=== PATIENT | female | born 1965 | race Caucasian/White ===

== ENCOUNTER 2016-10-08 16:49 | Emergency (ER) | payer OTHER ==
[2016-10-08 16:53] VITALS: BP 122/75; PULSE 93; TEMP 98; BMI 36.0
[2016-10-08] MEDS ORDERED: CEPHALEXIN MONOHYDRATE 500 MG CAPSULE (UD) ONE (17:49)
--- NOTE | 2016-10-08 17:57 | PDOC ---
History of Present Illness - General Chief Complaint: Pain Stated Complaint: WOUND Time Seen by Provider: 10/08/16 17:00 History Source: Patient - History of Present Illness Occurred: reports: this afternoon Severity: Yes: moderate Lower Extremity Pain Location: right: 5th toe Past History - Past Medical History Allergies/Adverse Reactions: Allergies Allergy/AdvReac Type Severity Reaction Status Date / Time Penicillins Allergy Severe Hives Verified 10/08/16 16:53 Home Medications: Ambulatory Orders Aspirin [ASA -] 81 mg PO DAILY 12/26/11 Metoprolol Succinate [Toprol XL -] 50 mg PO DAILY 12/26/11 Valsartan [Diovan] 160 mg PO DAILY 12/26/11 Milk Thistle 150 mg PO DAILY 02/27/14 Vitamin E 1,000 unit PO DAILY 02/27/14 Insulin Glargine,Hum.rec.anlog [Toujeo Solostar] 50 unit SQ DAILY 12/21/15 Insulin Lispro [Humalog] 8 units SQ HS 12/21/15 Linagliptin/Metformin HCl [Jentadueto 2.5 mg-850 mg Tab] 1 each PO BID 12/21/15 Rosuvastatin Calcium [Crestor] 20 mg PO HS 12/21/15 Clindamycin [Cleocin -] 300 mg PO Q6HPO #28 capsule 10/08/16 Anemia: No Asthma: Yes Cancer: No Cardiac Disorders: No CVA: No COPD: No CHF: No Dementia: No Diabetes: Yes GI Disorders: Yes (ACID REFLUX AT TIMES) Disorders: No HTN: Yes Hypercholesterolemia: Yes Kidney Stones: Yes Liver Disease: No Suicide Attempt (Hx): No Seizures: No Thyroid Disease: No - Surgical History Abdominal Surgery: No Appendectomy: No Cardiac Surgery: No Cholecystectomy: No Lung Surgery: No Neurologic Surgery: No Orthopedic Surgery: Yes (ARTHROSCOPIC SHOULDER - LEFT; CARPAL TUNNEL RIGHT HAND) - Immunization History Immunization Up to Date: Yes - Psycho/Social/Smoking Cessation Hx Anxiety: No Suicidal Ideation: No Smoking Status: Yes Smoking History: Current every day smoker Have you smoked in the past 12 months: Yes Number of Cigarettes Smoked Daily: 10 Information on smoking cessation initiated: No 'Breaking Loose' booklet given: 01/12/16 Hx Alcohol Use: No Drug/Substance Use Hx: No Substance Use Type: None Hx Substance Use Treatment: No Review of Systems - Review of Systems Constitutional: No: Chills, Fever Musculoskeletal: Yes: Joint Pain, Joint Swelling *Physical Exam - Vital Signs Last Vital Signs Temp Pulse Resp BP Pulse Ox 98 F 93 H 18 122/75 99 10/08/16 16:50 10/08/16 16:50 10/08/16 16:50 10/08/16 16:50 10/08/16 16:50 - Physical Exam General Appearance: Yes: Appropriately Dressed. No: Apparent Distress HEENT: positive: Normal Voice Neck: positive: Supple Respiratory/Chest: negative: Respiratory Distress Gastrointestinal/Abdominal: positive: Soft Extremity: positive: Other (minimal localized swelling w/ sig ttp to paronychia of R 5th digit, no pus visualized) Integumentary: positive: Dry, Warm Neurologic: positive: Fully Oriented, Alert, Normal Mood/Affect Medical Decision Making - Medical Decision Making 10/08/16 17:57 51 yo F, h/o DM, p/w pain and swelling to R 5th digit that started several hrs ago. No trauma. No f/c See exam Early paronychia in a diabetic No pus to I&D -dc w/ warm compress and abx -wound check in 48 hrs *DC/Admit/Observation/Transfer Diagnosis at time of Disposition: Paronychia Qualifiers: Laterality: right Qualified Code(s): L03.011 - Cellulitis of right finger - Discharge Dispostion Disposition: HOME Condition at time of disposition: Good - Prescriptions Prescriptions: Clindamycin [Cleocin -] 300 mg PO Q6HPO #28 capsule - Referrals Referrals: Layne Moffett MD [Primary Care Provider] - - Patient Instructions Printed Discharge Instructions: DI for Paronychia Additional Instructions: Apply warm compresses to site 3-4 times a day and take antibiotics as directed Return to ED in 48 hrs for wound check
[2016-10-08] MEDS ORDERED: CEPHALEXIN MONOHYDRATE 500 MG CAPSULE (UD) PO ONE (18:04)
== END 2016-10-08 18:54 | disposition home or self-care (01) ==
LOC: JERFT 16:49
DX: L03.011 Cellulitis of right finger (principal); I10 Essential (primary) hypertension; E11.9 Type 2 diabetes mellitus without complications; Z79.4 Long term (current) use of insulin; E78.00 Pure hypercholesterolemia, unspecified; L21.9 Seborrheic dermatitis, unspecified; F17.210 Nicotine dependence, cigarettes, uncomplicated
CPT/HCPCS: 99281-25

== ENCOUNTER 2016-10-10 10:52 | Emergency (ER) | payer OTHER ==
[2016-10-10 10:59] VITALS: BP 132/80; PULSE 85; TEMP 98.1; BMI 36.0
--- NOTE | 2016-10-10 11:10 | PDOC ---
History of Present Illness - General Chief Complaint: Revisit,Wound Recheck Stated Complaint: REVISIT/ WOUND CHECK Time Seen by Provider: 10/10/16 11:07 History Source: Patient Exam Limitations: No Limitations - History of Present Illness Initial Comments: 10/10/16 11:16 Pt. is a 51 y/o female with PMH of IDDM presents to the ED today to have her 5th R pinky evaluated. She was seen two days ago and diagnosed with a paronychia. The paronychia was unable to be drained at that time d/t lack of pus. Pt. states that the area is still painful. States she has been taking the antibiotic prescribed to her last visit and doing warm water soaks. Denies fevers, chills, and drainage from the area. Past History - Travel Traveled outside of the country in the last 30 days: No Close contact w/someone who was outside of country & ill: No - Past Medical History Allergies/Adverse Reactions: Allergies Allergy/AdvReac Type Severity Reaction Status Date / Time Penicillins Allergy Severe Hives Verified 10/10/16 10:56 Home Medications: Ambulatory Orders Aspirin [ASA -] 81 mg PO DAILY 12/26/11 Metoprolol Succinate [Toprol XL -] 50 mg PO DAILY 12/26/11 Valsartan [Diovan] 160 mg PO DAILY 12/26/11 Milk Thistle 150 mg PO DAILY 02/27/14 Vitamin E 1,000 unit PO DAILY 02/27/14 Insulin Glargine,Hum.rec.anlog [Toujeo Solostar] 50 unit SQ DAILY 12/21/15 Insulin Lispro [Humalog] 8 units SQ HS 12/21/15 Linagliptin/Metformin HCl [Jentadueto 2.5 mg-850 mg Tab] 1 each PO BID 12/21/15 Rosuvastatin Calcium [Crestor] 20 mg PO HS 12/21/15 Clindamycin [Cleocin -] 300 mg PO Q6HPO #28 capsule 10/08/16 Anemia: No Asthma: Yes Cancer: No Cardiac Disorders: No CVA: No COPD: No CHF: No Dementia: No Diabetes: Yes GI Disorders: Yes (ACID REFLUX AT TIMES) Disorders: No HTN: Yes Hypercholesterolemia: Yes Kidney Stones: Yes Liver Disease: No Suicide Attempt (Hx): No Seizures: No Thyroid Disease: No - Surgical History Abdominal Surgery: No Appendectomy: No Cardiac Surgery: No Cholecystectomy: No Lung Surgery: No Neurologic Surgery: No Orthopedic Surgery: Yes (ARTHROSCOPIC SHOULDER - LEFT; CARPAL TUNNEL RIGHT HAND) - Immunization History Immunization Up to Date: Yes - Psycho/Social/Smoking Cessation Hx Anxiety: No Suicidal Ideation: No Smoking Status: Yes Smoking History: Current every day smoker Have you smoked in the past 12 months: Yes Number of Cigarettes Smoked Daily: 10 Information on smoking cessation initiated: Yes 'Breaking Loose' booklet given: 10/10/16 Hx Alcohol Use: No Drug/Substance Use Hx: No Substance Use Type: None Hx Substance Use Treatment: No Review of Systems - Review of Systems Able to Perform ROS?: Yes Is the patient limited Hungarian proficient: No Constitutional: No: Chills, Fever, Weakness Musculoskeletal: No: Joint Pain, Joint Swelling Integumentary: Yes: Erythema (with swelling R 5th finger), Other (Pain to R 5th finger) *Physical Exam - Vital Signs Last Vital Signs Temp Pulse Resp BP Pulse Ox 98.1 F 85 18 132/80 95 10/10/16 10:57 10/10/16 10:57 10/10/16 10:57 10/10/16 10:57 10/10/16 10:57 - Physical Exam General Appearance: Yes: Nourished, Appropriately Dressed. 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 is a 51 y/o female with PMH of IDDM who presents for a wound check of a paronychia on her R 5th finger. Today, there is a visible abscess on the lateral portion of the R 5th cuticle. Will soak the area and give a digital block for I&D of the paronychia. 10/10/16 11:59 Pt. tolerated procedure well. See procedure note. Purulent matter expressed from the paronychia. Wound culture not performed at this time as pt. is currently on clindamycin. Wound was packed with 1/4 iodonated packing. Xeroform dressing placed over the wound with 2x2's. Pt. instructed to return to the ED on 10/13/16 to have the wound evaluated and packing removed. Pt. understands all discharge instructions and all questions were answered at this time. *DC/Admit/Observation/Transfer Diagnosis at time of Disposition: Paronychia Qualifiers: Laterality: right Qualified Code(s): L03.011 - Cellulitis of right finger - Discharge Dispostion Disposition: HOME Condition at time of disposition: Improved Admit: No - Referrals Referrals: Layne Moffett MD [Primary Care Provider] - - Patient Instructions Printed Discharge Instructions: DI for Incision and Drainage Additional Instructions: We drained the infection in your finger and placed a small piece of packing today. Continue with your antibiotics. You may take Tylenol or Motrin as needed for pain. Avoid soaking the area until you return. Wear a glove while showering or washing dishes. Return in three days to have the wound checked and packing removed. Return to the ED if you develop fevers, chills, worsening pain, or redness in the finger, or if there are any changes in your symptoms.
== END 2016-10-10 12:35 | disposition home or self-care (01) ==
LOC: JERFT 10:52
DX: L03.011 Cellulitis of right finger (principal); F17.210 Nicotine dependence, cigarettes, uncomplicated; J45.909 Unspecified asthma, uncomplicated; I10 Essential (primary) hypertension; E78.00 Pure hypercholesterolemia, unspecified; E11.9 Type 2 diabetes mellitus without complications
CPT/HCPCS: 99282-25

== ENCOUNTER 2016-10-13 11:08 | Emergency (ER) | payer OTHER ==
[2016-10-13 11:27] VITALS: BP 125/73; PULSE 84; TEMP 98.1; BMI 36.0
--- NOTE | 2016-10-13 11:56 | PDOC ---
Suture Removal/Wound Check HPI - History of Present Illness Chief Complaint: Wound Stated Complaint: FOLLOW-UP Time Seen by Provider: 10/13/16 11:42 History Source: Yes: Patient - Previous ED Treatment Type of procedure performed on last visit: Yes: I&D of Abscess Tetanus Immunization: Yes: Up to Date Past History - Past Medical History Allergies/Adverse Reactions: Allergies Penicillins Allergy (Severe, Verified 10/10/16 10:56) Hives Home Medications: Ambulatory Orders Aspirin [ASA -] 81 mg PO DAILY 12/26/11 Metoprolol Succinate [Toprol XL -] 50 mg PO DAILY 12/26/11 Valsartan [Diovan] 160 mg PO DAILY 12/26/11 Milk Thistle 150 mg PO DAILY 02/27/14 Vitamin E 1,000 unit PO DAILY 02/27/14 Insulin Glargine,Hum.rec.anlog [Toujeo Solostar] 50 unit SQ DAILY 12/21/15 Insulin Lispro [Humalog] 8 units SQ HS 12/21/15 Linagliptin/Metformin HCl [Jentadueto 2.5 mg-850 mg Tab] 1 each PO BID 12/21/15 Rosuvastatin Calcium [Crestor] 20 mg PO HS 12/21/15 Clindamycin [Cleocin -] 300 mg PO Q6HPO #28 capsule 10/08/16 - Immunization History Immunizations Up to Date: Yes - Social History Smoking History: Yes Smoking Status: Current every day smoker Number of Ciarettes Per Day: 10 Suture Removal/Wound Check PE - Physical Exam Laceration/Wound Check Symptoms: denies: Pain, Fever, Chills, Redness Current Severity Level: None Location of Laceration/Wound: right: Finger (well healing, no erythema, no e/o reaccumulation) *Review of Systems - Review of Systems Constitutional: No: Chills, Fever Integumentary: No: Erythema Medical Decision Making - Medical Decision Making 10/13/16 11:50 51 -year-old female history of diabetes. here for wound check of paronychia. Was seen in ED 2 days ago and had I&D. Currently on clindamycin. States pain has since resolved and no fever or chills See exam Well-healing paronychia No signs of reaccumulation -Dc to continue antibiotics and to return for any worsening of symptoms 10/13/16 11:56 *DC/Admit/Observation/Transfer Diagnosis at time of Disposition: Wound check, abscess - Discharge Dispostion Disposition: HOME Condition at time of disposition: Good - Patient Instructions Additional Instructions: Continue antibiotics and return for worsening of symptoms
== END 2016-10-13 11:57 | disposition home or self-care (01) ==
LOC: JERFT 11:08 → JER 11:08 → JERFT 11:57
DX: Z09 Encounter for follow-up examination after completed treatment for conditions other than malignant neoplasm (principal)
CPT/HCPCS: 99281-25

== ENCOUNTER 2018-03-13 11:47 | Inpatient (IN) | payer OTHER ==
--- NOTE | 2018-03-13 12:29 | PDOC ---
History of Present Illness - General Chief Complaint: Chest Pain Stated Complaint: CHEST PAIN Time Seen by Provider: 03/13/18 11:59 History Source: Patient Exam Limitations: No Limitations - History of Present Illness Initial Comments: 03/13/18 12:19 52 yo female pmh of IDDM, HTN, HLD, carpal tunnel, asthma, 30 smoking hx and GERD presents to the ED for 3 days of chest pain, back pain, left index finger numbness arm and left leg pain. Patient states the pain started suddenly, is intermittent, focally located to the left of the sternum at the level of the 5th rib (reproducible with palpation and movement) and described as sharp and stabbing. States walking 1 block leads to CP and SOB also admits to waking up 2- 3 times over the last 3 nights SOB and new swelling around her ankles within the last 1 week. Patient had negative stress test and cardiac work up 1 year ago. Also complains of left leg pain down posterior thigh made worse with activity but denies weakness. Patient usually takes Motrin 800mg for pain but was concerned when this time the medication did not give her relief. Denies family hx of ACS, calf tenderness, N/V/F/C, abdominal pain, changes in bladder or bowel habits. Past History - Past Medical History Allergies/Adverse Reactions: Allergies Allergy/AdvReac Type Severity Reaction Status Date / Time Penicillins Allergy Severe Hives Verified 03/13/18 11:49 Home Medications: Ambulatory Orders Aspirin [ASA -] 81 mg PO DAILY 12/26/11 Metoprolol Succinate [Toprol XL -] 50 mg PO DAILY 12/26/11 Valsartan [Diovan] 160 mg PO DAILY 12/26/11 Milk Thistle 150 mg PO DAILY 02/27/14 Vitamin E 1,000 unit PO DAILY 02/27/14 Insulin Glargine,Hum.rec.anlog [Toujeo Solostar] 50 unit SQ DAILY 12/21/15 Insulin Lispro [Humalog] 8 units SQ HS 12/21/15 Linagliptin/Metformin HCl [Jentadueto 2.5 mg-850 mg Tab] 1 each PO BID 12/21/15 Rosuvastatin Calcium [Crestor] 20 mg PO HS 12/21/15 Clindamycin [Cleocin -] 300 mg PO Q6HPO #28 capsule 10/08/16 Anemia: No Asthma: Yes Cancer: No Cardiac Disorders: No CVA: No COPD: No CHF: No Dementia: No Diabetes: Yes GI Disorders: Yes (ACID REFLUX AT TIMES) Disorders: No HTN: Yes Hypercholesterolemia: Yes Kidney Stones: Yes Liver Disease: No Seizures: No Thyroid Disease: No - Surgical History Abdominal Surgery: No Appendectomy: No Cardiac Surgery: No Cholecystectomy: No Lung Surgery: No Neurologic Surgery: No Orthopedic Surgery: Yes (ARTHROSCOPIC SHOULDER - LEFT; CARPAL TUNNEL RIGHT HAND) - Immunization History Immunization Up to Date: Yes - Suicide/Smoking/Psychosocial Hx Smoking Status: Yes Smoking History: Former smoker Have you smoked in the past 12 months: Yes Number of Cigarettes Smoked Daily: 10 If you are a former smoker, when did you quit?: 12/13/17 Information on smoking cessation initiated: No 'Breaking Loose' booklet given: 10/10/16 Hx Alcohol Use: No Drug/Substance Use Hx: No Substance Use Type: None Hx Substance Use Treatment: No Review of Systems - Review of Systems Constitutional: No: Chills, Fever Respiratory: Yes: SOB with Exertion. No: Cough, Wheezing Cardiac (ROS): Yes: Chest Pain, Edema (bilateral ankle). No: Palpitations ABD/GI: Yes: Other (denies abdominal pain). No: Constipated, Diarrhea, Nausea, Vomiting Musculoskeletal: Yes: Back Pain. No: Muscle Weakness Neurological: Yes: Numbness (left index finger). No: Weakness, Unsteady Gait *Physical Exam - Vital Signs Last Vital Signs Temp Pulse Resp BP Pulse Ox 98.9 F 91 H 18 167/81 95 03/13/18 11:49 03/13/18 11:49 03/13/18 11:49 03/13/18 11:49 03/13/18 11:49 - Physical Exam General Appearance: Yes: Nourished, Appropriately Dressed. No: Apparent Distress HEENT: positive: EOMI, JACOB Respiratory/Chest: positive: Lungs Clear, Normal Breath Sounds. negative: Crackles, Rales, Wheezing Cardiovascular: positive: Regular Rhythm, Regular Rate, S1, S2. negative: Edema , JVD, Murmur Vascular Pulses: Dorsalis-Pedis (R): 3+, Doralis-Pedis (L): 3+ Gastrointestinal/Abdominal: positive: Normal Bowel Sounds, Flat, Soft. negative : Pulsatile Mass, Protuberent, Distended, Guarding, Rebound, Tenderness Musculoskeletal: positive: Normal Inspection. 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 NML intact, Fully Oriented, Alert, Normal Mood/ Affect, Normal Response, Motor Strength 5/5 Heart Score/ECG Review - History History: Slightly suspicious - Electrocardiogram EKG: Non specific repolarization disturbance - Age Age: 45-65 - Risk Factors Risk Factors Heart Score: Yes Hx Hypercholesterolemia, Yes Hx Hypertension, Yes Hx Diabetes, Yes Smoking History, No Positive family hx of cardiac disease, Yes Hx Obesity Based on the list above the patient has:: >/=3 risk factors or Hx atherosclerotic disease - Troponin Troponin: </= normal limit - Score Heart Score - Total: 4 - ECG Intrepretation Rhythm: Regular Rhythm - Timbo Timbo: Normal - ECG Impressions Non-specific ST Elevation: No Ischemic Changes: No ED Treatment Course - LABORATORY CBC & Chemistry Diagram: 03/13/18 12:55 03/13/18 12:55 Medical Decision Making - Medical Decision Making 03/13/18 13:04 52 yo female presents with 3 days of exertional CP, SOB, back ad leg pain with reproducible s/s on palpation of chest, back and leg. Exam: Heart and lungs normal no calf tenderness or edema reproducible CP, back pain and leg pain on palpation DDX: ACS, AD, CHF, PE, costochondritis EKG: normal sinus rhythm, unchanged from august 2016 Duplex LL Chest X ray will reassess 03/13/18 15:10 Pain still present and due to risk factors will admit to *DC/Admit/Observation/Transfer Diagnosis at time of Disposition: Chest pain Qualifiers: Chest pain type: unspecified Qualified Code(s): R07.9 - Chest pain, unspecified - Discharge Dispostion Condition at time of disposition: Stable Decision to Admit order: Yes - Referrals Referrals: Layne Moffett MD [Primary Care Provider] - - Patient Instructions - Post Discharge Activity
[2018-03-13 13:09] LABS: URINE APPEARANCE CLEAR; URINE BILIRUBIN NEGATIVE (<2.0 mg/dL); URINE COLOR LTYELLOW; URINE GLUCOSE (UA) 2+ (NEGATIVE); URINE KETONE NEGATIVE (NEGATIVE); URINE LEUK ESTERASE NEGATIVE (NEGATIVE); URINE NITRITE NEGATIVE (NEGATIVE); URINE PROTEIN 2+ (NEGATIVE); URINE UROBILINOGEN NEGATIVE mg/dL (0.2-1.0)
[2018-03-13 13:09] LABS: BASO % 0.8 % (0-2.0); EOS % 1.8 % (0-4.5); HEMATOCRIT 39.2 % (32.4-45.2); LYMPH % 17.2 % (8-40); MCH 29.1 pg (25.7-33.7); MCHC 33.1 g/dl (32.0-36.0); MEAN PLT VOLUME 8.8 fl (7.5-11.1); MONO % 4.2 % (3.8-10.2); PLATELET COUNT 232 K/MM3 (134-434); RBC 4.45 M/mm3 (3.60-5.2); RDW 15.3 % (11.6-15.6)
[2018-03-13 13:11] LABS: EPI CELLS FEW /HPF (FEW); URINE HYALINE CAST 1 /lpf; URINE MUCUS RARE
--- NOTE | 2018-03-13 13:15 | PDOC ---
Attending Attestation - HPI HPI: 03/13/18 13:26 The patient is a 52-year-old female, with a past medical history of HTN, HLD, DM , asthma, acid reflux, carpal tunnel, obesity, who presents to the ED with 3 days of left-sided chest pain. The patient describes the pain as intermittent, sharp/stabbing in sensation, reproducible with palpation, exacerbated with movement, and associated with shortness of breath. Patient is also endorsing left index finger numbness, left leg pain and lower back pain. She denies any recent strenuous activity or recent trauma. Patient reports having a cardiac workup [address] Cantu. The headache, weakness, and dizziness. Denies fever, chills, nausea, vomiting, diarrhea and constipation. Denies dysuria, frequency, urgency and hematuria. Allergies: Penicillins Past Social History: Former smoker (30 year smoking history, quit 3 months ago) . Past Surgical History: arthroscopic shoulder - left, carpal tunnel - right hand. PCP: Dr. Layne Moffett - Physicial Exam PE: 03/13/18 13:28 GENERAL: (+)Obese. Awake, alert, and fully oriented, in no acute distress HEAD: No signs of trauma EYES: PERRLA, EOMI, sclera anicteric, conjunctiva clear ENT: Auricles normal inspection, hearing grossly normal, nares patent, oropharynx clear without exudates. Moist mucosa NECK: Normal ROM, supple, no lymphadenopathy, JVD, or masses LUNGS: Breath sounds equal, clear to auscultation bilaterally. No wheezes, and no crackles HEART: Regular rate and rhythm, normal S1 and S2, no murmurs, rubs or gallops ABDOMEN: Soft, nontender, normoactive bowel sounds. No guarding, no rebound. No masses MSK: (+)Reproducible pain to palpation of the left lateral chest, left upper back, and left lower extremity. EXTREMITIES: Normal range of motion, no edema. No clubbing or cyanosis. No cords, erythema, or tenderness NEUROLOGICAL: (+)Decreased sensation of the left 2nd digit. Cranial nerves II through XII intact. Normal speech, normal gait. No pronator drift. SKIN: Warm, Dry, normal turgor, no rashes or lesions noted. <Juliette Kelley - Last Filed: 03/13/18 13:26> - Resident Resident Name: Juvencio Saenz - ED Attending Attestation I have performed the following: I have examined & evaluated the patient, The case was reviewed & discussed with the resident, I agree w/resident's findings & plan, Exceptions are as noted - Medical Decision Making 03/13/18 12:42 A portion of this note was documented by scribe services under my direction. I have reviewed the details of the note, within reason, and agree with the documentation with the following case summary and management plan written by me. Patient treated in the ED. Nursing notes are reviewed and incorporated into the medical decision-making. Vital signs reviewed. Peripheral IV access obtained by the nurse, laboratory studies are drawn and sent, reviewed and interpreted by myself. Vital Signs Temp Pulse Resp BP Pulse Ox 98.9 F 91 H 18 167/81 95 03/13/18 11:49 03/13/18 11:49 03/13/18 11:49 03/13/18 11:49 03/13/18 11:49 52-year-old female patient with history of hypertension, diabetes, hyperlipidemia, asthma, acid reflux, carpal tunnel, obesity presents with chest pain for 3 days. Patient reports that she woke up with this pain and noticed that the symptoms were reproducible. Reported palpation worsens left upper chest and left back and left thigh were no supple. She denies dyspnea on exertion or shortness of breath. Denies radiation, nausea or vomiting or diaphoresis. She also recently noted left second digit numbness but does have a history of carpal tunnel. Because of the chest pain, patient came to the ER for evaluation. The chest pain seemed atypical for acute coronary syndrome or pulmonary emboolism. The patient's chest pain does not radiate to the back but the patient does report some back pain. At this time, I have low suspicion for pulmonary embolism or aortic dissection at this time. However, given patient's risk, we'll send labs including troponin and chest x-ray. R/o DVT. 03/13/18 14:11 CBC, BMP 03/13/18 12:55 03/13/18 12:55 CMP Sodium 138 mmol/L (136-145) 03/13/18 12:55 Potassium 4.1 mmol/L (3.5-5.1) 03/13/18 12:55 Chloride 101 mmol/L (98-107) 03/13/18 12:55 Carbon Dioxide 27 mmol/L (21-32) 03/13/18 12:55 Anion Gap 10 MMOL/L (8-16) 03/13/18 12:55 BUN 21 mg/dL (7-18) H 03/13/18 12:55 Creatinine 0.8 mg/dL (0.55-1.3) 03/13/18 12:55 Creat Clearance w eGFR > 60 (>60) 03/13/18 12:55 Random Glucose 217 mg/dL (74-106) H 03/13/18 12:55 Calcium 9.1 mg/dL (8.5-10.1) 03/13/18 12:55 Total Bilirubin 0.3 mg/dL (0.2-1) 03/13/18 12:55 AST 22 U/L (15-37) 03/13/18 12:55 ALT 30 U/L (13-61) 03/13/18 12:55 Alkaline Phosphatase 160 U/L (45-117) H 03/13/18 12:55 Creatine Kinase 87 IU/L (26-192) 03/13/18 12:55 Troponin I < 0.02 ng/ml (0.00-0.05) 03/13/18 12:55 B-Natriuretic Peptide 73.6 pg/ml (5-125) 03/13/18 12:55 Total Protein 7.5 g/dl (6.4-8.2) 03/13/18 12:55 Albumin 3.6 g/dl (3.4-5.0) 03/13/18 12:55 03/13/18 14:51 Though pt's hx is atypical, pt has a heart score of 4. Given her high risks, will need to admit for observation. Will admit patient to the hospital for further evaluation and evaluation for consultation for cardiology. <Pratik Traylor - Last Filed: 03/13/18 14:52> Heart Score/ECG Review - History History: Slightly suspicious - Electrocardiogram EKG: Non specific repolarization disturbance - Age Age: 45-65 - Risk Factors Based on the list above the patient has:: >/=3 risk factors or Hx atherosclerotic disease - Troponin Troponin: </= normal limit - Score Heart Score - Total: 4 #1 ECG reviewed & interpreted by me at: 11:50 03/13/18 13:16 NSR 90, LVH, no std/pierre, T wave inversion III, QTC 447 msec, Q wave III, avF <Pratik Traylor - Last Filed: 03/13/18 14:52> Attestations - Attestations 03/13/18 13:28 Documentation prepared by Juliette Kelley, acting as medical hospital sales for Pratik Traylor MD. <Juliette Kelley - Last Filed: 03/13/18 13:26>
[2018-03-13 13:42] LABS: ALBUMIN 3.6 g/dl (3.4-5.0); ALK PHOS 160 U/L (45-117); ANION GAP 10 MMOL/L (8-16); BILIRUBIN,TOTAL 0.3 mg/dL (0.2-1); BLOOD UREA NITROGEN 21 mg/dL (7-18); CALCIUM 9.1 mg/dL (8.5-10.1); CHLORIDE 101 mmol/L (98-107); CO2 27 mmol/L (21-32); CREATININE 0.8 mg/dL (0.55-1.3); GLUCOSE,RANDOM 217 mg/dL (74-106); POTASSIUM 4.1 mmol/L (3.5-5.1); SGOT/AST 22 U/L (15-37); SGPT/ALT 30 U/L (13-61); SODIUM 138 mmol/L (136-145); TOT PROT 7.5 g/dl (6.4-8.2)
[2018-03-13] MEDS ORDERED: MAG HYDROX/AL HYDROX/SIMETH -MYLANTA- ORAL SUSPENSION PO ONE (14:17)
[2018-03-13] MEDS ORDERED: MAG HYDROX/AL HYDROX/SIMETH 30 ML UNIT-DOSE CUP ONE (14:46)
--- NOTE | 2018-03-13 16:10 | HP ---
CHIEF COMPLAINT: chest pain PCP:Dr Layne Moffett HISTORY OF PRESENT ILLNESS: 52 year old female with pmh HTN , HLD, IDDM, Back pain , Asthma , GERD , Gout presented to the hospital with 3 days history of local med sternal chest pain , 7-8/10 , continuos, on rest and on exertion , reproducible , did not improve with pain killer this time , associated with palpitation and SOB , pt reports feeling SOB on 5 steps when clibing stairs and one block of walking on flat floor, denies any orthopnea , she sleeps on one pillow. she also reports feeling of nubness in her left arm and left leg with decreased sensation in her left index. pt denies any headach, but reports light headedness, denies nay fever, chills ,N /V/D/C, denies any abdominal pain or urinary symptoms , she reports some knee pain but no swelling in her legs . she has a a history of lef shoulder bursitis with L shoulder surgery. ER course was notable for: (1)Trop - X2 (2)EKG with no St- T wave changes (3)CXR with no acute pathology (4) Doppler Lower Ext negative for DVT Recent Travel:denies PAST MEDICAL HISTORY: HTN , HLD, [place] , IDDM, Gout , back pain , Carpal tunnel syndrome, PAST SURGICAL HISTORY: TAH_ BSO , Tubal ligation before that , Carpal tunnel syndrom B/L , left shoulder surgery. Social History: Smokin PPD quit 3 months ago Alcohol:Socially 3-4 cups of beer on holidays Drugs: denies Family History: Allergies Penicillins Allergy (Severe, Verified 03/13/18 11:49) Hives HOME MEDICATIONS: Home Medications Medication Instructions Recorded Aspirin [ASA -] 81 mg PO DAILY 12/26/11 Metoprolol Succinate [Toprol XL -] 50 mg PO DAILY 12/26/11 Valsartan [Diovan] 160 mg PO DAILY 12/26/11 Milk Thistle 150 mg PO DAILY 02/27/14 Vitamin E 1,000 unit PO DAILY 02/27/14 Insulin Glargine,Hum.rec.anlog 50 unit SQ DAILY 12/21/15 [Mickey Solostkashif] Insulin Lispro [Humalog] 8 units SQ HS 12/21/15 Linagliptin/Metformin HCl 1 each PO BID 12/21/15 [Jentadueto 2.5 mg-850 mg Tab] Rosuvastatin Calcium [Crestor] 20 mg PO HS 12/21/15 Clindamycin [Cleocin -] 300 mg PO Q6HPO #28 capsule 10/08/16 REVIEW OF SYSTEMS CONSTITUTIONAL: Absent: fever, chills, diaphoresis, generalized weakness, malaise, loss of appetite, weight change HEENT: Absent: rhinorrhea, nasal congestion, throat pain, throat swelling, difficulty swallowing, mouth swelling, ear pain, eye pain, visual changes CARDIOVASCULAR: Absent: chest pain, syncope, palpitations, irregular heart rate, lightheadedness , peripheral edema RESPIRATORY: Absent: cough, shortness of breath, dyspnea with exertion, orthopnea, wheezing, stridor, hemoptysis GASTROINTESTINAL: Absent: abdominal pain, abdominal distension, nausea, vomiting, diarrhea, constipation, melena, hematochezia GENITOURINARY: Absent: dysuria, frequency, urgency, hesitancy, hematuria, flank pain, genital pain MUSCULOSKELETAL: Absent: myalgia, arthralgia, joint swelling, back pain, neck pain SKIN: Absent: rash, itching, pallor HEMATOLOGIC/IMMUNOLOGIC: Absent: easy bleeding, easy bruising, lymphadenopathy, frequent infections ENDOCRINE: Absent: unexplained weight gain, unexplained weight loss, heat intolerance, cold intolerance NEUROLOGIC: Absent: headache, focal weakness or paresthesias, dizziness, unsteady gait, seizure, mental status changes, bladder or bowel incontinence PSYCHIATRIC: Absent: anxiety, depression, suicidal or homicidal ideation, hallucinations. PHYSICAL EXAMINATION Vital Signs - 24 hr 03/13/18 11:49 Temperature 98.9 F Pulse Rate 91 H Respiratory 18 Rate Blood Pressure 167/81 O2 Sat by Pulse 95 Oximetry (%) GENERAL: obese , appropriate for her age , AAOx3 in NAD HEAD: NC/AT, EYES: EOMI, Conjunctiva clear, sclera anicteric ENT: moist mucous membrane NECK: Supple, no JVD, pain when looking to the left shoulder LUNGS: CTA B/L, no crackles no wheezing no accessory muscle use. HEART: RRR, NSR, normal s1, s2, murmur no M/R/G ABDOMEN: Obese , Soft, ND, NT, +BS 4 Q, no CVA Tenderness LOWER EXTREMITIES: no edema, +2DP pulse, NEUROLOGICAL: No focal deficit. Normal speech. normal gait , CNII-CNXII not intact , sensation intact , strength 5/5 upper and lower ext , no dysmetria , negative romberg, upper chest and lower back tenderness, PSYCHIATRIC: Cooperative. Good eye contact. Appropriate mood and affect. SKIN: Warm, dry, Laboratory Results - last 24 hr 03/13/18 03/13/18 03/13/18 12:29 12:55 12:55 WBC 10.0 RBC 4.45 Hgb 13.0 Hct 39.2 MCV 88.0 MCH 29.1 MCHC 33.1 RDW 15.3 Plt Count 232 MPV 8.8 Absolute Neuts (auto) 7.6 Neutrophils % 76.0 Lymphocytes % 17.2 D Monocytes % 4.2 Eosinophils % 1.8 Basophils % 0.8 Nucleated RBC % 0 Sodium 138 Potassium 4.1 Chloride 101 Carbon Dioxide 27 Anion Gap 10 BUN 21 H Creatinine 0.8 Creat Clearance w eGFR > 60 Random Glucose 217 H Calcium 9.1 Total Bilirubin 0.3 AST 22 ALT 30 Alkaline Phosphatase 160 H Creatine Kinase 87 Troponin I < 0.02 B-Natriuretic Peptide Total Protein 7.5 Albumin 3.6 Urine Color Ltyellow Urine Appearance Clear Urine pH 5.0 Ur Specific Pierce 1.017 Urine Protein 2+ H Urine Glucose (UA) 2+ H Urine Ketones Negative Urine Blood Negative Urine Nitrite Negative Urine Bilirubin Negative Urine Urobilinogen Negative Ur Leukocyte Esterase Negative Urine WBC (Auto) 1 Urine RBC (Auto) <1 Ur Epithelial Cells Few Hyaline Casts 1 Urine Mucus Rare 03/13/18 12:55 WBC RBC Hgb Hct MCV MCH MCHC RDW Plt Count MPV Absolute Neuts (auto) Neutrophils % Lymphocytes % Monocytes % Eosinophils % Basophils % Nucleated RBC % Sodium Potassium Chloride Carbon Dioxide Anion Gap BUN Creatinine Creat Clearance w eGFR Random Glucose Calcium Total Bilirubin AST ALT Alkaline Phosphatase Creatine Kinase Troponin I B-Natriuretic Peptide 73.6 Total Protein Albumin Urine Color Urine Appearance Urine pH Ur Specific Pierce Urine Protein Urine Glucose (UA) Urine Ketones Urine Blood Urine Nitrite Urine Bilirubin Urine Urobilinogen Ur Leukocyte Esterase Urine WBC (Auto) Urine RBC (Auto) Ur Epithelial Cells Hyaline Casts Urine Mucus CBC, BMP 03/13/18 12:55 03/13/18 12:55 ASSESSMENT/PLAN: 52 year old female with pmhx of HTN, HLD, IDDM, Gout, Asthma, presented to hospital today with 3 days history of local chest pain admitted for observation services to R/O ACS # Chest pain * local musculoskeletal , reproducible non radiating 7-12/22, assciated with SOB , and plapitation , numness in her left arm and left leg.continuous last 2 hour * Un likley ACS but to risk factor HTN , HLD, Age , IDDM will be admitted for obs tele * Trop - X2 trend the third one * No EKG specific changes * Doppler LE negative for any DVT * will consult cardiology Dr Gonzales , * Echocardiogram * Repeat lab in AM * CXR with no acute pathology * will treat with NSAIDS 600 mg Q 6 hr * tele monitor * Work up last year came back negative # Low Back pain * tenderness point in upper chest and lower back L3-L4 , local non radiating , chronic in nature * Likely muscle spasm no need for x ray or MRI for now * educated about exercise and physical therapy and loosing weight * NSAIDs as needed for pain # HTN resume home meds # IDDM * Hold home meds * Insuline lantus 25 AM (was on 50 at home ) * Diabetic diet , NPO after med night consider stress test in AM * BGM Q ACHS * Insulin sliding scale * Insulin regular 10 units ACHS * F/U with her endo crinologist as out pt # Morbid obesity * BMI 36 * low fat diabetic diet * Educated about exercise and loosing weight * consider Bariatric surgery # HLD * cont Crestor 20 mg po daily * Lipid panel in AM # FEN * F: oral intake * E: Monitor * N: NPO after mid night # Proph * Dvts: SCDS , LMWH SQ * GI: no need for now # Dispo: Admit to tele obs Case was discussed with Dr Woody and the team Hank Vaca Pgy 2 Visit type - Emergency Visit Emergency Visit: Yes ED Registration Date: 03/13/18 Care time: The patient presented to the Emergency Department on the above date and was hospitalized for further evaluation of their emergent condition. - New Patient This patient is new to me today: Yes Date on this admission: 03/13/18 - Critical Care Critical Care patient: No
--- NOTE | 2018-03-13 16:13 | EKG ---
Test Reason : Blood Pressure : / mmHG Vent. Rate : 090 BPM Atrial Rate : 090 BPM P-R Int : 144 ms QRS Dur : 078 ms QT Int : 366 ms P-R-T Axes : 031 -24 047 degrees QTc Int : 447 ms NORMAL SINUS RHYTHM WITH SINUS ARRHYTHMIA MINIMAL VOLTAGE CRITERIA FOR LVH, MAY BE NORMAL VARIANT INFERIOR INFARCT (CITED ON OR BEFORE 31-AUG-2016) ABNORMAL ECG WHEN COMPARED WITH ECG OF 31-AUG-2016 14:46, NO SIGNIFICANT CHANGE WAS FOUND Confirmed by MD JOSE, JOAO ([id number]) on 03/13/2018 4:12:54 PM Referred By: Confirmed By:JOAO GARCIA MD
--- NOTE | 2018-03-13 16:34 | PN ---
Teaching Attending Note Name of Resident: Hank Vaca ATTENDING PHYSICIAN STATEMENT I saw and evaluated the patient. I reviewed the resident's note and discussed the case with the resident. I agree with the resident's findings and plan as documented. SUBJECTIVE: Patient is a 52 year old female with PMHx of HTN , HLD, T2DM, Asthma , GERD , Gout presented to the ED.c/o having mid- sternal reproducable chest pain, aggrevated by palpation for the past 2 days and also when she takes deep breath. No pain at rest. Denies any fever or chills. No shortness of breath. No nausea or vomiting. No headache. As per patient her son was sick a week ago, who does not live with her. OBJECTIVE: Vital Signs Temperature 98.0 F 03/13/18 16:06 Pulse Rate 85 03/13/18 16:06 Respiratory Rate 16 03/13/18 16:06 Blood Pressure 142/85 03/13/18 16:06 O2 Sat by Pulse Oximetry (%) 98 03/13/18 16:06 GENERAL: Awake, alert, and fully oriented, in no acute distress. HEAD: Normal with no signs of trauma. EYES: Pupils equal, round and reactive to light, extraocular movements intact, sclera anicteric, conjunctiva clear. EARS, NOSE, THROAT: Ears normal, oropharynx clear without exudates. Moist mucous membranes. NECK: Normal range of motion, supple without lymphadenopathy, JVD, or masses. LUNGS: Breath sounds equal, clear to auscultation bilaterally. No wheezes, and no crackles. No accessory muscle use. HEART: Regular rate and rhythm, normal S1 and S2 without murmur, rub or gallop. ABDOMEN: Soft, large , nontender, not distended, normoactive bowel sounds, no guarding, no rebound, no masses. MUSCULOSKELETAL: Normal range of motion at all joints. CVA tenderness. EXTREMITIES: 2+ pulses, warm, well-perfused. No cyanosis. No clubbing. No peripheral edema. NEUROLOGICAL: Cranial nerves II-XII intact. Normal speech. Normal gait. PSYCHIATRIC: Cooperative. Good eye contact. Appropriate mood and affect. SKIN: Warm, dry, normal turgor, no rashes or lesions noted, normal capillary refill. CBCD WBC 10.0 K/mm3 (4.0-10.0) 03/13/18 12:55 RBC 4.45 M/mm3 (3.60-5.2) 03/13/18 12:55 Hgb 13.0 GM/dL (10.7-15.3) 03/13/18 12:55 Hct 39.2 % (32.4-45.2) 03/13/18 12:55 MCV 88.0 fl (80-96) 03/13/18 12:55 MCHC 33.1 g/dl (32.0-36.0) 03/13/18 12:55 RDW 15.3 % (11.6-15.6) 03/13/18 12:55 Plt Count 232 K/MM3 (134-434) 03/13/18 12:55 MPV 8.8 fl (7.5-11.1) 03/13/18 12:55 CMP Sodium 138 mmol/L (136-145) 03/13/18 12:55 Potassium 4.1 mmol/L (3.5-5.1) 03/13/18 12:55 Chloride 101 mmol/L (98-107) 03/13/18 12:55 Carbon Dioxide 27 mmol/L (21-32) 03/13/18 12:55 Anion Gap 10 MMOL/L (8-16) 03/13/18 12:55 BUN 21 mg/dL (7-18) H 03/13/18 12:55 Creatinine 0.8 mg/dL (0.55-1.3) 03/13/18 12:55 Creat Clearance w eGFR > 60 (>60) 03/13/18 12:55 Random Glucose 217 mg/dL (74-106) H 03/13/18 12:55 Calcium 9.1 mg/dL (8.5-10.1) 03/13/18 12:55 Total Bilirubin 0.3 mg/dL (0.2-1) 03/13/18 12:55 AST 22 U/L (15-37) 03/13/18 12:55 ALT 30 U/L (13-61) 03/13/18 12:55 Alkaline Phosphatase 160 U/L (45-117) H 03/13/18 12:55 Total Protein 7.5 g/dl (6.4-8.2) 03/13/18 12:55 Albumin 3.6 g/dl (3.4-5.0) 03/13/18 12:55 CARDIAC ENZYMES Creatine Kinase 87 IU/L (26-192) 03/13/18 12:55 Troponin I < 0.02 ng/ml (0.00-0.05) 03/13/18 15:47 Home Medications Medication Instructions Recorded Metoprolol Succinate [Toprol XL -] 50 mg PO DAILY 12/26/11 Vitamin E 400 unit PO DAILY 02/27/14 Rosuvastatin Calcium [Crestor] 20 mg PO HS 12/21/15 Amlodipine/Valsartan/Hcthiazid 1 each PO DAILY 03/13/18 [[id number] 5-160-12.5 mg] Ascorbate Calcium [Vitamin C] 500 mg PO DAILY 03/13/18 Aspirin [ASA -] 81 mg PO DAILY 03/13/18 Multivitamin [Multiple Vitamins] 1 each PO DAILY 03/13/18 Potassium Citrate [Potassium 15 meq PO BID 03/13/18 Citrate ER] Sitagliptin Phos/Metformin HCl 1 each PO BID 03/13/18 [Janumet 50-1,000 mg Tablet] Toujeo Solostar 90 unit SQ AC 03/13/18 Current Medications Generic Name Dose Route Start Last Admin Trade Name Freq PRN Reason Stop Dose Admin Allopurinol 100 mg 03/14/18 10:00 Zyloprim - PO DAILY [facility] Aspirin 81 mg 03/14/18 10:00 Asa - PO DAILY [facility] Enoxaparin Sodium 40 mg 03/14/18 10:00 Lovenox - SQ DAILY [facility] Insulin Aspart 1 vial 03/13/18 22:00 Novolog Vial Sliding Scale - SQ ACHS [facility] Protocol Insulin Detemir 25 units 03/14/18 07:00 Levemir Vial SQ AM [facility] Metoprolol Succinate 50 mg 03/14/18 10:00 Toprol Xl - PO DAILY [facility] Potassium Citrate/Citric Acid 15 meq 03/13/18 22:00 Cytra-K - PO BID [facility] Rosuvastatin Calcium 20 mg 03/13/18 22:00 Crestor - PO HS [facility] ASSESSMENT AND PLAN: Patient is a 52 year old female with PMHx of HTN , HLD, T2DM, Asthma , GERD , Gout presented to the ED. c/o having mid- sternal reproducable chest pain, aggrevated by palpation for the past 2 days especially when she takes deep breaths. # Atypical chest pain most likely chostrocondritis , patient has multiple comorbidities: T2DM,Obesity,Hld, Htn , will keep her overnight, and r/o ACS Cardio consult , Praveen x2 sets, ekg in am. Aspirin, continue BB. Echo r/o LV dysfunction r/o Pulmonary HTN # T2DM continue with sliding scale and Levemir qam 25units # Hx of Gout on Allopurinol will continue but will discontinue HCTZ since can trigger Gout attack , will continue Potassium citrate as well. # Hx of HLD continue Crestor #HTN Uncontrolled will continue BB, continue the Arb Valsartan # Hx of obstructive COPD /restrictive pattern lung Dz on PFT # Morbid Obesity BMI of 36, weight loss and low fat/low sugar diet recommended. DVT Px: Lovenox
[2018-03-13] MEDS ORDERED: IBUPROFEN 600 MG TABLET (FP) PO SCH (17:00)
[2018-03-13] MEDS ORDERED: SODIUM CHLORIDE 1,000 ML IV SCH (17:00)
--- NOTE | 2018-03-13 17:38 | HP ---
CHIEF COMPLAINT: Chest pain and Shortness of breath PCP: HISTORY OF PRESENT ILLNESS: Pt. states that for the last 2 days she has been having this reproducible chest pain that is 8-9/10 in severity, non-radiating, localized and sharp/ stabbing in nature. Pt. endorses increased pain on deep inspiration. Pt. endorses numbness and tingling in the left index finger, back pain arounf the T4 level, L4 level, b/l flank pain, generalized weakness and generalized fatigue. Pt. reports a water?like sensation on her legs b/l. Pt. endorses chronic b/l knee pain. Pt. endorses decreased ability to ambulate from 5 blocks at baseline to now 1 block before becoming short of breath. Pt. denies lower extremity weakness or numbness. Pt. denies diaphoresis, dizziness, changes in vision, urinary symptoms, changes in bowel habit, recent URI, fever, chills, or generalized weakness. ER course was notable for: (1)EKG- NSR, Trop -, BNP- (2)CXR, UA- (3)CBC, BMP Recent Travel:NO PAST MEDICAL HISTORY: DM2, Carpal tunnel x 2, HTN, HLD, ASthma, GERD, Gout?, PAST SURGICAL HISTORY: Total Hysterectomy (2009), B/l Tubal ligation( ~30 years ago), Shoulder Surgery( 2/2 Bursitis-~10 years ago), Hand Surgery Social History: Smoking:Quit 3 months ago, 15 pack year Hx. Alcohol:Socially Drugs: Denies Family History: Mom- Lung Ca., Aunt DM, Pt. has 3 kids Allergies Penicillins Allergy (Severe, Verified 03/13/18 11:49) Hives HOME MEDICATIONS: Home Medications Medication Instructions Recorded Metoprolol Succinate [Toprol XL -] 50 mg PO DAILY 12/26/11 Vitamin E 400 unit PO DAILY 02/27/14 Rosuvastatin Calcium [Crestor] 20 mg PO HS 12/21/15 Amlodipine/Valsartan/Hcthiazid 1 each PO DAILY 03/13/18 [[id number]-Cwims-Jnzq 5-160-12.5 mg] Ascorbate Calcium [Vitamin C] 500 mg PO DAILY 03/13/18 Aspirin [ASA -] 81 mg PO DAILY 03/13/18 Multivitamin [Multiple Vitamins] 1 each PO DAILY 03/13/18 Potassium Citrate [Potassium 15 meq PO BID 03/13/18 Citrate ER] Sitagliptin Phos/Metformin HCl 1 each PO BID 03/13/18 [Janumet 50-1,000 mg Tablet] Mickey Beckostar 90 unit SQ AC 03/13/18 REVIEW OF SYSTEMS CONSTITUTIONAL: Present:generalized weakness Absent: fever, chills, diaphoresis , malaise, loss of appetite, weight change HEENT:Absent: rhinorrhea, nasal congestion, throat pain, throat swelling, difficulty swallowing, mouth swelling, ear pain, eye pain, visual changes CARDIOVASCULAR: Present: chest pain, lightheadedness, palpitations Absent: syncope, palpitations, irregular heart rate, peripheral edema RESPIRATORY: Present:shortness of breath, dyspnea with exertion Absent: cough, orthopnea, wheezing, stridor, hemoptysis GASTROINTESTINAL:Absent: abdominal pain, abdominal distension, nausea, vomiting , diarrhea, constipation, melena, hematochezia GENITOURINARY: Absent: dysuria, frequency, urgency, hesitancy, hematuria, flank pain, genital pain MUSCULOSKELETAL: Present: back pain, neck pain Absent: myalgia, arthralgia, joint swelling, SKIN: Absent: rash, itching, pallor HEMATOLOGIC/IMMUNOLOGIC: Absent: easy bleeding, easy bruising, lymphadenopathy, frequent infections ENDOCRINE:Absent: unexplained weight gain, unexplained weight loss, heat intolerance, cold intolerance NEUROLOGIC: Present: focal weakness or paresthesias Absent: headache, dizziness , unsteady gait, seizure, mental status changes, bladder or bowel incontinence PSYCHIATRIC: Absent: anxiety, depression, suicidal or homicidal ideation, hallucinations. PHYSICAL EXAMINATION Vital Signs - 24 hr 03/13/18 03/13/18 11:49 16:06 Temperature 98.9 F 98.0 F Pulse Rate 91 H Pulse Rate [ 85 Apical] Respiratory 18 16 Rate Blood Pressure 167/81 Blood Pressure 142/85 [Left Arm] O2 Sat by Pulse 95 98 Oximetry (%) GENERAL: Awake, alert, and fully oriented, in no acute distress. HEAD: Normal with no signs of trauma. EYES: Pupils equal, round and reactive to light, extraocular movements intact, sclera anicteric, conjunctiva clear. No lid lag. EARS, NOSE, THROAT: Ears normal, nares patent, oropharynx clear without exudates. Moist mucous membranes. NECK: Normal range of motion, supple without lymphadenopathy, JVD, or masses. LUNGS: Breath sounds equal, clear to auscultation bilaterally. No wheezes, and no crackles. No accessory muscle use. HEART: Regular rate and rhythm, normal S1 and S2 without murmur, rub or gallop. ABDOMEN: Soft, obese, nontender, not distended, normoactive bowel sounds, no guarding, no rebound, no masses. MUSCULOSKELETAL: Normal range of motion at all joints. CVA tenderness. Tenderness to palpation at ~T4 and L4, anterior chest wall TTP UPPER EXTREMITIES: 2+ pulses, warm, well-perfused. No cyanosis. No clubbing. No peripheral edema. LOWER EXTREMITIES: 2+ pulses, warm, well-perfused. No calf tenderness. No peripheral edema. NEUROLOGICAL: Cranial nerves II-XII intact. Normal speech. Normal gait. PSYCHIATRIC: Cooperative. Good eye contact. Appropriate mood and affect. SKIN: Warm, dry, normal turgor, no rashes or lesions noted, normal capillary refill. Laboratory Results - last 24 hr 03/13/18 03/13/18 03/13/18 12:29 12:55 12:55 WBC 10.0 RBC 4.45 Hgb 13.0 Hct 39.2 MCV 88.0 MCH 29.1 MCHC 33.1 RDW 15.3 Plt Count 232 MPV 8.8 Absolute Neuts (auto) 7.6 Neutrophils % 76.0 Lymphocytes % 17.2 D Monocytes % 4.2 Eosinophils % 1.8 Basophils % 0.8 Nucleated RBC % 0 Sodium 138 Potassium 4.1 Chloride 101 Carbon Dioxide 27 Anion Gap 10 BUN 21 H Creatinine 0.8 Creat Clearance w eGFR > 60 Random Glucose 217 H Calcium 9.1 Total Bilirubin 0.3 AST 22 ALT 30 Alkaline Phosphatase 160 H Creatine Kinase 87 Troponin I < 0.02 B-Natriuretic Peptide Total Protein 7.5 Albumin 3.6 Urine Color Ltyellow Urine Appearance Clear Urine pH 5.0 Ur Specific [place] 1.017 Urine Protein 2+ H Urine Glucose (UA) 2+ H Urine Ketones Negative Urine Blood Negative Urine Nitrite Negative Urine Bilirubin Negative Urine Urobilinogen Negative Ur Leukocyte Esterase Negative Urine WBC (Auto) 1 Urine RBC (Auto) <1 Ur Epithelial Cells Few Hyaline Casts 1 Urine Mucus Rare 03/13/18 03/13/18 12:55 15:47 WBC RBC Hgb Hct MCV MCH MCHC RDW Plt Count MPV Absolute Neuts (auto) Neutrophils % Lymphocytes % Monocytes % Eosinophils % Basophils % Nucleated RBC % Sodium Potassium Chloride Carbon Dioxide Anion Gap BUN Creatinine Creat Clearance w eGFR Random Glucose Calcium Total Bilirubin AST ALT Alkaline Phosphatase Creatine Kinase Troponin I < 0.02 B-Natriuretic Peptide 73.6 Total Protein Albumin Urine Color Urine Appearance Urine pH Ur Specific [place] Urine Protein Urine Glucose (UA) Urine Ketones Urine Blood Urine Nitrite Urine Bilirubin Urine Urobilinogen Ur Leukocyte Esterase Urine WBC (Auto) Urine RBC (Auto) Ur Epithelial Cells Hyaline Casts Urine Mucus ASSESSMENT/PLAN: A 52 y.o. F w/ PMHx HTN, DM2, HLD, Carpal tunnel x2, Asthma, GERD, Gout? presents with chest pain x 2 days that is not relieved by rest or ibuprofen. Pt. is placed in observation to rule out ACS #Cardiology -r/o ACS vs. Costochondritis Consult with Dr. Casas appreciated f/u Echo to rule out structural abnormalities EKG : NSR, inferior infarct age undertermined. cardiac monitoring -HLD c/w Crestor 20 mg -Gout c/w Allopurinol 100mg -HTN c/w Metoprolol 50mg PO d/c HCTZ as this can precipitate Gout flare and mimic diabetic symptoms. Will discontinue on discharge as well. AVOID NSAIDs such as Ibuprofen. Consider alternate pain medication use. #Endocrine -DM2 Hold home medications Medication reconciliations as Pt. has recently started new medication and still has old medications ISS ACHS BGM ACHS Pt. reports last HgBA1c: ~9%; f/u repeat #Pulmonology -Dyspnea on Exertion f/u Echo pulse oximetry monitoring consider Pre-and Post -Asthma-stable c/w Ventolin PRN Recent PFTs indicate severe restrictive lung function and obstructive lung disease #F/E/N -No IVF, encourage PO intake -monitor electrolytes and replete as needed -NPO after midnight #DVT -SCDs -Lovenox 30mg SQ BID Visit type - Emergency Visit Emergency Visit: Yes ED Registration Date: 03/14/18 Care time: The patient presented to the Emergency Department on the above date and was hospitalized for further evaluation of their emergent condition. - New Patient This patient is new to me today: Yes Date on this admission: 03/16/18 - Critical Care Critical Care patient: No
[2018-03-13 18:00] VITALS: BMI 36.2
--- NOTE | 2018-03-13 19:26 | CON.CARD ---
Consult Consult Specialty:: Cardiology Reason for Consultation:: cp - History of Present Illness History of Present Illness: Patient is a 52 year old female with PMHx of HTN , HLD, T2DM, Asthma , GERD , Gout presented to the ED.c/o having mid- sternal reproducable chest pain, aggrevated by palpation for the past 2 days and also when she takes deep breath. No pain at rest. Denies any fever or chills. No shortness of breath. No nausea or vomiting. No headache. As per patient her son was sick a week ago, who does not live with her. - History Source History Provided By: Patient, Medical Record - Past Medical History Cardio/Vascular: Yes: HTN, Hyperlipdemia Endocrine: Yes: Diabetes Mellitus - Alcohol/Substance Use Hx Alcohol Use: No - Smoking History Smoking history: Former smoker Have you smoked in the past 12 months: Yes Aproximately how many cigarettes per day: 10 If you are a former smoker, when did you quit?: 12/13/17 Home Medications - Allergies Allergies/Adverse Reactions: Allergies Allergy/AdvReac Type Severity Reaction Status Date / Time Penicillins Allergy Severe Hives Verified 03/13/18 11:49 - Home Medications Home Medications: Ambulatory Orders Metoprolol Succinate [Toprol XL -] 50 mg PO DAILY 12/26/11 Vitamin E 400 unit PO DAILY 02/27/14 Rosuvastatin Calcium [Crestor] 20 mg PO HS 12/21/15 Amlodipine/Valsartan/Hcthiazid [Ldzoa-Usqma-Sypg 5-160-12.5 mg] 1 each PO DAILY 03/13/18 Ascorbate Calcium [Vitamin C] 500 mg PO DAILY 03/13/18 Aspirin [ASA -] 81 mg PO DAILY 03/13/18 Multivitamin [Multiple Vitamins] 1 each PO DAILY 03/13/18 Potassium Citrate [Potassium Citrate ER] 15 meq PO BID 03/13/18 Sitagliptin Phos/Metformin HCl [Janumet 50-1,000 mg Tablet] 1 each PO BID Toujeo Solostar 90 unit SQ AC 03/13/18 Review of Systems - Review of Systems Constitutional: reports: No Symptoms Eyes: reports: No Symptoms HENT: reports: No Symptoms Neck: reports: No Symptoms Cardiovascular: reports: Chest Pain Respiratory: reports: No Symptoms Gastrointestinal: reports: No Symptoms Genitourinary: reports: No Symptoms Breasts: reports: No Symptoms Reported Musculoskeletal: reports: No Symptoms Integumentary: reports: No Symptoms Neurological: reports: No Symptoms Endocrine: reports: No Symptoms Hematology/Lymphatic: reports: No Symptoms Psychiatric: reports: No Symptoms Vital Signs: Vital Signs Temperature 98.0 F 03/13/18 17:00 Pulse Rate 84 03/13/18 17:00 Respiratory Rate 16 03/13/18 18:05 Blood Pressure 150/76 03/13/18 17:00 O2 Sat by Pulse Oximetry (%) 98 03/13/18 18:05 Constitutional: Yes: Well Nourished, No Distress, Calm Eyes: Yes: WNL, Conjunctiva Clear, EOM Intact HENT: Yes: WNL, Atraumatic, Normocephalic Neck: Yes: WNL, Supple, Trachea Midline Respiratory: Yes: WNL, Regular, CTA Bilaterally Gastrointestinal: Yes: WNL, Normal Bowel Sounds Renal/: Yes: WNL Cardiovascular: Yes: WNL, Regular Rate and Rhythm Musculoskeletal: Yes: WNL Extremities: Yes: WNL Integumentary: Yes: WNL Neurological: Yes: WNL, Alert, Oriented ...Motor Strength: WNL Psychiatric: Yes: WNL, Alert, Oriented - Other Data Labs, Other Data: CBC, BMP 03/13/18 12:55 03/13/18 12:55 Troponin, BNP 03/13/18 03/13/18 03/13/18 12:55 12:55 15:47 Troponin I < 0.02 < 0.02 B-Natriuretic Peptide 73.6 Troponin, BNP 03/13/18 03/13/18 03/13/18 12:55 12:55 15:47 Troponin I < 0.02 < 0.02 B-Natriuretic Peptide 73.6 Problem List - Problems (1) Chest pain Code(s): R07.9 - CHEST PAIN, UNSPECIFIED Qualifiers: Chest pain type: unspecified Qualified Code(s): R07.9 - Chest pain, unspecified (2) Cellulitis and abscess of toe of right foot Code(s): L03.031 - CELLULITIS OF RIGHT TOE; L02.611 - CUTANEOUS ABSCESS OF RIGHT FOOT (3) Ovarian cyst Code(s): N83.20 - UNSPECIFIED OVARIAN CYSTS * DO NOT USE * (4) Palpitations Code(s): R00.2 - PALPITATIONS (5) Paronychia Code(s): L03.019 - CELLULITIS OF UNSPECIFIED FINGER (6) Pelvic mass in female Code(s): R19.00 - INTRA-ABD AND PELVIC SWELLING, MASS AND LUMP, UNSP SITE (7) Rib pain on right side Code(s): R07.81 - PLEURODYNIA (8) Wound check, abscess Code(s): Z51.89 - ENCOUNTER FOR OTHER SPECIFIED AFTERCARE Assessment/Plan HTN , HLD, T2DM, Asthma , GERD , Gout presented to the ED.c/o having mid- sternal reproducable chest pain PlaN ECHO R/O ND MIBI ST CHECK FASTING LIPIDS
[2018-03-13] MEDS: INSULIN SLIDING SCALE (NOVOLOG) 1 VIAL SQ SCH (21:26)
[2018-03-13] MEDS ORDERED: traMADol HCL 50 MG TABLET PO ONE (21:29)
[2018-03-13] MEDS ORDERED: PT OWN MED DRAWER 7, Y5N ONE ×2 (21:35→21:38)
[2018-03-13] MEDS: ROSUVASTATIN CA 20 MG TABLET (FP) PO SCH (21:43)
[2018-03-13] MEDS: POTASSIUM CITRATE/CITRIC ACID 2 MEQ/ML ML PO SCH (21:43)
[2018-03-13] MEDS ORDERED: INSULIN (NOVOLOG) ASPART 100 UNITS/ML 10ML VIAL SQ SCH (22:00)
[2018-03-13] MEDS ORDERED: POTASSIUM CITRATE/CITRIC ACID 2 MEQ/ML ML PO SCH (22:00)
[2018-03-13] MEDS ORDERED: ENOXAPARIN NA (PORCINE) 30 MG/0.3 ML DISP.SYRIN SQ SCH (22:00)
[2018-03-13] MEDS ORDERED: INSULIN SLIDING SCALE (NOVOLOG) 1 VIAL SQ SCH (22:00)
[2018-03-13] MEDS ORDERED: MELATONIN 5 MG TABLETS PO ONE (23:23)
[2018-03-14] MEDS: INSULIN SLIDING SCALE (NOVOLOG) 1 VIAL SQ SCH ×4 (06:19→21:18)
[2018-03-14] MEDS: INSULIN (LEVEMIR) 100 UNITS/ML UNITS SQ SCH ×2 (06:56→06:59)
[2018-03-14] MEDS ORDERED: INSULIN (NOVOLOG) ASPART 100 UNITS/ML 10ML VIAL SQ SCH (07:00)
[2018-03-14 07:31] LABS: BASO % 0.6 % (0-2.0); EOS % 2.3 % (0-4.5); HEMATOCRIT 36.7 % (32.4-45.2); HEMOGLOBIN 11.8 GM/dL (10.7-15.3); LYMPH % 24.1 % (8-40); MCH 28.3 pg (25.7-33.7); MCHC 32.2 g/dl (32.0-36.0); MEAN CELL VOLUME 88.1 fl (80-96); MONO % 5.7 % (3.8-10.2); NEUT % 67.3 % (42.8-82.8); PLATELET COUNT 185 K/MM3 (134-434); RBC 4.16 M/mm3 (3.60-5.2); RDW 15.2 % (11.6-15.6); WHITE BLOOD COUNT 7.6 K/mm3 (4.0-10.0)
[2018-03-14 07:48] LABS: INR 0.96 (0.83-1.09); PROTHROMBIN TIME (PATIENT) 11.3 SEC (9.7-13.0)
[2018-03-14 07:51] LABS: ACTIVATED PTT 29.2 SECONDS (25.2-36.5)
[2018-03-14 08:10] LABS: ANION GAP 8 MMOL/L (8-16); BLOOD UREA NITROGEN 19 mg/dL (7-18); CALCIUM 8.6 mg/dL (8.5-10.1); CHLORIDE 98 mmol/L (98-107); CO2 30 mmol/L (21-32); CREATININE 0.8 mg/dL (0.55-1.3); GLUCOSE,RANDOM 138 mg/dL (74-106); MAGNESIUM 1.8 mg/dL (1.8-2.4); PHOSPHOROUS 3.9 mg/dL (2.5-4.9); POTASSIUM 3.9 mmol/L (3.5-5.1); SODIUM 136 mmol/L (136-145)
[2018-03-14 08:11] LABS: ALBUMIN 3.2 g/dl (3.4-5.0); ALK PHOS 117 U/L (45-117); BILIRUBIN,TOTAL 0.6 mg/dL (0.2-1); SGOT/AST 15 U/L (15-37); SGPT/ALT 26 U/L (13-61); TOT PROT 6.6 g/dl (6.4-8.2)
[2018-03-14] MEDS ORDERED: HYDROCHLOROTHIAZIDE 50 MG TABLET PO SCH ×2 (10:00)
--- NOTE | 2018-03-14 10:56 | EKG ---
Test Reason : Blood Pressure : / mmHG Vent. Rate : 069 BPM Atrial Rate : 069 BPM P-R Int : 142 ms QRS Dur : 086 ms QT Int : 422 ms P-R-T Axes : 068 -22 049 degrees QTc Int : 452 ms NORMAL SINUS RHYTHM NORMAL ECG WHEN COMPARED WITH ECG OF 13-MAR-2018 11:49, NO SIGNIFICANT CHANGE WAS FOUND Confirmed by ABAD BURTON MD ([id number]) on 03/14/2018 10:56:28 AM Referred By: Thor MOROCHO Confirmed By:ABAD BURTON MD
--- NOTE | 2018-03-14 11:18 | PN ---
Progress Note, Physician - Current Medication List Current Medications: Active Medications Allopurinol (Zyloprim -) 100 mg PO DAILY [facility] Aspirin (Asa -) 81 mg PO DAILY [facility] Enoxaparin Sodium (Lovenox -) 40 mg SQ DAILY [facility] Insulin Aspart (Novolog Vial Sliding Scale -) 1 vial SQ ACHS [facility]; Protocol Last Admin: 03/14/18 06:19 Dose: Not Given Insulin Detemir (Levemir Vial) 25 units SQ AM [facility] Last Admin: 03/14/18 06:59 Dose: Not Given Metoprolol Succinate (Toprol Xl -) 50 mg PO DAILY [facility] Potassium Citrate/Citric Acid (Cytra-K -) 15 meq PO BID [facility] Last Admin: 03/13/18 21:43 Dose: 15 meq Rosuvastatin Calcium (Crestor -) 20 mg PO HS [facility] Last Admin: 03/13/18 21:43 Dose: 20 mg - Objective Vital Signs: Vital Signs Temperature 97.8 F 03/14/18 08:23 Pulse Rate 70 03/14/18 08:23 Respiratory Rate 16 03/14/18 08:23 Blood Pressure 128/80 03/14/18 08:23 O2 Sat by Pulse Oximetry (%) 97 03/14/18 11:10 Eyes: Yes: WNL, Conjunctiva Clear, EOM Intact HENT: Yes: WNL, Atraumatic, Normocephalic Neck: Yes: WNL, Supple, Trachea Midline Cardiovascular: Yes: WNL, Regular Rate and Rhythm Respiratory: Yes: WNL, Regular, CTA Bilaterally Gastrointestinal: Yes: WNL, Normal Bowel Sounds Genitourinary: Yes: WNL Musculoskeletal: Yes: WNL Extremities: Yes: WNL Edema: No Integumentary: Yes: WNL Neurological: Yes: WNL, Alert, Oriented ...Motor Strength: WNL Psychiatric: Yes: WNL Labs: CBC, BMP 03/14/18 06:30 03/14/18 06:30 INR, PTT INR 0.96 (0.83-1.09) 03/14/18 06:30 Problem List - Problems (1) Chest pain Code(s): R07.9 - CHEST PAIN, UNSPECIFIED Qualifiers: Chest pain type: unspecified Qualified Code(s): R07.9 - Chest pain, unspecified (2) Cellulitis and abscess of toe of right foot Code(s): L03.031 - CELLULITIS OF RIGHT TOE; L02.611 - CUTANEOUS ABSCESS OF RIGHT FOOT (3) Ovarian cyst Code(s): N83.20 - UNSPECIFIED OVARIAN CYSTS * DO NOT USE * (4) Palpitations Code(s): R00.2 - PALPITATIONS (5) Paronychia Code(s): L03.019 - CELLULITIS OF UNSPECIFIED FINGER (6) Pelvic mass in female Code(s): R19.00 - INTRA-ABD AND PELVIC SWELLING, MASS AND LUMP, UNSP SITE (7) Rib pain on right side Code(s): R07.81 - PLEURODYNIA (8) Wound check, abscess Code(s): Z51.89 - ENCOUNTER FOR OTHER SPECIFIED AFTERCARE Assessment/Plan HTN , HLD, T2DM, Asthma , GERD , Gout presented to the ED.c/o having mid- sternal reproducable chest pain PlaN ECHO R/O NM MIBI ST CHECK FASTING LIPIDS
[2018-03-14] MEDS ORDERED: PT OWN MED DRAWER 7, Y5N ONE ×2 (12:25→21:36)
--- NOTE | 2018-03-14 12:31 | ECHO ---
Version: 1 Name: EJ SOUZA Exam: Adult Echocardiogram Study Date: 03/14/2018, 10:54 AM Age: 52 Years MMode/2D Measurements & Calculations IVSd: 0.95 cm LVIDs: 3.2 cm LVIDd: 4.6 cm LVPWd: 0.84 cm Ao root diam: 2.5 cm LA dimension: 3.4 cm Doppler Measurements & Calculations MV E max kevin: 66.1 cm/sec Med E/e': 7.9 MV A max kevin: 80.5 cm/sec Med Peak E' Kevin: 8.4 cm/sec MV E/A: 0.82 Lat E/e': 9.4 Lat Peak E' Kevin: 7.0 cm/sec Procedure A two-dimensional transthoracic echocardiogram with color flow and Doppler was performed. Left Ventricle The left ventricular size, thickness and function are normal. The left ventricular ejection fraction is normal. E/A reversal consistent with but not diagnostic of poor LV compliance. The left ventricular wall motion is normal. Right Ventricle The right ventricle is normal in size and function. Atria Normal left and right atrial size and function. Mitral Valve There is mild mitral valve thickening. There is no mitral valve stenosis. There is trace to mild ziggy ral regurgitation. Tricuspid Valve There is mild tricuspid valve thickening. There is no tricuspid stenosis. There was insufficient TR detected to calculate RV systolic pressure. Aortic Valve The aortic valve is not well visualized. No hemodynamically significant valvular aortic stenosis. No aortic regurgitation is present. Pulmonic Valve The pulmonic valve is not well visualized. There is no pulmonic valvular stenosis. Mild pulmonic chi vular regurgitation. Great Vessels The aortic root is normal size. Pericardium/Pleura There is no pericardial effusion. Summary Statements The left ventricular size, thickness and function are normal The left ventricular wall motion is normal. There is trace to mild mitral regurgitation. Mild pulmonic valvular regurgitation. There was insufficient TR detected to calculate RV systolic pressure. E/A reversal consistent with but not diagnostic of poor LV compliance The left ventricular ejection fraction is normal. MD Dae Bhatt 03/14/2018, 12:30 PM Ordering Physician: IDA CLARK Referring Physician: BRIGHT KANG Performed By: Aylin High
[2018-03-14] MEDS ORDERED: CLOPIDOGREL BISULFATE 300 MG TABLET PO ONE (15:47)
--- NOTE | 2018-03-14 15:50 | PN ---
Physical Exam: SUBJECTIVE: Patient seen and examined. No acute events overnight. Pt. endorses decreased chest pain today. Pt. denies any new complaints. OBJECTIVE: Vital Signs Period Temp Pulse Resp BP Sys/Gilliam Pulse Ox Last 24 Hr 97.8 F-98.6 F 68-85 16-20 125-150/60-85 97-98 GENERAL: Awake, alert, and fully oriented, in no acute distress. EYES: sclera anicteric, conjunctiva clear. No lid lag. EARS, NOSE, THROAT: Ears normal, nares patent, oropharynx clear without exudates. Moist mucous membranes. NECK: No JVD LUNGS: Breath sounds equal, clear to auscultation bilaterally. No wheezes, and no crackles. No accessory muscle use. HEART: Irregular rate and rhythm, normal S1 and S2 without murmur ABDOMEN: Soft, obese, nontender, not distended, normoactive bowel sounds, no guarding, no rebound, no masses. MUSCULOSKELETAL: Tenderness to palpation at ~T4 and L4, anterior chest wall TTP UPPER EXTREMITIES: 2+ left radial pulse, warm, well-perfused. No cyanosis. No clubbing. No peripheral edema. LOWER EXTREMITIES: 2+ dorsal pedal pulses, warm, well-perfused. No calf tenderness. No peripheral edema. NEUROLOGICAL: Normal speech Gait not assessed . PSYCHIATRIC: Cooperative. Good eye contact. Appropriate mood and affect. SKIN: Warm, dry, normal turgor, normal capillary refill. Laboratory Results - last 24 hr 03/13/18 03/13/18 03/13/18 15:47 17:31 18:30 WBC RBC Hgb Hct MCV MCH MCHC RDW Plt Count MPV Absolute Neuts (auto) Neutrophils % Lymphocytes % Monocytes % Eosinophils % Basophils % Nucleated RBC % PT with INR INR PTT (Actin FS) Sodium Potassium Chloride Carbon Dioxide Anion Gap BUN Creatinine Creat Clearance w eGFR POC Glucometer 116 Random Glucose Hemoglobin A1c % 8.5 H Calcium Phosphorus Magnesium Total Bilirubin AST ALT Alkaline Phosphatase Troponin I < 0.02 Total Protein Albumin 03/13/18 03/14/18 03/14/18 21:25 06:16 06:30 WBC 7.6 RBC 4.16 Hgb 11.8 Hct 36.7 MCV 88.1 MCH 28.3 MCHC 32.2 RDW 15.2 Plt Count 185 D MPV 9.0 Absolute Neuts (auto) 5.1 Neutrophils % 67.3 Lymphocytes % 24.1 D Monocytes % 5.7 Eosinophils % 2.3 Basophils % 0.6 Nucleated RBC % 0 PT with INR INR PTT (Actin FS) Sodium Potassium Chloride Carbon Dioxide Anion Gap BUN Creatinine Creat Clearance w eGFR POC Glucometer 190 160 Random Glucose Hemoglobin A1c % Calcium Phosphorus Magnesium Total Bilirubin AST ALT Alkaline Phosphatase Troponin I Total Protein Albumin 03/14/18 03/14/18 03/14/18 06:30 06:30 11:46 WBC RBC Hgb Hct MCV MCH MCHC RDW Plt Count MPV Absolute Neuts (auto) Neutrophils % Lymphocytes % Monocytes % Eosinophils % Basophils % Nucleated RBC % PT with INR 11.30 INR 0.96 PTT (Actin FS) 29.2 Sodium 136 Potassium 3.9 Chloride 98 Carbon Dioxide 30 Anion Gap 8 BUN 19 H Creatinine 0.8 Creat Clearance w eGFR > 60 POC Glucometer 129 Random Glucose 138 H Hemoglobin A1c % Calcium 8.6 Phosphorus 3.9 Magnesium 1.8 Total Bilirubin 0.6 AST 15 ALT 26 Alkaline Phosphatase 117 Troponin I Total Protein 6.6 Albumin 3.2 L Active Medications Current Medications Allopurinol (Zyloprim -) 100 mg PO DAILY [facility] Aspirin (Asa -) 81 mg PO DAILY [facility] Clopidogrel Bisulfate (Plavix -) 75 mg PO DAILY [facility] Enoxaparin Sodium (Lovenox -) 40 mg SQ DAILY [facility] Insulin Aspart (Novolog Vial Sliding Scale -) 1 vial SQ [facility]; Protocol Last Admin: 03/14/18 12:19 Dose: Not Given Insulin Detemir (Levemir Vial) 25 units SQ AM [facility] Last Admin: 03/14/18 06:59 Dose: Not Given Metoprolol Succinate (Toprol Xl -) 50 mg PO DAILY [facility] Potassium Citrate/Citric Acid (Cytra-K -) 15 meq PO BID [facility] Last Admin: 03/13/18 21:43 Dose: 15 meq Rosuvastatin Calcium (Crestor -) 20 mg PO HS [facility] Last Admin: 03/13/18 21:43 Dose: 20 mg Home Medications Medication Instructions Recorded Metoprolol Succinate [Toprol XL -] 50 mg PO DAILY 12/26/11 Vitamin E 400 unit PO DAILY 02/27/14 Rosuvastatin Calcium [Crestor] 20 mg PO HS 12/21/15 Amlodipine/Valsartan/Hcthiazid 1 each PO DAILY 03/13/18 [Fjiwj-Jzpce-Fjfh 5-160-12.5 mg] Ascorbate Calcium [Vitamin C] 500 mg PO DAILY 03/13/18 Aspirin [ASA -] 81 mg PO DAILY 03/13/18 Multivitamin [Multiple Vitamins] 1 each PO DAILY 03/13/18 Potassium Citrate [Potassium 15 meq PO BID 03/13/18 Citrate ER] Sitagliptin Phos/Metformin HCl 1 each PO BID 03/13/18 [Janumet 50-1,000 mg Tablet] Toujeo Solostar 90 unit SQ AC 03/13/18 Fluticasone Propionate [Flovent 2 puff IH BID 03/14/18 Diskus] Icosapent Ethyl [Vascepa] 2 gm PO BID 03/14/18 Insulin Aspart (Niacinamide) 10 unit SQ TID 03/14/18 [Fiasp 100 Unit/ml Flextouch] Lipase/Protease/Amylase [Creon Dr 2 cap PO TID 03/14/18 36,000 Units Capsule] Potassium Citrate [Potassium 2 tablet PO BID 03/14/18 Citrate ER] Semaglutide [Ozempic] 1 mg SQ WEEKLY 03/14/18 hydrOXYzine HCL [Atarax -] 10 mg PO DAILY 03/14/18 IMAGING: Echo: nml LV size, function and thickness, trace-mild MR Stress Test: EKG unremarkable, Nuclear scan shows moderately sized, moderate intensity anterior wall reversible perfusion defect consistent with ischemia, EF 64%. ASSESSMENT/PLAN: A 52 y.o. F w/ PMHx HTN, DM2, HLD, Carpal tunnel x 2, Asthma, GERD, Gout? presents with chest pain x 2 days that is not relieved by rest or ibuprofen. Pt. is placed in observation to rule out ACS #Cardiology -r/o ACS Consult with Dr. Casas appreciated Echo: normal EKG: NSR, inferior infarct age undertermined. cardiac monitoring -HLD c/w Crestor 20 mg -Gout c/w Allopurinol 100 mg -HTN c/w Metoprolol 50 mg PO d/c HCTZ as this can precipitate Gout flare and mimic diabetic symptoms. Will discontinue on discharge as well. AVOID NSAIDs such as Ibuprofen. Consider alternate pain medication use. #Endocrine -DM2 Hold home medications Medication reconciliations as Pt. has recently started new medication and still has old medications ISS ACHS BGM ACHS Rpt. HgBA1c: 8.5% #Pulmonology -Dyspnea on Exertion Echo appreciated pulse oximetry monitoring consider Pre-and Post -Asthma-stable c/w Ventolin PRN Recent PFTs indicate severe restrictive lung function and obstructive lung disease #F/E/N -No IVF, encourage PO intake -monitor electrolytes and replete as needed -Na restricted/ Diabetic Diet #DVT -SCDs -Lovenox 30mg SQ BID Visit type - Emergency Visit Emergency Visit: Yes ED Registration Date: 03/14/18 Care time: The patient presented to the Emergency Department on the above date and was hospitalized for further evaluation of their emergent condition. - New Patient This patient is new to me today: No - Critical Care Critical Care patient: No - Discharge Referral Referred to [facility] Med P.C.: No
[2018-03-14] MEDS: ASPIRIN 81 MG CHEWABLE TABLETS PO SCH (15:59)
[2018-03-14] MEDS: ENOXAPARIN NA (PORCINE) 40 MG/0.4 ML DISP.SYRIN SQ SCH (15:59)
[2018-03-14] MEDS: POTASSIUM CITRATE/CITRIC ACID 2 MEQ/ML ML PO SCH ×2 (15:59→21:39)
[2018-03-14] MEDS: ALLOPURINOL 100 MG TABLET (FP) PO SCH (16:00)
--- NOTE | 2018-03-14 18:38 | PN ---
Teaching Attending Note Name of Resident: Roger Canales ATTENDING PHYSICIAN STATEMENT I saw and evaluated the patient. I reviewed the resident's note and discussed the case with the resident. I agree with the resident's findings and plan as documented. SUBJECTIVE: No fever or chills. cont to have CP . reports exxertional CP OBJECTIVE: NAD Cv : RRR Lungs: CTAB Ext : no edema TTP over L sided chest wall ASSESSMENT AND PLAN: 52 year old female with PMHx of HTN , HLD, DM, Asthma , GERD , and Gout who came in with CP x 3 days . 1- CP : description and exam are not typical but has exertional cp . stress test + for mod size ischemia d/w card. for transfer for cath tomorrow add plavix - cont statin , asa and BB 2- DM : cont levemir and SSI 3- HTN: cont meds dispo : to [place] tomorrow
[2018-03-14] MEDS ORDERED: MELATONIN 5 MG TABLETS PO ONE (20:53)
[2018-03-14] MEDS: ROSUVASTATIN CA 20 MG TABLET (FP) PO SCH (21:38)
[2018-03-15] MEDS: INSULIN (LEVEMIR) 100 UNITS/ML UNITS SQ SCH (06:30)
[2018-03-15] MEDS: INSULIN SLIDING SCALE (NOVOLOG) 1 VIAL SQ SCH ×2 (06:34→12:48)
[2018-03-15 06:50] VITALS: TEMP 98
[2018-03-15 07:21] LABS: ANION GAP 8 MMOL/L (8-16); BLOOD UREA NITROGEN 20 mg/dL (7-18); CALCIUM 8.9 mg/dL (8.5-10.1); CHLORIDE 101 mmol/L (98-107); CHOLESTEROL 113 mg/dL (50-200); CO2 30 mmol/L (21-32); CREATININE 0.8 mg/dL (0.55-1.3); GLUCOSE,RANDOM 159 mg/dL (74-106); HDL CHOLESTEROL 37 mg/dL (40-60); MAGNESIUM 2.2 mg/dL (1.8-2.4); PHOSPHOROUS 3.5 mg/dL (2.5-4.9); POTASSIUM 4.5 mmol/L (3.5-5.1); SODIUM 140 mmol/L (136-145); TRIGLYCERIDES 374 mg/dL (0-150)
[2018-03-15] MEDS: ASPIRIN 81 MG CHEWABLE TABLETS PO SCH (09:35)
[2018-03-15] MEDS: ENOXAPARIN NA (PORCINE) 40 MG/0.4 ML DISP.SYRIN SQ SCH (09:36)
[2018-03-15] MEDS: ALLOPURINOL 100 MG TABLET (FP) PO SCH (09:36)
[2018-03-15] MEDS: POTASSIUM CITRATE/CITRIC ACID 2 MEQ/ML ML PO SCH (09:39)
--- NOTE | 2018-03-15 09:49 | PN ---
Progress Note, Physician History of Present Illness: 52 yo female pmh of IDDM, HTN, HLD, carpal tunnel, asthma, 30 smoking hx, obesity, and GERD, presents to the ED for 3 days of chest pain, back pain, left index finger numbness arm and left leg pain. Patient states the pain started suddenly, is intermittent, focally located to the left of the sternum at the level of the 5th rib (reproducible with palpation and movement) and described as sharp and stabbing. States walking 1 block leads to CP and SOB also admits to waking up 2-3 times over the last 3 nights SOB and new swelling around her ankles within the last 1 week. Patient had negative stress test and cardiac work up 1 year ago. Also complains of left leg pain down posterior thigh made worse with activity but denies weakness. Patient usually takes Motrin 800mg for pain but was concerned when this time the medication did not give her relief. Denies family hx of ACS, calf tenderness, N/V/F/C, abdominal pain, changes in bladder or bowel habits. - Current Medication List Current Medications: Active Medications Allopurinol (Zyloprim -) 100 mg PO DAILY [facility] Last Admin: 03/15/18 09:36 Dose: 100 mg Aspirin (Asa -) 81 mg PO DAILY [facility] Last Admin: 03/15/18 09:35 Dose: 81 mg Clopidogrel Bisulfate (Plavix -) 75 mg PO DAILY [facility] Last Admin: 03/15/18 09:35 Dose: 75 mg Enoxaparin Sodium (Lovenox -) 40 mg SQ DAILY [facility] Last Admin: 03/15/18 09:36 Dose: 40 mg Insulin Aspart (Novolog Vial Sliding Scale -) 1 vial SQ ACHS [facility]; Protocol Last Admin: 03/15/18 06:34 Dose: Not Given Insulin Detemir (Levemir Vial) 25 units SQ AM [facility] Last Admin: 03/15/18 06:30 Dose: Not Given Metoprolol Succinate (Toprol Xl -) 50 mg PO DAILY [facility] Last Admin: 03/15/18 09:36 Dose: 50 mg Potassium Citrate/Citric Acid (Cytra-K -) 15 meq PO BID [facility] Last Admin: 03/15/18 09:39 Dose: 15 meq Rosuvastatin Calcium (Crestor -) 20 mg PO HS [facility] Last Admin: 03/14/18 21:38 Dose: 20 mg - Objective Vital Signs: Vital Signs Temperature 98 F 03/15/18 06:00 Pulse Rate 69 03/15/18 06:00 Respiratory Rate 20 03/15/18 06:00 Blood Pressure 143/75 03/15/18 06:00 O2 Sat by Pulse Oximetry (%) 95 03/15/18 05:37 Labs: CBC, BMP 03/14/18 06:30 03/15/18 05:30 INR, PTT INR 0.96 (0.83-1.09) 03/14/18 06:30 Problem List - Problems (1) Diabetes Code(s): E11.9 - TYPE 2 DIABETES MELLITUS WITHOUT COMPLICATIONS (2) HTN (hypertension) Assessment/Plan: add losartan 25 mg daily (HTN; DM) Code(s): I10 - ESSENTIAL (PRIMARY) HYPERTENSION (3) Hyperlipidemia Assessment/Plan: on rosuvastatin; fenfibrate added ([id number] triglycerides > 300 noted several years ago, and again on this admission). Code(s): E78.5 - HYPERLIPIDEMIA, UNSPECIFIED (4) Chest pain Assessment/Plan: stress MIBI: moddrate size, moderately intense myocardial ischemia of the anterior wall. Pt agrees for tranfer to [facility] for coronary angiogram. Code(s): R07.9 - CHEST PAIN, UNSPECIFIED Qualifiers: Chest pain type: unspecified Qualified Code(s): R07.9 - Chest pain, unspecified (5) Cellulitis and abscess of toe of right foot Code(s): L03.031 - CELLULITIS OF RIGHT TOE; L02.611 - CUTANEOUS ABSCESS OF RIGHT FOOT (6) Palpitations Code(s): R00.2 - PALPITATIONS (7) Hypertriglyceridemia Assessment/Plan: start feofibrate; pt is also on rosuvastatin. LFTs and CK WNL. Code(s): E78.1 - PURE HYPERGLYCERIDEMIA
[2018-03-15] MEDS ORDERED: FENOFIBRIC ACID 135 MG CAP PO SCH (10:00)
[2018-03-15] MEDS ORDERED: CLOPIDOGREL BISULFATE 75 MG TABLET (FP) PO SCH (10:00)
[2018-03-15] MEDS ORDERED: LOSARTAN POTASSIUM 25 MG TABLET PO SCH (10:30)
[2018-03-15 12:42] VITALS: BP 149/85; PULSE 94
--- NOTE | 2018-03-15 13:29 | DS ---
Physical Exam: SUBJECTIVE: Patient seen and examined. No acute events overnight. OBJECTIVE: Vital Signs Period Temp Pulse Resp BP Sys/Gilliam Pulse Ox Last 24 Hr 97.8 F-98.2 F 69-105 20-20 130-158/63-94 91-95 PHYSICAL EXAM GENERAL: The patient is awake, alert, and fully oriented, in no acute distress. HEAD: Normal with no signs of trauma. EYES: PERRL, extraocular movements intact, sclera anicteric, conjunctiva clear. ENT: Ears normal, nares patent, oropharynx clear without exudates, moist mucous membranes. NECK: Trachea midline, full range of motion, supple. LUNGS: Breath sounds equal, clear to auscultation bilaterally, no wheezes, no crackles, no accessory muscle use. HEART: Regular rate and rhythm, S1, S2 without murmur, rub or gallop. ABDOMEN: Soft, nontender, nondistended, normoactive bowel sounds, no guarding, no rebound, no hepatosplenomegaly, no masses. EXTREMITIES: 2+ pulses, warm, well-perfused, no edema. NEUROLOGICAL: Cranial nerves II through XII grossly intact. Normal speech, gait not observed. PSYCH: Normal mood, normal affect. SKIN: Warm, dry, normal turgor, no rashes or lesions noted. LABS Laboratory Results - last 24 hr 03/14/18 03/14/18 03/14/18 16:42 21:00 21:02 Sodium Potassium Chloride Carbon Dioxide Anion Gap BUN Creatinine Creat Clearance w eGFR POC Glucometer 235 176 Random Glucose Calcium Phosphorus Magnesium Troponin I < 0.02 Triglycerides Cholesterol Total LDL Cholesterol HDL Cholesterol 03/15/18 03/15/18 03/15/18 05:30 06:32 12:02 Sodium 140 Potassium 4.5 Chloride 101 Carbon Dioxide 30 Anion Gap 8 BUN 20 H Creatinine 0.8 Creat Clearance w eGFR > 60 POC Glucometer 175 208 Random Glucose 159 H Calcium 8.9 Phosphorus 3.5 Magnesium 2.2 Troponin I Triglycerides 374 H Cholesterol 113 Total LDL Cholesterol 46 HDL Cholesterol 37 L HOSPITAL COURSE: Date of Admission:03/14/18 Date of Discharge: 03/15/18 Pt. admitted to rule out ACS. Lower extremity duplex unremarkable. EKG was unremarkable, Echo was grossly normal only showing trace-mild MR. MIBI stress test showed moderately sized, moderate intensity anterior wall reversible perfusion defect consistent with ischemia, EF: 64%. Transfer to [facility] initiated per cardiology for PCI. Pt. advised to follow up with Pulmonology for outpatient sleep studies. Pt. advised to follow up with PCP for medication management. Hospital course agreed upon and discussed with Pt. Minutes to complete discharge: 32 Discharge Summary Reason For Visit: CHEST PAIN Current Active Problems Chest pain (Acute) Diabetes (Acute) HTN (hypertension) (Acute) Hyperlipidemia (Acute) Hypertriglyceridemia (Acute) Condition: Stable - Instructions Diet, Activity, Other Instructions: You are being transferred to [facility] for a catheterization of your heart. You will be under the care of a cardiac team at that facility, moving forward. You will need to follow up with your digital media strategist after the procedure is done. You can speak with your digital media strategist and with the medical team at that facility regarding discharge instructions. Please follow up with your Primary Care Physician for further management of your hypertension medications and your diabetes medications. Referrals: Layne Moffett MD [Primary Care Provider] - 1 Week Shaka Casas MD [Staff Physician] - 1 Week Disposition: TRANSFER ACUTE CARE/OTHER HOSP - Home Medications Comprehensive Discharge Medication List: Ambulatory Orders Metoprolol Succinate [Toprol XL -] 50 mg PO DAILY 12/26/11 Vitamin E 400 unit PO DAILY 02/27/14 Rosuvastatin Calcium [Crestor] 20 mg PO HS 12/21/15 Amlodipine/Valsartan/Hcthiazid [Rzioa-Sbuzm-Zjgj 5-160-12.5 mg] 1 each PO DAILY 03/13/18 Ascorbate Calcium [Vitamin C] 500 mg PO DAILY 03/13/18 Aspirin [ASA -] 81 mg PO DAILY 03/13/18 Multivitamin [Multiple Vitamins] 1 each PO DAILY 03/13/18 Potassium Citrate [Potassium Citrate ER] 15 meq PO BID 03/13/18 Sitagliptin Phos/Metformin HCl [Janumet 50-1,000 mg Tablet] 1 each PO BID Toujeo Solostar 90 unit SQ AC 03/13/18 Fluticasone Propionate [Flovent Diskus] 2 puff IH BID 03/14/18 Icosapent Ethyl [Vascepa] 2 gm PO BID 03/14/18 Insulin Aspart (Niacinamide) [Fiasp 100 Unit/ml Flextouch] 10 unit SQ TID Lipase/Protease/Amylase [Creon Dr 36,000 Units Capsule] 2 cap PO TID 03/14/18 Potassium Citrate [Potassium Citrate ER] 2 tablet PO BID 03/14/18 Semaglutide [Ozempic] 1 mg SQ WEEKLY 03/14/18 hydrOXYzine HCL [Atarax -] 10 mg PO DAILY 03/14/18 This patient is new to me today: No Emergency Visit: Yes ED Registration Date: 03/14/18 Care time: The patient presented to the Emergency Department on the above date and was hospitalized for further evaluation of their emergent condition. Critical Care patient: No - Discharge Referral Referred to [facility] Med P.C.: No
--- NOTE | 2018-03-15 14:46 | PN ---
Teaching Attending Note Name of Resident: Roger Canales ATTENDING PHYSICIAN STATEMENT I saw and evaluated the patient. I reviewed the resident's note and discussed the case with the resident. I agree with the resident's findings and plan as documented. SUBJECTIVE: No fever or chills . cp continues. no SOB OBJECTIVE: NAD CV: RRR Lungs: CTAB Ext : no edema TTP over L sided chest wall ASSESSMENT AND PLAN: 52 year old female with PMHx of HTN , HLD, DM, Asthma , GERD , and Gout who came in with CP x 3 days . 1- CP with + stress test cont BB , plavix and asa cont statin and add fenofirate 2- DM : cont levemir and SSI . hold home metformin fro cath 3- HTN: cont meds dispo : to [facility] today
== END 2018-03-15 14:05 | disposition short-term general hospital (02) | DRG 313 ==
LOC: JER 11:47 → JERBED 15:14 → J4W 17:27 → OBSVTOIN 03-14 17:54
PROVIDERS: ADMIT Internal Medicine; ATTEND Internal Medicine
DX: R07.89 Other chest pain (principal); E66.01 Morbid (severe) obesity due to excess calories; Z68.36 Body mass index [BMI] 36.0-36.9, adult; E11.9 Type 2 diabetes mellitus without complications; Z79.4 Long term (current) use of insulin; I10 Essential (primary) hypertension; J98.4 Other disorders of lung; J44.9 Chronic obstructive pulmonary disease, unspecified; Z87.891 Personal history of nicotine dependence; M54.5 Low back pain; E78.00 Pure hypercholesterolemia, unspecified; M10.9 Gout, unspecified
CPT/HCPCS: 36415; 71046-TC-FY; 78452-TC; 80048; 80053; 80061; 81003; 81015; 82550; 82962; 83036; 83721; 83735; 83880; 84100; 84484; 85025; 85610; 85730; 87086; 93005; 93010; 93017; 93306-TC; 93971-TC; 99283-25; A9502; G0378

== ENCOUNTER 2018-05-04 10:19 | Emergency (ER) | payer OTHER ==
[2018-05-04 10:27] VITALS: TEMP 98.7; BMI 36.6
--- NOTE | 2018-05-04 10:37 | PDOC ---
Attending Attestation - HPI HPI: 05/04/18 11:25 The patient is a 53 year old female, with a significant past medical history of HTN, DM2, HLD, Asthma, GERD, Gout, anterior wall MT requiring stent placement on 03/15 and 04/19 (currently taking Plavix), who presents to the emergency department with one week of palpitations and intermittent chest pain for a couple of days. She reports the chest pain as centralized, intermittent stabbing. She denies radiation of pain. The patient also reports 1 day of excessive urination. She states she has been more SOB since having the stents placed. The patient denies headache and dizziness. The patient denies fever, chills, nausea, vomit, diarrhea and constipation. The patient denies dysuria, urgency and hematuria. Allergies: penicillins Past surgical history: cardiac stent x2 Social history: smoking cessation 5 months ago. Denies ETOH Cardiology: Dr. Bhatt - Physicial Exam PE: 05/04/18 11:25 Vitals: Triage vital signs reviewed General Appearance: No acute distress, well nourished, well developed Head: Atraumatic Eyes: Pupils equal reactive round, extraocular movement intact Neck: Supple; No nuchal rigidity Chest Wall: Nontender Cardiac: Regular rate and rhythm, no murmurs, no rubs, no gallops Lungs: Clear to auscultation bilateral, good air movement bilaterally Abdomen: Soft, nondistended, normal bowel sounds, nontender to palpation Extremities: Full range of motion to all extremities, no cyanosis, clubbing, or edema Skin: Warm and dry, no rashes or lesions, no rash, no petechiae Neuro: AOX3; Cranial Nerves 2-12 grossly intact, Strength intact to all extremities, Sensation intact to all extremities, gait normal Psych: Normal mood, normal affect - Medical Decision Making 05/04/18 11:25 Documentation prepared by Amina Miller, acting as medical language specialist for Figueroa Cheney MD <Amina Miller - Last Filed: 05/04/18 11:25> - Resident Resident Name: Bobbi Medina - ED Attending Attestation I have performed the following: I have examined & evaluated the patient, The case was reviewed & discussed with the resident, I agree w/resident's findings & plan, Exceptions are as noted <Figueroa Cheney - Last Filed: 05/04/18 12:30> Heart Score/ECG Review - ECG Impressions Comment:: 05/04/18 12:30 EKG performed at 1038 demonstrates normal sinus rhythm no ST elevations no T- wave inversions in inferior infarct age indeterminate. Interpreted by me. <Figueroa Cheney - Last Filed: 05/04/18 12:30>
--- NOTE | 2018-05-04 10:40 | PDOC ---
History of Present Illness - General Chief Complaint: Palpitations Stated Complaint: PALPITATIONS Time Seen by Provider: 05/04/18 10:33 History Source: Patient Exam Limitations: No Limitations - History of Present Illness Initial Comments: 05/04/18 10:39 53 yof w/ PMHx HTN, DM2, HLD, Asthma, GERD, Gout, anterior wall CO requiring stent placement on 03/15 and 04/19 who presents with 1 week of palpitations that occurred more at night and now have become constant throughout day and associated with occasional stabbing centralized nonradiating chest pain. The patient also notes 1 day of excessive urination. The patient reports that after the stent she has had shortness of breath. She also reports recently recovering from a viral URI 1-2 weeks ago. She denies fever, headaches, nausea, vomiting, abdominal pain, dysuria, hematuria, diarrhea, constipation. She denies any recent life stressors but reports that she quit smoking 5 months ago. 03/14: ECHO: without significant reduction in EF 03/15: stress MIBI: moderate size CO of the anterior wall, trandferred to [facility] for coronary angiogram Stent placed on 03/15 and 04/19 PMHX: as in HPI Meds: losartan, metoprolol, asa, plavix, insuline Cardiology: [facility] Past History - Past Medical History Allergies/Adverse Reactions: Allergies Allergy/AdvReac Type Severity Reaction Status Date / Time Penicillins Allergy Severe Hives Verified 03/13/18 11:49 Home Medications: Ambulatory Orders Metoprolol Succinate [Toprol XL -] 50 mg PO DAILY 12/26/11 Rosuvastatin Calcium [Crestor] 40 mg PO HS 12/21/15 Aspirin [ASA -] 81 mg PO DAILY 03/13/18 Multivitamin [Multiple Vitamins] 1 each PO DAILY 03/13/18 Fluticasone Propionate [Flovent Diskus] 2 puff IH BID 03/14/18 Insulin Aspart (Niacinamide) [Fiasp 100 Unit/ml Flextouch] 10 unit SQ TID Lipase/Protease/Amylase [Guillerminaon Dr 36,000 Units Capsule] 2 cap PO TID 03/14/18 Semaglutide [Ozempic] 1 mg SQ WEEKLY 03/14/18 Clopidogrel Bisulfate [Plavix -] 75 mg PO DAILY tablet 03/15/18 Insulin Glargine,Hum.rec.anlog [Mickey Renee] 15 unit SQ BID 05/04/18 Losartan Potassium 0 mg PO DAILY 05/04/18 Metoprolol Succinate 100 mg PO DAILY #4 tab.er.24h 05/04/18 Anemia: No Asthma: Yes Cancer: No Cardiac Disorders: No CVA: No COPD: No CHF: No Dementia: No Diabetes: Yes GI Disorders: Yes (ACID REFLUX AT TIMES) Disorders: No HTN: Yes Hypercholesterolemia: Yes Kidney Stones: Yes Liver Disease: No Seizures: No Thyroid Disease: No - Surgical History Abdominal Surgery: No Appendectomy: No Cardiac Surgery: Yes (stents x 1 04/19/06, 1 on 03/15/18) Cholecystectomy: No Lung Surgery: No Neurologic Surgery: No Orthopedic Surgery: Yes (ARTHROSCOPIC SHOULDER - LEFT; CARPAL TUNNEL RIGHT HAND) - Immunization History Immunization Up to Date: Yes - Suicide/Smoking/Psychosocial Hx Smoking Status: Yes Smoking History: Never smoked Have you smoked in the past 12 months: No Number of Cigarettes Smoked Daily: 10 If you are a former smoker, when did you quit?: 12/13/17 Information on smoking cessation initiated: No 'Breaking Loose' booklet given: 10/10/16 Hx Alcohol Use: No Drug/Substance Use Hx: No Substance Use Type: None Hx Substance Use Treatment: No Review of Systems - Review of Systems Able to Perform ROS?: Yes Is the patient limited Singaporean proficient: No Constitutional: No: Chills, Diaphoresis, Fever Respiratory: Yes: Shortness of Breath. No: Cough, Orthopnea Cardiac (ROS): Yes: Chest Pain, Palpitations. No: Lightheadedness, Syncope ABD/GI: No: Constipated, Diarrhea, Nausea, Vomiting : No: Burning, Dysuria, Hematuria, Urgency Musculoskeletal: Yes: Back Pain (chronic) Neurological: No: Headache, Numbness, Tingling *Physical Exam - Vital Signs Last Vital Signs Temp Pulse Resp BP Pulse Ox 98.7 F 101 H 16 179/75 H 100 05/04/18 10:24 05/04/18 10:24 05/04/18 10:24 05/04/18 10:24 05/04/18 10:24 - Physical Exam Comments: 05/04/18 11:25 GENERAL: Awake, alert, and fully oriented, in no acute distress HEAD: No signs of trauma, normocephalic, atraumatic EYES: PERRLA, EOMI, sclera anicteric, conjunctiva clear ENT: oropharynx clear without exudates. Moist mucosa NECK: Normal ROM, supple LUNGS: No distress, speaks full sentences, clear to auscultation bilaterally HEART: tachycardic rate and regular rhythm, normal S1 and S2, no murmurs, rubs or gallops, peripheral pulses normal and equal bilaterally. ABDOMEN: Soft, nontender, normoactive bowel sounds. No guarding, no rebound. No masses EXTREMITIES : Normal inspection, Normal range of motion, no edema. No clubbing or cyanosis. NEUROLOGICAL: Cranial nerves II through XII grossly intact. Normal speech, normal gait, no focal sensorimotor deficits SKIN: Warm, Dry, normal turgor, no rashes or lesions noted Moderate Sedation - Procedure Monitoring Vital Signs: Procedure Monitoring Vital Signs Temperature 98.7 F 05/04/18 10:24 Pulse Rate 101 H 05/04/18 10:24 Respiratory Rate 16 05/04/18 10:24 Blood Pressure 179/75 H 05/04/18 10:24 O2 Sat by Pulse Oximetry (%) 100 05/04/18 10:24 ED Treatment Course - LABORATORY CBC & Chemistry Diagram: 05/04/18 12:00 05/04/18 12:00 Medical Decision Making - Medical Decision Making 05/04/18 11:00 53 yof w/ PMHx HTN, DM2, HLD, Asthma, GERD, Gout, anterior wall CO requiring stent placement on 03/15 and 04/19 who presents with 1 week of palpitations that occurred more at night and now have become constant throughout day and associated with occasional stabbing centralized nonradiating chest pain. The patient also notes 1 day of excessive urination. The patient reports that after the stent she has had shortness of breath. She also reports recently recovering from a viral URI 1-2 weeks ago. She denies fever, headaches, nausea, vomiting, abdominal pain, dysuria, hematuria, diarrhea, constipation. She denies any recent life stressors but reports that she quit smoking 5 months ago. Patient reports chronic baseline bilateral leg swelling that occurs at night. ED Course: Consider ACS vs electrolyte abnormality vs urine infection vs anxiety vs PE PERC score of 3 With history of recent immobilization s/p surgery, age, HR cannot rule out PE. cbc, cmp, trop, ekg, cxr, cta chest, ua 05/04/18 13:29 Patient reassessed feels as if symptoms of palpitations have improved. cbc, cmp, urine - unremarkable. trop - negative CXR - elevated R hemidiaphragm, no acute findings. ekg - normal sinus rhythm HR 96, no interval abnormalities, narrow QRS, ST and T wave segments and morphology normal. inferior infarct, age undetermined pending CTA 05/04/18 15:35 CTA without PE, mild atelectic changes Repeat troponin. Heart score:3 [facility] contacted. pending call back. 05/04/18 16:18 [facility] will come see patient, if trop negative patient stable for discharge iwth f/u in cardiac rehab. 05/04/18 17:50 Per cardiology will double metoprolol, d/c f/u in clinic on Monday, patient to see PCP on May 14. Patient stable for discharge. Informed of all lab and imaging results. Given follow up instructions and strict return precautions. Patient expressed understanding and agree to plan. *DC/Admit/Observation/Transfer Diagnosis at time of Disposition: Palpitations - Discharge Dispostion Disposition: HOME Condition at time of disposition: Stable Decision to Admit order: No - Prescriptions Prescriptions: Metoprolol Succinate 100 mg PO DAILY #4 tab.er.24h - Referrals Referrals: Layne Moffett MD [Primary Care Provider] - - Patient Instructions Additional Instructions: You were seen in the ED for complaints of palpitations. In the ED you were evaluated with labwork and imaging. Your results were unremarkable for a pulmonary embolism or myocardial infarction , There does not appear to be an acute need for immediate hospitalization. You are advised to follow up with your Primary Care Physician within 1 week. Please follow up with your Financial Accountant, Dr. Garcia within 1 week. You are given a 100mg dose of metoprolol for your elevated BP, to be taken until you see Cardiology on Monday05/07/18. You are to take this higher dose of metoprolol instead of your regular metoprolol. DO NOT TAKE both metoprolol doses together Return to the ED immediately if you experience worsening chest pain or palpitations, shortness of breath, loss of consciousness, associated symptoms of nausea, sweating or abdominal pain. - Post Discharge Activity
[2018-05-04] MEDS ORDERED: SODIUM CHLORIDE 1,000 ML IV SCH (11:15)
--- NOTE | 2018-05-04 11:24 | EKG ---
Test Reason : Blood Pressure : / mmHG Vent. Rate : 096 BPM Atrial Rate : 096 BPM P-R Int : 130 ms QRS Dur : 092 ms QT Int : 364 ms P-R-T Axes : 060 -20 059 degrees QTc Int : 459 ms NORMAL SINUS RHYTHM INFERIOR INFARCT , AGE UNDETERMINED ABNORMAL ECG WHEN COMPARED WITH ECG OF 14-MAR-2018 10:08, NO SIGNIFICANT CHANGE WAS FOUND Confirmed by JOSEPHINE GARCIA, ABAD ([id number]) on 05/04/2018 11:24:36 AM Referred By: Confirmed By:ABAD BURTON MD
[2018-05-04 12:40] LABS: URINE APPEARANCE SLCLOUDY; URINE BILIRUBIN NEGATIVE (<2.0 mg/dL); URINE COLOR YELLOW; URINE GLUCOSE (UA) 1+ (NEGATIVE); URINE KETONE NEGATIVE (NEGATIVE); URINE LEUK ESTERASE NEGATIVE (NEGATIVE); URINE NITRITE POSITIVE (NEGATIVE); URINE PROTEIN 3+ (NEGATIVE); URINE UROBILINOGEN NEGATIVE mg/dL (0.2-1.0)
[2018-05-04 12:41] LABS: ALBUMIN 3.2 g/dl (3.4-5.0); ALK PHOS 143 U/L (45-117); ANION GAP 6 MMOL/L (8-16); BILIRUBIN,TOTAL 0.3 mg/dL (0.2-1); BLOOD UREA NITROGEN 17 mg/dL (7-18); CALCIUM 8.8 mg/dL (8.5-10.1); CHLORIDE 104 mmol/L (98-107); CO2 30 mmol/L (21-32); GLUCOSE,RANDOM 163 mg/dL (74-106); POTASSIUM 4.1 mmol/L (3.5-5.1); SGOT/AST 16 U/L (15-37); SGPT/ALT 26 U/L (13-61); SODIUM 140 mmol/L (136-145); TOT PROT 6.9 g/dl (6.4-8.2)
[2018-05-04 12:42] LABS: BASO % 0.5 % (0-2.0); EOS % 1.6 % (0-4.5); HEMATOCRIT 33.1 % (32.4-45.2); LYMPH % 15.7 % (8-40); MCH 28.6 pg (25.7-33.7); MCHC 33.2 g/dl (32.0-36.0); MEAN CELL VOLUME 86.1 fl (80-96); MEAN PLT VOLUME 8.6 fl (7.5-11.1); MONO % 5.6 % (3.8-10.2); NEUT % 76.6 % (42.8-82.8); PLATELET COUNT 258 K/MM3 (134-434); RBC 3.85 M/mm3 (3.60-5.2); RDW 16.1 % (11.6-15.6); WHITE BLOOD COUNT 9.9 K/mm3 (4.0-10.0)
[2018-05-04 13:28] LABS: EPI CELLS RARE /HPF (FEW); URINE BACTERIA MODERATE /hpf (NONE SEEN); URINE MUCUS RARE
--- NOTE | 2018-05-04 17:26 | CON.CARD ---
Consult Consult Specialty:: cardiology Referred by:: atrypical chest pain; recent PCIs Reason for Consultation:: atypical chest pain; recent PCIs - History of Present Illness History of Present Illness: The patient is a 53 year old female, with a significant past medical history of HTN, DM2, HLD, Asthma, GERD, Gout, anterior wall [place] requiring stent placement on 03/15 and 04/19 (currently taking Plavix), who presents to the emergency department with one week of palpitations and intermittent chest pain for a couple of days. She reports the chest pain as centralized, intermittent stabbing. She denies radiation of pain. The patient also reports 1 day of excessive urination. She states she has been more SOB since having the stents placed. - Past Medical History Cardio/Vascular: Yes: HTN, Hyperlipdemia Endocrine: Yes: Diabetes Mellitus - Alcohol/Substance Use Hx Alcohol Use: No - Smoking History Smoking history: Never smoked Have you smoked in the past 12 months: No Aproximately how many cigarettes per day: 10 If you are a former smoker, when did you quit?: 12/13/17 Home Medications - Allergies Allergies/Adverse Reactions: Allergies Allergy/AdvReac Type Severity Reaction Status Date / Time Penicillins Allergy Severe Hives Verified 03/13/18 11:49 - Home Medications Home Medications: Ambulatory Orders Metoprolol Succinate [Toprol XL -] 50 mg PO DAILY 12/26/11 Rosuvastatin Calcium [Crestor] 40 mg PO HS 12/21/15 Aspirin [ASA -] 81 mg PO DAILY 03/13/18 Multivitamin [Multiple Vitamins] 1 each PO DAILY 03/13/18 Fluticasone Propionate [Flovent Diskus] 2 puff IH BID 03/14/18 Insulin Aspart (Niacinamide) [Fiasp 100 Unit/ml Flextouch] 10 unit SQ TID Lipase/Protease/Amylase [Luiz Velazquez 36,000 Units Capsule] 2 cap PO TID 03/14/18 Semaglutide [Ozempic] 1 mg SQ WEEKLY 03/14/18 Clopidogrel Bisulfate [Plavix -] 75 mg PO DAILY tablet 03/15/18 Insulin Glargine,Hum.rec.anlog [Mickey Renee] 15 unit SQ BID 05/04/18 Losartan Potassium 0 mg PO DAILY 05/04/18 Vital Signs: Vital Signs Temperature 98.7 F 05/04/18 10:24 Pulse Rate 101 H 05/04/18 10:24 Respiratory Rate 16 05/04/18 10:24 Blood Pressure 179/75 H 05/04/18 10:24 O2 Sat by Pulse Oximetry (%) 100 05/04/18 10:24 - Other Data Labs, Other Data: CBC, BMP 05/04/18 12:00 05/04/18 12:00 Troponin, BNP 05/04/18 12:00 Troponin I < 0.02 Troponin, BNP 05/04/18 12:00 Troponin I < 0.02 Problem List - Problems (1) H/O heart artery stent Assessment/Plan: Hx coronary stent of OM (Mar, 2018) and OM3 April 2018). Now with atypical chest pain. TNI < 0.02 x21; if 2nd TNi is not appreciably elevated, may follow pt as outpatient from cardac standpoint. Continud ASA, clopidogrel, metoprolol ER, Aatorvastatin, Imdur, sl NTG prn. Plan for cardiac rehabilitation as oupatient; stress MIBI if pt develops refractory ches otto. Code(s): Z95.5 - PRESENCE OF CORONARY ANGIOPLASTY IMPLANT AND GRAFT (2) Diabetes Code(s): E11.9 - TYPE 2 DIABETES MELLITUS WITHOUT COMPLICATIONS (3) HTN (hypertension) Code(s): I10 - ESSENTIAL (PRIMARY) HYPERTENSION (4) Hyperlipidemia Code(s): E78.5 - HYPERLIPIDEMIA, UNSPECIFIED
[2018-05-04 18:49] VITALS: BP 160/65; PULSE 72
[2018-05-05 11:52] LABS: CHOLESTEROL 115 mg/dL (50-200); HDL CHOLESTEROL 43 mg/dL (40-60); TRIGLYCERIDES 298 mg/dL (0-150)
== END 2018-05-04 18:50 | disposition home or self-care (01) ==
LOC: JER 10:19
DX: R00.2 Palpitations (principal); I25.10 Atherosclerotic heart disease of native coronary artery without angina pectoris; I10 Essential (primary) hypertension; Z95.5 Presence of coronary angioplasty implant and graft; I25.2 Old myocardial infarction; E11.9 Type 2 diabetes mellitus without complications; E78.5 Hyperlipidemia, unspecified; J45.909 Unspecified asthma, uncomplicated; M10.9 Gout, unspecified
CPT/HCPCS: 36415; 71046-TC-FY; 71275-TC; 80053; 80061; 81003; 81015; 82550; 83721; 84443; 84484; 85025; 87086; 87186; 93005; 93010; 99284-25; J7030

== ENCOUNTER 2018-05-26 18:05 | Emergency (ER) | payer OTHER ==
[2018-05-26 18:10] VITALS: BP 164/78; PULSE 106; TEMP 100.2; BMI 36.6
--- NOTE | 2018-05-26 18:36 | PDOC ---
History of Present Illness - General Chief Complaint: Nausea/Vomiting Stated Complaint: VOMITING/DIARRHEA Time Seen by Provider: 05/26/18 18:12 History Source: Patient - History of Present Illness Initial Comments: 05/26/18 19:00 The patient is a 53 year old female with a PMH of NIDDM, HTN, HLD, Asthma (no hospitalizations/intubations), Carpal Tunnel, Acid Reflux, and Anterior Wall [place] s/p stent placement in 05/01 who presents to our ED c/o 1 day h/o abdominal pain. Pain started acutely this morning while at home. Pain is epigastric, cramping, 8/10, intermittent and radiates from her L side to her back. Associated w/NBNB vomiting and 6-7 episodes of watery non-bloody diarrhea. Endorses subjective fevers/chills. Denies symptoms including dysuria/ hematuria. Last PO intake @ a steak sandwich @ 11 a.m. which exacerbated her pain. No other family members with similar symptoms. Measured BS @ home this afternoon, low 200's. Adherent to medications which she took today. 10 point ROS is negative including no chest pain/shortness of breath/numbness, tingling/sore throat/cough. Allergy: Penicillin (rash) Surgical: Carpal Tunnel Repair (R); Shoulder Arthroscopy (L), Stent placement x2 , BSO Social: 30+ year smoker -quit 6 month previous; denies recreational drugs PMD: Dr. Layne Moffett Cardiology: As per EMR, patient evaluated in our ED in 05/01 for intermittent chest pain. Troponin (-) x2 and patient d/c home. Past History - Past Medical History Allergies/Adverse Reactions: Allergies Allergy/AdvReac Type Severity Reaction Status Date / Time Penicillins Allergy Severe Hives Verified 05/26/18 18:07 Home Medications: Ambulatory Orders Metoprolol Succinate [Toprol XL -] 50 mg PO BID 12/26/11 Rosuvastatin Calcium [Crestor] 40 mg PO HS 12/21/15 Aspirin [ASA -] 81 mg PO DAILY 03/13/18 Multivitamin [Multiple Vitamins] 1 each PO DAILY 03/13/18 Fluticasone Propionate [Flovent Diskus] 2 puff IH BID 03/14/18 Insulin Aspart (Niacinamide) [Fiasp 100 Unit/ml Flextouch] 20 unit SQ TID Lipase/Protease/Amylase [Luiz Velazquez 36,000 Units Capsule] 2 cap PO TID 03/14/18 Semaglutide [Ozempic] 1 mg SQ WEEKLY 03/14/18 Clopidogrel Bisulfate [Plavix -] 75 mg PO DAILY tablet 03/15/18 Insulin Glargine,Hum.rec.anlog [Touaprilo Solostar] 50 unit SQ BID 05/04/18 Losartan Potassium 100 mg PO DAILY 05/04/18 Amlodipine Besylate [Norvasc -] 5 mg PO DAILY 05/26/18 Anemia: No Asthma: Yes Cancer: No Cardiac Disorders: No CVA: No COPD: No CHF: No Dementia: No Diabetes: Yes GI Disorders: Yes (ACID REFLUX AT TIMES) Disorders: No HTN: Yes Hypercholesterolemia: Yes Kidney Stones: Yes Liver Disease: No Seizures: No Thyroid Disease: No - Surgical History Abdominal Surgery: No Appendectomy: No Cardiac Surgery: Yes (stents x 1 04/19/06, 1 on 03/15/18) Cholecystectomy: No Lung Surgery: No Neurologic Surgery: No Orthopedic Surgery: Yes (ARTHROSCOPIC SHOULDER - LEFT; CARPAL TUNNEL RIGHT HAND) - Immunization History Immunization Up to Date: Yes - Suicide/Smoking/Psychosocial Hx Smoking Status: Yes Smoking History: Never smoked Have you smoked in the past 12 months: No Number of Cigarettes Smoked Daily: 10 If you are a former smoker, when did you quit?: 12/13/17 'Breaking Loose' booklet given: 10/10/16 Hx Alcohol Use: No Drug/Substance Use Hx: No Substance Use Type: None Hx Substance Use Treatment: No Review of Systems - Review of Systems Constitutional: Yes: Chills, Fever Respiratory: No: Cough, Shortness of Breath Cardiac (ROS): No: Chest Pain, Lightheadedness, Palpitations, Syncope ABD/GI: Yes: Diarrhea, Nausea, Poor Fluid Intake, Vomiting, Abdominal cramping. No: Constipated : No: Burning, Dysuria *Physical Exam - Vital Signs Last Vital Signs Temp Pulse Resp BP Pulse Ox 100.2 F H 106 H 18 164/78 97 05/26/18 18:08 05/26/18 18:08 05/26/18 18:08 05/26/18 18:08 05/26/18 18:08 - Physical Exam General Appearance: Yes: Nourished, Obese HEENT: positive: Normal Voice, Hearing Grossly Normal Neck: positive: Trachea midline, Supple Respiratory/Chest: positive: Lungs Clear, Normal Breath Sounds Cardiovascular: positive: S1, S2. negative: Edema, JVD Gastrointestinal/Abdominal: positive: Normal Bowel Sounds, Soft, Other (TTP initially on palpation, no TTP with stethescope test). negative: Distended, Guarding, Rebound, Tenderness Musculoskeletal: negative: CVA Tenderness (R), CVA Tenderness (L) Extremity: positive: Normal Capillary Refill, Normal Inspection Integumentary: positive: Normal Color, Dry, Warm Neurologic: positive: Fully Oriented, Alert Moderate Sedation - Procedure Monitoring Vital Signs: Procedure Monitoring Vital Signs Temperature 100.2 F H 05/26/18 18:08 Pulse Rate 106 H 05/26/18 18:08 Respiratory Rate 18 05/26/18 18:08 Blood Pressure 164/78 05/26/18 18:08 O2 Sat by Pulse Oximetry (%) 97 05/26/18 18:08 Heart Score/ECG Review - History History: Slightly suspicious - Age Age: 45-65 - Risk Factors Risk Factors Heart Score: Yes Hx Diabetes - Troponin Troponin: </= normal limit - ECG Intrepretation Rhythm: Regular Rhythm - Parmelee Parmelee: Normal - ECG Impressions Normal ECG: Yes ED Treatment Course - LABORATORY CBC & Chemistry Diagram: 05/26/18 19:47 05/26/18 19:47 Medical Decision Making - Medical Decision Making 05/26/18 19:04 53 year old female with cramping abdominal pain. VS significant for Temp 100.6 and Tachycardia. Repeat HR @ bedside 96 BPM. PE shows equivocal abdominal tenderness w/palpation then no pain elicited on stethoscope test in B/L upper quadrants. No peritoneal signs. Frontal diagnosis: viral gastroenteritis, diverticulitis, colitis, cholecystitis, pancreatitis, r/o ACS (abdominal pain as anginal equivalent), cystitis/pyelonephritis, early onset appendicitis, esophageal spasm, GERD. Low clinical suspicion for ovarian/uterine pathology as patient does not report LQ pain and has no TTP on PE and EMR confirms BSO in 2013. Will obtain basic labs, Troponin, EKG, UA/Urine Culture. GI cocktail, Tylenol for fever. Reassess. Attending exam shows B/L TTP. Will obtain CT scan. 05/26/18 20:55 No leukocytosis Urine shows no WBC, negative LE Troponin (-) EKG non-ischemic as documented in EMR Patient reassessed @ bedside. Symptomatically improved with GI cocktail. Repeat belly exam shows TTP with palpation and no TTP w/stethescope test CT pending CT abdomen shows no colitis, no diverticulosis, does note adrenal mass. Patient states she follows with an senior clinical consultant and is aware of the mass. Will give patient copy of CT scan and discharge home with return precautions and PMD, Endo follow-up for further evaluation. Patient tolerated PO intake, ambulatory around unit. I explained the test results and clinical impressions to the patient. I answered all of the patient's questions. The patient was satisfied with the care received and will return to the Emergency Department with any new or worsening symptoms. *DC/Admit/Observation/Transfer Diagnosis at time of Disposition: Nausea & vomiting - Discharge Dispostion Disposition: HOME Condition at time of disposition: Good Decision to Admit order: No - Referrals Referrals: Layne Moffett MD [Primary Care Provider] - - Patient Instructions Printed Discharge Instructions: DI for Vomiting -- Adult Additional Instructions: You were evaluated today for your abdominal pain, vomiting and diarrhea. Your cat scan and labs showed no concerning findings At this time you are safe for discharge home. You can take Maalox for any abdominal discomfort. Advance your diet as tolerated, start with soft foods (bread, mashed potatoes) and drink plenty of fluid. Please follow-up with your senior clinical consultant as you may need an MRI. Please follow up with your primary care doctor in 3 days. Your care is not complete until you follow up with your senior clinical consultant and your primary care doctor. We have provided you with a copy of your CT scan. Please take this to your follow-up appointments. Return to the ED for any new/worsening/concerning symptoms. - Post Discharge Activity
[2018-05-26] MEDS ORDERED: ACETAMINOPHEN 1000 MG/100 ML VIAL (NON FORMULARY) IVPB ONE (19:01)
[2018-05-26] MEDS ORDERED: SODIUM CHLORIDE 0.9% 500 ML INFUS.BAG IV ONE (19:02)
[2018-05-26] MEDS ORDERED: ACETAMINOPHEN INJECTION 100 ML IVPB ONE (19:25)
[2018-05-26 19:58] LABS: BASO % 0.6 % (0-2.0); EOS % 1.6 % (0-4.5); HEMATOCRIT 35.6 % (32.4-45.2); HEMOGLOBIN 11.9 GM/dL (10.7-15.3); LYMPH % 5.5 % (8-40); MCH 28.1 pg (25.7-33.7); MCHC 33.4 g/dl (32.0-36.0); MEAN CELL VOLUME 84.3 fl (80-96); MEAN PLT VOLUME 8.1 fl (7.5-11.1); MONO % 2.4 % (3.8-10.2); NEUT % 89.9 % (42.8-82.8); PLATELET COUNT 250 K/MM3 (134-434); RBC 4.22 M/mm3 (3.60-5.2); RDW 16.5 % (11.6-15.6); WHITE BLOOD COUNT 8.8 K/mm3 (4.0-10.0)
[2018-05-26] MEDS ORDERED: ONDANSETRON 4 MG/2 ML VIAL IVPUSH ONE (20:00)
[2018-05-26] MEDS ORDERED: FAMOTIDINE 20 MG/50 ML IVPB 20 MG/50 ML MG IVPB ONE ×2 (20:00→20:18)
[2018-05-26 20:13] LABS: URINE APPEARANCE SLCLOUDY; URINE BILIRUBIN NEGATIVE (<2.0 mg/dL); URINE COLOR LTYELLOW; URINE GLUCOSE (UA) 1+ (NEGATIVE); URINE KETONE NEGATIVE (NEGATIVE); URINE LEUK ESTERASE NEGATIVE (NEGATIVE); URINE NITRITE NEGATIVE (NEGATIVE); URINE PROTEIN 3+ (NEGATIVE); URINE UROBILINOGEN NEGATIVE mg/dL (0.2-1.0)
[2018-05-26] MEDS ORDERED: morphine CARPU-JECT 4 MG/1 ML DISP.SYRIN IVPUSH ONE (20:16)
[2018-05-26 20:18] LABS: EPI CELLS FEW /HPF (FEW); URINE MUCUS RARE
[2018-05-26] MEDS ORDERED: ONDANSETRON 4 MG/2 ML VIAL ONE (20:18)
[2018-05-26] MEDS ORDERED: morphine SULFATE 4 MG/ML VIAL ONE (20:35)
--- NOTE | 2018-05-26 20:36 | PDOC ---
Attending Attestation - HPI HPI: 05/26/18 20:59 Patient is a 53 year old female with past medical history of hypertension, diabetes , CAD s/p stenting, asthma, GERD who presents to the ED for complaints of abdominal pain since this morning. Patient states she woke up with this pain this morning, but became worse after eating a steak sandwich for lunch. She locates the pain to her epigastrium and is associated with nausea, green/ bilious emesis, and yellow-ming diarrhea. She reports chills, but denies fever. Denies any recent travel or sick contacts. - Physicial Exam PE: 05/26/18 20:59 GENERAL: Awake, alert, and fully oriented, in no acute distress HEAD: No signs of trauma LUNGS: Breath sounds equal, clear to auscultation bilaterally. HEART: Regular rate and rhythm ABDOMEN: Soft, protuberant, RUQ and epigastric tenderness on palpation, normoactive bowel sounds. No guarding, no rebound. No masses EXTREMITIES: Normal range of motion, no edema. NEUROLOGICAL: Cranial nerves II through XII grossly intact. Normal speech SKIN: Warm, Dry, normal turgor, no rashes or lesions noted. - Medical Decision Making 05/26/18 21:02 Documentation prepared by Rubi Walton, acting as medical psychotherapist for Ysabel Ridley MD. <Rubi Walton - Last Filed: 05/26/18 20:59> - Resident Resident Name: Melanie Zavaleta - ED Attending Attestation I have performed the following: I have examined & evaluated the patient, The case was reviewed & discussed with the resident, I agree w/resident's findings & plan, Exceptions are as noted - Medical Decision Making 05/26/18 20:36 EKG - Twelve-lead EKG was performed and reviewed by me. There is normal sinus rhythm with a normal rate. The axis is normal. The intervals are normal. There are no ST or T wave abnormalities. Impression: Normal twelve-lead EKG 05/26/18 21:47 Laboratory Tests 05/26/18 05/26/18 05/26/18 19:42 19:47 19:47 WBC 8.8 Hgb 11.9 Hct 35.6 Plt Count 250 Neutrophils % 89.9 H Lymphocytes % 5.5 L D BUN 25 H Creatinine 1.0 Random Glucose 127 H Total Bilirubin 0.4 AST 19 ALT 21 Creatine Kinase 94 Troponin I 0.02 Lipase 181 Urine Blood Negative Urine Nitrite Negative Ur Leukocyte Esterase Negative Urine WBC (Auto) 1 Urine RBC (Auto) <[address] abd and pelvis negative Pt feels better Po challenged successfully Can discharge to home Follow up with PMD <Ysabel Ridley - Last Filed: 05/30/18 08:34>
[2018-05-26 20:42] LABS: ALBUMIN 3.4 g/dl (3.4-5.0); ALK PHOS 144 U/L (45-117); ANION GAP 7 MMOL/L (8-16); BILIRUBIN,TOTAL 0.4 mg/dL (0.2-1); BLOOD UREA NITROGEN 25 mg/dL (7-18); CALCIUM 9.4 mg/dL (8.5-10.1); CHLORIDE 102 mmol/L (98-107); CO2 29 mmol/L (21-32); GLUCOSE,RANDOM 127 mg/dL (74-106); LIPASE 181 U/L (73-393); POTASSIUM 4.1 mmol/L (3.5-5.1); SGOT/AST 19 U/L (15-37); SGPT/ALT 21 U/L (13-61); SODIUM 138 mmol/L (136-145); TOT PROT 7.2 g/dl (6.4-8.2)
--- NOTE | 2018-05-27 08:40 | EKG ---
Test Reason : Blood Pressure : / mmHG Vent. Rate : 093 BPM Atrial Rate : 093 BPM P-R Int : 140 ms QRS Dur : 086 ms QT Int : 372 ms P-R-T Axes : 016 -28 061 degrees QTc Int : 462 ms NORMAL SINUS RHYTHM NORMAL ECG WHEN COMPARED WITH ECG OF 04-MAY-2018 10:38, NO SIGNIFICANT CHANGE WAS FOUND Confirmed by ABAD BURTON MD ([id number]) on 05/27/2018 8:40:21 AM Referred By: Confirmed By:ABAD BURTON MD
== END 2018-05-26 23:54 | disposition home or self-care (01) ==
LOC: JER 18:05
PROC: 3E033GC Introduction of Other Therapeutic Substance into Peripheral Vein, Percutaneous Approach (ICD-10-PCS; principal; 2018-05-26)
PROC: 3E033NZ Introduction of Analgesics, Hypnotics, Sedatives into Peripheral Vein, Percutaneous Approach (ICD-10-PCS; 2018-05-26)
PROC: 3E033NZ Introduction of Analgesics, Hypnotics, Sedatives into Peripheral Vein, Percutaneous Approach (ICD-10-PCS; 2018-05-26)
PROC: 3E033GC Introduction of Other Therapeutic Substance into Peripheral Vein, Percutaneous Approach (ICD-10-PCS; 2018-05-26)
DX: R11.2 Nausea with vomiting, unspecified (principal); R19.7 Diarrhea, unspecified; I25.10 Atherosclerotic heart disease of native coronary artery without angina pectoris; I10 Essential (primary) hypertension; I25.2 Old myocardial infarction; Z95.5 Presence of coronary angioplasty implant and graft; J45.909 Unspecified asthma, uncomplicated; E11.9 Type 2 diabetes mellitus without complications; E78.5 Hyperlipidemia, unspecified; K21.9 Gastro-esophageal reflux disease without esophagitis
CPT/HCPCS: 36415; 71045-TC-FY; 74177-TC; 80053; 81003; 81015; 82550; 83605; 83690; 84484; 85025; 87086; 87186; 93005; 93010; 96365; 96375; 99282-25; J0131

== ENCOUNTER 2018-08-27 15:29 | Emergency (ER) | payer OTHER ==
[2018-08-27] MEDS ORDERED: ASPIRIN 81 MG CHEWABLE TABLETS PO ONE (15:47)
--- NOTE | 2018-08-27 15:47 | PDOC ---
Rapid Medical Evaluation Time Seen by Provider: 08/27/18 15:45 Medical Evaluation: Allergies Allergy/AdvReac Type Severity Reaction Status Date / Time Penicillins Allergy Severe Hives Verified 05/26/18 18:07 08/27/18 15:45 I have performed a brief in-person evaluation of this patient. The patient presents with a chief complaint of: BLE swelling x1 week Pertinent physical exam findings: non-pitting edema BLE. No calf tenderness. I have ordered the following: cardiac w/u The patient will proceed to the ED for further evaluation. Discharge Disposition - Diagnosis Edema - Referrals - Patient Instructions - Post Discharge Activity
[2018-08-27 15:51] VITALS: BP 151/73; PULSE 107; TEMP 98.5; BMI 36.6
[2018-08-27] MEDS ORDERED: ASPIRIN 81 MG CHEWABLE TABLETS ONE (16:06)
--- NOTE | 2018-08-27 16:34 | PDOC ---
History of Present Illness - General Chief Complaint: Edema Stated Complaint: DEANGELO FOOT SWOLLEN Time Seen by Provider: 08/27/18 15:45 History Source: Patient Exam Limitations: No Limitations - History of Present Illness Initial Comments: 08/27/18 16:28 53 y/o female presents to the ED with c/o ble edema x 1 week. Pt sates no change in meds or diet in the last 3 months. pt does state hx of stent placement in 2018, dm, htn, and dyslipidemia. pt denies fever, skin redness, chills, weakness, cp, or sob. pt denies weight gain or loss. Pt states called Dr. Moffett for an appt but was told to go to ED for w/u. Timing/Duration: 1 week Severity: mild Associated Symptoms: reports: other Past History - Travel Traveled outside of the country in the last 30 days: No Close contact w/someone who was outside of country & ill: No - Past Medical History Allergies/Adverse Reactions: Allergies Allergy/AdvReac Type Severity Reaction Status Date / Time Penicillins Allergy Severe Hives Verified 08/27/18 15:51 Home Medications: Ambulatory Orders Metoprolol Succinate [Toprol XL -] 50 mg PO BID 12/26/11 Rosuvastatin Calcium [Crestor] 40 mg PO HS 12/21/15 Aspirin [ASA -] 81 mg PO DAILY 03/13/18 Multivitamin [Multiple Vitamins] 1 each PO DAILY 03/13/18 Fluticasone Propionate [Flovent Diskus] 2 puff IH BID 03/14/18 Insulin Aspart (Niacinamide) [Fiasp 100 Unit/ml Flextouch] 20 unit SQ TID Lipase/Protease/Amylase [Luiz Velazquez 36,000 Units Capsule] 2 cap PO TID 03/14/18 Semaglutide [Ozempic] 1 mg SQ WEEKLY 03/14/18 Clopidogrel Bisulfate [Plavix -] 75 mg PO DAILY tablet 03/15/18 Insulin Glargine,Hum.rec.anlog [Mickey Solostar] 50 unit SQ BID 05/04/18 Losartan Potassium 100 mg PO DAILY 05/04/18 Amlodipine Besylate [Norvasc -] 5 mg PO DAILY 05/26/18 Anemia: No Asthma: Yes Cancer: No Cardiac Disorders: No CVA: No COPD: No CHF: No Dementia: No Diabetes: Yes GI Disorders: Yes (ACID REFLUX AT TIMES) Disorders: No HTN: Yes Hypercholesterolemia: Yes Kidney Stones: Yes Liver Disease: No Seizures: No Thyroid Disease: No - Surgical History Abdominal Surgery: No Appendectomy: No Cardiac Surgery: Yes (stents x 1 04/19/06, 1 on 03/15/18) Cholecystectomy: No Lung Surgery: No Neurologic Surgery: No Orthopedic Surgery: Yes (ARTHROSCOPIC SHOULDER - LEFT; CARPAL TUNNEL RIGHT HAND) - Immunization History Immunization Up to Date: Yes - Suicide/Smoking/Psychosocial Hx Smoking Status: Yes Smoking History: Former smoker Have you smoked in the past 12 months: No Number of Cigarettes Smoked Daily: 2,018 If you are a former smoker, when did you quit?: 12/13/17 Information on smoking cessation initiated: No 'Breaking Loose' booklet given: 10/10/16 Hx Alcohol Use: No Drug/Substance Use Hx: No Substance Use Type: None Hx Substance Use Treatment: No Patient Lives Alone: No Lives with/in: spouse/SO Review of Systems - Review of Systems Able to Perform ROS?: No Is the patient limited Citizen [place] proficient: No Constitutional: No: Symptoms Reported HEENTM: No: Symptoms Reported Respiratory: No: Symptoms reported Cardiac (ROS): Yes: Edema ABD/GI: No: Symptoms Reported : No: Symptoms Reported Musculoskeletal: Yes: Muscle Pain (deangelo calves) Integumentary: No: Symptoms Reported Neurological: No: Symptoms reported Endocrine: No: Symptoms Reported Hematologic/Lymphatic: No: Symptoms Reported *Physical Exam - Vital Signs Last Vital Signs Temp Pulse Resp BP Pulse Ox 98.5 F 107 H 18 151/73 98 08/27/18 15:46 08/27/18 15:46 08/27/18 15:46 08/27/18 15:46 08/27/18 15:46 - Physical Exam General Appearance: Yes: Nourished, Appropriately Dressed. No: Apparent Distress HEENT: positive: EOMI, JACOB, TMs Normal, Pharynx Normal. negative: Pale Conjunctivae Neck: positive: Supple Respiratory/Chest: positive: Lungs Clear, Normal Breath Sounds. negative: Respiratory Distress, Accessory Muscle Use Cardiovascular: positive: Regular Rhythm, Tachycardia. negative: Murmur Gastrointestinal/Abdominal: positive: Soft. negative: Tenderness Musculoskeletal: negative: CVA Tenderness Extremity: positive: Normal Capillary Refill, Pedal Edema Integumentary: positive: Normal Color, Warm, Moist Neurologic: positive: Normal Mood/Affect, Motor Strength 5/5 (ambulatory) ED Treatment Course - LABORATORY CBC & Chemistry Diagram: 08/27/18 16:10 08/27/18 16:10 - RADIOLOGY Radiology Studies Ordered: Category Date Time Status DUPLEX VASCUL US-2LEGS [US] Stat Ultrasound 08/27/18 16:12 Ordered Medical Decision Making - Medical Decision Making 08/27/18 16:28 CC:BLEedema w/ deangelo calf tenderness Exam: noted 2+ BLE edema. 2+ pedal pulses, no erythema. - homans Plan: labs, d-dimer, ua, ekg, ua, duplex of ble 08/27/18 17:56 Laboratory Tests 08/27/18 08/27/18 08/27/18 16:10 16:10 16:10 WBC 9.9 Hgb 11.0 Hct 33.9 RDW 17.8 H Absolute Neuts (auto) 7.9 Neutrophils % 79.2 PT with INR 10.90 INR 0.92 D-Dimer Sodium 140 Potassium 3.8 Chloride 104 Carbon Dioxide 30 Anion Gap 6 L BUN 22 H Creatinine 1.2 Random Glucose 284 H Calcium 8.4 L Magnesium 1.6 L Total Bilirubin 0.2 AST 20 ALT 21 Alkaline Phosphatase 155 H Creatine Kinase 136 Troponin I < 0.02 B-Natriuretic Peptide 131.8 H Total Protein 6.4 Albumin 3.0 L 08/27/18 16:40 WBC Hgb Hct RDW Absolute Neuts (auto) Neutrophils % PT with INR INR D-Dimer 442 Sodium Potassium Chloride Carbon Dioxide Anion Gap BUN Creatinine Random Glucose Calcium Magnesium Total Bilirubin AST ALT Alkaline Phosphatase Creatine Kinase Troponin I B-Natriuretic Peptide Total Protein Albumin Duplex - for dvt. 08/27/18 18:21 Laboratory Tests 08/27/18 17:30 Urine Protein 3+ H Urine Glucose (UA) 3+ H Urine Bilirubin Negative Urine Urobilinogen 0.2 Ur Leukocyte Esterase Negative Urine WBC (Auto) 1 Urine RBC (Auto) 1 I will prescribe 10mg of lasix w/ recommendations for dependent edema *DC/Admit/Observation/Transfer Diagnosis at time of Disposition: Edema - Discharge Dispostion Disposition: HOME Condition at time of disposition: Good - Referrals Referrals: Layne Moffett MD [Primary Care Provider] - - Patient Instructions Printed Discharge Instructions: DI for Dependent Edema Additional Instructions: take meds for the next week. Follow up with your doctor in 1 week. m Avoid salt and elevate legs when not walking - Post Discharge Activity
[2018-08-27 16:58] LABS: BASO % 0.8 % (0-2.0); EOS % 1.6 % (0-4.5); HEMATOCRIT 33.9 % (32.4-45.2); LYMPH % 13.5 % (8-40); MCH 26.8 pg (25.7-33.7); MCHC 32.6 g/dl (32.0-36.0); MEAN CELL VOLUME 82.3 fl (80-96); MEAN PLT VOLUME 8.2 fl (7.5-11.1); MONO % 4.9 % (3.8-10.2); NEUT % 79.2 % (42.8-82.8); PLATELET COUNT 264 K/MM3 (134-434); RBC 4.12 M/mm3 (3.60-5.2); RDW 17.8 % (11.6-15.6); WHITE BLOOD COUNT 9.9 K/mm3 (4.0-10.0)
[2018-08-27 17:25] LABS: INR 0.92 (0.83-1.09); PROTHROMBIN TIME (PATIENT) 10.9 SEC (9.7-13.0)
[2018-08-27 17:32] LABS: ALK PHOS 155 U/L (45-117); ANION GAP 6 MMOL/L (8-16); BILIRUBIN,TOTAL 0.2 mg/dL (0.2-1); BLOOD UREA NITROGEN 22 mg/dL (7-18); CALCIUM 8.4 mg/dL (8.5-10.1); CHLORIDE 104 mmol/L (98-107); CO2 30 mmol/L (21-32); CREATININE 1.2 mg/dL (0.55-1.3); GLUCOSE,RANDOM 284 mg/dL (74-106); MAGNESIUM 1.6 mg/dL (1.8-2.4); N-TERMINAL BNP 131.8 pg/ml (5-125); POTASSIUM 3.8 mmol/L (3.5-5.1); SGOT/AST 20 U/L (15-37); SGPT/ALT 21 U/L (13-61); SODIUM 140 mmol/L (136-145); TOT PROT 6.4 g/dl (6.4-8.2)
[2018-08-27 17:54] LABS: EPI CELLS 3.6 /HPF (0-5/HPF); URINE APPEARANCE CLEAR; URINE BACTERIA 26.7 /hpf (NEGATIVE); URINE BILIRUBIN NEGATIVE (NEGATIVE); URINE CASTS 2 /lpf (0-8); URINE COLOR YELLOW; URINE GLUCOSE (UA) 3+ (NEGATIVE); URINE KETONE NEGATIVE (NEGATIVE); URINE LEUK ESTERASE NEGATIVE (NEGATIVE); URINE NITRITE NEGATIVE (NEGATIVE); URINE PROTEIN 3+ (NEGATIVE); URINE RBC 1 /hpf (0-4); URINE UROBILINOGEN 0.2 mg/dL (0.2-1.0); URINE WBC 1 /hpf (0-5)
--- NOTE | 2018-08-29 15:24 | EKG ---
Test Reason : Blood Pressure : / mmHG Vent. Rate : 103 BPM Atrial Rate : 103 BPM P-R Int : 150 ms QRS Dur : 082 ms QT Int : 364 ms P-R-T Axes : 074 -25 065 degrees QTc Int : 476 ms SINUS TACHYCARDIA MINIMAL VOLTAGE CRITERIA FOR LVH, MAY BE NORMAL VARIANT BORDERLINE ECG WHEN COMPARED WITH ECG OF 26-MAY-2018 20:25, NO SIGNIFICANT CHANGE WAS FOUND Confirmed by JOSEPHINE GARCIA, ABAD ([id number]) on 08/29/2018 3:24:10 PM Referred By: Confirmed By:ABAD BURTON MD
== END 2018-08-27 18:41 | disposition home or self-care (01) ==
LOC: JER 15:29
DX: R60.0 Localized edema (principal); I25.10 Atherosclerotic heart disease of native coronary artery without angina pectoris; I10 Essential (primary) hypertension; Z95.5 Presence of coronary angioplasty implant and graft; E11.9 Type 2 diabetes mellitus without complications; Z79.4 Long term (current) use of insulin; E78.5 Hyperlipidemia, unspecified; J45.909 Unspecified asthma, uncomplicated; Z87.19 Personal history of other diseases of the digestive system; Z87.891 Personal history of nicotine dependence; Z88.0 Allergy status to penicillin
CPT/HCPCS: 36415; 80053; 81003; 82550; 83735; 83880; 84484; 85025; 85379; 85610; 93005; 93010; 93970-TC; 99283-25

== ENCOUNTER 2018-12-08 01:32 | Emergency (ER) | payer OTHER ==
[2018-12-08] MEDS ORDERED: morphine CARPU-JECT 2 MG/1 ML DISP.SYRIN IVPUSH ONE ×2 (02:15→05:37)
[2018-12-08] MEDS ORDERED: KETOROLAC TROMETHAMINE 60 MG/2 ML VIAL IM ONE (02:16)
--- NOTE | 2018-12-08 02:17 | PDOC ---
History of Present Illness - General Stated Complaint: BACK PAIN Time Seen by Provider: 12/08/18 02:11 History Source: Patient - History of Present Illness Timing/Duration: 4-6 hours Severity: moderate Modifying Factors: improves with: movement Past History - Travel Traveled outside of the country in the last 30 days: No Close contact w/someone who was outside of country & ill: No - Past Medical History Allergies/Adverse Reactions: Allergies Allergy/AdvReac Type Severity Reaction Status Date / Time Penicillins Allergy Severe Hives Verified 08/27/18 15:51 Home Medications: Ambulatory Orders Metoprolol Succinate [Toprol XL -] 50 mg PO BID 12/26/11 Rosuvastatin Calcium [Crestor] 40 mg PO HS 12/21/15 Aspirin [ASA -] 81 mg PO DAILY 03/13/18 Multivitamin [Multiple Vitamins] 1 each PO DAILY 03/13/18 Fluticasone Propionate [Flovent Diskus] 2 puff IH BID 03/14/18 Insulin Aspart (Niacinamide) [Fiasp 100 Unit/ml Flextouch] 20 unit SQ TID Lipase/Protease/Amylase [Creon Dr 36,000 Units Capsule] 2 cap PO TID 03/14/18 Semaglutide [Ozempic] 1 mg SQ WEEKLY 03/14/18 Clopidogrel Bisulfate [Plavix -] 75 mg PO DAILY tablet 03/15/18 Insulin Glargine,Hum.rec.anlog [Toujeo Solostar] 50 unit SQ BID 05/04/18 Losartan Potassium 100 mg PO DAILY 05/04/18 Amlodipine Besylate [Norvasc -] 5 mg PO DAILY 05/26/18 Furosemide [Lasix] 10 mg PO DAILY #7 tablet 08/27/18 Ibuprofen [Motrin -] 600 mg PO TID #30 tablet 12/08/18 Anemia: No Asthma: Yes Cancer: No Cardiac Disorders: No CVA: No COPD: No CHF: No Dementia: No Diabetes: Yes GI Disorders: Yes (ACID REFLUX AT TIMES) Disorders: No HTN: Yes Hypercholesterolemia: Yes Kidney Stones: Yes Liver Disease: No Seizures: No Thyroid Disease: No - Surgical History Abdominal Surgery: No Appendectomy: No Cardiac Surgery: Yes (stents x 1 04/19/06, 1 on 03/15/18) Cholecystectomy: No Lung Surgery: No Neurologic Surgery: No Orthopedic Surgery: Yes (ARTHROSCOPIC SHOULDER - LEFT; CARPAL TUNNEL RIGHT HAND) - Immunization History Immunization Up to Date: Yes - Suicide/Smoking/Psychosocial Hx Smoking Status: Yes Smoking History: Former smoker Have you smoked in the past 12 months: No Number of Cigarettes Smoked Daily: 2,018 If you are a former smoker, when did you quit?: 12/13/17 'Breaking Loose' booklet given: 10/10/16 Hx Alcohol Use: No Drug/Substance Use Hx: No Substance Use Type: None Hx Substance Use Treatment: No Review of Systems - Review of Systems Able to Perform ROS?: Yes Is the patient limited Romansh proficient: No Constitutional: No: Symptoms Reported, See HPI, Chills, Diaphoresis, Fever, Loss of Appetite, Malaise, Night Sweats, Weakness, Weight Stable, Unintentional Wgt. Loss, Unexplained wgt Loss, Other HEENTM: No: Symptoms Reported, See HPI, Eye Pain, Blurred Vision, Tearing, Recent change in vision, Double Vision, Cataracts, Ear Pain, Ocular Prothesis, Ear Discharge, Nose Pain, Nose Congestion, Tinnitus, Nose Bleeding, Hearing Loss , Throat Pain, Throat Swelling, Mouth Pain, Dental Problems, Difficulty Swallowing, Mouth Swelling, Other Respiratory: No: Symptoms reported, See HPI, Cough, Orthopnea, Shortness of Breath, SOB with Exertion, SOB at Rest, Stridor, Wheezing, Productive cough, Hemoptysis, Other Cardiac (ROS): No: Symptoms Reported, See HPI, Chest Pain, Edema, Irregular Heart Rate, Lightheadedness, Palpitations, Syncope, Chest Tightness, Other ABD/GI: No: Symptoms Reported, See HPI, Abdominal Distended, Abd. Pain w/ defecation, Blood Streaked Bowels, Constipated, Diarrhea, Difficulty Swallowing , Nausea, Poor Appetite, Poor Fluid Intake, Rectal Bleeding, Vomiting, Indigestion, Abdominal cramping, Tarry Stools, Other : Yes: Burning, Flank Pain. No: Symptoms Reported, See HPI, Dysuria, Discharge, Frequency, Hematuria, Incontinence, Pain, Urgency, Testicular Mass, Testicular Swelling, Lesions, Testicular Pain, Other Musculoskeletal: Yes: Back Pain. No: Symptoms Reported, See HPI, Gout, Joint Pain, Joint Swelling, Muscle Pain, Muscle Weakness, Neck Pain, Joint Stiffness, Other Integumentary: No: Symptoms Reported, See HPI, Bruising, Change in Color, Change in Hair/Nails, Dryness, Erythema, Flushing, Lesions, Lumps, Pallor, Pruritus, Rash, Sweating, Other Neurological: No: Symptoms reported, See HPI, Headache, Numbness, Paresthesia, Pre-Existing Deficit, Seizure, Tingling, Tremors, Weakness, Unsteady Gait, Ataxia, Dizziness, Other Psychiatric: No: Anxiety, Depression, Frequent Crying, Stressors, Sleep Pattern Change, Emotional Problems, Mood Swings, Change in Appetite, Other Endocrine: No: Symptoms Reported, See HPI, Excessive Sweating, Flushing, Intolerance to Cold, Intolerance to Heat, Increased Hunger, Increased Thirst, Increased Urine, Unexplained Weight Gain, Unexplained Weight Loss, Change in Weight, Other Hematologic/Lymphatic: No: Symptoms Reported, See HPI, Anemia, Blood Clots, Easy Bleeding, Easy Bruising, Bleeding Diathesis, Lymph Node Abnormalities, Swollen Glands, Other *Physical Exam - Physical Exam General Appearance: Yes: Nourished, Appropriately Dressed, Moderate Distress HEENT: positive: EOMI, JACOB, Normal ENT Inspection, Normal Voice Neck: positive: Trachea midline Respiratory/Chest: positive: Lungs Clear, Normal Breath Sounds Cardiovascular: positive: Regular Rhythm, Regular Rate, S1, S2 Gastrointestinal/Abdominal: positive: Normal Bowel Sounds, Soft Musculoskeletal: positive: Normal Inspection, CVA Tenderness, CVA Tenderness (R) Extremity: positive: Normal Capillary Refill, Normal Inspection Integumentary: positive: Normal Color, Dry, Warm 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 COMPARISON: May 26, 2018 FINDINGS: Lack of intravenous contrast limits this exam. Lack of oral contrast limits this exam. Calcified coronary artery arteriosclerosis. Mild basilar atelectasis and scarring. No pleural effusion. No pneumothorax. Mild hepatomegaly and steatosis. Mild nonspecific splenomegaly most likely due to portal venous hypertension. Dependent density in the gallbladder most likely due to sludge or cholelithiasis. Moderate gallbladder distention. Noncontrast evaluation of the pancreas right adrenal gland and left kidney appear unremarkable. Right kidney 2-5 mm nonobstructing nephrolithiasis. No hydronephrosis. Left adrenal nonspecific 4 x 3 x 2 cm mass may be due to an adenoma and other masses in the left adrenal gland cannot be excluded. Noncontrast evaluation stomach small bowel and appendix appear unremarkable. Moderate amount of gas and stool in the colon. Diverticulosis of the colon without diverticulitis. Status post hysterectomy. Bladder appears unremarkable. No free air. No free fluid. No abscess. Small umbilical hernia omental fat without incarceration. Moderate bridging lower thoracic osteophytes. Moderate degenerative disc disease. Moderate degenerative joint disease of the lower lumbar facets. Mild atrophy of the body wall muscles. Subcutaneous adipose tissue is incompletely included within the [id number]. Mild to moderate calcified arteriosclerosis of the abdominal and pelvic arterial vasculature. IMPRESSION: Calcified coronary artery arteriosclerosis. Mild hepatomegaly and steatosis. Mild nonspecific splenomegaly most likely due to portal venous hypertension. Dependent density in the gallbladder most likely due to sludge or cholelithiasis. If clinically indicated recommend correlation with right upper quadrant abdominal ultrasound. Right kidney nonobstructing nephrolithiasis. Left adrenal nonspecific 4 cm mass may be due to an adenoma and other masses in the left adrenal gland cannot be excluded. If clinically indicated follow-up outpatient MRI abdomen adrenal gland protocol may be needed. Diverticulosis of the colon without diverticulitis. 12/08/18 05:46 Pt continues to have right side pain. Unclear if this is due to cholecystitis. Alk phos is elevated; we will get a sono of the GB in the AM, and I will sign the patient out to the day ER. *DC/Admit/Observation/Transfer Diagnosis at time of Disposition: Renal colic, Flank pain - Discharge Dispostion Disposition: HOME Condition at time of disposition: Stable Decision to Admit order: No - Prescriptions Prescriptions: Ibuprofen [Motrin -] 600 mg PO TID #30 tablet - Referrals Referrals: Layne Moffett MD [Primary Care Provider] - - Patient Instructions Printed Discharge Instructions: Kidney Stones -- Adult Additional Instructions: Please follow up with your PMD this week. Please take all medications as prescribed. Please try soaking in a bath with epson salt to help your back pain and flank pain. Please return to the ED with any further concerns, complaints, or worsening symptoms. - Post Discharge Activity
[2018-12-08] MEDS ORDERED: MORPHINE SULFATE 2 MG/ML VIAL ONE ×2 (02:52→06:04)
[2018-12-08 03:13] LABS: BASO % 0.9 % (0-2.0); EOS % 1.8 % (0-4.5); HEMATOCRIT 37.5 % (32.4-45.2); HEMOGLOBIN 12.2 GM/dL (10.7-15.3); LYMPH % 17.9 % (8-40); MCH 28.7 pg (25.7-33.7); MCHC 32.5 g/dl (32.0-36.0); MEAN CELL VOLUME 88.1 fl (80-96); MEAN PLT VOLUME 8.4 fl (7.5-11.1); MONO % 5.9 % (3.8-10.2); NEUT % 73.5 % (42.8-82.8); PLATELET COUNT 254 K/MM3 (134-434); RBC 4.26 M/mm3 (3.60-5.2); RDW 19.7 % (11.6-15.6); WHITE BLOOD COUNT 11.3 K/mm3 (4.0-10.0)
[2018-12-08 03:44] LABS: ALBUMIN 3.4 g/dl (3.4-5.0); BILIRUBIN,TOTAL 0.2 mg/dL (0.2-1); BLOOD UREA NITROGEN 34.2 mg/dL (7-18); CALCIUM 9.8 mg/dL (8.5-10.1); CREATININE 1.2 mg/dL (0.55-1.3); POTASSIUM 4.4 mmol/L (3.5-5.1); TOT PROT 7.1 g/dl (6.4-8.2)
[2018-12-08] MEDS ORDERED: KETOROLAC TROMETHAMINE 60 MG/2 ML VIAL ONE (04:07)
[2018-12-08] MEDS ORDERED: SODIUM CHLORIDE 0.9% 500 ML INFUS.BAG IV ONE (04:15)
[2018-12-08 04:25] VITALS: BP 142/76; PULSE 79; TEMP 98.1; BMI 41.1
[2018-12-08 04:27] LABS: EPI CELLS 3.4 /HPF (0-5/HPF); HYALINE CASTS 2 /lpf (0-8); URINE APPEARANCE CLEAR; URINE BACTERIA 50.3 /hpf (NEGATIVE); URINE BILIRUBIN NEGATIVE (NEGATIVE); URINE COLOR YELLOW; URINE GLUCOSE (UA) 2+ (NEGATIVE); URINE KETONE NEGATIVE (NEGATIVE); URINE LEUK ESTERASE NEGATIVE (NEGATIVE); URINE NITRITE NEGATIVE (NEGATIVE); URINE PROTEIN 3+ (NEGATIVE); URINE RBC 1 /hpf (0-4); URINE UROBILINOGEN 0.2 mg/dL (0.2-1.0); URINE WBC 3 /hpf (0-5)
--- NOTE | 2018-12-08 05:22 | PDOC ---
History of Present Illness - General Chief Complaint: Back Pain Stated Complaint: BACK PAIN Time Seen by Provider: 12/08/18 02:11 Past History - Past Medical History Allergies/Adverse Reactions: Allergies Allergy/AdvReac Type Severity Reaction Status Date / Time Penicillins Allergy Severe Hives Verified 08/27/18 15:51 Home Medications: Ambulatory Orders Metoprolol Succinate [Toprol XL -] 50 mg PO BID 12/26/11 Rosuvastatin Calcium [Crestor] 40 mg PO HS 12/21/15 Aspirin [ASA -] 81 mg PO DAILY 03/13/18 Multivitamin [Multiple Vitamins] 1 each PO DAILY 03/13/18 Fluticasone Propionate [Flovent Diskus] 2 puff IH BID 03/14/18 Insulin Aspart (Niacinamide) [Fiasp 100 Unit/ml Flextouch] 20 unit SQ TID Lipase/Protease/Amylase [Creon Dr 36,000 Units Capsule] 2 cap PO TID 03/14/18 Semaglutide [Ozempic] 1 mg SQ WEEKLY 03/14/18 Clopidogrel Bisulfate [Plavix -] 75 mg PO DAILY tablet 03/15/18 Insulin Glargine,Hum.rec.anlog [Toujeo Solostar] 50 unit SQ BID 05/04/18 Losartan Potassium 100 mg PO DAILY 05/04/18 Amlodipine Besylate [Norvasc -] 5 mg PO DAILY 05/26/18 Furosemide [Lasix] 10 mg PO DAILY #7 tablet 08/27/18 Ibuprofen [Motrin -] 600 mg PO TID #30 tablet 12/08/18 Anemia: No Asthma: Yes Cancer: No Cardiac Disorders: No CVA: No COPD: No CHF: No Dementia: No Diabetes: Yes GI Disorders: Yes (ACID REFLUX AT TIMES) Disorders: No HTN: Yes Hypercholesterolemia: Yes Kidney Stones: Yes Liver Disease: No Seizures: No Thyroid Disease: No - Surgical History Abdominal Surgery: No Appendectomy: No Cardiac Surgery: Yes (stents x 1 04/19/06, 1 on 03/15/18) Cholecystectomy: No Lung Surgery: No Neurologic Surgery: No Orthopedic Surgery: Yes (ARTHROSCOPIC SHOULDER - LEFT; CARPAL TUNNEL RIGHT HAND) - Immunization History Immunization Up to Date: Yes - Suicide/Smoking/Psychosocial Hx Smoking Status: Yes Smoking History: Former smoker Have you smoked in the past 12 months: No Number of Cigarettes Smoked Daily: 2,018 If you are a former smoker, when did you quit?: 12/13/17 'Breaking Loose' booklet given: 10/10/16 Hx Alcohol Use: No Drug/Substance Use Hx: No Substance Use Type: None Hx Substance Use Treatment: No Review of Systems - Review of Systems Is the patient limited American proficient: No *Physical Exam - Vital Signs Last Vital Signs Temp Pulse Resp BP Pulse Ox 98.1 F 79 18 142/76 95 12/08/18 01:55 12/08/18 01:55 12/08/18 01:55 12/08/18 01:55 12/08/18 01:55 ED Treatment Course - LABORATORY CBC & Chemistry Diagram: 12/08/18 03:00 12/08/18 03:00 - ADDITIONAL ORDERS Additional order review: Laboratory Results 12/08/18 12/08/18 04:00 03:00 Sodium 140 Potassium 4.4 Chloride 101 Carbon Dioxide 33 H Anion Gap 6 L BUN 34.2 H Creatinine 1.2 Est GFR (CKD-EPI)AfAm 59.33 Est GFR (CKD-EPI)NonAf 51.19 Random Glucose 211 H Calcium 9.8 Total Bilirubin 0.2 AST 20 ALT 41 Alkaline Phosphatase 164 H Total Protein 7.1 Albumin 3.4 Urine Color Yellow Urine Appearance Clear Urine pH 5.0 Ur Specific [place] 1.020 Urine Protein 3+ H Urine Glucose (UA) 2+ H Urine Ketones Negative Urine Blood Negative Urine Nitrite Negative Urine Bilirubin Negative Urine Urobilinogen 0.2 Ur Leukocyte Esterase Negative Urine WBC (Auto) 3 Urine RBC (Auto) 1 Urine Casts (Auto) 2 U Epithel Cells (Auto) 3.4 Urine Bacteria (Auto) 50.3 12/08/18 03:00 RBC 4.26 MCV 88.1 MCHC 32.5 RDW 19.7 H MPV 8.4 Neutrophils % 73.5 Lymphocytes % 17.9 D Monocytes % 5.9 Eosinophils % 1.8 Basophils % 0.9 - Medications Given in the ED: ED Medications Discontinued Medications Generic Name Dose Route Start Last Admin Trade Name Freq PRN Reason Stop Dose Admin Ketorolac Tromethamine 60 mg 12/08/18 02:16 12/08/18 03:16 Toradol Injection - IM 12/08/18 02:17 60 mg ONCE ONE Administration Morphine Sulfate 2 mg 12/08/18 02:15 12/08/18 03:04 Morphine Injection - IVPUSH 12/08/18 02:16 2 mg ONCE ONE Administration Sodium Chloride 1,000 ml 12/08/18 04:15 12/08/18 04:45 Normal Saline - IV 12/08/18 04:16 1,000 ml ONCE ONE Administration *DC/Admit/Observation/Transfer Diagnosis at time of Disposition: Renal colic - Discharge Dispostion Disposition: HOME Condition at time of disposition: Stable - Prescriptions Prescriptions: Ibuprofen [Motrin -] 600 mg PO TID #30 tablet - Referrals Referrals: Layne Moffett MD [Primary Care Provider] - - Patient Instructions Printed Discharge Instructions: Kidney Stones -- Adult - Post Discharge Activity
[2018-12-08] MEDS ORDERED: IBUPROFEN 600 MG TABLET (FP) PO ONE (05:36)
--- NOTE | 2018-12-08 07:09 | PDOC ---
*Physical Exam - Vital Signs Last Vital Signs Temp Pulse Resp BP Pulse Ox 98.1 F 79 18 142/76 95 12/08/18 01:55 12/08/18 01:55 12/08/18 01:55 12/08/18 01:55 12/08/18 01:55 - Physical Exam Comments: 12/08/18 07:51 Gen: sleeping, easily arousable heart: +s1s2 reg lungs: cta b/l abd: soft, nt/nd +bs, no RUQ ttp ext: no c/c/e back: no midline ttp, no cva ttp, R low flank ttp ED Treatment Course - LABORATORY CBC & Chemistry Diagram: 12/08/18 03:00 12/08/18 03:00 - ADDITIONAL ORDERS Additional order review: Laboratory Results 12/08/18 12/08/18 04:00 03:00 Sodium 140 Potassium 4.4 Chloride 101 Carbon Dioxide 33 H Anion Gap 6 L BUN 34.2 H Creatinine 1.2 Est GFR (CKD-EPI)AfAm 59.33 Est GFR (CKD-EPI)NonAf 51.19 Random Glucose 211 H Calcium 9.8 Total Bilirubin 0.2 AST 20 ALT 41 Alkaline Phosphatase 164 H Total Protein 7.1 Albumin 3.4 Urine Color Yellow Urine Appearance Clear Urine pH 5.0 Ur Specific [place] 1.020 Urine Protein 3+ H Urine Glucose (UA) 2+ H Urine Ketones Negative Urine Blood Negative Urine Nitrite Negative Urine Bilirubin Negative Urine Urobilinogen 0.2 Ur Leukocyte Esterase Negative Urine WBC (Auto) 3 Urine RBC (Auto) 1 Urine Casts (Auto) 2 U Epithel Cells (Auto) 3.4 Urine Bacteria (Auto) 50.3 12/08/18 03:00 RBC 4.26 MCV 88.1 MCHC 32.5 RDW 19.7 H MPV 8.4 Neutrophils % 73.5 Lymphocytes % 17.9 D Monocytes % 5.9 Eosinophils % 1.8 Basophils % 0.9 - Medications Given in the ED: ED Medications Discontinued Medications Generic Name Dose Route Start Last Admin Trade Name Freq PRN Reason Stop Dose Admin Ibuprofen 600 mg 12/08/18 05:36 12/08/18 06:01 Motrin - PO 12/08/18 05:37 Not Given ONCE ONE Ketorolac Tromethamine 60 mg 12/08/18 02:16 12/08/18 03:16 Toradol Injection - IM 12/08/18 02:17 60 mg ONCE ONE Administration Morphine Sulfate 2 mg 12/08/18 02:15 12/08/18 03:04 Morphine Injection - IVPUSH 12/08/18 02:16 2 mg ONCE ONE Administration Morphine Sulfate 2 mg 12/08/18 05:37 12/08/18 06:12 Morphine Injection - IVPUSH 12/08/18 05:38 2 mg ONCE ONE Administration Sodium Chloride 1,000 ml 12/08/18 04:15 12/08/18 04:45 Normal Saline - IV 12/08/18 04:16 1,000 ml ONCE ONE Administration Medical Decision Making - Medical Decision Making 12/08/18 07:09 a/p: 53yo female with R flank pain -pt signed out pending gb ultrasound this AM 12/08/18 07:52 pt states sharp pain to the R low flank and back that radiates around to her R groin, different from prior kidney stone pain -ct reviewed with the patient -known adrenal mass, her pmd has been following for years -discussed renal stone on the R -pt with pain the muscle in the R low back, will add robaxin for pain -pt pending RUQ ultrasound -labs reviewed 12/08/18 08:50 ultrasound is negative pt states feeling better discussed labs, ultrasound, and ct findings in details pt stable for dc to home states she will follow up with Dr. Moffett this week for further eval *DC/Admit/Observation/Transfer Diagnosis at time of Disposition: Renal colic, Flank pain - Discharge Dispostion Disposition: HOME Condition at time of disposition: Stable Decision to Admit order: No - Prescriptions Prescriptions: Ibuprofen [Motrin -] 600 mg PO TID #30 tablet - Referrals Referrals: Layne Moffett MD [Primary Care Provider] - - Patient Instructions Printed Discharge Instructions: Kidney Stones -- Adult Additional Instructions: Please follow up with your PMD this week. Please take all medications as prescribed. Please try soaking in a bath with epson salt to help your back pain and flank pain. Please return to the ED with any further concerns, complaints, or worsening symptoms. - Post Discharge Activity
[2018-12-08] MEDS ORDERED: METHOCARBAMOL 500 MG TABLET PO ONE (07:50)
[2018-12-08] MEDS ORDERED: ACETAMINOPHEN 1000 MG/100 ML VIAL (NON FORMULARY) IVPB ONE (07:51)
[2018-12-08] MEDS ORDERED: METHOCARBAMOL 500 MG TABLET ONE (08:24)
[2018-12-08] MEDS ORDERED: ACETAMINOPHEN INJECTION 100 ML IVPB ONE (08:24)
== END 2018-12-08 09:35 | disposition home or self-care (01) ==
LOC: JER 01:32
PROC: 3E0233Z Introduction of Anti-inflammatory into Muscle, Percutaneous Approach (ICD-10-PCS; principal; 2018-12-08)
PROC: 3E033NZ Introduction of Analgesics, Hypnotics, Sedatives into Peripheral Vein, Percutaneous Approach (ICD-10-PCS; 2018-12-08)
PROC: 3E033NZ Introduction of Analgesics, Hypnotics, Sedatives into Peripheral Vein, Percutaneous Approach (ICD-10-PCS; 2018-12-08)
PROC: 3E033NZ Introduction of Analgesics, Hypnotics, Sedatives into Peripheral Vein, Percutaneous Approach (ICD-10-PCS; 2018-12-08)
DX: N23 Unspecified renal colic (principal); Z87.442 Personal history of urinary calculi; I25.10 Atherosclerotic heart disease of native coronary artery without angina pectoris; I10 Essential (primary) hypertension; Z95.5 Presence of coronary angioplasty implant and graft; E11.9 Type 2 diabetes mellitus without complications; Z79.84 Long term (current) use of oral hypoglycemic drugs; E78.00 Pure hypercholesterolemia, unspecified; J45.909 Unspecified asthma, uncomplicated
CPT/HCPCS: 36415; 74176-TC; 76705-TC; 80053; 81003; 85025; 96372; 96374; 96375; 96376; 99283-25; J0131

== ENCOUNTER 2019-02-16 12:42 | Emergency (ER) | payer OTHER ==
[2019-02-16 13:09] VITALS: BP 118/61; PULSE 98; TEMP 98.2; BMI 33.8
[2019-02-16] MEDS ORDERED: KETOROLAC TROMETHAMINE 60 MG/2 ML VIAL IM ONE (13:59)
[2019-02-16] MEDS ORDERED: KETOROLAC TROMETHAMINE 60 MG/2 ML VIAL ONE (14:37)
[2019-02-16 16:58] LABS: PH,URINE 5.5 (5.0-8.0); URINE APPEARANCE Clear; URINE BILIRUBIN Negative (NEGATIVE); URINE COLOR Yellow; URINE GLUCOSE (UA) Trace (NEGATIVE); URINE KETONE Negative (NEGATIVE); URINE LEUK ESTERASE Negative (NEGATIVE); URINE NITRITE Negative (NEGATIVE); URINE PROTEIN 3+ (NEGATIVE); URINE UROBILINOGEN 0.2 mg/dL (0.2-1.0)
--- NOTE | 2019-02-16 17:10 | PDOC ---
History of Present Illness - General Chief Complaint: Urinary Problem Stated Complaint: UTI/LOWER BACK PAIN Time Seen by Provider: 02/16/19 12:58 History Source: Patient Exam Limitations: No Limitations Past History - Travel Traveled outside of the country in the last 30 days: No - Past Medical History Allergies/Adverse Reactions: Allergies Allergy/AdvReac Type Severity Reaction Status Date / Time Penicillins Allergy Severe Hives Verified 02/16/19 12:56 Home Medications: Ambulatory Orders Metoprolol Succinate [Toprol XL -] 50 mg PO BID 12/26/11 Rosuvastatin Calcium [Crestor] 40 mg PO HS 12/21/15 Aspirin [ASA -] 81 mg PO DAILY 03/13/18 Multivitamin [Multiple Vitamins] 1 each PO DAILY 03/13/18 Fluticasone Propionate [Flovent Diskus] 2 puff IH BID 03/14/18 Insulin Aspart (Niacinamide) [Fiasp 100 Unit/ml Flextouch] 20 unit SQ TID Lipase/Protease/Amylase [Creon Dr 36,000 Units Capsule] 2 cap PO TID 03/14/18 Semaglutide [Ozempic] 1 mg SQ WEEKLY 03/14/18 Clopidogrel Bisulfate [Plavix -] 75 mg PO DAILY tablet 03/15/18 Insulin Glargine,Hum.rec.anlog [Touangela Solostar] 50 unit SQ BID 05/04/18 Losartan Potassium 100 mg PO DAILY 05/04/18 Amlodipine Besylate [Norvasc -] 5 mg PO DAILY 05/26/18 Furosemide [Lasix] 10 mg PO DAILY #7 tablet 08/27/18 Ibuprofen [Motrin -] 600 mg PO TID #30 tablet 12/08/18 Nitrofurantoin Monohyd/M-Cryst [Macrobid -] 100 mg PO BID 5 Days #10 capsule 09/30 Nitrofurantoin Monohyd/M-Cryst [Macrobid -] 100 mg PO BID 5 Days #10 capsule 09/30 Anemia: No Asthma: Yes Cancer: No Cardiac Disorders: No CVA: No COPD: No CHF: No Dementia: No Diabetes: Yes GI Disorders: Yes (ACID REFLUX AT TIMES) Disorders: No HTN: Yes Hypercholesterolemia: Yes Kidney Stones: Yes Liver Disease: No Seizures: No Thyroid Disease: No - Surgical History Abdominal Surgery: No Appendectomy: No Cardiac Surgery: Yes (stents x 1 04/19/06, 1 on 03/15/18) Cholecystectomy: No Lung Surgery: No Neurologic Surgery: No Orthopedic Surgery: Yes (ARTHROSCOPIC SHOULDER - LEFT; CARPAL TUNNEL RIGHT HAND) - Immunization History Immunization Up to Date: Yes - Psycho Social/Smoking Cessation Hx Smoking Status: Yes Smoking History: Smoker current status UNK Have you smoked in the past 12 months: No Number of Cigarettes Smoked Daily: 2,018 If you are a former smoker, when did you quit?: 12/13/17 Information on smoking cessation initiated: No 'Breaking Loose' booklet given: 10/10/16 Hx Alcohol Use: No Drug/Substance Use Hx: No Substance Use Type: None Hx Substance Use Treatment: No Review of Systems - Review of Systems Constitutional: No: Chills, Fever Cardiac (ROS): No: Chest Pain, Palpitations ABD/GI: No: Abdominal Distended, Diarrhea, Nausea, Vomiting : Yes: Dysuria, Frequency, Urgency. 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, Fully Oriented, Alert, Normal Mood/ Affect, Normal Response, Motor Strength 5/5 ED Treatment Course - ADDITIONAL ORDERS Additional order review: Laboratory Results 02/16/19 16:00 Urine Color Yellow Urine Appearance Clear Urine pH 5.5 Ur Specific [place] 1.025 Urine Protein 3+ H Urine Glucose (UA) Trace Urine Ketones Negative Urine Blood 2+ H Urine Nitrite Negative Urine Bilirubin Negative Urine Urobilinogen 0.2 Ur Leukocyte Esterase Negative - Medications Given in the ED: ED Medications Discontinued Medications Generic Name Dose Route Start Last Admin Trade Name Freq PRN Reason Stop Dose Admin Ketorolac Tromethamine 60 mg 02/16/19 13:59 02/16/19 14:43 Toradol Injection - IM 02/16/19 14:00 60 mg ONCE ONE Administration Medical Decision Making - Medical Decision Making 02/16/19 18:04 53y/o F with urinary urgency/frequency X 1wk denies fever, chills or abd pain UA with blood ucx sent Discharge - Discharge Information Problems reviewed: Yes Clinical Impression/Diagnosis: UTI (urinary tract infection) Qualifiers: Urinary tract infection type: acute cystitis Hematuria presence: without hematuria Qualified Code(s): N30.00 - Acute cystitis without hematuria Condition: Stable Disposition: HOME - Admission No - Additional Discharge Information Prescriptions: Nitrofurantoin Monohyd/M-Cryst [Macrobid -] 100 mg PO BID 5 Days #10 capsule Nitrofurantoin Monohyd/M-Cryst [Macrobid -] 100 mg PO BID 5 Days #10 capsule Prescription Drug Monitoring Program (I-STOP) results: I-STOP not reviewed - Follow up/Referral Referrals: Layne Moffett MD [Primary Care Provider] - - Patient Discharge Instructions Patient Printed Discharge Instructions: Urinary Tract Infection Additional Instructions: Your urine was positive for blood which could be a sign of infection please take antibiotics as prescribed follow up with your PCP return if symptoms worsening you will be contacted if the urine culture is resistant to the antibiotics you were discharge with - Post Discharge Activity
[2019-02-16 18:49] LABS: URINE BACTERIA FEW /hpf (NEGATIVE); URINE WBC 0-3 /hpf (0-5)
== END 2019-02-16 17:12 | disposition home or self-care (01) ==
LOC: JERFT 12:42
PROC: 3E0233Z Introduction of Anti-inflammatory into Muscle, Percutaneous Approach (ICD-10-PCS; principal; 2019-02-16)
DX: N30.00 Acute cystitis without hematuria (principal); I25.10 Atherosclerotic heart disease of native coronary artery without angina pectoris; I10 Essential (primary) hypertension; Z95.5 Presence of coronary angioplasty implant and graft; E11.9 Type 2 diabetes mellitus without complications; Z79.4 Long term (current) use of insulin; E78.00 Pure hypercholesterolemia, unspecified; Z87.442 Personal history of urinary calculi; Z87.19 Personal history of other diseases of the digestive system; Z88.0 Allergy status to penicillin
CPT/HCPCS: 81003; 87086; 87186; 96372; 99282-25

== ENCOUNTER 2019-05-10 19:25 | Observation (INO) | payer OTHER ==
[2019-05-10 19:42] VITALS: TEMP 98.2; BMI 40.2
--- NOTE | 2019-05-10 21:50 | PDOC ---
History of Present Illness - General Chief Complaint: Palpitations Stated Complaint: PALPITATIONS - History of Present Illness Initial Comments: 05/10/19 22:08 The patient is a 54 year old female with a history of HTN, HLD, DM, CAD s/p stenting, GERD who presents for evaluation of palpitations and left sided chest pain. The patient reports a 1 week history of persistent palpitations worse at night with associated left sided chest pain prompting her presentation to the ED for further evaluation. She notes that she has had palpitations in the past but it has not been this persistent with prior episodes. She otherwise denies fevers, chills, SOB, nausea, vomiting, abdominal pain, or changes with urination or bowel movements. Past History - Past Medical History Allergies/Adverse Reactions: Allergies Allergy/AdvReac Type Severity Reaction Status Date / Time Penicillins Allergy Severe Hives Verified 05/10/19 19:42 Home Medications: Ambulatory Orders Metoprolol Succinate [Toprol XL -] 50 mg PO BID 12/26/11 Rosuvastatin Calcium [Crestor] 40 mg PO HS 12/21/15 Aspirin [ASA -] 81 mg PO DAILY 03/13/18 Multivitamin [Multiple Vitamins] 1 each PO DAILY 03/13/18 Fluticasone Propionate [Flovent Diskus] 2 puff IH BID 03/14/18 Insulin Aspart (Niacinamide) [Fiasp 100 Unit/ml Flextouch] 20 unit SQ TID Lipase/Protease/Amylase [Creon Dr 36,000 Units Capsule] 2 cap PO TID 03/14/18 Semaglutide [Ozempic] 1 mg SQ WEEKLY 03/14/18 Clopidogrel Bisulfate [Plavix -] 75 mg PO DAILY tablet 03/15/18 Insulin Glargine,Hum.rec.anlog [Mickey Solostkashif] 50 unit SQ BID 05/04/18 Losartan Potassium 100 mg PO DAILY 05/04/18 Amlodipine Besylate [Norvasc -] 5 mg PO DAILY 05/26/18 Furosemide [Lasix] 10 mg PO DAILY #7 tablet 08/27/18 Ibuprofen [Motrin -] 600 mg PO TID #30 tablet 12/08/18 Nitrofurantoin Monohyd/M-Cryst [Macrobid -] 100 mg PO BID 5 Days #10 capsule 09/30 Nitrofurantoin Monohyd/M-Cryst [Macrobid -] 100 mg PO BID 5 Days #10 capsule 09/30 Anemia: No Asthma: Yes Cancer: No Cardiac Disorders: No CVA: No COPD: No CHF: No Dementia: No Diabetes: Yes GI Disorders: Yes (ACID REFLUX AT TIMES) Disorders: No HTN: Yes Hypercholesterolemia: Yes Kidney Stones: Yes Liver Disease: No Seizures: No Thyroid Disease: No - Surgical History Abdominal Surgery: No Appendectomy: No Cardiac Surgery: Yes (stents x 1 04/19/06, 1 on 03/15/18) Cholecystectomy: No Lung Surgery: No Neurologic Surgery: No Orthopedic Surgery: Yes (ARTHROSCOPIC SHOULDER - LEFT; CARPAL TUNNEL RIGHT HAND) - Immunization History Immunization Up to Date: Yes - Psycho Social/Smoking Cessation Hx Smoking Status: Yes Smoking History: Never smoked Have you smoked in the past 12 months: No Number of Cigarettes Smoked Daily: 2,018 If you are a former smoker, when did you quit?: 12/13/17 'Breaking Loose' booklet given: 10/10/16 Hx Alcohol Use: No Drug/Substance Use Hx: No Substance Use Type: None Hx Substance Use Treatment: No Review of Systems - Review of Systems Comments:: 05/10/19 22:09 Constitutional: No fevers, chills, fatigue, malaise HEENT: No Rhinorrhea, nasal congestion, visual changes Cardiovascular: Chest pain, palpitations. No syncope, lightheadedness Respiratory: No Cough, SOB, Hemoptysis, Gastrointestinal: No Abdominal pain, Nausea, Vomiting, Constipation, Diarrhea, Melena Genitourinary: No Dysuria, Frequency, Urgency, Hesitancy, Hematuria, Flank pain Musculoskeletal: No Myalgia, arthralgia Skin: No rashes, itching, bruising, pallor Neurologic: No Headache, Dizziness, Numbness, Weakness, or Tingling Psychiatric: No Hallucinations. No SI or HI *Physical Exam - Vital Signs Last Vital Signs Temp Pulse Resp BP Pulse Ox 98.2 F 84 18 130/57 L 99 05/10/19 19:30 05/10/19 19:30 05/10/19 19:30 05/10/19 19:30 05/10/19 19:30 - Physical Exam 05/10/19 22:10 General Appearance: Nourished. No Apparent Distress HEENT: No Pharyngeal Erythema, Tonsillar Exudate, Tonsillar Erythema Neck: No Cervical Lymphadenopathy Respiratory/Chest: Lungs Clear, Normal Breath Sounds. Tenderness to palpation along the left sternal border. No Crackles, Rales, Rhonchi, Wheezing Cardiovascular: Regular Rhythm, Regular Rate. No Murmur, Gallops, Rubs Gastrointestinal/Abdominal: Normal Bowel Sounds, Soft. No Guarding, Rebound, Tenderness Musculoskeletal: No CVA Tenderness Extremity: Normal Capillary Refill Integumentary: Normal Color, Dry, Warm Neurologic: Fully Oriented, Alert, Normal Mood/Affect, Normal Response, Heart Score/ECG Review - History History: Moderately suspicious - Electrocardiogram EKG: Normal - Age Age: 45-65 - Risk Factors Risk Factors Heart Score: Yes Hx Hypercholesterolemia, Yes Hx Hypertension, Yes Hx Diabetes, Yes Positive family hx of cardiac disease, Yes Hx Obesity Based on the list above the patient has:: >/=3 risk factors or Hx atherosclerotic disease - Troponin Troponin: </= normal limit - Score Heart Score - Total: 4 #1 ECG reviewed & interpreted by me at: 22:11 General ECG Interpretation: Sinus Rhythm, Normal Rate, Normal Intervals, No acute ischemic changes Compared to previous ECG there are: No significant change ED Treatment Course - LABORATORY CBC & Chemistry Diagram: 05/10/19 22:00 05/10/19 22:00 Medical Decision Making - Medical Decision Making 05/10/19 22:11 The patient is a 54 year old female with a history of HTN, HLD, DM, CAD s/p stenting, GERD who presents for evaluation of palpitations and left sided chest pain. Given the patient's history and physical exam, we will obtain a cbc, cmp , troponin, bnp, tsh, ekg, chest plain film to evaluate further. We will treat with aspirin, tylenol and we will continue to monitor and reassess while here in the ED. 05/10/19 23:36 CBC, troponin, tsh, bnp is unremarkable. CMP demonstrates a creatinine of 1.9 consistent with an GABRIEL. Chest plain film demonstrates no acute pathology as preliminarily read by ED physician. Given the patient's cardiac risk factors as well as new gabriel, she will require admission for further monitoring and management. Discharge - Discharge Information Problems reviewed: Yes Clinical Impression/Diagnosis: Palpitations, GABRIEL (acute kidney injury) Chest pain Qualifiers: Chest pain type: unspecified Qualified Code(s): R07.9 - Chest pain, unspecified Condition: Stable - Admission Yes - Follow up/Referral Referrals: Layne Moffett MD [Primary Care Provider] - - Patient Discharge Instructions - Post Discharge Activity
[2019-05-10] MEDS ORDERED: ACETAMINOPHEN 1000 MG/100 ML VIAL (NON FORMULARY) IVPB ONE (21:54)
[2019-05-10] MEDS ORDERED: ACETAMINOPHEN INJECTION 100 ML IVPB ONE (22:03)
[2019-05-10] MEDS ORDERED: ASPIRIN 81 MG CHEWABLE TABLETS PO ONE (22:04)
--- NOTE | 2019-05-10 22:04 | PDOC ---
Attending Attestation - Resident Resident Name: MayraFrankAd - ED Attending Attestation I have performed the following: I have examined & evaluated the patient, The case was reviewed & discussed with the resident, I agree w/resident's findings & plan - HPI HPI: 05/10/19 22:03 1week of CP; high risk patient HTN; DM - Physicial Exam PE: 05/10/19 22:04 Normal exam afebrile [id number] Lungs clear. - Medical Decision Making 05/10/19 22:35 All labs are pending. 05/10/19 22:50 HR is 88 at this time. She is anxious. Pt doesn't work Pt follows with PMD; she is compliant with her meds. She is on Beta blcoker as well as amlodipine and HCTZ and other meds. 05/11/19 00:08 Worsening renal insufficiency Pt has CAD with numerous risk factors. She will get tele obs and she will be admitted. 05/11/19 00:52 Pt admitted to the hospitalist. CXR unchanged from previous. WNL Heart Score/ECG Review - History History: Highly suspicious - Electrocardiogram EKG: Normal - Age Age: 45-65 - Risk Factors Risk Factors Heart Score: Yes Hx Hypercholesterolemia, Yes Hx Hypertension, Yes Hx Diabetes, Yes Positive family hx of cardiac disease, Yes Hx Obesity Based on the list above the patient has:: >/=3 risk factors or Hx atherosclerotic disease - Troponin Troponin: </= normal limit - Score Heart Score - Total: 5 - ECG Intrepretation Rhythm: Regular Rhythm - Ider Ider: Normal - P and VA Prominent R with upright T in V1 (true posterior NM): No Delta Wave(s) Present: No WPW: No - QRS Poor R Wave Progression: No Q Wave Present: No - ST and T Early Repolarization: No Non Specific ST-T Wave changes: No - ECG Impressions Normal ECG: Yes Non-specific ST Elevation: No Ischemic Changes: No
[2019-05-10] MEDS ORDERED: ASPIRIN 81 MG CHEWABLE TABLETS ONE (22:07)
[2019-05-10 22:08] LABS: BASO % 0.8 % (0-2.0); EOS % 1.8 % (0-4.5); HEMATOCRIT 33.3 % (32.4-45.2); HEMOGLOBIN 10.8 GM/dL (10.7-15.3); LYMPH % 16.1 % (8-40); MCH 28.8 pg (25.7-33.7); MCHC 32.6 g/dl (32.0-36.0); MEAN CELL VOLUME 88.5 fl (80-96); MEAN PLT VOLUME 8.1 fl (7.5-11.1); MONO % 4.8 % (3.8-10.2); NEUT % 76.5 % (42.8-82.8); PLATELET COUNT 258 K/MM3 (134-434); RBC 3.76 M/mm3 (3.60-5.2); RDW 16.7 % (11.6-15.6); WHITE BLOOD COUNT 11.4 K/mm3 (4.0-10.0)
[2019-05-10 22:52] LABS: ALBUMIN 3.4 g/dl (3.4-5.0); ALK PHOS 126 U/L (45-117); ANION GAP 7 MMOL/L (8-16); BILIRUBIN,TOTAL 0.2 mg/dL (0.2-1); BLOOD UREA NITROGEN 35.3 mg/dL (7-18); CHLORIDE 100 mmol/L (98-107); CO2 30 mmol/L (21-32); CREATININE 1.9 mg/dL (0.55-1.3); GLUCOSE,RANDOM 265 mg/dL (74-106); N-TERMINAL BNP 87.4 pg/ml (5-125); SGOT/AST 17 U/L (15-37); SGPT/ALT 27 U/L (13-61); SODIUM 137 mmol/L (136-145); TOT PROT 6.8 g/dl (6.4-8.2)
[2019-05-10] MEDS ORDERED: SODIUM CHLORIDE 500 ML IV STA (22:54)
[2019-05-11] MEDS ORDERED: ACETAMINOPHEN 325 MG TABLET (FP) PO PRN (01:12)
--- NOTE | 2019-05-11 01:18 | HP ---
CHIEF COMPLAINT: Palpitations, Left sided Chest Pain PCP: Dr. Moffett CARDIO: Dr. Casas HISTORY OF PRESENT ILLNESS: 54 y/o F with PMHx CAD s/p Stents, HTN, DM, HLD, GERD presents with Palpitations , Left sided Chest Pain x 1 week. Patient says that she was in her usual state of health until this past monday or monday when she felt sudden onset palpitations. She has felt palpitations in the past however those typically self -resolve; the present episode has been persistent for 1 week and prevented her from sleeping. She has been unable to identify any triggering or relieving factors and the palpitations have been persistent. Additionally, these palpitations were accompanied by a burning, 7/10 left sided chest pain that radiates to her back. She has been unable to identify a trigger but admits the pain improved to 5/10 with tylenol in the ED. Her chest pain felt similar to her prior cardiac pain (when she required stenting) and given her persistent palpitations, she visited [facility]. Denies any fevers, chills, SOB, nausea, vomiting, diarrhea, constipation, dysuria. ER course was notable for: (1) Ofirmev, ASA 162mg, NS 1/2L (2) (3) Recent Travel: [place] 1 week ago PAST MEDICAL HISTORY: As per HPI PAST SURGICAL HISTORY: Cardiac cath Total Hysterectomy B/l Tubal ligation Left Rotator cuff repair Social History: Smokinppd from Age [age]; quit recently Alcohol: Socially Drugs: Denies Allergies Penicillins Allergy (Severe, Verified 05/10/19 19:42) Hives HOME MEDICATIONS: Home Medications Medication Instructions Recorded Amlodipine/Valsartan/Hcthiazid 1 each PO DAILY 05/11/19 [Arrra-Sgqie-Bjxh 10-160-25 mg] Aspirin 81 mg PO DAILY 05/11/19 Cholecalciferol (Vitamin D3) 1,000 unit PO DAILY 05/11/19 [Vitamin D3 -] Clopidogrel Bisulfate [Plavix] 75 mg PO DAILY 05/11/19 Furosemide [Lasix] 20 mg PO DAILY 05/11/19 Icosapent Ethyl [Vascepa] 1 gm PO DAILY 05/11/19 Insulin Aspart (Niacinamide) 22 unit SQ 05/11/19 [Fiasp 100 Unit/ml Vial] Insulin Glargine,Hum.rec.anlog 72 unit SQ 05/11/19 [Rebeccaaglkashif Clark U-100] Metoprolol Succinate [Toprol Xl] 200 mg PO DAILY 05/11/19 Pantoprazole Sodium [Protonix] 40 mg PO DAILY 05/11/19 Rosuvastatin Calcium [Crestor] 20 mg PO DAILY 05/11/19 Semaglutide [Ozempic] 1 mg SQ WEEKLY 05/11/19 REVIEW OF SYSTEMS As per HPI PHYSICAL EXAMINATION Vital Signs - 24 hr 05/10/19 05/11/19 19:30 00:06 Temperature 98.2 F Pulse Rate 84 Pulse Rate [ 84 Left Radial] Respiratory 18 18 Rate Blood Pressure 130/57 L Blood Pressure 124/59 L [Left Arm] O2 Sat by Pulse 99 94 L Oximetry (%) GENERAL: A&Ox3, NAD HEAD: NCAT EYES: PERRL, EOMI EARS, NOSE, THROAT: Moist mucous membranes. NECK: No JVD LUNGS: CTAB, No wheezes, no crackles HEART: Regular rate and rhythm, normal S1 and S2 without murmur ABDOMEN: Soft, nontender, not distended, + bowel sounds, no guarding EXTREMITIES: 1+ pitting edema NEUROLOGICAL: Cranial nerves II-XII intact. Normal speech SKIN: Warm, dry Laboratory Results - last 24 hr 05/10/19 05/10/19 22:00 22:00 WBC 11.4 H RBC 3.76 Hgb 10.8 Hct 33.3 MCV 88.5 MCH 28.8 MCHC 32.6 RDW 16.7 H Plt Count 258 MPV 8.1 Absolute Neuts (auto) 8.7 H Neutrophils % 76.5 Lymphocytes % 16.1 Monocytes % 4.8 Eosinophils % 1.8 Basophils % 0.8 Nucleated RBC % 0 Sodium 137 Potassium 4.0 Chloride 100 Carbon Dioxide 30 Anion Gap 7 L BUN 35.3 H Creatinine 1.9 H Est GFR (CKD-EPI)AfAm 33.80 Est GFR (CKD-EPI)NonAf 29.17 Random Glucose 265 H Calcium 9.0 Total Bilirubin 0.2 AST 17 ALT 27 Alkaline Phosphatase 126 H Creatine Kinase 173 Creatine Kinase Index 1.3 CK-MB (CK-2) 2.3 Troponin I < 0.02 B-Natriuretic Peptide 87.4 Total Protein 6.8 Albumin 3.4 TSH 1.22 ASSESSMENT/PLAN: 54 y/o F with PMHx CAD s/p Stents, HTN, DM, HLD, GERD presents with Palpitations , Left sided Chest Pain x 1 week. #Chest Pain + Palpitations -Palpitations concerning for Arrhythmia, however given risk factors must r/o ACS though doubtful -Trop < 0.02 x1 -EKG: NSR, VR 83, Qtc 448, No ST segment changes -Trend Trops, EKG -ASA 81mg daily -Check Lipid panel, A1c, TSH, Echo -Tele -Cardio (Dr. Casas) consulted #GABRIEL -Unclear etiology, possibly due to overdiuresis vs dehydration -Hold Diuresis and ARB for now -Monitor Cr, Will consider Renal US and further work up if not improving #DM -ISS BGMs ACHS -A1c pending #CAD s/p stents -Continue home dose ASA, Clopidogrel, BB, Statin #HTN -Continue home dose amlodipine, Toprol XL #FEN -No standing fluids -Replete lytes PRN -Na controlled diet #PPx -DVT: Heparin Dispo: Tele Obs Visit type - Emergency Visit Emergency Visit: Yes ED Registration Date: 05/10/19 Care time: The patient presented to the Emergency Department on the above date and was hospitalized for further evaluation of their emergent condition. - New Patient This patient is new to me today: Yes Date on this admission: 05/11/19 - Critical Care Critical Care patient: No ATTENDING PHYSICIAN STATEMENT I saw and evaluated the patient. I reviewed the resident's note and discussed the case with the resident. I agree with the resident's findings and plan as documented. SUBJECTIVE: OBJECTIVE: ASSESSMENT AND PLAN:
--- NOTE | 2019-05-11 01:26 | PN ---
Teaching Attending Note Name of Resident: Bárbara Bryant ATTENDING PHYSICIAN STATEMENT I saw and evaluated the patient. I reviewed the resident's note and discussed the case with the resident. I agree with the resident's findings and plan as documented. SUBJECTIVE: This is a 54 year old woman with a history of CAD, stents, HTN, hyperlipidemia, GERD, type 2 DM who comes to the ED complaining of chest pain and palpitations. She says that she has been experiencing these symptoms continuously for about 1 week. She has had palpitations in the past, but the episodes had always been short-lived and resolved spontaneously. Since this episode was different, she decided to come to the ED. She feels the palpitations get worse at night and prevent her from sleeping. She has also been having a burning pain in the left side of her chest radiating to her back. The pain has been similar to what she experienced in the past leading to cardiac stenting. She occasionally feels SOB at rest. OBJECTIVE: Vital Signs Period Temp Pulse Resp BP Sys/Gilliam Pulse Ox Last 24 Hr 98.2 F 84-84 18-18 124-130/57-59 94-99 HEART: S1S2, RRR LUNGS: Clear ABDOMEN: Obese, soft, non-tender, non-distended, normal BS EXTREMITIES: No edema Laboratory Tests 05/10/19 05/10/19 22:00 22:00 WBC 11.4 H RBC 3.76 Hgb 10.8 Hct 33.3 MCV 88.5 MCH 28.8 MCHC 32.6 RDW 16.7 H Plt Count 258 MPV 8.1 Absolute Neuts (auto) 8.7 H Neutrophils % 76.5 Lymphocytes % 16.1 Monocytes % 4.8 Eosinophils % 1.8 Basophils % 0.8 Nucleated RBC % 0 Sodium 137 Potassium 4.0 Chloride 100 Carbon Dioxide 30 Anion Gap 7 L BUN 35.3 H Creatinine 1.9 H Est GFR (CKD-EPI)AfAm 33.80 Est GFR (CKD-EPI)NonAf 29.17 Random Glucose 265 H Calcium 9.0 Total Bilirubin 0.2 AST 17 ALT 27 Alkaline Phosphatase 126 H Creatine Kinase 173 Creatine Kinase Index 1.3 CK-MB (CK-2) 2.3 Troponin I < 0.02 B-Natriuretic Peptide 87.4 Total Protein 6.8 Albumin 3.4 TSH 1.22 Home Medications Medication Instructions Recorded Amlodipine/Valsartan/Hcthiazid 1 each PO DAILY 05/11/19 [Ifzbt-Hxcii-Gosi 10-160-25 mg] Aspirin 81 mg PO DAILY 05/11/19 Cholecalciferol (Vitamin D3) 1,000 unit PO DAILY 05/11/19 [Vitamin D3 -] Clopidogrel Bisulfate [Plavix] 75 mg PO DAILY 05/11/19 Furosemide [Lasix] 20 mg PO DAILY 05/11/19 Icosapent Ethyl [Vascepa] 1 gm PO DAILY 05/11/19 Insulin Aspart (Niacinamide) 22 unit SQ 05/11/19 [Fiasp 100 Unit/ml Vial] Insulin Glargine,Hum.rec.anlog 72 unit SQ 05/11/19 [Basaglar Kwikpen U-100] Metoprolol Succinate [Toprol Xl] 200 mg PO DAILY 05/11/19 Pantoprazole Sodium [Protonix] 40 mg PO DAILY 05/11/19 Rosuvastatin Calcium [Crestor] 20 mg PO DAILY 05/11/19 Semaglutide [Ozempic] 1 mg SQ WEEKLY 05/11/19 ASSESSMENT AND PLAN: This is a 54 year old woman with a history of CAD, stents, HTN, hyperlipidemia, GERD, type 2 DM who presented to the ED with chest pain and palpitations. 1. Chest pain, palpitations - Doubt ACS - No arrhythmias noted in ED - Observe on telemetry - Serial troponins - Check echocardiogram - Check TSH 2. Acute kidney injury - Last available creatinine was 0.8 from 03/2018 - Hold Lasix, HCTZ, valsartan - Monitor creatinine 3. CAD, history of stents - Continue aspirin, Plavix, Toprol XL, Crestor, Vascepa 4. HTN - Continue amlodipine,, Toprol XL - Hold Lasix, valsartan, HCTZ secondary to GABRIEL 5. Hyperlipidemia - Continue Crestor, Vascepa 6. Type 2 DM - Hold Ozempic, Fiasp - Substitute Levemir for Basaglar - Fingersticks with Novolog sliding scale 7. GERD - Continue Protonix 8. Morbid obesity with BMI 40.2 - Counseled patient regarding diet, exercise, weight loss
[2019-05-11] MEDS ORDERED: diphenhydrAMINE HCL 25 MG CAPSULE (FP) PO ONE (03:40)
[2019-05-11] MEDS ORDERED: HEPARIN NA (PORCINE) 5,000 UNITS/ML 1ML VIAL SQ SCH (06:00)
[2019-05-11] MEDS ORDERED: HEPARIN NA (PORCINE) 5,000 UNITS/ML 1ML VIAL ONE (06:02)
[2019-05-11 06:05] LABS: EOS % 1.8 % (0-4.5); HEMATOCRIT 32.1 % (32.4-45.2); HEMOGLOBIN 10.5 GM/dL (10.7-15.3); LYMPH % 20.6 % (8-40); MCH 28.7 pg (25.7-33.7); MCHC 32.6 g/dl (32.0-36.0); MEAN PLT VOLUME 8.4 fl (7.5-11.1); MONO % 4.9 % (3.8-10.2); NEUT % 71.7 % (42.8-82.8); PLATELET COUNT 208 K/MM3 (134-434); RBC 3.64 M/mm3 (3.60-5.2); RDW 16.8 % (11.6-15.6); WHITE BLOOD COUNT 8.5 K/mm3 (4.0-10.0)
[2019-05-11 06:08] VITALS: BP 122/48; PULSE 80
[2019-05-11 06:39] LABS: ALBUMIN 3.1 g/dl (3.4-5.0); BILIRUBIN,TOTAL 0.2 mg/dL (0.2-1); BLOOD UREA NITROGEN 32.8 mg/dL (7-18); CALCIUM 8.7 mg/dL (8.5-10.1); CREATININE 1.5 mg/dL (0.55-1.3); MAGNESIUM 1.7 mg/dL (1.8-2.4); PHOSPHOROUS 3.6 mg/dL (2.5-4.9); POTASSIUM 3.7 mmol/L (3.5-5.1); TOT PROT 6.4 g/dl (6.4-8.2)
[2019-05-11] MEDS ORDERED: INSULIN SLIDING SCALE (NOVOLOG) 1 VIAL SQ SCH (07:00)
[2019-05-11] MEDS ORDERED: PT OWN MED DRAWER 7, Y5N ONE (08:41)
[2019-05-11] MEDS ORDERED: OMEGA-3 ACID ETHYL ESTERS (FATTY-ACIDS) 1 GM CAPSULE (FP) PO SCH (10:00)
[2019-05-11] MEDS ORDERED: PANTOPRAZOLE 40 MG TABLET (FP) PO SCH (10:00)
[2019-05-11] MEDS ORDERED: PATIENT'S OWN MEDICATION (NON-FORMULARY) (Icosapent Ethyl [Vascepa] 1 GM) PO SCH (10:00)
[2019-05-11] MEDS ORDERED: ASPIRIN 81 MG CHEWABLE TABLETS PO SCH (10:00)
[2019-05-11] MEDS ORDERED: CLOPIDOGREL BISULFATE 75 MG TABLET (FP) PO SCH (10:00)
--- NOTE | 2019-05-11 10:11 | DS ---
Physical Exam: SUBJECTIVE: Patient seen and examined reports some palpitations currently when telemetry show NSR with no events. States anxiety and asking if can get any medication for the same. Eager to go home. OBJECTIVE: Vital Signs Period Temp Pulse Resp BP Sys/Gilliam Pulse Ox Last 24 Hr 98.2 F 78-84 18-20 121-130/48-85 92-99 Intake & Output 05/08/19 05/09/19 05/10/19 05/11/19 23:59 23:59 23:59 23:59 Weight 220 lb PHYSICAL EXAM GENERAL: morbidly obese female (BMI 40.2) in no acute distress in bed Neck: soft, supple Chest: CTAB, no rales or wheezing Abdomen;Soft, obese, NT Extremities: trace pedal pitting edema, varicosities CVS:S1S2 regular Psych: co-operative, appropriate LABS Laboratory Results - last 24 hr 05/10/19 05/10/19 05/11/19 22:00 22:00 04:30 WBC 11.4 H RBC 3.76 Hgb 10.8 Hct 33.3 MCV 88.5 MCH 28.8 MCHC 32.6 RDW 16.7 H Plt Count 258 MPV 8.1 Absolute Neuts (auto) 8.7 H Neutrophils % 76.5 Lymphocytes % 16.1 Monocytes % 4.8 Eosinophils % 1.8 Basophils % 0.8 Nucleated RBC % 0 Sodium 137 Potassium 4.0 Chloride 100 Carbon Dioxide 30 Anion Gap 7 L BUN 35.3 H Creatinine 1.9 H Est GFR (CKD-EPI)AfAm 33.80 Est GFR (CKD-EPI)NonAf 29.17 Random Glucose 265 H Hemoglobin A1c % Calcium 9.0 Phosphorus Magnesium Total Bilirubin 0.2 AST 17 ALT 27 Alkaline Phosphatase 126 H Creatine Kinase 173 Creatine Kinase Index 1.3 CK-MB (CK-2) 2.3 Troponin I < 0.02 < 0.02 B-Natriuretic Peptide 87.4 Total Protein 6.8 Albumin 3.4 Triglycerides Cholesterol Total LDL Cholesterol HDL Cholesterol TSH 1.22 05/11/19 05/11/19 05/11/19 05:25 05:25 05:25 WBC 8.5 RBC 3.64 Hgb 10.5 L Hct 32.1 L MCV 88.0 MCH 28.7 MCHC 32.6 RDW 16.8 H Plt Count 208 MPV 8.4 Absolute Neuts (auto) 6.1 Neutrophils % 71.7 Lymphocytes % 20.6 D Monocytes % 4.9 Eosinophils % 1.8 Basophils % 1.0 Nucleated RBC % 0 Sodium 138 Potassium 3.7 Chloride 103 Carbon Dioxide 27 Anion Gap 8 BUN 32.8 H Creatinine 1.5 H Est GFR (CKD-EPI)AfAm 44.99 Est GFR (CKD-EPI)NonAf 38.82 Random Glucose 193 H Hemoglobin A1c % 9.1 H Calcium 8.7 Phosphorus 3.6 Magnesium 1.7 L Total Bilirubin 0.2 AST 17 ALT 23 Alkaline Phosphatase 115 Creatine Kinase Creatine Kinase Index CK-MB (CK-2) Troponin I B-Natriuretic Peptide Total Protein 6.4 Albumin 3.1 L Triglycerides 440 H Cholesterol 102 Total LDL Cholesterol 37 HDL Cholesterol 35 L TSH 0.94 TElemetry: NSR, no tachycardia or events HOSPITAL COURSE: Date of Admission:05/10/19 Date of Discharge: 05/11/19 Minutes to complete discharge: 42 Discharge Summary Problems reviewed: Yes Reason For Visit: ACUTE KIDNEY INJURY/PALPITATIONS/CHEST PAIN Current Active Problems GABRIEL (acute kidney injury) (Acute) Chest pain (Acute) Palpitations (Acute) HTN CAD s/p PCI IDDM, poorly controlled A1c 9.1 HLD Morbid Obesity Hospital Course: 54 y/o F with PMHx CAD s/p Stents, HTN, DM, HLD, GERD presents with Palpitations. She was watched on telemetry with no events, ACS was ruled out, TSH was WNL. While she actively reported palpitations, her telemetry was uneventful. She also stated having had a holter monitor at home with no events. Last 2D echo was 2 months ago. She has a follow up appointment with her copy editor Dr. Hassan on May 13. She was noted with GABRIEL Creatinine of 1.9 that improved to 1.5 with hydration and holding her lasix/ARB/HCTZ. She is advised to hold her lasix, resume her ARB /HCTZ tomorrow and have follow up blood work with her copy editor in 2 days to discuss further plan. She requested to be discharged and will be discharged in stable condition with instructions and outpatient follow up as above. Condition: Stable - Instructions Diet, Activity, Other Instructions: You were admitted with palpitations and heart attack was ruled out. You were also watched on monitor with no events. You were also noted with abnormal Kidney function (Creatinine 1.9) that improved (to creatinine of 1.5) with some fluids and holding your water pill lasix and your BP medication (Amlodipine/Valsartan/HCTZ) combination MEDICAITONS: STOP your water pill Lasix till seen by your copy editor this Monday RESUME your BP medication (Amlodipine/Valsartan/HCTZ) tomorrow Continue all your other medications as before FOLLOW UP: Blood work to check your kidneys BMP on Monday with your copy editor and discuss resumption of your water pill accordingly Also discuss outpatient holter/event monitoring. With Dr. Hassan on MondayMay 13 as scheduled With PCP In 1 week INSTRUCTIONS: Maintain adequate hydration. Daily weight check and notify your copy editor if weight gain > 3 lbs in 2 days. Your A1c was noted at 9.1 which indicates poor diabetes control. Please continue to monitor your blood glucose and maintain regular follow up with your doctor to address changes in treatment. If you notice recurrent palpitations, trouble breathing, chest pain, inability to eat, decreased urination, belly pain or any new concerns, please call 911 or come to the ED Referrals: Layne Moffett MD [Primary Care Provider] - Yuan Davis MD [Staff Physician] - 05/13/19 Disposition: HOME - Home Medications Comprehensive Discharge Medication List: Ambulatory Orders Amlodipine/Valsartan/Hcthiazid [Ucmiq-Jwsqf-Kdoe 10-160-25 mg] 1 each PO DAILY 05/11/19 Aspirin 81 mg PO DAILY 05/11/19 Cholecalciferol (Vitamin D3) [Vitamin D -] 1,000 unit PO DAILY 05/11/19 Clopidogrel Bisulfate [Plavix] 75 mg PO DAILY 05/11/19 Icosapent Ethyl [Vascepa] 1 gm PO DAILY 05/11/19 Insulin Aspart (Niacinamide) [Fiasp 100 Unit/ml Vial] 22 unit SQ 05/11/19 Insulin Glargine,Hum.rec.anlog [Basaglar Kwikpen U-100] 72 unit SQ 05/11/19 Metoprolol Succinate [Toprol Xl] 200 mg PO DAILY 05/11/19 Pantoprazole Sodium [Protonix] 40 mg PO DAILY 05/11/19 Rosuvastatin Calcium [Crestor] 20 mg PO DAILY 05/11/19 Semaglutide [Ozempic] 1 mg SQ WEEKLY 05/11/19 This patient is new to me today: Yes Date on this admission: 05/11/19 Emergency Visit: Yes ED Registration Date: 05/10/19 Care time: The patient presented to the Emergency Department on the above date and was hospitalized for further evaluation of their emergent condition. Critical Care patient: No - Discharge Referral Referred to [facility] No
[2019-05-11 10:39] LABS: HYALINE CASTS 2 /lpf (0-8); URINE APPEARANCE CLOUDY; URINE BACTERIA 261.3 /hpf (NEGATIVE); URINE BILIRUBIN NEGATIVE (NEGATIVE); URINE COLOR YELLOW; URINE GLUCOSE (UA) NEGATIVE (NEGATIVE); URINE KETONE NEGATIVE (NEGATIVE); URINE LEUK ESTERASE NEGATIVE (NEGATIVE); URINE NITRITE NEGATIVE (NEGATIVE); URINE PROTEIN 2+ (NEGATIVE); URINE RBC 0 /hpf (0-4); URINE UROBILINOGEN 0.2 mg/dL (0.2-1.0); URINE WBC 3 /hpf (0-5)
--- NOTE | 2019-05-11 13:33 | EKG ---
Test Reason : Blood Pressure : / mmHG Vent. Rate : 083 BPM Atrial Rate : 083 BPM P-R Int : 142 ms QRS Dur : 082 ms QT Int : 382 ms P-R-T Axes : 044 -25 062 degrees QTc Int : 448 ms NORMAL SINUS RHYTHM NORMAL ECG WHEN COMPARED WITH ECG OF 27-AUG-2018 16:33, NO SIGNIFICANT CHANGE WAS FOUND Confirmed by MD JOSE, JOAO ([id number]) on 05/11/2019 1:32:55 PM Referred By: Confirmed By:JOAO GARCIA MD
[2019-05-11] MEDS ORDERED: ROSUVASTATIN CA 20 MG TABLET (FP) PO SCH (22:00)
== END 2019-05-11 11:04 | disposition home or self-care (01) ==
LOC: JER 19:25 → JERBED 23:40
PROVIDERS: ADMIT Internal Medicine; ATTEND Hospitalist
PROC: 3E033NZ Introduction of Analgesics, Hypnotics, Sedatives into Peripheral Vein, Percutaneous Approach (ICD-10-PCS; principal; 2019-05-10)
PROC: 3E033GC Introduction of Other Therapeutic Substance into Peripheral Vein, Percutaneous Approach (ICD-10-PCS; 2019-05-10)
PROC: 3E013VG Introduction of Insulin into Subcutaneous Tissue, Percutaneous Approach (ICD-10-PCS; 2019-05-10)
PROC: 3E013GC Introduction of Other Therapeutic Substance into Subcutaneous Tissue, Percutaneous Approach (ICD-10-PCS; 2019-05-10)
DX: R00.2 Palpitations (principal); R07.89 Other chest pain; N17.9 Acute kidney failure, unspecified; I10 Essential (primary) hypertension; E78.5 Hyperlipidemia, unspecified; E11.9 Type 2 diabetes mellitus without complications; I25.10 Atherosclerotic heart disease of native coronary artery without angina pectoris; K21.9 Gastro-esophageal reflux disease without esophagitis; J45.909 Unspecified asthma, uncomplicated; Z79.82 Long term (current) use of aspirin; Z79.4 Long term (current) use of insulin; Z88.0 Allergy status to penicillin; Z95.5 Presence of coronary angioplasty implant and graft; Z87.442 Personal history of urinary calculi; E66.01 Morbid (severe) obesity due to excess calories; Z68.41 Body mass index [BMI] 40.0-44.9, adult
CPT/HCPCS: 36415; 71045-TC-FY; 80053; 80061; 81003; 82550; 82553; 83036; 83721; 83735; 83880; 84100; 84443; 84484; 85025; 93005; 93010; 96361; 96372; 96374; 96375; 99285-25; G0378; J0131; J1644

== ENCOUNTER 2019-05-31 10:18 | Inpatient (IN) | payer OTHER ==
--- NOTE | 2019-05-31 11:22 | PDOC ---
History of Present Illness - General History Source: Patient Exam Limitations: No Limitations <Milagros Emerson - Last Filed: 05/31/19 16:00> <Anika Nunez - Last Filed: 06/01/19 21:35> - General Chief Complaint: Pain, Acute Stated Complaint: ABD PAIN Time Seen by Provider: 05/31/19 10:39 Past History - Travel Traveled outside of the country in the last 30 days: No Close contact w/someone who was outside of country & ill: No - Past Medical History Anemia: No Asthma: Yes Cancer: No Cardiac Disorders: No CVA: No COPD: No CHF: No Dementia: No Diabetes: Yes GI Disorders: Yes (ACID REFLUX AT TIMES) Disorders: No HTN: Yes Hypercholesterolemia: Yes Kidney Stones: Yes Liver Disease: No Seizures: No Thyroid Disease: No - Surgical History Abdominal Surgery: No Appendectomy: No Cardiac Surgery: Yes (stents x 1 04/19/06, 1 on 03/15/18) Cholecystectomy: No Lung Surgery: No Neurologic Surgery: No Orthopedic Surgery: Yes (ARTHROSCOPIC SHOULDER - LEFT; CARPAL TUNNEL RIGHT HAND) - Immunization History Immunization Up to Date: Yes - Psycho Social/Smoking Cessation Hx Smoking Status: Yes Smoking History: Never smoked Have you smoked in the past 12 months: No Number of Cigarettes Smoked Daily: 2,018 If you are a former smoker, when did you quit?: 12/13/17 'Breaking Loose' booklet given: 10/10/16 Hx Alcohol Use: No Drug/Substance Use Hx: No Substance Use Type: None Hx Substance Use Treatment: No <Milagros Emerson - Last Filed: 05/31/19 16:00> <Anika Nunez - Last Filed: 06/01/19 21:35> - Past Medical History Allergies/Adverse Reactions: Allergies Allergy/AdvReac Type Severity Reaction Status Date / Time Penicillins Allergy Severe Hives Verified 05/31/19 10:23 Home Medications: Ambulatory Orders Amlodipine/Valsartan/Hcthiazid [Lpvyq-Fflei-Surj 10-160-25 mg] 1 each PO DAILY 05/11/19 Aspirin 81 mg PO DAILY 05/11/19 Cholecalciferol (Vitamin D3) [Vitamin D -] 1,000 unit PO DAILY 05/11/19 Clopidogrel Bisulfate [Plavix] 75 mg PO DAILY 05/11/19 Icosapent Ethyl [Vascepa] 1 gm PO DAILY 05/11/19 Insulin Aspart (Niacinamide) [Fiasp 100 Unit/ml Vial] 22 unit SQ TID 05/11/19 Insulin Glargine,Hum.rec.anlog [Basaglar Kwikpen U-100] 72 unit SQ BID 05/11/19 Metoprolol Succinate [Toprol Xl] 200 mg PO DAILY 05/11/19 Pantoprazole Sodium [Protonix] 40 mg PO DAILY 05/11/19 Rosuvastatin Calcium [Crestor] 20 mg PO DAILY 05/11/19 Semaglutide [Ozempic] 1 mg SQ WEEKLY 05/11/19 Review of Systems - Review of Systems Able to Perform ROS?: Yes Comments:: 05/31/19 11:23 CONSTITUTIONAL: Absent: fever, chills, diaphoresis, generalized weakness, malaise, loss of appetite HEENT: Absent: rhinorrhea, nasal congestion, throat pain, throat swelling, difficulty swallowing, mouth swelling, ear pain, eye pain, visual Changes CARDIOVASCULAR: Absent: chest pain, loss of consciousness, palpitations, irregular heart rate, peripheral edema RESPIRATORY: Absent: cough, shortness of breath, dyspnea with exertion, orthopnea, wheezing, stridor, hemoptysis GASTROINTESTINAL: Present: Upper abdominal pain, nausea, vomiting and diarrhea. Absent: abdominal distension, constipation, melena, hematochezia GENITOURINARY: Absent: dysuria, frequency, urgency, hesitancy, hematuria, flank pain, genital pain MUSCULOSKELETAL: Absent: myalgia, arthralgia, joint swelling SKIN: Absent: rash, itching, pallor HEMATOLOGIC/IMMUNOLOGIC: Absent: easy bleeding, easy bruising, lymphadenopathy, frequent infections ENDOCRINE: Absent: unexplained weight gain, unexplained weight loss, heat intolerance, cold intolerance NEUROLOGIC: Absent: headache, focal weakness or paresthesias, dizziness, unsteady gait, seizure, mental status changes, bladder or bowel incontinence PSYCHIATRIC: Absent: anxiety, depression, suicidal or homicidal ideation, hallucinations. Is the patient limited Greek proficient: No <Milagros Emerson - Last Filed: 05/31/19 16:00> *Physical Exam - Vital Signs Last Vital Signs Temp Pulse Resp BP Pulse Ox 98.2 F 84 15 125/72 96 05/31/19 10:27 05/31/19 10:27 05/31/19 10:27 05/31/19 10:05/31/19 10:27 - Physical Exam 05/31/19 11:23 GENERAL: Well developed, well nourished. Awake and alert. No acute distress. HEENT: Normocephalic, atraumatic. PERRLA, EOMI. No conjunctival pallor. Sclera are non- icteric. Moist mucous membranes. Oropharynx is clear. NECK: Supple. Full ROM. No lymphadenopathy. CARDIOVASCULAR: Regular rate and rhythm. No murmurs, rubs, or gallops. Distal pulses are 2+ and symmetric. PULMONARY: No evidence of respiratory distress. Lungs clear to auscultation bilaterally. No wheezing, rales or rhonchi. ABDOMINAL: Tenderness palpation of the epigastric region, right upper quadrant, left upper quadrant. Negative Milian sign. Soft. Non-distended. No rebound or guarding. No organomegaly. Normoactive bowel sounds. MUSCULOSKELETAL Normal range of motion at all joints. No bony deformities or tenderness. No CVA tenderness. EXTREMITIES: No cyanosis. No clubbing. No edema. No calf tenderness. SKIN: Warm and dry. Normal capillary refill. No rashes. No jaundice. NEUROLOGICAL: Alert, awake, appropriate. Cranial nerves 2-12 intact. No deficits to light touch and temperature in face, upper extremities and lower extremities. No motor deficits in the in face, upper extremities and lower extremities. Normoreflexic in the upper and lower extremities. Normal speech. Toes are down- going bilaterally. Gait is normal without ataxia. PSYCHIATRIC: Cooperative. Good eye contact. Appropriate mood and affect. <Milagros Emerson - Last Filed: 05/31/19 16:00> - Vital Signs Last Vital Signs Temp Pulse Resp BP Pulse Ox 98.2 F 84 15 125/72 96 05/31/19 10:27 05/31/19 10:27 05/31/19 10:27 05/31/19 10:27 05/31/19 10:27 <Anika Nunez - Last Filed: 06/01/19 21:35> ED Treatment Course - LABORATORY CBC & Chemistry Diagram: 05/31/19 11:30 05/31/19 11:30 <Milagros Emerson - Last Filed: 05/31/19 16:00> - LABORATORY CBC & Chemistry Diagram: 06/01/19 07:00 06/01/19 07:00 - ADDITIONAL ORDERS Additional order review: Laboratory Results 05/31/19 11:30 Sodium 138 Potassium 4.1 Chloride 100 Carbon Dioxide 32 Anion Gap 6 L BUN 21.4 H Creatinine 1.3 Est GFR (CKD-EPI)AfAm 53.48 Est GFR (CKD-EPI)NonAf 46.15 Random Glucose 102 Calcium 8.9 Total Bilirubin 0.2 AST 16 ALT 23 Alkaline Phosphatase 126 H Total Protein 7.1 Albumin 3.4 Lipase 174 05/31/19 11:30 RBC 4.16 MCV 88.0 MCHC 32.1 RDW 16.5 H MPV 8.8 Neutrophils % 83.4 H Lymphocytes % 8.1 D Monocytes % 6.7 Eosinophils % 1.3 Basophils % 0.5 - Medications Given in the ED: ED Medications Discontinued Medications Generic Name Dose Route Start Last Admin Trade Name Freq PRN Reason Stop Dose Admin Acetaminophen 1,000 mg 05/31/19 11:24 05/31/19 11:52 Ofirmev Injection - IVPB 05/31/19 11:25 1,000 mg ONCE ONE Administration Al Hydroxide/Mg Hydroxide 30 ml 05/31/19 11:25 05/31/19 11:51 Mylanta Suspension - PO 05/31/19 11:26 30 ml ONCE ONE Administration Famotidine/Sodium Chloride 20 mg in 50 mls @ 100 mls/hr 05/31/19 11:24 11:45 Pepcid 20 Mg Premixed Ivpb - IVPB 05/31/19 11:53 100 mls/hr ONCE ONE Administration Sodium Chloride 1,000 mls @ 1,000 mls/hr 05/31/19 11:24 05/31/19 11:52 Normal Saline - IV 05/31/19 12:23 1,000 mls/hr ASDIR STA Administration Lidocaine HCl 20 ml 05/31/19 11:25 05/31/19 11:52 Xylocaine 2% Viscous Oral - MM 05/31/19 11:26 20 ml ONCE ONE Administration Ondansetron HCl 4 mg 05/31/19 11:26 05/31/19 11:52 Zofran Injection IVPUSH 05/31/19 11:27 4 mg ONCE ONE Administration <Anika Nunez - Last Filed: 06/01/19 21:35> Medical Decision Making - Medical Decision Making 05/31/19 11:26 The patient is a 54-year-old female with past medical history of insulin- dependent diabetes, hypertension, hyperlipidemia, coronary artery disease status post 2 stents, presents to the ER today for abdominal pain for 6 days. She states that she had rice and salami on Monday, and then started vomiting shortly thereafter. She states that she has had vomiting, diarrhea and nausea since that time. She states her last bowel movement today was soft and that the diarrhea had improved. She has been able to keep small sips of liquids down. She admits to still feeling nauseous. Denies fevers, chills, chest pain , difficulty breathing, urinary symptoms and back pain. A/P: Abdominal pain On exam patient is tender palpation of the epigastric, right upper quadrant and left upper quadrant. Differential diagnosis includes but is not limited to: Gastroenteritis, gastritis, PUD, pancreatitis, cholecystitis, cholangitis Basic labs, urine, IV medications ordered. Right upper quadrant ultrasound ordered Reevaluate 05/31/19 14:42 Patient still with pain despite GI cocktail. Lab work remarkable for leukocytosis to 12. Ultrasound of the right upper quadrant shows a dilated CBD from 6 to 7 mm. We will need MRCP given 1 week of sustained pain to rule out stone in the biliary tree. Will admit to medicine. PCP Dr. Moffett GI consult placed Pt endorsed to Dr. Dhaliwal 05/31/19 16:00 <Milagros Emerson - Last Filed: 05/31/19 16:00> - Medical Decision Making The patient was seen and evaluated in conjunction with midlevel provider under my direct supervision, ancillary studies were reviewed. I agree with the plan as outlined with TORRES Emerson. HPI, workup/dispo as outlined. VS reviewed, wnl. admission for dilated CBD, r/o choledocholithiasis, mrcp GI eval admission to medicine. 05/31/19 13:50 06/01/19 21:34 <Anika Nunez - Last Filed: 06/01/19 21:35> Discharge - Discharge Information Problems reviewed: Yes - Admission Yes <Milagros Emerson - Last Filed: 05/31/19 16:00> <Anika Nunez - Last Filed: 06/01/19 21:35> - Discharge Information Clinical Impression/Diagnosis: Abdominal pain Qualifiers: Abdominal location: right upper quadrant Qualified Code(s): R10.11 - Right upper quadrant pain Condition: Stable
[2019-05-31] MEDS ORDERED: ONDANSETRON 4 MG/2 ML VIAL ONE (11:23)
[2019-05-31] MEDS ORDERED: SODIUM CHLORIDE 1,000 ML IV STA (11:24)
[2019-05-31] MEDS ORDERED: ACETAMINOPHEN 1000 MG/100 ML VIAL (NON FORMULARY) IVPB ONE (11:24)
[2019-05-31] MEDS ORDERED: FAMOTIDINE 20 MG/50 ML IVPB 20 MG/50 ML MG IVPB ONE ×2 (11:24→11:31)
[2019-05-31] MEDS ORDERED: LIDOCAINE VISCOUS 2% ORAL/TOP 20 ML UNIT-DOSE CUP MM ONE (11:25)
[2019-05-31] MEDS ORDERED: MAG HYDROX/AL HYDROX/SIMETH -MYLANTA- ORAL SUSPENSION PO ONE (11:25)
[2019-05-31] MEDS ORDERED: ONDANSETRON 4 MG/2 ML VIAL IVPUSH ONE (11:26)
[2019-05-31] MEDS ORDERED: MAG HYDROX/AL HYDROX/SIMETH 30 ML UNIT-DOSE CUP ONE (11:31)
[2019-05-31] MEDS ORDERED: LIDOCAINE VISCOUS 2% ORAL/TOP 20 ML UNIT-DOSE CUP ONE (11:31)
[2019-05-31] MEDS ORDERED: ACETAMINOPHEN INJECTION 100 ML IVPB ONE (11:31)
[2019-05-31 12:36] LABS: BASO % 0.5 % (0-2.0); EOS % 1.3 % (0-4.5); HEMATOCRIT 36.6 % (32.4-45.2); HEMOGLOBIN 11.8 GM/dL (10.7-15.3); LYMPH % 8.1 % (8-40); MCH 28.3 pg (25.7-33.7); MCHC 32.1 g/dl (32.0-36.0); MEAN PLT VOLUME 8.8 fl (7.5-11.1); MONO % 6.7 % (3.8-10.2); NEUT % 83.4 % (42.8-82.8); PLATELET COUNT 319 K/MM3 (134-434); RBC 4.16 M/mm3 (3.60-5.2); RDW 16.5 % (11.6-15.6); WHITE BLOOD COUNT 12.3 K/mm3 (4.0-10.0)
[2019-05-31 13:10] LABS: ALBUMIN 3.4 g/dl (3.4-5.0); BILIRUBIN,TOTAL 0.2 mg/dL (0.2-1); BLOOD UREA NITROGEN 21.4 mg/dL (7-18); CALCIUM 8.9 mg/dL (8.5-10.1); CREATININE 1.3 mg/dL (0.55-1.3); POTASSIUM 4.1 mmol/L (3.5-5.1); TOT PROT 7.1 g/dl (6.4-8.2)
[2019-05-31 14:13] LABS: ANISOCYTOSIS 0; MACROCYTOSIS 0; PLATELET ESTIMATE NORMAL
[2019-05-31 14:55] LABS: EPI CELLS 12.9 /HPF (0-5/HPF); HYALINE CASTS 7 /lpf (0-8); URINE APPEARANCE CLOUDY; URINE BACTERIA 286.8 /hpf (NEGATIVE); URINE BILIRUBIN NEGATIVE (NEGATIVE); URINE COLOR YELLOW; URINE GLUCOSE (UA) NEGATIVE (NEGATIVE); URINE KETONE NEGATIVE (NEGATIVE); URINE LEUK ESTERASE NEGATIVE (NEGATIVE); URINE NITRITE NEGATIVE (NEGATIVE); URINE PROTEIN 3+ (NEGATIVE); URINE RBC 1 /hpf (0-4); URINE UROBILINOGEN 0.2 mg/dL (0.2-1.0); URINE WBC 3 /hpf (0-5)
[2019-05-31] MEDS ORDERED: morphine CARPU-JECT 2 MG/1 ML DISP.SYRIN IVPUSH ONE (15:36)
[2019-05-31] MEDS ORDERED: MORPHINE SULFATE 2 MG/ML VIAL ONE (16:11)
--- NOTE | 2019-05-31 16:14 | HP ---
CHIEF COMPLAINT: abdominal pain HISTORY OF PRESENT ILLNESS: Patient is a 54 yo F with a PMHx of obesity, uncontrolled DM, HTN, GERD, presenting to the ER with epigastric abdominal pain with nausea and vomiting over the last 2-3 days associated with foods. She last vomited 2 days ago. Patient says she ate rice and salami a few days ago and then developed bloating , nausea and vomiting afterwards. She took motrin and aleve x 1 with no relief. She said she has reflux disease but she said this pain is different. The pain is epigastric and radiates to the left and right side of the abdomen. Patient also endorses diarrhea. She said diarrhea started a few days ago but is not better than before. Patient denies sob, chest pain, fevers, chills, urinary changes, recent illness, hematemesis, and recent travel. PAST MEDICAL HISTORY: per HPI PAST SURGICAL HISTORY: shoulder sx. hysterectomy Social History: Smoking: denies. former Alcohol: denies Drugs: denies. Allergies Penicillins Allergy (Severe, Verified 05/31/19 10:23) Hives HOME MEDICATIONS: Home Medications Medication Instructions Recorded Amlodipine/Valsartan/Hcthiazid 1 each PO DAILY 05/11/19 [Kmhce-Yvqzv-Luyz 10-160-25 mg] Aspirin 81 mg PO DAILY 05/11/19 Cholecalciferol (Vitamin D3) 1,000 unit PO DAILY 05/11/19 [Vitamin D -] Clopidogrel Bisulfate [Plavix] 75 mg PO DAILY 05/11/19 Icosapent Ethyl [Vascepa] 1 gm PO DAILY 05/11/19 Insulin Aspart (Niacinamide) 22 unit SQ TID 05/11/19 [Fiasp 100 Unit/ml Vial] Insulin Glargine,Hum.rec.anlog 72 unit SQ BID 05/11/19 [Basaglar Kwikpen U-100] Metoprolol Succinate [Toprol Xl] 200 mg PO DAILY 05/11/19 Pantoprazole Sodium [Protonix] 40 mg PO DAILY 05/11/19 Rosuvastatin Calcium [Crestor] 20 mg PO DAILY 05/11/19 Semaglutide [Ozempic] 1 mg SQ WEEKLY 05/11/19 REVIEW OF SYSTEMS per hpi PHYSICAL EXAMINATION Vital Signs - 24 hr 01/17/20 01/17/20 01/17/20 10:23 10:27 14:14 Temperature 98.3 F 98.2 F 98.2 F Pulse Rate 85 Pulse Rate [ 84 82 Left Radial] Respiratory 18 15 18 Rate Blood Pressure 129/73 Blood Pressure 125/72 136/67 [Right Arm] O2 Sat by Pulse 100 96 96 Oximetry (%) GENERAL: a/o x 3 in NAD HEAD: Normal with no signs of trauma. EYES: Pupils equal, round and reactive to light, extraocular movements intact, sclera anicteric EARS, NOSE, THROAT:oropharynx clear without exudates. Moist mucous membranes. NECK: N supple without lymphadenopathy, JVD, or masses. LUNGS: difficult to auscultate due to body habitus. no rales rhonchi or wheezing appreciated. HEART: RRR, no mumurs appreciated ABDOMEN: obese, + BS, RUQ,epigastric,LUQ tenderness to palpation. no guarding. LOWER EXTREMITIES: 2+ pulses, +pitting edema . Laboratory Results - last 24 hr 05/31/19 05/31/19 05/31/19 11:30 11:30 14:15 WBC 12.3 H RBC 4.16 Hgb 11.8 Hct 36.6 MCV 88.0 MCH 28.3 MCHC 32.1 RDW 16.5 H Plt Count 319 D MPV 8.8 Absolute Neuts (auto) 10.2 H Neutrophils % 83.4 H Neutrophils % (Manual) 75.0 Band Neutrophils % 7.0 Lymphocytes % 8.1 D Lymphocytes % (Manual) 8.0 Monocytes % 6.7 Monocytes % (Manual) 9 Eosinophils % 1.3 Eosinophils % (Manual) 1.0 Basophils % 0.5 Basophils % (Manual) 0.0 Myelocytes % (Man) 0 Promyelocytes % (Man) 0 Blast Cells % (Manual) 0 Nucleated RBC % 0 Metamyelocytes 0 Hypochromia 0 Platelet Estimate Normal Polychromasia 0 Poikilocytosis 0 Anisocytosis 0 Microcytosis 0 Macrocytosis 0 Sodium 138 Potassium 4.1 Chloride 100 Carbon Dioxide 32 Anion Gap 6 L BUN 21.4 H Creatinine 1.3 Est GFR (CKD-EPI)AfAm 53.48 Est GFR (CKD-EPI)NonAf 46.15 Random Glucose 102 Calcium 8.9 Total Bilirubin 0.2 AST 16 ALT 23 Alkaline Phosphatase 126 H Total Protein 7.1 Albumin 3.4 Lipase 174 Urine Color Yellow Urine Appearance Cloudy Urine pH 5.0 Ur Specific Midnight 1.019 Urine Protein 3+ H Urine Glucose (UA) Negative Urine Ketones Negative Urine Blood Negative Urine Nitrite Negative Urine Bilirubin Negative Urine Urobilinogen 0.2 Ur Leukocyte Esterase Negative Urine WBC (Auto) 3 Urine RBC (Auto) 1 Urine Casts (Auto) 7 U Epithel Cells (Auto) 12.9 Urine Bacteria (Auto) 286.8 ASSESSMENT/PLAN: 54 yo F with a PMHx of obesity, uncontrolled DM, HTN, GERD, presenting to the ER with epigastric abdominal pain. #Intractable abdominal pain -DDx includes sphincter of Oddi dysfunction vs biliary hypokinesia vs PUD -patient with hx of GERD. had EGD in the past. on protonix. -US with Prominent CBD 6-7mm. No evidence of cholethithiasis or cholecystitis. Hepatomegaly with fatty infiltration of the liver. -previous CT noted -clear liquid diet -GI/Surgery consult per my attending. -MRCP -Protonix IV -pain control with tylenol po -zofran prn for nausea #HTN/CAD -cont. meds #DM -ssi -bgms #Dvt ppx -hep sq Visit type - Emergency Visit Emergency Visit: Yes ED Registration Date: 05/31/19 Care time: The patient presented to the Emergency Department on the above date and was hospitalized for further evaluation of their emergent condition. - New Patient This patient is new to me today: Yes Date on this admission: 06/03/19 - Critical Care Critical Care patient: No ATTENDING PHYSICIAN STATEMENT I saw and evaluated the patient. I reviewed the resident's note and discussed the case with the resident. I agree with the resident's findings and plan as documented. SUBJECTIVE: OBJECTIVE: ASSESSMENT AND PLAN:
--- NOTE | 2019-05-31 16:19 | PN ---
Teaching Attending Note Name of Resident: Victor M Dhaliwal ATTENDING PHYSICIAN STATEMENT I saw and evaluated the patient. I reviewed the resident's note and discussed the case with the resident. I agree with the resident's findings and plan as documented. SUBJECTIVE: 54 Y/O F W obesity, uncontrolled DM, HTN, GERD, P/W 1 week of intermittent aching abdominal pain , mild to moderate, related to eating food. different from his baseline GERD complaints. She came to the ED as the pain was not getting better and she was eating less OBJECTIVE: sitting in the chair, in no distress mmm CVS:S1S2 CTAB Has mild epigstric tenderness EXT no edema Laboratory Results - last 24 hr 05/31/19 05/31/19 05/31/19 11:30 11:30 14:15 WBC 12.3 H RBC 4.16 Hgb 11.8 Hct 36.6 MCV 88.0 MCH 28.3 MCHC 32.1 RDW 16.5 H Plt Count 319 D MPV 8.8 Absolute Neuts (auto) 10.2 H Neutrophils % 83.4 H Neutrophils % (Manual) 75.0 Band Neutrophils % 7.0 Lymphocytes % 8.1 D Lymphocytes % (Manual) 8.0 Monocytes % 6.7 Monocytes % (Manual) 9 Eosinophils % 1.3 Eosinophils % (Manual) 1.0 Basophils % 0.5 Basophils % (Manual) 0.0 Myelocytes % (Man) 0 Promyelocytes % (Man) 0 Blast Cells % (Manual) 0 Nucleated RBC % 0 Metamyelocytes 0 Hypochromia 0 Platelet Estimate Normal Polychromasia 0 Poikilocytosis 0 Anisocytosis 0 Microcytosis 0 Macrocytosis 0 Sodium 138 Potassium 4.1 Chloride 100 Carbon Dioxide 32 Anion Gap 6 L BUN 21.4 H Creatinine 1.3 Est GFR (CKD-EPI)AfAm 53.48 Est GFR (CKD-EPI)NonAf 46.15 Random Glucose 102 Calcium 8.9 Total Bilirubin 0.2 AST 16 ALT 23 Alkaline Phosphatase 126 H Total Protein 7.1 Albumin 3.4 Lipase 174 Urine Color Yellow Urine Appearance Cloudy Urine pH 5.0 Ur Specific [place] 1.019 Urine Protein 3+ H Urine Glucose (UA) Negative Urine Ketones Negative Urine Blood Negative Urine Nitrite Negative Urine Bilirubin Negative Urine Urobilinogen 0.2 Ur Leukocyte Esterase Negative Urine WBC (Auto) 3 Urine RBC (Auto) 1 Urine Casts (Auto) 7 U Epithel Cells (Auto) 12.9 Urine Bacteria (Auto) 286.8 ASSESSMENT AND PLAN: patient with cholelithiasis and biliary colics, stable no inflammation at this time. Will C/W pain management with tylenol and if needed opioids. Will put clear liquid diet as tolerated,. will get MRCP, will ask surgery and GI to evaluate the patient. DM: will C/W home mediation CAD: will C/W dapt, BB bad statins
--- NOTE | 2019-05-31 17:30 | CONSULT ---
- Consultation REQUESTING PROVIDER: Renuka GARCIA CONSULT REQUEST: We have been asked to surgically evaluate this patient for abdominal pain. PCP: HISTORY OF PRESENT ILLNESS: 54 y/o female presented to the [facility] ED w/epigastric abdominal pain and bloating; pain radiated to both UQ's; she states it started # days ago; pain is ? cramp ? and pressure like; not improved or made worse by anything; she has a h/o a MALISSA; she has known renal calculi GERD. 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 PMHx: HTN/HLD/PVD/IDDM/ PSHx: MALISSA Home Medications Medication Instructions Recorded Amlodipine/Valsartan/Hcthiazid 1 each PO DAILY 05/11/19 [Dxzlm-Pusub-Rhkw 10-160-25 mg] Aspirin 81 mg PO DAILY 05/11/19 Cholecalciferol (Vitamin D3) 1,000 unit PO DAILY 05/11/19 [Vitamin D -] Clopidogrel Bisulfate [Plavix] 75 mg PO DAILY 05/11/19 Icosapent Ethyl [Vascepa] 1 gm PO DAILY 05/11/19 Insulin Aspart (Niacinamide) 22 unit SQ TID 05/11/19 [Fiasp 100 Unit/ml Vial] Insulin Glargine,Hum.rec.anlog 72 unit SQ BID 05/11/19 [Basaglar Kwikpen U-100] Metoprolol Succinate [Toprol Xl] 200 mg PO DAILY 05/11/19 Pantoprazole Sodium [Protonix] 40 mg PO DAILY 05/11/19 Rosuvastatin Calcium [Crestor] 20 mg PO DAILY 05/11/19 Semaglutide [Ozempic] 1 mg SQ WEEKLY 05/11/19 Allergies Allergy/AdvReac Type Severity Reaction Status Date / Time Penicillins Allergy Severe Hives Verified 05/31/19 10:23 REVIEW OF SYSTEMS: CONSTITUTIONAL: Absent: fever, chills, diaphoresis, generalized weakness, malaise, loss of appetite, weight change CARDIOVASCULAR: Absent: chest pain, syncope, palpitations, irregular heart rate, lightheadedness , peripheral edema RESPIRATORY: Absent: cough, shortness of breath, dyspnea with exertion, wheezing, stridor, hemoptysis GASTROINTESTINAL: Present: abdominal pain, abdominal distension, nausea, vomiting, Absent: diarrhea, constipation, melena, hematochezia GENITOURINARY: Absent: dysuria, frequency, urgency, hesitancy, hematuria, flank pain, genital pain MUSCULOSKELETAL: Absent: myalgia, arthralgia, joint swelling, back pain, neck pain SKIN: Absent: rash, itching, pallor HEMATOLOGIC/IMMUNOLOGIC: Absent: easy bleeding, easy bruising, lymphadenopathy NEUROLOGIC: Absent: headache, focal weakness, paresthesias, dizziness, unsteady gait, seizure, mental status changes, bladder or bowel incontinence PSYCHIATRIC: Absent: anxiety, depression, suicidal or homicidal ideation, hallucinations. PHYSICAL EXAM: GENERAL: Awake, alert, and fully oriented, in no acute distress. HEAD: Normal with no signs of trauma. EYES: PERRL, sclera anicteric, conjunctiva clear. NECK: Normal ROM, supple without lymphadenopathy, JVD, or masses. ABDOMEN: Soft, nontender, not distended, normoactive bowel sounds, no guarding, no rebound, no masses. No organomegaly. No hernias. MUSCULOSKELETAL: Normal ROM at all joints. No bony deformities or tenderness. No CVA tenderness. UPPER EXTREMITIES: 2+ pulses, warm, well-perfused. No cyanosis. Cap refill <2 seconds. No peripheral edema. LOWER EXTREMITIES: 2+ pulses, warm, well-perfused. No calf tenderness. No peripheral edema. NEUROLOGICAL: Normal speech, gait not observed. PSYCH: Cooperative. Good eye contact. Appropriate mood and affect. SKIN: Warm, dry, normal turgor, no rashes or lesions noted. Vital Signs Temperature 98.2 F 05/31/19 16:32 Pulse Rate 84 05/31/19 16:32 Respiratory Rate 18 05/31/19 16:32 Blood Pressure 117/68 05/31/19 16:32 O2 Sat by Pulse Oximetry (%) 98 05/31/19 16:32 Lab Results WBC 12.3 K/mm3 (4.0-10.0) H 05/31/19 11:30 RBC 4.16 M/mm3 (3.60-5.2) 05/31/19 11:30 Hgb 11.8 GM/dL (10.7-15.3) 05/31/19 11:30 Hct 36.6 % (32.4-45.2) 05/31/19 11:30 MCV 88.0 fl (80-96) 05/31/19 11:30 MCHC 32.1 g/dl (32.0-36.0) 05/31/19 11:30 RDW 16.5 % (11.6-15.6) H 05/31/19 11:30 Plt Count 319 K/MM3 (134-434) D 05/31/19 11:30 Sodium 138 mmol/L (136-145) 05/31/19 11:30 Potassium 4.1 mmol/L (3.5-5.1) 05/31/19 11:30 Chloride 100 mmol/L (98-107) 05/31/19 11:30 Carbon Dioxide 32 mmol/L (21-32) 05/31/19 11:30 Anion Gap 6 MMOL/L (8-16) L 05/31/19 11:30 BUN 21.4 mg/dL (7-18) H 05/31/19 11:30 Creatinine 1.3 mg/dL (0.55-1.3) 05/31/19 11:30 Random Glucose 102 mg/dL (74-106) 05/31/19 11:30 Calcium 8.9 mg/dL (8.5-10.1) 05/31/19 11:30 US and previous US and previous CT exams reviewed; no evidence of cholelithiasis and minimally dilated CBD vs. top normal. LFT's and bili normal e/f minimally elevated alk. phos. IMP: No evidence of an acute surgical abdomen PLAN:patient requires further investigation and GI evaluation; r/o sphincter of Oddi dysfunction; biliary hypokinesia; PUD CBD abnormality etc.; no surgical intervention is indicated at this time Raghavendra Drake MD FACS
[2019-05-31] MEDS: INSULIN SLIDING SCALE (NOVOLOG) 1 VIAL SQ SCH ×2 (17:39→21:02)
[2019-05-31 17:48] VITALS: BMI 40.9
[2019-05-31] MEDS ORDERED: MELATONIN 5 MG TABLETS PO ONE (20:43)
[2019-05-31] MEDS ORDERED: INSULIN (NOVOLOG) ASPART 100 UNITS/ML 10ML VIAL ONE (20:52)
[2019-05-31] MEDS: ROSUVASTATIN CA 20 MG TABLET (FP) PO SCH (21:09)
[2019-05-31] MEDS: HEPARIN NA (PORCINE) 5,000 UNITS/ML 1ML VIAL SQ SCH (21:10)
[2019-05-31] MEDS ORDERED: ONDANSETRON 4 MG/2 ML VIAL IVPUSH PRN (21:47)
[2019-06-01] MEDS: ACETAMINOPHEN 325 MG TABLET (FP) PO PRN ×2 (03:45→09:20)
[2019-06-01] MEDS: INSULIN SLIDING SCALE (NOVOLOG) 1 VIAL SQ SCH ×4 (06:06→21:41)
[2019-06-01 08:47] LABS: EOS % 2.2 % (0-4.5); HEMATOCRIT 35.3 % (32.4-45.2); HEMOGLOBIN 11.3 GM/dL (10.7-15.3); LYMPH % 15.4 % (8-40); MCH 28.3 pg (25.7-33.7); MCHC 32.1 g/dl (32.0-36.0); MEAN CELL VOLUME 88.3 fl (80-96); MEAN PLT VOLUME 8.1 fl (7.5-11.1); MONO % 6.3 % (3.8-10.2); NEUT % 75.1 % (42.8-82.8); PLATELET COUNT 339 K/MM3 (134-434); RBC 3.99 M/mm3 (3.60-5.2); RDW 16.8 % (11.6-15.6); WHITE BLOOD COUNT 11.3 K/mm3 (4.0-10.0)
[2019-06-01 09:17] LABS: ALBUMIN 3.3 g/dl (3.4-5.0); BILIRUBIN,TOTAL 0.4 mg/dL (0.2-1); BLOOD UREA NITROGEN 20.2 mg/dL (7-18); CALCIUM 9.1 mg/dL (8.5-10.1); CREATININE 1.3 mg/dL (0.55-1.3); POTASSIUM 4.1 mmol/L (3.5-5.1)
[2019-06-01] MEDS: CLOPIDOGREL BISULFATE 75 MG TABLET (FP) PO SCH (09:18)
[2019-06-01] MEDS: HYDROCHLOROTHIAZIDE 25 MG TABLET (FP) PO SCH (09:18)
[2019-06-01] MEDS: ASPIRIN 81 MG CHEWABLE TABLETS PO SCH (09:18)
[2019-06-01] MEDS: amLODIPine BESYLATE 10 MG TABLET (FP) PO SCH (09:18)
[2019-06-01] MEDS: CHOLECALCIFEROL (VIT D3) 400 UNIT (10 MCG) TABLET PO SCH (09:18)
[2019-06-01] MEDS: VALSARTAN 160 MG TABLET (UD) PO SCH (09:19)
[2019-06-01] MEDS: HEPARIN NA (PORCINE) 5,000 UNITS/ML 1ML VIAL SQ SCH ×2 (09:20→21:37)
[2019-06-01] MEDS ORDERED: PATIENT'S OWN MEDICATION (NON-FORMULARY) (Amlodipine/Valsartan/Hcthiazid [Amlod-Valsa-Hctz PO SCH (10:00)
[2019-06-01 10:23] LABS: INR 0.95 (0.83-1.09); PROTHROMBIN TIME (PATIENT) 11.2 SEC (9.7-13.0)
[2019-06-01] MEDS ORDERED: INSULIN (NOVOLOG) ASPART 100 UNITS/ML 10ML VIAL ONE (10:36)
--- NOTE | 2019-06-01 13:15 | EKG ---
Test Reason : Blood Pressure : / mmHG Vent. Rate : 080 BPM Atrial Rate : 080 BPM P-R Int : 142 ms QRS Dur : 084 ms QT Int : 402 ms P-R-T Axes : 028 -22 056 degrees QTc Int : 463 ms NORMAL SINUS RHYTHM WITH SINUS ARRHYTHMIA NORMAL ECG WHEN COMPARED WITH ECG OF 10-MAY-2019 19:38, NO SIGNIFICANT CHANGE WAS FOUND Confirmed by IRMA MONTALVO MD ([id number]) on 06/01/2019 1:15:04 PM Referred By: Confirmed By:IRMA MONTAVLO MD
--- NOTE | 2019-06-01 14:29 | PN ---
Progress Note, Physician History of Present Illness: seen and examined at bedside. states she is feeling better and having less abdominal pain but still some discomfort and she points to epigastrium. Still some bloating when she eats. Pending MRCP and GI consult. no surgical intervention. Denies nausea vomiting fever chills chest pain SOB. had a BM and it was hard per RN. Tolerating CLD. - Current Medication List Current Medications: Active Medications Acetaminophen (Tylenol -) 650 mg PO Q6H PRN PRN Reason: PAIN LEVEL 6-10 Last Admin: 06/01/19 09:20 Dose: 650 mg Amlodipine Besylate (Norvasc -) 10 mg PO DAILY [facility] Last Admin: 06/01/19 09:18 Dose: 10 mg Aspirin (Asa -) 81 mg PO DAILY [facility] Last Admin: 06/01/19 09:18 Dose: 81 mg Cholecalciferol (Vitamin D3 -) 1,000 unit PO DAILY [facility] Last Admin: 06/01/19 09:18 Dose: 1,000 unit Clopidogrel Bisulfate (Plavix -) 75 mg PO DAILY [facility] Last Admin: 06/01/19 09:18 Dose: 75 mg Heparin Sodium (Porcine) (Heparin -) 5,000 unit SQ BID [facility] Last Admin: 06/01/19 09:20 Dose: 5,000 unit Hydrochlorothiazide (Hctz -) 25 mg PO DAILY [facility] Last Admin: 06/01/19 09:18 Dose: 25 mg Insulin Aspart (Novolog Vial Sliding Scale -) 1 vial SQ ACHS [facility]; Protocol Last Admin: 06/01/19 11:23 Dose: Not Given Metoprolol Succinate (Toprol Xl -) 200 mg PO DAILY [facility] Last Admin: 06/01/19 09:19 Dose: 200 mg Ondansetron HCl (Zofran Injection) 4 mg IVPUSH Q6H PRN PRN Reason: NAUSEA Pantoprazole Sodium (Protonix -) 40 mg PO DAILY [facility] Rosuvastatin Calcium (Crestor -) 20 mg PO HS [facility] Last Admin: 05/31/19 21:09 Dose: 20 mg Valsartan (Diovan -) 160 mg PO DAILY [facility] Last Admin: 06/01/19 09:19 Dose: 160 mg - Objective Vital Signs: Vital Signs Temperature 98.6 F 06/01/19 08:30 Pulse Rate 85 06/01/19 08:30 Respiratory Rate 18 06/01/19 08:30 Blood Pressure 127/65 06/01/19 08:30 O2 Sat by Pulse Oximetry (%) 96 06/01/19 08:30 Constitutional: Yes: No Distress, Obese Eyes: Yes: Conjunctiva Clear HENT: Yes: Other (moist mucous membranes) Neck: Yes: Supple Cardiovascular: Yes: Regular Rate and Rhythm, Murmur (3/6 systolic best heard at LUSB) Respiratory: Yes: Regular, CTA Bilaterally Gastrointestinal: Yes: Normal Bowel Sounds, Soft, Abdomen, Obese, Distention ( mild). No: Tenderness, Tenderness, Rebound, Vomiting Edema: LLE: Trace, RLE: Trace Neurological: Yes: Alert, Oriented Psychiatric: Yes: Alert, Oriented Labs: CBC, BMP 06/01/19 07:00 06/01/19 07:00 INR, PTT INR 0.95 (0.83-1.09) 06/01/19 07:00 - ....Imaging Ultrasound: Report Reviewed Impression/Plan Impression/Plan: 54 yo F with a PMHx of obesity, uncontrolled DM, HTN, GERD, presenting to the ER with epigastric abdominal pain. This has been long standing and recurrent/ episodic. Intractable abdominal pain which is improving. DDx includes sphincter of Oddi dysfunction vs biliary hypokinesia vs PUD 2 previous US one from 2016 and one from 2019 (about 6 months ago) and the one from this admission all show a 6mm CBD Will start PPI continue CLD until seen by GI f/u MRCP Antiemetics PRN HTN well controlled continue norvasc valsartan and HCTZ CAD continue statin aspirin plavix DM blood sugar currently controlled continue sliding scale insulin Dvt ppx hep sq GERD start PPI Visit type - Emergency Visit Emergency Visit: Yes ED Registration Date: 05/31/19 Care time: The patient presented to the Emergency Department on the above date and was hospitalized for further evaluation of their emergent condition. - New Patient This patient is new to me today: Yes Date on this admission: 06/01/19 - Critical Care Critical Care patient: No
[2019-06-01] MEDS ORDERED: LORazepam 2 MG/ML SDV VIAL IVPUSH ONE (14:37)
[2019-06-01] MEDS: PANTOPRAZOLE 40 MG TABLET PO SCH (16:28)
[2019-06-01] MEDS: ROSUVASTATIN CA 20 MG TABLET (FP) PO SCH (21:27)
[2019-06-01] MEDS: MELATONIN 5 MG TABLETS PO PRN (21:27)
[2019-06-02] MEDS: INSULIN SLIDING SCALE (NOVOLOG) 1 VIAL SQ SCH ×4 (06:54→21:25)
[2019-06-02 07:55] LABS: BASO % 0.7 % (0-2.0); EOS % 1.6 % (0-4.5); HEMATOCRIT 36.8 % (32.4-45.2); HEMOGLOBIN 11.9 GM/dL (10.7-15.3); LYMPH % 18.3 % (8-40); MCH 28.1 pg (25.7-33.7); MCHC 32.3 g/dl (32.0-36.0); MEAN CELL VOLUME 86.8 fl (80-96); MEAN PLT VOLUME 7.7 fl (7.5-11.1); MONO % 6.3 % (3.8-10.2); NEUT % 73.1 % (42.8-82.8); PLATELET COUNT 321 K/MM3 (134-434); RBC 4.24 M/mm3 (3.60-5.2); RDW 16.7 % (11.6-15.6); WHITE BLOOD COUNT 9.1 K/mm3 (4.0-10.0)
[2019-06-02 08:30] LABS: ALBUMIN 3.5 g/dl (3.4-5.0); BILIRUBIN,TOTAL 0.4 mg/dL (0.2-1); BLOOD UREA NITROGEN 13.8 mg/dL (7-18); CALCIUM 9.9 mg/dL (8.5-10.1); POTASSIUM 3.9 mmol/L (3.5-5.1); TOT PROT 7.3 g/dl (6.4-8.2)
--- NOTE | 2019-06-02 09:59 | CON.GI ---
Consult Consult Specialty:: GI - History of Present Illness Chief Complaint: dilated CBD , abdominal pain History of Present Illness: 4 y/o F obese was doing well until 1 week before she developed abdominal pain and diarrhea which resolved spontaneously. 2 days ago she developed 2/10 ruq pain. Abdominal ultrasound was done which revealed top normal CBD. No cholelithiasis. Patient abdominal pain improved after being on clear liquids. - Past Medical History Cardio/Vascular: Yes: HTN, Hyperlipdemia Endocrine: Yes: Diabetes Mellitus - Alcohol/Substance Use Hx Alcohol Use: No - Smoking History Smoking history: Former smoker Have you smoked in the past 12 months: No Aproximately how many cigarettes per day: 2,018 If you are a former smoker, when did you quit?: 12/13/17 Home Medications - Allergies Allergies/Adverse Reactions: Allergies Allergy/AdvReac Type Severity Reaction Status Date / Time Penicillins Allergy Severe Hives Verified 05/31/19 10:23 - Home Medications Home Medications: Ambulatory Orders Amlodipine/Valsartan/Hcthiazid [Ijuyc-Ujamd-Zmni 10-160-25 mg] 1 each PO DAILY 05/11/19 Aspirin 81 mg PO DAILY 05/11/19 Cholecalciferol (Vitamin D3) [Vitamin D -] 1,000 unit PO DAILY 05/11/19 Clopidogrel Bisulfate [Plavix] 75 mg PO DAILY 05/11/19 Icosapent Ethyl [Vascepa] 1 gm PO DAILY 05/11/19 Insulin Aspart (Niacinamide) [Fiasp 100 Unit/ml Vial] 22 unit SQ TID 05/11/19 Insulin Glargine,Hum.rec.anlog [Basaglar Kwikpen U-100] 72 unit SQ BID 05/11/19 Metoprolol Succinate [Toprol Xl] 200 mg PO DAILY 05/11/19 Pantoprazole Sodium [Protonix] 40 mg PO DAILY 05/11/19 Rosuvastatin Calcium [Crestor] 20 mg PO DAILY 05/11/19 Semaglutide [Ozempic] 1 mg SQ WEEKLY 05/11/19 Review of Systems - Review of Systems Constitutional: denies: No Symptoms, Chills, Diaphoresis, Fever, Lethargy, Loss of Appetite, Malaise, Night Sweats, Unintentional Wgt. Loss, Weakness, Other Eyes: denies: No Symptoms, Blind Spots, Blurred Vision, Double Vision, Eye Pain , Floaters, Photophobia, Recent Change in Vision, Other HENT: denies: No Symptoms, Difficult Swallowing, Ear Discharge, Ear Pain, Epistaxis, Gingival Bleeding, Hearing Loss, Mouth Swelling, Nasal Congestion, Ocular Prosthesis, Throat Pain, Toothache, Ringing in Ears, Other Neck: denies: No Symptoms, Decreased ROM, Lumps, Pain on Movement, Stiffness, Swollen Glands, Tenderness, Other Cardiovascular: denies: No Symptoms, Chest Pain, Edema, Palpitations, Shortness of Breath, Other Respiratory: denies: No Symptoms, Cough, Exercise Intolerance, Hemoptysis, Orthopnea, PND, Snoring, SOB, SOB on Exertion, Wheezing, Other Gastrointestinal: reports: Abdominal Pain. denies: Nausea, Vomiting Physical Exam-GI Vital Signs: Vital Signs Temperature 98.2 F 06/02/19 06:00 Pulse Rate 73 06/02/19 06:00 Respiratory Rate 18 06/02/19 06:00 Blood Pressure 121/56 L 06/02/19 06:00 O2 Sat by Pulse Oximetry (%) 94 L 06/01/19 21:00 Constitutional: Yes: Obese Eyes: Yes: Conjunctiva Clear HENT: Yes: Atraumatic Neck: Yes: Supple Cardiovascular: Yes: Regular Rate and Rhythm Respiratory: Yes: CTA Bilaterally ...Palpate: Yes: Soft, Tenderness (--ruq mild). No: Firm/Rigid, Guarding, Hepatomegaly, Mass, Pulsatile Mass, Splenomegaly Labs: CBC, BMP 06/02/19 07:13 06/02/19 07:13 INR, PTT INR 0.95 (0.83-1.09) 06/01/19 07:00 Current Medications Acetaminophen (Tylenol -) 650 mg PO Q6H PRN PRN Reason: PAIN LEVEL 6-10 Last Admin: 06/01/19 09:20 Dose: 650 mg Amlodipine Besylate (Norvasc -) 10 mg PO DAILY [facility] Last Admin: 06/01/19 09:18 Dose: 10 mg Aspirin (Asa -) 81 mg PO DAILY [facility] Last Admin: 06/01/19 09:18 Dose: 81 mg Cholecalciferol (Vitamin D3 -) 1,000 unit PO DAILY [facility] Last Admin: 06/01/19 09:18 Dose: 1,000 unit Clopidogrel Bisulfate (Plavix -) 75 mg PO DAILY [facility] Last Admin: 06/01/19 09:18 Dose: 75 mg Heparin Sodium (Porcine) (Heparin -) 5,000 unit SQ BID [facility] Last Admin: 06/01/19 21:37 Dose: 5,000 unit Hydrochlorothiazide (Hctz -) 25 mg PO DAILY [facility] Last Admin: 06/01/19 09:18 Dose: 25 mg Insulin Aspart (Novolog Vial Sliding Scale -) 1 vial SQ [facility]; Protocol Last Admin: 06/02/19 06:54 Dose: Not Given Lorazepam (Ativan Injection -) 1 mg IVPUSH ONCE ONE Stop: 06/01/19 14:38 Melatonin (Melatonin) 5 mg PO HS PRN PRN Reason: INSOMNIA Last Admin: 06/01/19 21:27 Dose: 5 mg Metoprolol Succinate (Toprol Xl -) 200 mg PO DAILY [facility] Last Admin: 06/01/19 09:19 Dose: 200 mg Ondansetron HCl (Zofran Injection) 4 mg IVPUSH Q6H PRN PRN Reason: NAUSEA Pantoprazole Sodium (Protonix -) 40 mg PO DAILY [facility] Last Admin: 06/01/19 16:28 Dose: 40 mg Rosuvastatin Calcium (Crestor -) 20 mg PO HS [facility] Last Admin: 06/01/19 21:27 Dose: 20 mg Valsartan (Diovan -) 160 mg PO DAILY [facility] Last Admin: 06/01/19 09:19 Dose: 160 mg Home Medications Medication Instructions Recorded Amlodipine/Valsartan/Hcthiazid 1 each PO DAILY 05/11/19 [[id number] 10-160-25 mg] Aspirin 81 mg PO DAILY 05/11/19 Cholecalciferol (Vitamin D3) 1,000 unit PO DAILY 05/11/19 [Vitamin D -] Clopidogrel Bisulfate [Plavix] 75 mg PO DAILY 05/11/19 Icosapent Ethyl [Vascepa] 1 gm PO DAILY 05/11/19 Insulin Aspart (Niacinamide) 22 unit SQ TID 05/11/19 [Fiasp 100 Unit/ml Vial] Insulin Glargine,Hum.rec.anlog 72 unit SQ BID 05/11/19 [Basaglar Kwikpen U-100] Metoprolol Succinate [Toprol Xl] 200 mg PO DAILY 05/11/19 Pantoprazole Sodium [Protonix] 40 mg PO DAILY 05/11/19 Rosuvastatin Calcium [Crestor] 20 mg PO DAILY 05/11/19 Semaglutide [Ozempic] 1 mg SQ WEEKLY 05/11/19 Imaging - Results Ultrasound: Image Reviewed (--dilated CBD) Problem List - Problems (1) Dilated cbd, acquired Assessment/Plan: r/o sphincter of oddi dyskenisia, chronic cholecytitis R> MRCP if negative will need HIDA scan with EF advance diet Code(s): K83.8 - OTHER SPECIFIED DISEASES OF BILIARY TRACT
[2019-06-02] MEDS ORDERED: diazePAM 5 MG TABLET PO ONE (10:02)
[2019-06-02] MEDS: ASPIRIN 81 MG CHEWABLE TABLETS PO SCH (10:21)
[2019-06-02] MEDS: VALSARTAN 160 MG TABLET (UD) PO SCH (10:21)
[2019-06-02] MEDS: HYDROCHLOROTHIAZIDE 25 MG TABLET (FP) PO SCH (10:21)
[2019-06-02] MEDS: HEPARIN NA (PORCINE) 5,000 UNITS/ML 1ML VIAL SQ SCH ×2 (10:21→21:13)
[2019-06-02] MEDS: PANTOPRAZOLE 40 MG TABLET PO SCH (10:22)
[2019-06-02] MEDS: amLODIPine BESYLATE 10 MG TABLET (FP) PO SCH (10:22)
[2019-06-02] MEDS: CLOPIDOGREL BISULFATE 75 MG TABLET (FP) PO SCH (10:22)
[2019-06-02] MEDS: CHOLECALCIFEROL (VIT D3) 400 UNIT (10 MCG) TABLET PO SCH (10:23)
--- NOTE | 2019-06-02 13:45 | PN ---
Progress Note, Physician History of Present Illness: seen and examined at bedside with her present. states she is feeling "ok ". She was started on solid food and tolerated it ok except for some bloating and belching. She endorses she is some mild abdominal discomfort and she points to epigastrium. Pending MRCP. GI consult noted. no surgical intervention. Denies nausea vomiting fever chills chest pain SOB or urinary symptoms. she is having bowel movements. States her blood sugars at home run between 135-200 depending on what she eats but they are usually controlled. Tmax 99.7 at 2am - Current Medication List Current Medications: Active Medications Acetaminophen (Tylenol -) 650 mg PO Q6H PRN PRN Reason: PAIN LEVEL 6-10 Last Admin: 06/01/19 09:20 Dose: 650 mg Amlodipine Besylate (Norvasc -) 10 mg PO DAILY [facility] Last Admin: 06/02/19 10:22 Dose: 10 mg Aspirin (Asa -) 81 mg PO DAILY [facility] Last Admin: 06/02/19 10:21 Dose: 81 mg Cholecalciferol (Vitamin D3 -) 1,000 unit PO DAILY [facility] Last Admin: 06/02/19 10:23 Dose: 1,000 unit Clopidogrel Bisulfate (Plavix -) 75 mg PO DAILY [facility] Last Admin: 06/02/19 10:22 Dose: 75 mg Heparin Sodium (Porcine) (Heparin -) 5,000 unit SQ BID [facility] Last Admin: 06/02/19 10:21 Dose: 5,000 unit Hydrochlorothiazide (Hctz -) 25 mg PO DAILY [facility] Last Admin: 06/02/19 10:21 Dose: 25 mg Insulin Aspart (Novolog Vial Sliding Scale -) 1 vial SQ ACHS [facility]; Protocol Last Admin: 06/02/19 12:27 Dose: Not Given Melatonin (Melatonin) 5 mg PO HS PRN PRN Reason: INSOMNIA Last Admin: 06/01/19 21:27 Dose: 5 mg Metoprolol Succinate (Toprol Xl -) 200 mg PO DAILY [facility] Last Admin: 06/02/19 10:23 Dose: 200 mg Ondansetron HCl (Zofran Injection) 4 mg IVPUSH Q6H PRN PRN Reason: NAUSEA Pantoprazole Sodium (Protonix -) 40 mg PO DAILY [facility] Last Admin: 06/02/19 10:22 Dose: 40 mg Rosuvastatin Calcium (Crestor -) 20 mg PO HS [facility] Last Admin: 06/01/19 21:27 Dose: 20 mg Valsartan (Diovan -) 160 mg PO DAILY [facility] Last Admin: 06/02/19 10:21 Dose: 160 mg - Objective Vital Signs: Vital Signs Temperature 98.7 F 06/02/19 10:00 Pulse Rate 88 06/02/19 10:00 Respiratory Rate 18 06/02/19 10:00 Blood Pressure 130/80 06/02/19 10:00 O2 Sat by Pulse Oximetry (%) 94 L 06/01/19 21:00 Constitutional: Yes: No Distress, Obese Eyes: Yes: Conjunctiva Clear HENT: Yes: Other (moist mucous membranes) Neck: Yes: Supple Cardiovascular: Yes: Regular Rate and Rhythm, Murmur (3/6 systolic best heard at LUSB) Respiratory: Yes: Regular, CTA Bilaterally Gastrointestinal: Yes: Normal Bowel Sounds, Soft, Abdomen, Obese, mild tenderness to palpation in epigastrium. No: Tenderness, Tenderness, Rebound, Vomiting Edema: LLE: Trace, RLE: Trace Neurological: Yes: Alert, Oriented Psychiatric: Yes: Alert, Oriented Labs: CBC, BMP 06/02/19 07:13 06/02/19 07:13 INR, PTT INR 0.95 (0.83-1.09) 06/01/19 07:00 Impression/Plan Impression/Plan: 54 yo F with a PMHx of obesity, uncontrolled DM, HTN, GERD, presenting to the ER with epigastric abdominal pain. This has been long standing and recurrent/ episodic. Intractable abdominal pain which has improved. DDx includes sphincter of Oddi dysfunction vs biliary hypokinesia vs PUD 2 previous US one from 2016 and one from 2019 (about 6 months ago) and the one from this admission all show a 6mm CBD Will start PPI started on diabetic/sodium controlled diet by GI f/u MRCP-pending. If negative will need HIDA per GI Antiemetics PRN HTN well controlled continue norvasc valsartan and HCTZ CAD continue statin aspirin plavix DM blood sugar currently controlled continue sliding scale insulin patient on basaglar 72 units BID at home. currently not on long acting and blood glucose controlled due to not eating much but now that she is starting to eat will likely need long acting coverage. Monitor fingersticks throughout the day and start levemir depending on fingersticks Dvt ppx hep sq GERD continue PPI Visit type - Emergency Visit Emergency Visit: Yes ED Registration Date: 05/31/19 Care time: The patient presented to the Emergency Department on the above date and was hospitalized for further evaluation of their emergent condition. - New Patient This patient is new to me today: No - Critical Care Critical Care patient: No
[2019-06-02] MEDS ORDERED: INSULIN (NOVOLOG) ASPART 100 UNITS/ML 10ML VIAL ONE (18:07)
[2019-06-02] MEDS: ROSUVASTATIN CA 20 MG TABLET (FP) PO SCH (21:13)
[2019-06-02] MEDS: MELATONIN 5 MG TABLETS PO PRN (21:14)
[2019-06-03] MEDS: INSULIN SLIDING SCALE (NOVOLOG) 1 VIAL SQ SCH ×4 (06:09→21:05)
[2019-06-03 08:20] LABS: BASO % 0.8 % (0-2.0); EOS % 1.5 % (0-4.5); HEMATOCRIT 36.2 % (32.4-45.2); HEMOGLOBIN 11.7 GM/dL (10.7-15.3); MCHC 32.3 g/dl (32.0-36.0); MEAN CELL VOLUME 86.6 fl (80-96); MEAN PLT VOLUME 7.8 fl (7.5-11.1); MONO % 6.8 % (3.8-10.2); NEUT % 76.9 % (42.8-82.8); PLATELET COUNT 260 K/MM3 (134-434); RBC 4.18 M/mm3 (3.60-5.2); RDW 16.7 % (11.6-15.6); WHITE BLOOD COUNT 8.8 K/mm3 (4.0-10.0)
--- NOTE | 2019-06-03 08:44 | PN ---
Teaching Attending Note Name of Resident: Victor M Dhaliwal ATTENDING PHYSICIAN STATEMENT I saw and evaluated the patient. I reviewed the resident's note and discussed the case with the resident. I agree with the resident's findings and plan as documented. SUBJECTIVE: Tolerating p.o., less pain OBJECTIVE: Vital Signs Period Temp Pulse Resp BP Sys/Gilliam Pulse Ox Last 24 Hr 98.1 F-98.7 F 81-88 18-20 103-137/64-80 96 General: Young woman, comfortable, not in distress HEENT; mucous membranes moist, no anemia, no jaundice, PERRLA, no nystagmus Neck: No JVD, supple, no bruit, thyroid palpably normal, normal carotid pulsations. Chest: Nontender, clear to auscultation bilaterally CVS: S1-S2 regular no murmur/gallop/rub Abdomen: Nondistended, soft, bowel sounds present. Extremities: No edema., No cough tenderness, pulses present ADULT CAREGIVER: AO X3 , no gross motor sensory deficit CBC, BMP 06/03/19 07:31 Active Medications Acetaminophen (Tylenol -) 650 mg PO Q6H PRN PRN Reason: PAIN LEVEL 6-10 Last Admin: 06/01/19 09:20 Dose: 650 mg Amlodipine Besylate (Norvasc -) 10 mg PO DAILY [facility] Last Admin: 06/02/19 10:22 Dose: 10 mg Aspirin (Asa -) 81 mg PO DAILY [facility] Last Admin: 06/02/19 10:21 Dose: 81 mg Cholecalciferol (Vitamin D3 -) 1,000 unit PO DAILY [facility] Last Admin: 06/02/19 10:23 Dose: 1,000 unit Clopidogrel Bisulfate (Plavix -) 75 mg PO DAILY [facility] Last Admin: 06/02/19 10:22 Dose: 75 mg Heparin Sodium (Porcine) (Heparin -) 5,000 unit SQ BID [facility] Last Admin: 06/02/19 21:13 Dose: 5,000 unit Hydrochlorothiazide (Hctz -) 25 mg PO DAILY [facility] Last Admin: 06/02/19 10:21 Dose: 25 mg Insulin Aspart (Novolog Vial Sliding Scale -) 1 vial SQ ACHS [facility]; Protocol Last Admin: 06/03/19 06:09 Dose: 2 units Melatonin (Melatonin) 5 mg PO HS PRN PRN Reason: INSOMNIA Last Admin: 06/02/19 21:14 Dose: 5 mg Metoprolol Succinate (Toprol Xl -) 200 mg PO DAILY [facility] Last Admin: 06/02/19 10:23 Dose: 200 mg Ondansetron HCl (Zofran Injection) 4 mg IVPUSH Q6H PRN PRN Reason: NAUSEA Pantoprazole Sodium (Protonix -) 40 mg PO DAILY [facility] Last Admin: 06/02/19 10:22 Dose: 40 mg Rosuvastatin Calcium (Crestor -) 20 mg PO HS [facility] Last Admin: 06/02/19 21:13 Dose: 20 mg Valsartan (Diovan -) 160 mg PO DAILY [facility] Last Admin: 06/02/19 10:21 Dose: 160 mg ASSESSMENT AND PLAN:54 yo F with a PMHx of obesity, uncontrolled T2 DM, HTN, GERD, presenting to the ER with epigastric abdominal pain with nausea and vomiting over the last 2-3 days associated with foods, ultrasound abdomen shows mildly dilated CBD, normal LFTs. Evaluated by GI recommended MRCP and HIDA scan Impression right upper quadrant pain. Problem List - Problems (1) Abdominal pain Assessment/Plan: Normal LFTs, mildly dilated CBD we will follow-up GI recommendation follow-up MRCP and HIDA scan pain control advance p.o. as tolerates Problems reviewed: Yes Code(s): R10.9 - UNSPECIFIED ABDOMINAL PAIN Qualifiers: Abdominal location: right upper quadrant Qualified Code(s): R10.11 - Right upper quadrant pain (2) Diabetes Assessment/Plan: Optimize glycemic control Problems reviewed: Yes Code(s): E11.9 - TYPE 2 DIABETES MELLITUS WITHOUT COMPLICATIONS (3) HTN (hypertension) Assessment/Plan: Well-controlled continue all home medication Problems reviewed: Yes Code(s): I10 - ESSENTIAL (PRIMARY) HYPERTENSION (4) Dilated cbd, acquired Assessment/Plan: Mildly dilated CBD follow-up HIDA scan and MRCP patient has normal LFTs. Problems reviewed: Yes Code(s): K83.8 - OTHER SPECIFIED DISEASES OF BILIARY TRACT (5) Morbid obesity with BMI of 40.0-44.9, adult Assessment/Plan: Nutrition consult as an outpatient Problems reviewed: Yes Code(s): E66.01 - MORBID (SEVERE) OBESITY DUE TO EXCESS CALORIES; Z68.41 - BODY MASS INDEX (BMI) 40.0-44.9, ADULT
[2019-06-03 08:54] LABS: ALBUMIN 3.3 g/dl (3.4-5.0); BILIRUBIN,TOTAL 0.3 mg/dL (0.2-1); BLOOD UREA NITROGEN 17.2 mg/dL (7-18); CALCIUM 9.8 mg/dL (8.5-10.1); CREATININE 1.2 mg/dL (0.55-1.3); POTASSIUM 3.9 mmol/L (3.5-5.1); TOT PROT 6.9 g/dl (6.4-8.2)
--- NOTE | 2019-06-03 08:57 | PN ---
Progress Note, Physician History of Present Illness: GI FOLLOW UP NOTE Patient seen and examined, case discussed with Dr Love Patient complains of aching epigastric, RUQ, LUQ pain. Pain described as 5/10. She complains of nausea but denies vomiting. She states having intermittent episodes of dysphagia with liquids. Denies diarrhea, constipation, rectal bleeding, melena. - Current Medication List Current Medications: Active Medications Acetaminophen (Tylenol -) 650 mg PO Q6H PRN PRN Reason: PAIN LEVEL 6-10 Last Admin: 06/01/19 09:20 Dose: 650 mg Amlodipine Besylate (Norvasc -) 10 mg PO DAILY [facility] Last Admin: 06/02/19 10:22 Dose: 10 mg Aspirin (Asa -) 81 mg PO DAILY [facility] Last Admin: 06/02/19 10:21 Dose: 81 mg Cholecalciferol (Vitamin D3 -) 1,000 unit PO DAILY [facility] Last Admin: 06/02/19 10:23 Dose: 1,000 unit Clopidogrel Bisulfate (Plavix -) 75 mg PO DAILY [facility] Last Admin: 06/02/19 10:22 Dose: 75 mg Heparin Sodium (Porcine) (Heparin -) 5,000 unit SQ BID [facility] Last Admin: 06/02/19 21:13 Dose: 5,000 unit Hydrochlorothiazide (Hctz -) 25 mg PO DAILY [facility] Last Admin: 06/02/19 10:21 Dose: 25 mg Insulin Aspart (Novolog Vial Sliding Scale -) 1 vial SQ ACHS [facility]; Protocol Last Admin: 06/03/19 06:09 Dose: 2 units Melatonin (Melatonin) 5 mg PO HS PRN PRN Reason: INSOMNIA Last Admin: 06/02/19 21:14 Dose: 5 mg Metoprolol Succinate (Toprol Xl -) 200 mg PO DAILY [facility] Last Admin: 06/02/19 10:23 Dose: 200 mg Ondansetron HCl (Zofran Injection) 4 mg IVPUSH Q6H PRN PRN Reason: NAUSEA Pantoprazole Sodium (Protonix -) 40 mg PO DAILY [facility] Last Admin: 06/02/19 10:22 Dose: 40 mg Rosuvastatin Calcium (Crestor -) 20 mg PO HS [facility] Last Admin: 06/02/19 21:13 Dose: 20 mg Valsartan (Diovan -) 160 mg PO DAILY [facility] Last Admin: 06/02/19 10:21 Dose: 160 mg - Objective Vital Signs: Vital Signs Temperature 98.1 F 06/03/19 06:00 Pulse Rate 81 06/03/19 06:00 Respiratory Rate 18 06/03/19 06:00 Blood Pressure 103/67 06/03/19 06:00 O2 Sat by Pulse Oximetry (%) 96 06/02/19 21:00 Constitutional: Yes: No Distress, Calm Eyes: Yes: Conjunctiva Clear HENT: Yes: Atraumatic Cardiovascular: Yes: Regular Rate and Rhythm Respiratory: Yes: Regular, CTA Bilaterally Gastrointestinal: Yes: Normal Bowel Sounds, Soft, Tenderness (ruq, luq), Tenderness, Epigastrium Neurological: Yes: Alert, Oriented Psychiatric: Yes: Alert, Oriented Labs: CBC, BMP 06/03/19 07:31 INR, PTT INR 0.95 (0.83-1.09) 06/01/19 07:00 Problem List - Problems (1) Dilated cbd, acquired Assessment/Plan: >patient is pending MRCP >LFTs show AST 11, ALT 21, Alk Phos 116 >advance diet as tolerated Code(s): K83.8 - OTHER SPECIFIED DISEASES OF BILIARY TRACT
[2019-06-03] MEDS ORDERED: PT OWN MED DRAWER 7, Y5N ONE (09:30)
[2019-06-03] MEDS: CLOPIDOGREL BISULFATE 75 MG TABLET (FP) PO SCH (09:45)
[2019-06-03] MEDS: ASPIRIN 81 MG CHEWABLE TABLETS PO SCH (09:45)
[2019-06-03] MEDS: HYDROCHLOROTHIAZIDE 25 MG TABLET (FP) PO SCH (09:46)
[2019-06-03] MEDS: amLODIPine BESYLATE 10 MG TABLET (FP) PO SCH (09:46)
[2019-06-03] MEDS: HEPARIN NA (PORCINE) 5,000 UNITS/ML 1ML VIAL SQ SCH ×2 (09:49→21:00)
[2019-06-03] MEDS: PANTOPRAZOLE 40 MG TABLET PO SCH (09:50)
[2019-06-03] MEDS: VALSARTAN 160 MG TABLET (UD) PO SCH (09:50)
[2019-06-03] MEDS: CHOLECALCIFEROL (VIT D3) 400 UNIT (10 MCG) TABLET PO SCH (10:10)
[2019-06-03] MEDS ORDERED: diazePAM 5 MG TABLET PO ONE (11:15)
--- NOTE | 2019-06-03 14:48 | PN ---
Physical Exam: SUBJECTIVE: Patient seen and examined. Still complains of mild abdominal pain. No events overnight. OBJECTIVE: Vital Signs Period Temp Pulse Resp BP Sys/Gilliam Pulse Ox Last 24 Hr 98.1 F-98.7 F 81-81 18-20 103-137/67-71 96 GENERAL: a/o x 3 in NAD HEAD: Normal with no signs of trauma. EYES: Pupils equal, round and reactive to light, extraocular movements intact, sclera anicteric EARS, NOSE, THROAT:oropharynx clear without exudates. Moist mucous membranes. NECK: N supple without lymphadenopathy, JVD, or masses. LUNGS: difficult to auscultate due to body habitus. no rales rhonchi or wheezing appreciated. HEART: RRR, no mumurs appreciated ABDOMEN: obese, +BS, no tenderness to palpation today. no guarding LOWER EXTREMITIES: 2+ pulses, +pitting edema Laboratory Results - last 24 hr 06/02/19 06/02/19 06/03/19 16:36 21:21 06:07 WBC RBC Hgb Hct MCV MCH MCHC RDW Plt Count MPV Absolute Neuts (auto) Neutrophils % Lymphocytes % Monocytes % Eosinophils % Basophils % Nucleated RBC % Sodium Potassium Chloride Carbon Dioxide Anion Gap BUN Creatinine Est GFR (CKD-EPI)AfAm Est GFR (CKD-EPI)NonAf POC Glucometer 182 220 195 Random Glucose Hemoglobin A1c % Calcium Total Bilirubin AST ALT Alkaline Phosphatase Total Protein Albumin 06/03/19 06/03/19 06/03/19 07:31 07:31 07:31 WBC 8.8 RBC 4.18 Hgb 11.7 Hct 36.2 MCV 86.6 MCH 28.0 MCHC 32.3 RDW 16.7 H Plt Count 260 MPV 7.8 Absolute Neuts (auto) 6.7 Neutrophils % 76.9 Lymphocytes % 14.0 D Monocytes % 6.8 Eosinophils % 1.5 Basophils % 0.8 Nucleated RBC % 0 Sodium 139 Potassium 3.9 Chloride 102 Carbon Dioxide 32 Anion Gap 5 L BUN 17.2 Creatinine 1.2 Est GFR (CKD-EPI)AfAm 58.92 Est GFR (CKD-EPI)NonAf 50.84 POC Glucometer Random Glucose 182 H Hemoglobin A1c % 8.8 H Calcium 9.8 Total Bilirubin 0.3 AST 11 L ALT 21 Alkaline Phosphatase 116 Total Protein 6.9 Albumin 3.3 L 06/03/19 11:16 WBC RBC Hgb Hct MCV MCH MCHC RDW Plt Count MPV Absolute Neuts (auto) Neutrophils % Lymphocytes % Monocytes % Eosinophils % Basophils % Nucleated RBC % Sodium Potassium Chloride Carbon Dioxide Anion Gap BUN Creatinine Est GFR (CKD-EPI)AfAm Est GFR (CKD-EPI)NonAf POC Glucometer 291 Random Glucose Hemoglobin A1c % Calcium Total Bilirubin AST ALT Alkaline Phosphatase Total Protein Albumin Active Medications Generic Name Dose Route Start Last Admin Trade Name Freq PRN Reason Stop Dose Admin Acetaminophen 650 mg 05/31/19 16:51 06/01/19 09:20 Tylenol - PO 650 mg Q6H PRN Administration PAIN LEVEL 6-10 Amlodipine Besylate 10 mg 06/01/19 10:00 06/03/19 09:46 Norvasc - PO 10 mg DAILY WE[facility]LEY Administration Aspirin 81 mg 06/01/19 10:00 06/03/19 09:45 Asa - PO 81 mg DAILY [facility] Administration Cholecalciferol 1,000 unit 06/01/19 10:00 06/02/19 10:23 Vitamin D3 - PO 1,000 unit DAILY [facility] Administration Clopidogrel Bisulfate 75 mg 06/01/19 10:00 06/03/19 09:45 Plavix - PO 75 mg DAILY [facility] Administration Heparin Sodium (Porcine) 5,000 unit 05/31/19 22:00 06/03/19 09:49 Heparin - SQ 5,000 unit BID [facility] Administration Hydrochlorothiazide 25 mg 06/01/19 10:00 06/03/19 09:46 Hctz - PO 25 mg DAILY [facility] Administration Insulin Aspart 1 vial 05/31/19 16:30 06/03/19 06:09 Novolog Vial Sliding Scale - SQ 2 units ACHS WESTLEY Administration Protocol Melatonin 5 mg 06/01/19 16:36 06/02/19 21:14 Melatonin PO 5 mg HS PRN Administration INSOMNIA Metoprolol Succinate 200 mg 06/01/19 10:00 06/03/19 09:47 Toprol Xl - PO 200 mg DAILY [facility] Administration Ondansetron HCl 4 mg 05/31/19 21:47 Zofran Injection IVPUSH Q6H PRN NAUSEA Pantoprazole Sodium 40 mg 06/01/19 14:30 06/03/19 09:50 Protonix - PO 40 mg DAILY [facility] Administration Rosuvastatin Calcium 20 mg 05/31/19 22:00 06/02/19 21:13 Crestor - PO 20 mg HS WE[facility] Administration Valsartan 160 mg 06/01/19 10:00 06/03/19 09:50 Diovan - PO 160 mg DAILY [facility] Administration ASSESSMENT/PLAN: #Intractable abdominal pain -DDx includes sphincter of Oddi dysfunction vs biliary hypokinesia vs PUD -awaiting MRCP, HIDA scan. -US with Prominent CBD 6-7mm. No evidence of cholethithiasis or cholecystitis. Hepatomegaly with fatty infiltration of the liver. -previous CT noted -patient tolerating diet, diabetic diet -GI on board -Protonix IV -pain control with tylenol po -zofran prn for nausea #HTN/CAD -cont. meds #DM -ssi -bgms -patient on basaglar 72 units BID at home. currently not on long acting and blood glucose controlled due to not eating much but now that she is starting to eat will likely need long acting coverage. Monitor fingersticks throughout the day and start levemir depending on fingersticks #Dvt ppx -hep sq dispo: d/c if HIDA and MRCP unremarkable. Visit type - Emergency Visit Emergency Visit: Yes ED Registration Date: 05/31/19 Care time: The patient presented to the Emergency Department on the above date and was hospitalized for further evaluation of their emergent condition. - New Patient This patient is new to me today: Yes Date on this admission: 06/03/19 - Critical Care Critical Care patient: No ATTENDING PHYSICIAN STATEMENT I saw and evaluated the patient. I reviewed the resident's note and discussed the case with the resident. I agree with the resident's findings and plan as documented. SUBJECTIVE: OBJECTIVE: ASSESSMENT AND PLAN:
[2019-06-03] MEDS: ACETAMINOPHEN 325 MG TABLET (FP) PO PRN (20:59)
[2019-06-03] MEDS: MELATONIN 5 MG TABLETS PO PRN (21:00)
[2019-06-03] MEDS: ROSUVASTATIN CA 20 MG TABLET (FP) PO SCH (21:00)
[2019-06-04] MEDS: INSULIN SLIDING SCALE (NOVOLOG) 1 VIAL SQ SCH (06:24)
[2019-06-04 08:29] LABS: BASO % 0.7 % (0-2.0); EOS % 1.5 % (0-4.5); HEMATOCRIT 36.6 % (32.4-45.2); HEMOGLOBIN 11.8 GM/dL (10.7-15.3); LYMPH % 15.8 % (8-40); MCH 28.2 pg (25.7-33.7); MCHC 32.2 g/dl (32.0-36.0); MEAN CELL VOLUME 87.7 fl (80-96); MEAN PLT VOLUME 7.8 fl (7.5-11.1); MONO % 7.1 % (3.8-10.2); NEUT % 74.9 % (42.8-82.8); PLATELET COUNT 253 K/MM3 (134-434); RBC 4.18 M/mm3 (3.60-5.2); RDW 16.5 % (11.6-15.6); WHITE BLOOD COUNT 8.1 K/mm3 (4.0-10.0)
[2019-06-04 09:02] LABS: ALBUMIN 3.4 g/dl (3.4-5.0); CALCIUM 9.6 mg/dL (8.5-10.1); CREATININE 1.3 mg/dL (0.55-1.3); POTASSIUM 3.9 mmol/L (3.5-5.1); TOT PROT 6.9 g/dl (6.4-8.2)
[2019-06-04] MEDS: HYDROCHLOROTHIAZIDE 25 MG TABLET (FP) PO SCH (09:22)
[2019-06-04] MEDS: CHOLECALCIFEROL (VIT D3) 400 UNIT (10 MCG) TABLET PO SCH (09:22)
[2019-06-04] MEDS: PANTOPRAZOLE 40 MG TABLET PO SCH (09:22)
--- NOTE | 2019-06-04 09:22 | PN ---
Teaching Attending Note Name of Resident: Victor M Dhaliwal ATTENDING PHYSICIAN STATEMENT I saw and evaluated the patient. I reviewed the resident's note and discussed the case with the resident. I agree with the resident's findings and plan as documented. SUBJECTIVE: Patient feels comfortable mild discomfort only OBJECTIVE: Vital Signs Temperature 97.6 F 06/04/19 06:11 Pulse Rate 88 06/04/19 06:11 Respiratory Rate 20 06/04/19 06:11 Blood Pressure 137/79 06/04/19 06:11 O2 Sat by Pulse Oximetry (%) 97 06/03/19 21:00 General: Young woman, comfortable, not in distress HEENT; mucous membranes moist, no anemia, no jaundice, PERRLA, no nystagmus Neck: No JVD, supple, no bruit, thyroid palpably normal, normal carotid pulsations. Chest: Nontender, clear to auscultation bilaterally CVS: S1-S2 regular no murmur/gallop/rub Abdomen: Nondistended, soft, bowel sounds present. Extremities: No edema., No cough tenderness, pulses present [employer]: AO X3 , no gross motor sensory deficit HIDA scan: No abnormality CBC, BMP 06/04/19 07:45 06/04/19 07:45 Problem List - Problems (1) Abdominal pain Assessment/Plan: Normal LFTs, mildly dilated CBD we will follow-up GI recommendation follow-up MRCP and HIDA scan pain control advance p.o. as tolerates Code(s): R10.9 - UNSPECIFIED ABDOMINAL PAIN Qualifiers: Abdominal location: right upper quadrant Qualified Code(s): R10.11 - Right upper quadrant pain (2) Diabetes Assessment/Plan: Optimize glycemic control Code(s): E11.9 - TYPE 2 DIABETES MELLITUS WITHOUT COMPLICATIONS (3) HTN (hypertension) Assessment/Plan: Well-controlled continue all home medication Code(s): I10 - ESSENTIAL (PRIMARY) HYPERTENSION (4) Dilated cbd, acquired Assessment/Plan: Mildly dilated CBD, HIDA scan negative, patient could not tolerate MRCP LFTs remain still Code(s): K83.8 - OTHER SPECIFIED DISEASES OF BILIARY TRACT (5) Morbid obesity with BMI of 40.0-44.9, adult Assessment/Plan: Nutrition consult as an outpatient Code(s): E66.01 - MORBID (SEVERE) OBESITY DUE TO EXCESS CALORIES; Z68.41 - BODY MASS INDEX (BMI) 40.0-44.9, ADULT (6) CKD stage 3 due to type 2 diabetes mellitus Assessment/Plan: Stable needs outpatient follow-up Problems reviewed: Yes Code(s): E11.22 - TYPE 2 DIABETES MELLITUS W DIABETIC CHRONIC KIDNEY DISEASE; N18.3 - CHRONIC KIDNEY DISEASE, STAGE 3 (MODERATE)
[2019-06-04] MEDS: ASPIRIN 81 MG CHEWABLE TABLETS PO SCH (09:23)
[2019-06-04] MEDS: amLODIPine BESYLATE 10 MG TABLET (FP) PO SCH (09:23)
[2019-06-04] MEDS: HEPARIN NA (PORCINE) 5,000 UNITS/ML 1ML VIAL SQ SCH (09:23)
[2019-06-04] MEDS: CLOPIDOGREL BISULFATE 75 MG TABLET (FP) PO SCH (09:23)
[2019-06-04] MEDS: VALSARTAN 160 MG TABLET (UD) PO SCH (09:23)
[2019-06-04 10:28] VITALS: BP 142/74; PULSE 87; TEMP 98.5
--- NOTE | 2019-06-04 12:47 | DS ---
Physical Exam: SUBJECTIVE: Patient seen and examined. Offers no complaints. denies abdominal pain at this time. denies nausea/vomiting/fevers/chills. OBJECTIVE: Vital Signs Period Temp Pulse Resp BP Sys/Gilliam Pulse Ox Last 24 Hr 97.6 F-98.5 F 74-88 18-20 122-142/59-79 96-97 PHYSICAL EXAM GENERAL: a/o x 3 in NAD HEAD: Normal with no signs of trauma. EYES: Pupils equal, round and reactive to light, extraocular movements intact, sclera anicteric EARS, NOSE, THROAT:oropharynx clear without exudates. Moist mucous membranes. NECK: N supple without lymphadenopathy, JVD, or masses. LUNGS: difficult to auscultate due to body habitus. no rales rhonchi or wheezing appreciated. HEART: RRR, no mumurs appreciated ABDOMEN: obese, +BS, no tenderness to palpation today. no guarding LOWER EXTREMITIES: 2+ pulses, +pitting edema LABS Laboratory Results - last 24 hr 06/03/19 06/04/19 06/04/19 21:04 06:23 07:45 WBC 8.1 RBC 4.18 Hgb 11.8 Hct 36.6 MCV 87.7 MCH 28.2 MCHC 32.2 RDW 16.5 H Plt Count 253 MPV 7.8 Absolute Neuts (auto) 6.1 Neutrophils % 74.9 Lymphocytes % 15.8 Monocytes % 7.1 Eosinophils % 1.5 Basophils % 0.7 Nucleated RBC % 0 Sodium Potassium Chloride Carbon Dioxide Anion Gap BUN Creatinine Est GFR (CKD-EPI)AfAm Est GFR (CKD-EPI)NonAf POC Glucometer 290 198 Random Glucose Calcium Total Bilirubin AST ALT Alkaline Phosphatase Total Protein Albumin 06/04/19 07:45 WBC RBC Hgb Hct MCV MCH MCHC RDW Plt Count MPV Absolute Neuts (auto) Neutrophils % Lymphocytes % Monocytes % Eosinophils % Basophils % Nucleated RBC % Sodium 139 Potassium 3.9 Chloride 100 Carbon Dioxide 32 Anion Gap 7 L BUN 22.0 H Creatinine 1.3 Est GFR (CKD-EPI)AfAm 53.48 Est GFR (CKD-EPI)NonAf 46.15 POC Glucometer Random Glucose 218 H Calcium 9.6 Total Bilirubin 1.0 AST 16 ALT 23 Alkaline Phosphatase 118 H Total Protein 6.9 Albumin 3.4 HOSPITAL COURSE: Date of Admission:05/31/19 #Intractable abdominal pain -improved -DDx includes sphincter of Oddi dysfunction vs biliary hypokinesia vs PUD -HIDA unremarkable. Patient was unable to do MRCP do to anxiety. Says she will do it outpatient if needed. -US with Prominent CBD 6-7mm. No evidence of cholethithiasis or cholecystitis. Hepatomegaly with fatty infiltration of the liver. -previous CT noted -diabetic diet -Protonix IV -pain control with tylenol po -zofran prn for nausea -GI on board. signed off #HTN/CAD -cont. meds #DM -ssi -bgms -we have made no changes to her home medications. cont. pre-hospital meds Date of Discharge: 06/04/19 Minutes to complete discharge: 35 Discharge Summary Problems reviewed: Yes Reason For Visit: ABDOMINAL PAIN Condition: Good - Instructions Diet, Activity, Other Instructions: You were admitted because of abdominal pain. We did a HIDA scan which was normal. Your belly pain improved. Please follow up with your primary care doctor in 1 week. Follow up with you GI (stomach) doctor in 1 week. If you experience worsening abdominal pain, or have any chest pain or shortness of breath, please go to your nearest emergency department. Referrals: Layne Moffett MD [Primary Care Provider] - 1 Week Nickolas Love MD [Staff Physician] - Disposition: HOME - Home Medications Comprehensive Discharge Medication List: Ambulatory Orders Amlodipine/Valsartan/Hcthiazid [Ttdcy-Mujax-Qmhr 10-160-25 mg] 1 each PO DAILY 05/11/19 Aspirin 81 mg PO DAILY 05/11/19 Cholecalciferol (Vitamin D3) [Vitamin D -] 1,000 unit PO DAILY 05/11/19 Clopidogrel Bisulfate [Plavix] 75 mg PO DAILY 05/11/19 Icosapent Ethyl [Vascepa] 1 gm PO DAILY 05/11/19 Insulin Aspart (Niacinamide) [Fiasp 100 Unit/ml Vial] 22 unit SQ TID 05/11/19 Insulin Glargine,Hum.rec.anlog [Basaglar Kwikpen U-100] 72 unit SQ BID 05/11/19 Metoprolol Succinate [Toprol Xl] 200 mg PO DAILY 05/11/19 Pantoprazole Sodium [Protonix] 40 mg PO DAILY 05/11/19 Rosuvastatin Calcium [Crestor] 20 mg PO DAILY 05/11/19 Semaglutide [Ozempic] 1 mg SQ WEEKLY 05/11/19 This patient is new to me today: Yes Date on this admission: 06/04/19 Emergency Visit: Yes ED Registration Date: 05/31/19 Care time: The patient presented to the Emergency Department on the above date and was hospitalized for further evaluation of their emergent condition. Critical Care patient: No - Discharge Referral Referred to [facility] No ATTENDING PHYSICIAN STATEMENT I saw and evaluated the patient. I reviewed the resident's note and discussed the case with the resident. I agree with the resident's findings and plan as documented. SUBJECTIVE: OBJECTIVE: ASSESSMENT AND PLAN:
== END 2019-06-04 10:24 | disposition home or self-care (01) | DRG 445 ==
LOC: JER 10:18 → JERBED 15:59 → J7W 17:09
PROVIDERS: ADMIT Internal Medicine; ATTEND Internal Medicine
DX: K83.4 Spasm of sphincter of Oddi (principal); Z68.41 Body mass index [BMI] 40.0-44.9, adult; E11.65 Type 2 diabetes mellitus with hyperglycemia; E66.01 Morbid (severe) obesity due to excess calories; I10 Essential (primary) hypertension; K21.9 Gastro-esophageal reflux disease without esophagitis; K76.0 Fatty (change of) liver, not elsewhere classified; K83.8 Other specified diseases of biliary tract; D72.829 Elevated white blood cell count, unspecified; I25.10 Atherosclerotic heart disease of native coronary artery without angina pectoris; I12.9 Hypertensive chronic kidney disease with stage 1 through stage 4 chronic kidney disease, or unspecified chronic kidney disease; E11.22 Type 2 diabetes mellitus with diabetic chronic kidney disease; N18.3 Chronic kidney disease, stage 3 (moderate); F41.9 Anxiety disorder, unspecified; R16.0 Hepatomegaly, not elsewhere classified; Z87.891 Personal history of nicotine dependence
CPT/HCPCS: 36415; 76705-TC; 78226-TC; 80053; 81003; 82962; 83036; 83690; 85025; 85610; 87086; 93005; 93010; 99285-25; A9537; J0131; J1644; J7030

== ENCOUNTER 2020-08-05 23:57 | Inpatient (IN) | payer OTHER ==
[2020-08-06 01:42] LABS: BASO % 0.4 % (0-2.0); HEMOGLOBIN 10.8 GM/dL (10.7-15.3); LYMPH % 10.9 % (8-40); MCH 29.7 pg (25.7-33.7); MCHC 32.9 g/dl (32.0-36.0); MEAN CELL VOLUME 90.3 fl (80-96); MEAN PLT VOLUME 8.3 fl (7.5-11.1); MONO % 5.1 % (3.8-10.2); NEUT % 83.6 % (42.8-82.8); PLATELET COUNT 230 K/MM3 (134-434); RBC 3.65 M/mm3 (3.60-5.2); RDW 17.3 % (11.6-15.6); WHITE BLOOD COUNT 8.2 K/mm3 (4.0-10.0)
[2020-08-06 01:50] LABS: INR 1.12 (0.83-1.09); PROTHROMBIN TIME (PATIENT) 13.5 SEC (9.7-13.0)
[2020-08-06 01:52] LABS: ACTIVATED PTT 32.4 SECONDS (25.2-36.5)
[2020-08-06] MEDS ORDERED: DEXAMETHASONE SOD PHOSPHATE 4 MG/1 ML VIAL IVPUSH ONE (01:56)
[2020-08-06 02:00] LABS: CHLORIDE 94 mmol/L (98-107); POTASSIUM 4.5 mmol/L (3.5-5.1); SODIUM 128 mmol/L (136-145)
[2020-08-06 02:02] LABS: ALBUMIN 3.1 g/dl (3.4-5.0); ANION GAP 7 MMOL/L (8-16); BLOOD UREA NITROGEN 56.4 mg/dL (7-18); CALCIUM 8.7 mg/dL (8.5-10.1); CO2 27 mmol/L (21-32); GLUCOSE,RANDOM 350 mg/dL (74-106)
[2020-08-06 02:05] LABS: SGPT/ALT 19 U/L (13-61)
[2020-08-06 02:06] LABS: BILIRUBIN,DIRECT 0.1 mg/dL (0.0-0.2); CREATININE 2.2 mg/dL (0.55-1.3); SGOT/AST 20 U/L (15-37)
[2020-08-06 02:07] LABS: BILIRUBIN,TOTAL 0.4 mg/dL (0.2-1)
[2020-08-06 02:08] LABS: ALK PHOS 85 U/L (45-117); LACTIC ACID 2.1 mmol/L (0.4-2.0)
[2020-08-06 02:09] LABS: LDH 340 U/L (84-246)
[2020-08-06 02:15] LABS: EPI CELLS >36 /uL (0-25.1); HYALINE CASTS 2 /uL (0-3.1); URINE APPEARANCE CLOUDY; URINE BACTERIA >9,000 /uL (0-1359); URINE BILIRUBIN NEGATIVE (NEGATIVE); URINE COLOR YELLOW; URINE GLUCOSE (UA) NEGATIVE (NEGATIVE); URINE KETONE NEGATIVE (NEGATIVE); URINE LEUK ESTERASE NEGATIVE (NEGATIVE); URINE NITRITE POSITIVE (NEGATIVE); URINE PROTEIN 2+ (NEGATIVE); URINE RBC 57 /uL (0-23.9); URINE UROBILINOGEN 0.2 mg/dL (0.2-1.0); URINE WBC 40 /uL (0-25.8)
[2020-08-06] MEDS ORDERED: ACETAMINOPHEN 1000 MG/100 ML VIAL (NON FORMULARY) IVPB ONE (02:47)
[2020-08-06 02:56] LABS: VENOUS BASE EXCESS 0.4 mmol/L (-2-2); VENOUS O2 SATURATION 51.4 % (70-80); VENOUS PCO2 55.7 mmHg (38-52); VENOUS PH 7.31 (7.310-7.410)
[2020-08-06] MEDS ORDERED: DEXAMETHASONE SOD PHOSPHATE 10 MG/1 ML VIAL ONE (03:03)
[2020-08-06] MEDS ORDERED: ACETAMINOPHEN INJECTION 100 ML IVPB ONE (03:03)
[2020-08-06] MEDS ORDERED: CEFTRIAXONE 1 GM in DEXTROSE 5%-WATER - 100 ML IVPB ONE (03:29)
[2020-08-06] MEDS ORDERED: CEFTRIAXONE 1 GM/50 ML BAG ONE (04:57)
[2020-08-06 06:15] LABS: BASO % 0.3 % (0-2.0); EOS % 0.1 % (0-4.5); HEMATOCRIT 33.3 % (32.4-45.2); HEMOGLOBIN 11.1 GM/dL (10.7-15.3); LYMPH % 7.2 % (8-40); MCHC 33.4 g/dl (32.0-36.0); MEAN CELL VOLUME 89.8 fl (80-96); MEAN PLT VOLUME 8.1 fl (7.5-11.1); MONO % 2.2 % (3.8-10.2); NEUT % 90.2 % (42.8-82.8); PLATELET COUNT 245 K/MM3 (134-434); RBC 3.71 M/mm3 (3.60-5.2); RDW 17.6 % (11.6-15.6); WHITE BLOOD COUNT 10.4 K/mm3 (4.0-10.0)
[2020-08-06] MEDS ORDERED: HEPARIN NA (PORCINE) 5,000 UNITS/ML 1ML VIAL ONE ×2 (06:30→14:46)
[2020-08-06] MEDS: HEPARIN NA (PORCINE) 5,000 UNITS/ML 1ML VIAL SQ SCH ×3 (06:38→21:56)
[2020-08-06] MEDS: INSULIN SLIDING SCALE (NOVOLOG) 1 VIAL SQ SCH ×4 (06:38→21:54)
[2020-08-06 06:53] LABS: ALBUMIN 3.2 g/dl (3.4-5.0); ALK PHOS 87 U/L (45-117); ANION GAP 7 MMOL/L (8-16); BILIRUBIN,TOTAL 0.4 mg/dL (0.2-1); CALCIUM 8.5 mg/dL (8.5-10.1); CHLORIDE 93 mmol/L (98-107); CO2 27 mmol/L (21-32); CREATININE 2.5 mg/dL (0.55-1.3); GLUCOSE,RANDOM 406 mg/dL (74-106); MAGNESIUM 1.8 mg/dL (1.8-2.4); PHOSPHOROUS 3.3 mg/dL (2.5-4.9); SGOT/AST 16 U/L (15-37); SGPT/ALT 18 U/L (13-61); SODIUM 127 mmol/L (136-145); TOT PROT 7.2 g/dl (6.4-8.2)
[2020-08-06] MEDS ORDERED: INSULIN (LEVEMIR) 100 UNITS/ML UNITS SQ ONE ×2 (07:57)
[2020-08-06] MEDS ORDERED: ZINC SULFATE 220 MG CAPSULE (FP) ONE (08:49)
[2020-08-06] MEDS ORDERED: ASCORBIC ACID 500 MG TABLET (FP) ONE (08:49)
[2020-08-06] MEDS ORDERED: DEXAMETHASONE SOD PHOSPHATE 4 MG/1 ML VIAL ONE (08:50)
[2020-08-06] MEDS ORDERED: PANTOPRAZOLE SODIUM 40 MG VIAL ONE (08:50)
[2020-08-06] MEDS: CHOLECALCIFEROL (VIT D3) 5000 UNITS (125 MCG) CAP PO SCH (09:05)
[2020-08-06] MEDS: DEXAMETHASONE SOD PHOSPHATE 4 MG/1 ML VIAL IVPUSH SCH (09:05)
[2020-08-06] MEDS: ASCORBIC ACID 500 MG TABLET (FP) PO SCH (09:05)
[2020-08-06] MEDS: PANTOPRAZOLE SODIUM 40 MG VIAL IVPUSH SCH (09:05)
[2020-08-06] MEDS ORDERED: SODIUM CHLORIDE 1,000 ML IV SCH (09:30)
[2020-08-06] MEDS ORDERED: ZINC SULFATE 220 MG CAPSULE (FP) PO SCH (10:00)
[2020-08-06] MEDS ORDERED: REMDESIVIR 200 MG in SODIUM CHLORIDE 210 ML IVPB ONE (14:03)
[2020-08-06] MEDS: SODIUM CHLORIDE 1,000 ML IV SCH (17:18)
[2020-08-06 18:52] VITALS: BMI 43.0
[2020-08-06] MEDS ORDERED: INSULIN (LEVEMIR) 100 UNITS/ML UNITS SQ SCH (22:00)
[2020-08-06] MEDS ORDERED: INSULIN (NOVOLOG) ASPART 100 UNITS/ML 10ML VIAL SQ ONE (23:51)
[2020-08-07] MEDS: HEPARIN NA (PORCINE) 5,000 UNITS/ML 1ML VIAL SQ SCH ×2 (06:49→15:00)
[2020-08-07] MEDS: INSULIN SLIDING SCALE (NOVOLOG) 1 VIAL SQ SCH ×4 (06:50→21:48)
[2020-08-07] MEDS ORDERED: INSULIN (LEVEMIR) 100 UNITS/ML UNITS SQ SCH ×3 (07:00→08:14)
[2020-08-07 09:03] LABS: BASO % 0.3 % (0-2.0); HEMOGLOBIN 10.9 GM/dL (10.7-15.3); LYMPH % 7.9 % (8-40); MCH 29.6 pg (25.7-33.7); MCHC 33.1 g/dl (32.0-36.0); MEAN CELL VOLUME 89.4 fl (80-96); MEAN PLT VOLUME 8.5 fl (7.5-11.1); MONO % 6.4 % (3.8-10.2); NEUT % 85.4 % (42.8-82.8); PLATELET COUNT 270 K/MM3 (134-434); RBC 3.69 M/mm3 (3.60-5.2); RDW 17.1 % (11.6-15.6); WHITE BLOOD COUNT 7.3 K/mm3 (4.0-10.0)
[2020-08-07 09:39] LABS: ALBUMIN 3.2 g/dl (3.4-5.0); CALCIUM 8.4 mg/dL (8.5-10.1); CO2 28 mmol/L (21-32); MAGNESIUM 2.1 mg/dL (1.8-2.4)
[2020-08-07 09:40] LABS: ANION GAP 8 MMOL/L (8-16); BLOOD UREA NITROGEN 67.8 mg/dL (7-18); CHLORIDE 96 mmol/L (98-107); POTASSIUM 4.3 mmol/L (3.5-5.1); SODIUM 132 mmol/L (136-145)
[2020-08-07 09:42] LABS: SGPT/ALT 17 U/L (13-61)
[2020-08-07 09:43] LABS: CREATININE 2.2 mg/dL (0.55-1.3); PHOSPHOROUS 2.3 mg/dL (2.5-4.9); SGOT/AST 14 U/L (15-37)
[2020-08-07 09:44] LABS: BILIRUBIN,TOTAL 0.3 mg/dL (0.2-1); TOT PROT 7.4 g/dl (6.4-8.2)
[2020-08-07 09:45] LABS: ALK PHOS 107 U/L (45-117)
[2020-08-07 09:48] LABS: GLUCOSE,RANDOM 495 mg/dL (74-106)
[2020-08-07] MEDS ORDERED: CLOPIDOGREL BISULFATE 75 MG TABLET (FP) PO SCH (10:00)
[2020-08-07] MEDS: INSULIN (LEVEMIR) 100 UNITS/ML UNITS SQ SCH (10:00)
[2020-08-07] MEDS ORDERED: NAPH,MB-DB/K PH,MBDB POWDER PACKET PO SCH (10:15)
[2020-08-07] MEDS ORDERED: NAPH,MB-DB/K PH,MBDB POWDER PACKET PO ONE (10:29)
[2020-08-07] MEDS ORDERED: PT OWN MED DRAWER 7, Y5N ONE (10:30)
[2020-08-07] MEDS ORDERED: ZINC SULFATE 220 MG CAPSULE (FP) PO SCH (11:15)
[2020-08-07] MEDS: ASCORBIC ACID 500 MG TABLET (FP) PO SCH ×2 (11:19→21:40)
[2020-08-07] MEDS: ASPIRIN 81 MG CHEWABLE TABLETS PO SCH (12:05)
[2020-08-07] MEDS: DEXAMETHASONE SOD PHOSPHATE 4 MG/1 ML VIAL IVPUSH SCH (12:05)
[2020-08-07] MEDS: PANTOPRAZOLE SODIUM 40 MG VIAL IVPUSH SCH (12:06)
[2020-08-07] MEDS: REMDESIVIR 100 MG in SODIUM CHLORIDE 230 ML IVPB SCH (12:06)
[2020-08-07] MEDS: CHOLECALCIFEROL (VIT D3) 5000 UNITS (125 MCG) CAP PO SCH (12:06)
[2020-08-07] MEDS: SODIUM CHLORIDE 1,000 ML IV SCH (17:14)
[2020-08-07] MEDS ORDERED: INSULIN (NOVOLOG) ASPART 100 UNITS/ML 10ML VIAL ONE (21:03)
[2020-08-07] MEDS ORDERED: MAG HYDROX/AL HYDROX/SIMETH 30 ML UNIT-DOSE CUP PO ONE (21:35)
[2020-08-07] MEDS: APIXABAN 5 MG TABLET PO SCH (21:39)
[2020-08-07] MEDS: MELATONIN 5 MG TABLETS PO PRN (22:00)
[2020-08-08] MEDS ORDERED: INSULIN (NOVOLOG) ASPART 100 UNITS/ML 10ML VIAL SQ ONE (01:29)
[2020-08-08] MEDS ORDERED: ZINC OXIDE/PANTHENOL/VITAMIN E 56 GM TUBE TP PRN (04:59)
[2020-08-08] MEDS: INSULIN SLIDING SCALE (NOVOLOG) 1 VIAL SQ SCH ×4 (07:00→21:49)
[2020-08-08] MEDS ORDERED: INSULIN (LEVEMIR) 100 UNITS/ML UNITS SQ SCH (07:00)
[2020-08-08] MEDS: INSULIN (LEVEMIR) 100 UNITS/ML UNITS SQ SCH ×2 (07:19→21:49)
[2020-08-08] MEDS: DEXAMETHASONE SOD PHOSPHATE 4 MG/1 ML VIAL IVPUSH SCH (10:21)
[2020-08-08] MEDS: APIXABAN 5 MG TABLET PO SCH ×2 (10:21→21:49)
[2020-08-08] MEDS: ASCORBIC ACID 500 MG TABLET (FP) PO SCH ×2 (10:21→21:48)
[2020-08-08] MEDS: REMDESIVIR 100 MG in SODIUM CHLORIDE 230 ML IVPB SCH (10:22)
[2020-08-08] MEDS: PANTOPRAZOLE SODIUM 40 MG VIAL IVPUSH SCH (10:22)
[2020-08-08] MEDS: ASPIRIN 81 MG CHEWABLE TABLETS PO SCH (10:22)
[2020-08-08] MEDS ORDERED: PT OWN MED DRAWER 7, Y5N ONE (10:24)
[2020-08-08] MEDS: CHOLECALCIFEROL (VIT D3) 5000 UNITS (125 MCG) CAP PO SCH (10:25)
[2020-08-08 11:52] LABS: POTASSIUM 4.3 mmol/L (3.5-5.1)
[2020-08-08 11:58] LABS: CREATININE 1.6 mg/dL (0.55-1.3)
[2020-08-08 12:00] LABS: BILIRUBIN,TOTAL 0.4 mg/dL (0.2-1); TOT PROT 6.6 g/dl (6.4-8.2)
[2020-08-08 12:02] LABS: BLOOD UREA NITROGEN 44.6 mg/dL (7-18)
[2020-08-08 12:04] LABS: ALBUMIN 2.9 g/dl (3.4-5.0); MAGNESIUM 2.1 mg/dL (1.8-2.4)
[2020-08-08] MEDS: NAPH,MB-DB/K PH,MBDB POWDER PACKET PO SCH (21:48)
[2020-08-09] MEDS: NITROFURANTOIN MACROCRYSTAL 50 MG CAPSULE (FP) PO SCH ×4 (01:00→17:48)
[2020-08-09] MEDS: INSULIN (LEVEMIR) 100 UNITS/ML UNITS SQ SCH ×2 (07:03→21:22)
[2020-08-09] MEDS: INSULIN SLIDING SCALE (NOVOLOG) 1 VIAL SQ SCH ×4 (07:04→21:22)
[2020-08-09 09:51] LABS: BASO % 0.1 % (0-2.0); HEMATOCRIT 34.4 % (32.4-45.2); HEMOGLOBIN 11.5 GM/dL (10.7-15.3); LYMPH % 13.1 % (8-40); MCH 30.3 pg (25.7-33.7); MCHC 33.6 g/dl (32.0-36.0); MEAN CELL VOLUME 90.2 fl (80-96); MEAN PLT VOLUME 8.1 fl (7.5-11.1); MONO % 6.5 % (3.8-10.2); NEUT % 80.3 % (42.8-82.8); PLATELET COUNT 323 K/MM3 (134-434); RBC 3.81 M/mm3 (3.60-5.2); RDW 16.9 % (11.6-15.6); WHITE BLOOD COUNT 9.5 K/mm3 (4.0-10.0)
[2020-08-09 10:17] LABS: POTASSIUM 4.4 mmol/L (3.5-5.1)
[2020-08-09] MEDS ORDERED: PT OWN MED DRAWER 7, Y5N ONE (10:18)
[2020-08-09] MEDS: REMDESIVIR 100 MG in SODIUM CHLORIDE 230 ML IVPB SCH (10:33)
[2020-08-09] MEDS: DEXAMETHASONE SOD PHOSPHATE 4 MG/1 ML VIAL IVPUSH SCH (10:33)
[2020-08-09] MEDS: NAPH,MB-DB/K PH,MBDB POWDER PACKET PO SCH ×2 (10:33→21:24)
[2020-08-09] MEDS: CHOLECALCIFEROL (VIT D3) 5000 UNITS (125 MCG) CAP PO SCH (10:33)
[2020-08-09] MEDS: ASCORBIC ACID 500 MG TABLET (FP) PO SCH ×2 (10:33→21:23)
[2020-08-09] MEDS: PANTOPRAZOLE SODIUM 40 MG VIAL IVPUSH SCH (10:33)
[2020-08-09] MEDS: APIXABAN 5 MG TABLET PO SCH ×2 (10:33→21:24)
[2020-08-09] MEDS: ASPIRIN 81 MG CHEWABLE TABLETS PO SCH (10:33)
[2020-08-09 10:41] LABS: ANISOCYTOSIS 2+; MACROCYTOSIS 0; OVALOCYTE 1+; PLATELET ESTIMATE NORMAL
[2020-08-09 10:42] LABS: CALCIUM 9.6 mg/dL (8.5-10.1)
[2020-08-09 10:43] LABS: ALBUMIN 3.3 g/dl (3.4-5.0); BLOOD UREA NITROGEN 38.5 mg/dL (7-18); MAGNESIUM 2.3 mg/dL (1.8-2.4)
[2020-08-09 10:46] LABS: CREATININE 1.4 mg/dL (0.55-1.3); PHOSPHOROUS 2.7 mg/dL (2.5-4.9)
[2020-08-09 10:48] LABS: BILIRUBIN,TOTAL 0.5 mg/dL (0.2-1); TOT PROT 7.1 g/dl (6.4-8.2)
[2020-08-09] MEDS ORDERED: INSULIN (NOVOLOG) ASPART 100 UNITS/ML 10ML VIAL ONE (11:31)
[2020-08-09] MEDS: ACETAMINOPHEN 325 MG TABLET (FP) PO PRN (15:16)
[2020-08-10] MEDS: NITROFURANTOIN MACROCRYSTAL 50 MG CAPSULE (FP) PO SCH ×4 (00:19→17:38)
[2020-08-10] MEDS ORDERED: PT OWN MED DRAWER 7, Y5N ONE ×2 (06:02→10:24)
[2020-08-10] MEDS: INSULIN SLIDING SCALE (NOVOLOG) 1 VIAL SQ SCH ×4 (06:40→21:28)
[2020-08-10] MEDS ORDERED: INSULIN (LEVEMIR) 100 UNITS/ML UNITS SQ SCH (07:30)
[2020-08-10] MEDS: INSULIN (LEVEMIR) 100 UNITS/ML UNITS SQ SCH ×2 (07:44→21:27)
[2020-08-10 10:07] LABS: BASO % 0.4 % (0-2.0); EOS % 0.1 % (0-4.5); HEMATOCRIT 33.4 % (32.4-45.2); HEMOGLOBIN 11.2 GM/dL (10.7-15.3); LYMPH % 14.1 % (8-40); MCH 30.4 pg (25.7-33.7); MCHC 33.5 g/dl (32.0-36.0); MEAN CELL VOLUME 90.7 fl (80-96); MEAN PLT VOLUME 8.5 fl (7.5-11.1); MONO % 5.8 % (3.8-10.2); NEUT % 79.6 % (42.8-82.8); PLATELET COUNT 259 K/MM3 (134-434); RBC 3.68 M/mm3 (3.60-5.2); RDW 16.6 % (11.6-15.6); WHITE BLOOD COUNT 7.1 K/mm3 (4.0-10.0)
[2020-08-10 10:22] LABS: POTASSIUM 4.2 mmol/L (3.5-5.1)
[2020-08-10 10:24] LABS: CALCIUM 9.6 mg/dL (8.5-10.1)
[2020-08-10 10:25] LABS: ALBUMIN 3.2 g/dl (3.4-5.0); BLOOD UREA NITROGEN 35.2 mg/dL (7-18)
[2020-08-10 10:27] LABS: CREATININE 1.4 mg/dL (0.55-1.3); PHOSPHOROUS 3.2 mg/dL (2.5-4.9)
[2020-08-10 10:29] LABS: BILIRUBIN,TOTAL 0.3 mg/dL (0.2-1)
[2020-08-10] MEDS: ASPIRIN 81 MG CHEWABLE TABLETS PO SCH (10:45)
[2020-08-10] MEDS: DEXAMETHASONE SOD PHOSPHATE 4 MG/1 ML VIAL IVPUSH SCH (10:45)
[2020-08-10] MEDS: APIXABAN 5 MG TABLET PO SCH ×2 (10:46→21:27)
[2020-08-10] MEDS: REMDESIVIR 100 MG in SODIUM CHLORIDE 230 ML IVPB SCH (10:49)
[2020-08-10] MEDS: PANTOPRAZOLE SODIUM 40 MG VIAL IVPUSH SCH (10:49)
[2020-08-10] MEDS: ASCORBIC ACID 500 MG TABLET (FP) PO SCH ×2 (10:49→21:27)
[2020-08-10] MEDS: CHOLECALCIFEROL (VIT D3) 5000 UNITS (125 MCG) CAP PO SCH (10:49)
[2020-08-10] MEDS ORDERED: INSULIN (NOVOLOG) ASPART 100 UNITS/ML 10ML VIAL ONE ×2 (11:27→21:46)
[2020-08-10 14:04] LABS: ANISOCYTOSIS 1+; MACROCYTOSIS 0; OVALOCYTE 1+; PLATELET ESTIMATE NORMAL
[2020-08-10] MEDS: MELATONIN 5 MG TABLETS PO PRN (21:57)
[2020-08-11] MEDS: NITROFURANTOIN MACROCRYSTAL 50 MG CAPSULE (FP) PO SCH ×4 (06:38→17:35)
[2020-08-11] MEDS: INSULIN (LEVEMIR) 100 UNITS/ML UNITS SQ SCH ×2 (06:38→22:20)
[2020-08-11] MEDS: INSULIN SLIDING SCALE (NOVOLOG) 1 VIAL SQ SCH ×4 (06:40→22:23)
[2020-08-11 09:23] LABS: HEMOGLOBIN 11.6 GM/dL (10.7-15.3); MEAN CELL VOLUME 90.2 fl (80-96); MEAN PLT VOLUME 8.1 fl (7.5-11.1)
[2020-08-11 09:28] LABS: BASO % 0.2 % (0-2.0); EOS % 0.4 % (0-4.5); HEMATOCRIT 34.5 % (32.4-45.2); LYMPH % 16.1 % (8-40); MCH 30.2 pg (25.7-33.7); MCHC 33.5 g/dl (32.0-36.0); MONO % 7.2 % (3.8-10.2); NEUT % 76.1 % (42.8-82.8); PLATELET COUNT 277 K/MM3 (134-434); RBC 3.82 M/mm3 (3.60-5.2); RDW 16.7 % (11.6-15.6); WHITE BLOOD COUNT 8.4 K/mm3 (4.0-10.0)
[2020-08-11 09:33] LABS: ALBUMIN 3.1 g/dl (3.4-5.0); CALCIUM 9.7 mg/dL (8.5-10.1)
[2020-08-11 09:34] LABS: BLOOD UREA NITROGEN 37.5 mg/dL (7-18); MAGNESIUM 2.1 mg/dL (1.8-2.4)
[2020-08-11 09:37] LABS: CREATININE 1.3 mg/dL (0.55-1.3); PHOSPHOROUS 3.4 mg/dL (2.5-4.9)
[2020-08-11 09:38] LABS: BILIRUBIN,TOTAL 0.4 mg/dL (0.2-1); TOT PROT 6.6 g/dl (6.4-8.2)
[2020-08-11] MEDS ORDERED: PT OWN MED DRAWER 7, Y5N ONE (11:20)
[2020-08-11] MEDS: DEXAMETHASONE SOD PHOSPHATE 4 MG/1 ML VIAL IVPUSH SCH (11:30)
[2020-08-11] MEDS: PANTOPRAZOLE SODIUM 40 MG VIAL IVPUSH SCH (11:39)
[2020-08-11] MEDS: ASPIRIN 81 MG CHEWABLE TABLETS PO SCH (11:39)
[2020-08-11] MEDS: APIXABAN 5 MG TABLET PO SCH (11:40)
[2020-08-11] MEDS: ASCORBIC ACID 500 MG TABLET (FP) PO SCH ×2 (11:40→22:19)
[2020-08-11] MEDS: CHOLECALCIFEROL (VIT D3) 5000 UNITS (125 MCG) CAP PO SCH (11:40)
[2020-08-11 12:09] LABS: ANISOCYTOSIS 0; MACROCYTOSIS 0; PLATELET ESTIMATE NORMAL
[2020-08-11] MEDS: ACETAMINOPHEN 325 MG TABLET (FP) PO PRN ×2 (12:37→18:11)
[2020-08-11] MEDS ORDERED: INSULIN (NOVOLOG) ASPART 100 UNITS/ML 10ML VIAL ONE (22:16)
[2020-08-11] MEDS: MELATONIN 5 MG TABLETS PO PRN (22:19)
[2020-08-12] MEDS: NITROFURANTOIN MACROCRYSTAL 50 MG CAPSULE (FP) PO SCH ×4 (00:56→18:05)
[2020-08-12] MEDS: ACETAMINOPHEN 325 MG TABLET (FP) PO PRN ×2 (01:17→11:07)
[2020-08-12] MEDS: INSULIN (LEVEMIR) 100 UNITS/ML UNITS SQ SCH ×2 (06:28→21:20)
[2020-08-12] MEDS: INSULIN SLIDING SCALE (NOVOLOG) 1 VIAL SQ SCH ×4 (06:28→21:20)
[2020-08-12 08:58] LABS: BASO % 0.2 % (0-2.0); EOS % 0.4 % (0-4.5); MCH 29.5 pg (25.7-33.7); MCHC 32.5 g/dl (32.0-36.0); MEAN CELL VOLUME 90.9 fl (80-96); MEAN PLT VOLUME 8.4 fl (7.5-11.1); MONO % 6.1 % (3.8-10.2); NEUT % 80.3 % (42.8-82.8); PLATELET COUNT 261 K/MM3 (134-434); RBC 3.74 M/mm3 (3.60-5.2); RDW 17.1 % (11.6-15.6)
[2020-08-12 09:20] LABS: POTASSIUM 3.9 mmol/L (3.5-5.1)
[2020-08-12 09:26] LABS: BLOOD UREA NITROGEN 35.3 mg/dL (7-18); CALCIUM 9.2 mg/dL (8.5-10.1)
[2020-08-12 09:29] LABS: CREATININE 1.3 mg/dL (0.55-1.3)
[2020-08-12 09:30] LABS: BILIRUBIN,TOTAL 0.5 mg/dL (0.2-1); PHOSPHOROUS 3.7 mg/dL (2.5-4.9)
[2020-08-12 09:31] LABS: TOT PROT 6.1 g/dl (6.4-8.2)
[2020-08-12] MEDS ORDERED: PT OWN MED DRAWER 7, Y5N ONE ×2 (10:52→21:15)
[2020-08-12] MEDS: ASCORBIC ACID 500 MG TABLET (FP) PO SCH (10:56)
[2020-08-12] MEDS: CHOLECALCIFEROL (VIT D3) 5000 UNITS (125 MCG) CAP PO SCH (10:56)
[2020-08-12] MEDS: ASPIRIN 81 MG CHEWABLE TABLETS PO SCH (10:56)
[2020-08-12] MEDS: PANTOPRAZOLE SODIUM 40 MG VIAL IVPUSH SCH ×3 (11:14→12:41)
[2020-08-12] MEDS: DEXAMETHASONE SOD PHOSPHATE 4 MG/1 ML VIAL IVPUSH SCH ×3 (11:14→12:40)
[2020-08-12] MEDS ORDERED: SODIUM CHLORIDE 1,000 ML IV SCH (14:00)
[2020-08-12] MEDS ORDERED: INSULIN (NOVOLOG) ASPART 100 UNITS/ML 10ML VIAL ONE (21:15)
[2020-08-13] MEDS: NITROFURANTOIN MACROCRYSTAL 50 MG CAPSULE (FP) PO SCH ×2 (01:28→06:16)
[2020-08-13] MEDS: ACETAMINOPHEN 325 MG TABLET (FP) PO PRN ×2 (02:46→22:33)
[2020-08-13] MEDS: INSULIN (LEVEMIR) 100 UNITS/ML UNITS SQ SCH ×2 (06:22→22:18)
[2020-08-13] MEDS: INSULIN SLIDING SCALE (NOVOLOG) 1 VIAL SQ SCH ×4 (06:22→22:21)
[2020-08-13 08:24] LABS: BASO % 0.5 % (0-2.0); EOS % 0.4 % (0-4.5); HEMATOCRIT 34.8 % (32.4-45.2); HEMOGLOBIN 11.4 GM/dL (10.7-15.3); LYMPH % 14.2 % (8-40); MCH 29.3 pg (25.7-33.7); MCHC 32.7 g/dl (32.0-36.0); MEAN CELL VOLUME 89.7 fl (80-96); MEAN PLT VOLUME 8.3 fl (7.5-11.1); MONO % 5.8 % (3.8-10.2); NEUT % 79.1 % (42.8-82.8); PLATELET COUNT 251 K/MM3 (134-434); RBC 3.88 M/mm3 (3.60-5.2); RDW 17.3 % (11.6-15.6); WHITE BLOOD COUNT 8.9 K/mm3 (4.0-10.0)
[2020-08-13 08:28] LABS: POTASSIUM 4.1 mmol/L (3.5-5.1)
[2020-08-13 08:37] LABS: CALCIUM 9.1 mg/dL (8.5-10.1)
[2020-08-13 08:38] LABS: BILIRUBIN,TOTAL 0.3 mg/dL (0.2-1)
[2020-08-13 08:40] LABS: PHOSPHOROUS 2.7 mg/dL (2.5-4.9)
[2020-08-13] MEDS: PANTOPRAZOLE 40 MG TABLET PO SCH (09:21)
[2020-08-13] MEDS: ASPIRIN 81 MG CHEWABLE TABLETS PO SCH (09:21)
[2020-08-13] MEDS: DEXAMETHASONE 4 MG TABLET (FP) PO SCH (09:22)
[2020-08-13] MEDS: CHOLECALCIFEROL (VIT D3) 5000 UNITS (125 MCG) CAP PO SCH (09:22)
[2020-08-13] MEDS ORDERED: PT OWN MED DRAWER 7, Y5N ONE ×3 (09:22→22:48)
[2020-08-13] MEDS ORDERED: LOPERAMIDE HCL 2 MG CAPSULE PO ONE (11:15)
[2020-08-13] MEDS ORDERED: INSULIN (NOVOLOG) ASPART 100 UNITS/ML 10ML VIAL ONE (11:21)
[2020-08-13] MEDS: SUCRALFATE 1 GM TABLET (FP) PO SCH ×2 (18:08→22:33)
[2020-08-13] MEDS: MELATONIN 5 MG TABLETS PO PRN (22:34)
[2020-08-14] MEDS: INSULIN (LEVEMIR) 100 UNITS/ML UNITS SQ SCH (06:03)
[2020-08-14] MEDS: INSULIN SLIDING SCALE (NOVOLOG) 1 VIAL SQ SCH ×2 (06:04→12:00)
[2020-08-14] MEDS: DEXAMETHASONE 4 MG TABLET (FP) PO SCH (09:16)
[2020-08-14] MEDS: CHOLECALCIFEROL (VIT D3) 5000 UNITS (125 MCG) CAP PO SCH (09:17)
[2020-08-14] MEDS: PANTOPRAZOLE 40 MG TABLET PO SCH (09:17)
[2020-08-14] MEDS: ASPIRIN 81 MG CHEWABLE TABLETS PO SCH (09:17)
[2020-08-14] MEDS: SUCRALFATE 1 GM TABLET (FP) PO SCH ×2 (09:17→13:53)
[2020-08-14] MEDS ORDERED: PATIENT'S OWN MEDICATION (NON-FORMULARY) (Valsartan/Hydrochlorothiazide [Valsartan-Hctz 16 PO SCH (11:15)
[2020-08-14] MEDS ORDERED: INSULIN (NOVOLOG) ASPART 100 UNITS/ML 10ML VIAL ONE (11:17)
[2020-08-14] MEDS ORDERED: VALSARTAN 160 MG TABLET PO SCH (11:30)
[2020-08-14] MEDS: ACETAMINOPHEN 325 MG TABLET (FP) PO PRN (11:59)
[2020-08-14 14:10] VITALS: BP 120/73; PULSE 98; TEMP 98.9
[2020-08-15] MEDS ORDERED: HYDROCHLOROTHIAZIDE 25 MG TABLET (FP) PO SCH (10:00)
== END 2020-08-14 15:41 | disposition home or self-care (01) | DRG 177 ==
LOC: JER 23:57 → JERBED 08-06 02:55 → J6S 08-06 18:18
PROVIDERS: ADMIT Internal Medicine; ATTEND Internal Medicine
PROC: XW033E5 Introduction of Remdesivir Anti-infective into Peripheral Vein, Percutaneous Approach, New Technology Group 5 (ICD-10-PCS; principal; 2020-08-07)
PROC: XW13325 Transfusion of Convalescent Plasma (Nonautologous) into Peripheral Vein, Percutaneous Approach, New Technology Group 5 (ICD-10-PCS; 2020-08-07)
DX: U07.1 COVID-19 (principal); J12.82 Pneumonia due to coronavirus disease 2019; J96.01 Acute respiratory failure with hypoxia; N39.0 Urinary tract infection, site not specified; N17.9 Acute kidney failure, unspecified; Z68.41 Body mass index [BMI] 40.0-44.9, adult; E87.1 Hypo-osmolality and hyponatremia; E46 Unspecified protein-calorie malnutrition; E11.9 Type 2 diabetes mellitus without complications; I25.10 Atherosclerotic heart disease of native coronary artery without angina pectoris; E66.01 Morbid (severe) obesity due to excess calories; R19.7 Diarrhea, unspecified; N18.30 Chronic kidney disease, stage 3 unspecified; K21.9 Gastro-esophageal reflux disease without esophagitis; E78.5 Hyperlipidemia, unspecified; Z95.5 Presence of coronary angioplasty implant and graft; N28.1 Cyst of kidney, acquired; B96.20 Unspecified Escherichia coli [E. coli] as the cause of diseases classified elsewhere
CPT/HCPCS: 36415; 36430; 71045-TC-FY; 76705-TC; 76775-TC; 80053; 81003; 82248; 82272; 82550; 82728; 82803; 82962; 83605; 83615; 83690; 83735; 84100; 84484; 85025; 85379; 85610; 85730; 86140; 86769; 86850; 86900; 86901; 87040; 87045; 87046; 87077; 87086; 87186; 87324; 87449; 87804; 93005; 93010; 94010; 94761; 99285-25; C9399; C9803; J0131; J1644; P9017; U0003; U0005

== ENCOUNTER 2021-09-27 11:33 | Observation (INO) | payer OTHER ==
[2021-09-27 13:30] LABS: BASO % 0.7 % (0-2.0); EOS % 1.5 % (0-4.5); HEMATOCRIT 38.3 % (32.4-45.2); HEMOGLOBIN 12.8 GM/dL (10.7-15.3); LYMPH % 13.4 % (8-40); MCH 29.7 pg (25.7-33.7); MCHC 33.3 g/dl (32.0-36.0); MEAN CELL VOLUME 89.3 fl (80-96); MEAN PLT VOLUME 8.3 fl (7.5-11.1); MONO % 4.7 % (3.8-10.2); NEUT % 79.7 % (42.8-82.8); PLATELET COUNT 229 10^3/uL (134-434); RBC 4.29 M/mm3 (3.60-5.2); WHITE BLOOD COUNT 8.7 K/mm3 (4.0-10.0)
[2021-09-27 13:58] LABS: ALBUMIN 3.2 g/dl (3.4-5.0); BLOOD UREA NITROGEN 36.3 mg/dL (7-18)
[2021-09-27 14:02] LABS: CREATININE 1.4 mg/dL (0.55-1.3)
[2021-09-27 14:04] LABS: BILIRUBIN,TOTAL 0.3 mg/dL (0.2-1); TOT PROT 6.7 g/dl (6.4-8.2)
[2021-09-27 14:06] LABS: N-TERMINAL BNP 138.3 pg/ml (5-125)
[2021-09-27] MEDS ORDERED: LACTATED RINGERS SOLUTION 1000 ML INFUS.BAG IV ONE (15:01)
[2021-09-27 15:43] LABS: EPI CELLS 13 /uL (0-25.1); HYALINE CASTS 0 /uL (0-3.1); PH,URINE 5.5 (5.0-8.0); URINE APPEARANCE CLEAR; URINE BACTERIA 5233 /uL (0-1359); URINE BILIRUBIN NEGATIVE (NEGATIVE); URINE COLOR YELLOW; URINE GLUCOSE (UA) 2+ (NEGATIVE); URINE KETONE NEGATIVE (NEGATIVE); URINE LEUK ESTERASE NEGATIVE (NEGATIVE); URINE NITRITE NEGATIVE (NEGATIVE); URINE PROTEIN 3+ (NEGATIVE); URINE RBC 5 /uL (0-23.9); URINE UROBILINOGEN 0.2 mg/dL (0.2-1.0); URINE WBC 47 /uL (0-25.8)
[2021-09-27] MEDS: INSULIN SLIDING SCALE (NOVOLOG) 1 VIAL SQ SCH (21:50)
[2021-09-27 23:16] VITALS: BMI 42.2
[2021-09-27] MEDS ORDERED: metoPROLOL SUCCINATE 25 MG TAB.SR.24H (FP) ONE (23:22)
[2021-09-27] MEDS ORDERED: ACETAMINOPHEN 325 MG TABLET (FP) PO ONE (23:33)
[2021-09-28] MEDS: INSULIN (NOVOLOG) ASPART 100 UNITS/ML 10ML VIAL SQ SCH ×4 (00:05→18:05)
[2021-09-28] MEDS: INSULIN (LEVEMIR) 100 UNITS/ML UNITS SQ SCH ×3 (00:06→21:39)
[2021-09-28] MEDS: HEPARIN NA (PORCINE) 5,000 UNITS/ML 1ML VIAL SQ SCH ×4 (00:06→21:22)
[2021-09-28] MEDS: INSULIN SLIDING SCALE (NOVOLOG) 1 VIAL SQ SCH ×5 (00:06→21:39)
[2021-09-28] MEDS: RANOLAZINE E.R. 500 MG TABLET (FP) PO SCH ×3 (00:07→21:23)
[2021-09-28] MEDS: METOPROLOL SUCCINATE 100 MG, METOPROLOL SUCCINATE 25 MG PO SCH ×3 (00:07→21:23)
[2021-09-28] MEDS: MELATONIN 5 MG TABLETS PO PRN ×2 (00:08→21:23)
[2021-09-28] MEDS: SODIUM CHLORIDE 1,000 ML IV SCH ×2 (01:40→21:24)
[2021-09-28 07:46] LABS: BASO % 0.8 % (0-2.0); EOS % 2.6 % (0-4.5); HEMATOCRIT 37.6 % (32.4-45.2); HEMOGLOBIN 12.1 GM/dL (10.7-15.3); LYMPH % 17.9 % (8-40); MCH 29.1 pg (25.7-33.7); MCHC 32.1 g/dl (32.0-36.0); MEAN CELL VOLUME 90.8 fl (80-96); MEAN PLT VOLUME 8.7 fl (7.5-11.1); MONO % 5.1 % (3.8-10.2); NEUT % 73.6 % (42.8-82.8); PLATELET COUNT 222 10^3/uL (134-434); RBC 4.14 M/mm3 (3.60-5.2); RDW 15.7 % (11.6-15.6); WHITE BLOOD COUNT 8.1 K/mm3 (4.0-10.0)
[2021-09-28 08:34] LABS: CALCIUM 9.5 mg/dL (8.5-10.1)
[2021-09-28 08:36] LABS: BLOOD UREA NITROGEN 34.4 mg/dL (7-18); MAGNESIUM 1.9 mg/dL (1.8-2.4)
[2021-09-28 08:38] LABS: BILIRUBIN,TOTAL 0.3 mg/dL (0.2-1); CREATININE 1.2 mg/dL (0.55-1.3); TOT PROT 6.2 g/dl (6.4-8.2)
[2021-09-28] MEDS ORDERED: VALSARTAN 160 MG TABLET PO SCH (10:00)
[2021-09-28] MEDS ORDERED: metoPROLOL SUCCINATE 25 MG TAB.SR.24H (FP) ONE ×2 (10:51→20:59)
[2021-09-28] MEDS: ASPIRIN 81 MG CHEWABLE TABLETS PO SCH (11:26)
[2021-09-28] MEDS: ROSUVASTATIN CA 20 MG TABLET PO SCH ×2 (11:26→11:31)
[2021-09-28] MEDS ORDERED: ALBUTEROL SO4 HFA INHALER IH PRN (11:35)
[2021-09-28] MEDS ORDERED: ACETAMINOPHEN 325 MG TABLET (FP) PO ONE (11:55)
[2021-09-28] MEDS: ALBUTEROL SO4 2.5/IPRATROPIUM 0.5 INH SOL 3 ML VIAL.NEB. NEB SCH ×3 (12:00→20:38)
[2021-09-29] MEDS: HEPARIN NA (PORCINE) 5,000 UNITS/ML 1ML VIAL SQ SCH ×3 (06:07→21:08)
[2021-09-29] MEDS: INSULIN (LEVEMIR) 100 UNITS/ML UNITS SQ SCH ×2 (06:15→21:17)
[2021-09-29] MEDS: INSULIN SLIDING SCALE (NOVOLOG) 1 VIAL SQ SCH ×4 (06:16→21:16)
[2021-09-29] MEDS: INSULIN (NOVOLOG) ASPART 100 UNITS/ML 10ML VIAL SQ SCH ×3 (06:50→17:25)
[2021-09-29 08:24] LABS: BASO % 1.3 % (0-2.0); EOS % 2.2 % (0-4.5); HEMATOCRIT 37.1 % (32.4-45.2); HEMOGLOBIN 11.9 GM/dL (10.7-15.3); LYMPH % 21.3 % (8-40); MCH 29.3 pg (25.7-33.7); MCHC 32.2 g/dl (32.0-36.0); MEAN CELL VOLUME 90.8 fl (80-96); MEAN PLT VOLUME 8.6 fl (7.5-11.1); MONO % 3.7 % (3.8-10.2); NEUT % 71.5 % (42.8-82.8); PLATELET COUNT 227 10^3/uL (134-434); RBC 4.08 M/mm3 (3.60-5.2); RDW 15.8 % (11.6-15.6); WHITE BLOOD COUNT 5.7 K/mm3 (4.0-10.0)
[2021-09-29 08:47] LABS: ALBUMIN 2.9 g/dl (3.4-5.0); BLOOD UREA NITROGEN 26.5 mg/dL (7-18); PHOSPHOROUS 3.1 mg/dL (2.5-4.9)
[2021-09-29 08:49] LABS: CALCIUM 9.1 mg/dL (8.5-10.1); CREATININE 1.2 mg/dL (0.55-1.3); TOT PROT 6.1 g/dl (6.4-8.2)
[2021-09-29] MEDS: ALBUTEROL SO4 2.5/IPRATROPIUM 0.5 INH SOL 3 ML VIAL.NEB. NEB SCH ×4 (08:54→20:15)
[2021-09-29 08:56] LABS: BILIRUBIN,TOTAL 0.3 mg/dL (0.2-1)
[2021-09-29] MEDS ORDERED: metoPROLOL SUCCINATE 25 MG TAB.SR.24H (FP) ONE ×2 (11:43→20:37)
[2021-09-29] MEDS: PANTOPRAZOLE 40 MG TABLET PO SCH (11:50)
[2021-09-29] MEDS: VALSARTAN 160 MG TABLET PO SCH (11:50)
[2021-09-29] MEDS: METOPROLOL SUCCINATE 100 MG, METOPROLOL SUCCINATE 25 MG PO SCH ×2 (11:50→21:08)
[2021-09-29] MEDS: ASPIRIN 81 MG CHEWABLE TABLETS PO SCH (11:50)
[2021-09-29] MEDS: ROSUVASTATIN CA 20 MG TABLET PO SCH (11:50)
[2021-09-29] MEDS: HYDROCHLOROTHIAZIDE 25 MG TABLET (FP) PO SCH (11:50)
[2021-09-29] MEDS: RANOLAZINE E.R. 500 MG TABLET (FP) PO SCH ×2 (11:50→21:08)
[2021-09-29 14:10] LABS: SARS-CoV-2 NAA Not Detected (Not Detected)
[2021-09-29] MEDS: MELATONIN 5 MG TABLETS PO PRN (21:08)
[2021-09-29] MEDS ORDERED: ACETAMINOPHEN 325 MG TABLET (FP) PO PRN (21:57)
[2021-09-30] MEDS: HEPARIN NA (PORCINE) 5,000 UNITS/ML 1ML VIAL SQ SCH ×2 (06:32→15:01)
[2021-09-30] MEDS: INSULIN (LEVEMIR) 100 UNITS/ML UNITS SQ SCH (06:33)
[2021-09-30] MEDS: INSULIN (NOVOLOG) ASPART 100 UNITS/ML 10ML VIAL SQ SCH ×3 (06:38→17:43)
[2021-09-30] MEDS: INSULIN SLIDING SCALE (NOVOLOG) 1 VIAL SQ SCH ×3 (06:39→17:44)
[2021-09-30] MEDS: ALBUTEROL SO4 2.5/IPRATROPIUM 0.5 INH SOL 3 ML VIAL.NEB. NEB SCH ×3 (08:00→15:44)
[2021-09-30 08:26] LABS: BASO % 0.6 % (0-2.0); EOS % 2.2 % (0-4.5); HEMATOCRIT 34.9 % (32.4-45.2); HEMOGLOBIN 11.5 GM/dL (10.7-15.3); LYMPH % 15.3 % (8-40); MCH 29.9 pg (25.7-33.7); MCHC 33.1 g/dl (32.0-36.0); MEAN CELL VOLUME 90.4 fl (80-96); MEAN PLT VOLUME 8.2 fl (7.5-11.1); NEUT % 76.9 % (42.8-82.8); PLATELET COUNT 209 10^3/uL (134-434); RBC 3.85 M/mm3 (3.60-5.2); RDW 15.9 % (11.6-15.6); WHITE BLOOD COUNT 6.7 K/mm3 (4.0-10.0)
[2021-09-30 08:35] LABS: BLOOD UREA NITROGEN 23.8 mg/dL (7-18); CALCIUM 9.2 mg/dL (8.5-10.1); MAGNESIUM 1.9 mg/dL (1.8-2.4)
[2021-09-30 08:38] LABS: CREATININE 1.2 mg/dL (0.55-1.3); PHOSPHOROUS 3.1 mg/dL (2.5-4.9)
[2021-09-30 08:39] LABS: BILIRUBIN,TOTAL 0.5 mg/dL (0.2-1)
[2021-09-30] MEDS ORDERED: metoPROLOL SUCCINATE 25 MG TAB.SR.24H (FP) ONE (09:07)
[2021-09-30] MEDS: VALSARTAN 160 MG TABLET PO SCH (09:10)
[2021-09-30] MEDS: HYDROCHLOROTHIAZIDE 25 MG TABLET (FP) PO SCH (09:10)
[2021-09-30] MEDS: ASPIRIN 81 MG CHEWABLE TABLETS PO SCH (09:10)
[2021-09-30] MEDS: METOPROLOL SUCCINATE 100 MG, METOPROLOL SUCCINATE 25 MG PO SCH (09:11)
[2021-09-30] MEDS: RANOLAZINE E.R. 500 MG TABLET (FP) PO SCH (09:11)
[2021-09-30] MEDS: ROSUVASTATIN CA 20 MG TABLET PO SCH (09:12)
[2021-09-30] MEDS: PANTOPRAZOLE 40 MG TABLET PO SCH (09:12)
[2021-09-30] MEDS ORDERED: ROSUVASTATIN CA 20 MG TABLET PO SCH (14:11)
[2021-09-30 17:40] VITALS: BP 147/76; PULSE 88; TEMP 98.3
== END 2021-09-30 18:27 | disposition home or self-care (01) ==
LOC: JER 11:33 → UNDOADMOB 14:54 → INTOOBSV 14:54 → JERBED 14:54 → J4W 23:17
PROVIDERS: ADMIT Internal Medicine; ATTEND Internal Medicine
PROC: 3E0F7GC Introduction of Other Therapeutic Substance into Respiratory Tract, Via Natural or Artificial Opening (ICD-10-PCS; principal; 2021-09-27)
PROC: 3E023GC Introduction of Other Therapeutic Substance into Muscle, Percutaneous Approach (ICD-10-PCS; 2021-09-27)
PROC: 3E013VG Introduction of Insulin into Subcutaneous Tissue, Percutaneous Approach (ICD-10-PCS; 2021-09-27)
PROC: 3E0337Z Introduction of Electrolytic and Water Balance Substance into Peripheral Vein, Percutaneous Approach (ICD-10-PCS; 2021-09-27)
DX: I25.10 Atherosclerotic heart disease of native coronary artery without angina pectoris (principal); I11.9 Hypertensive heart disease without heart failure; E11.8 Type 2 diabetes mellitus with unspecified complications; J45.909 Unspecified asthma, uncomplicated; E66.01 Morbid (severe) obesity due to excess calories; Z68.41 Body mass index [BMI] 40.0-44.9, adult; R94.4 Abnormal results of kidney function studies; Z95.1 Presence of aortocoronary bypass graft; Z87.891 Personal history of nicotine dependence; Z88.0 Allergy status to penicillin; Z99.81 Dependence on supplemental oxygen; G47.30 Sleep apnea, unspecified; I49.9 Cardiac arrhythmia, unspecified; N28.1 Cyst of kidney, acquired
CPT/HCPCS: 0241U-QW; 36415; 71045-TC-FY; 71250-TC; 76775-TC; 80053; 81003; 82962; 83036; 83735; 83880; 84100; 84484; 85025; 87086; 87186; 93005; 93010; 94640; 94761; 96360; 96361; 96372; 99285-25; C9803-CS; G0378; J1644; U0003; U0005

== ENCOUNTER 2022-04-01 08:17 | Emergency (ER) | payer OTHER ==
[2022-04-01 08:41] VITALS: BMI 43.1
[2022-04-01] MEDS ORDERED: ALBUTEROL SO4 2.5/IPRATROPIUM 0.5 INH SOL 3 ML VIAL.NEB. NEB ONE ×2 (09:19→09:35)
[2022-04-01] MEDS ORDERED: ACETAMINOPHEN 500 MG TABLET (FP) PO ONE (09:19)
[2022-04-01 11:10] VITALS: BP 168/75; PULSE 87; RESP 20; TEMP 98.8
== END 2022-04-01 11:20 | disposition home or self-care (01) ==
LOC: JER 08:17
PROC: 3E0F7GC Introduction of Other Therapeutic Substance into Respiratory Tract, Via Natural or Artificial Opening (ICD-10-PCS; principal; 2022-04-01)
DX: T88.1XXA Other complications following immunization, not elsewhere classified, initial encounter (principal); R53.1 Weakness
CPT/HCPCS: 0241U-QW; 99283-25

== ENCOUNTER 2022-04-11 22:38 | Inpatient (IN) | payer OTHER ==
[2022-04-11 23:13] VITALS: BMI 43.1
[2022-04-12] MEDS ORDERED: SODIUM CHLORIDE IV ONE (02:01)
[2022-04-12] MEDS ORDERED: ASPIRIN 81 MG CHEWABLE TABLETS PO ONE (02:04)
[2022-04-12] MEDS ORDERED: ACETAMINOPHEN 1000 MG/100 ML BAG IVPB ONE (02:06)
[2022-04-12] MEDS ORDERED: ONDANSETRON 4 MG/2 ML VIAL IVPB ONE (02:06)
[2022-04-12] MEDS ORDERED: ONDANSETRON 4 MG/2 ML VIAL ONE (02:29)
[2022-04-12] MEDS ORDERED: ACETAMINOPHEN INJECTION 100 ML IVPB ONE (02:29)
[2022-04-12] MEDS ORDERED: ASPIRIN 81 MG CHEWABLE TABLETS ONE ×2 (02:56→09:12)
[2022-04-12 03:23] LABS: VENOUS BASE EXCESS 4.7 mmol/L (-2-2); VENOUS O2 SATURATION 35.8 % (70-80); VENOUS PCO2 64.5 mmHg (38-52); VENOUS PH 7.318 (7.310-7.410)
[2022-04-12 03:24] LABS: EPI CELLS 23 /uL (0-25.1); HYALINE CASTS 1 /uL (0-3.1); PH,URINE 5.5 (5.0-8.0); URINE APPEARANCE CLEAR; URINE BACTERIA >9,000 /uL (0-1359); URINE BILIRUBIN NEGATIVE (NEGATIVE); URINE COLOR YELLOW; URINE GLUCOSE (UA) 2+ (NEGATIVE); URINE KETONE NEGATIVE (NEGATIVE); URINE LEUK ESTERASE NEGATIVE (NEGATIVE); URINE NITRITE POSITIVE (NEGATIVE); URINE PROTEIN 4+ (NEGATIVE); URINE RBC 16 /uL (0-23.9); URINE UROBILINOGEN 0.2 mg/dL (0.2-1.0); URINE WBC 24 /uL (0-25.8)
[2022-04-12 03:33] LABS: INR 1.03 (0.83-1.09); PROTHROMBIN TIME (PATIENT) 11.9 SEC (9.7-13.0)
[2022-04-12 03:36] LABS: ACTIVATED PTT 33.2 SECONDS (25.2-36.5)
[2022-04-12] MEDS ORDERED: CEFTRIAXONE 1 GM in DEXTROSE 5%-WATER - 100 ML IVPB ONE (04:02)
[2022-04-12 04:11] LABS: CHLORIDE 101 mmol/L (98-107); SODIUM 140 mmol/L (136-145)
[2022-04-12 04:13] LABS: ALBUMIN 3.1 g/dl (3.4-5.0); CALCIUM 8.9 mg/dL (8.5-10.1)
[2022-04-12 04:14] LABS: ANION GAP 8 MMOL/L (8-16); BLOOD UREA NITROGEN 35.3 mg/dL (7-18); CO2 31 mmol/L (21-32); GLUCOSE,RANDOM 144 mg/dL (74-106)
[2022-04-12 04:16] LABS: SGPT/ALT 22 U/L (13-61)
[2022-04-12 04:17] LABS: CREATININE 1.9 mg/dL (0.55-1.3); SGOT/AST 20 U/L (15-37)
[2022-04-12 04:18] LABS: BILIRUBIN,TOTAL 0.3 mg/dL (0.2-1); TOT PROT 6.8 g/dl (6.4-8.2)
[2022-04-12 04:19] LABS: ALK PHOS 85 U/L (45-117)
[2022-04-12 04:21] LABS: N-TERMINAL BNP 554.5 pg/ml (5-125)
[2022-04-12 04:33] LABS: HEMATOCRIT 35.8 % (32.4-45.2); HEMOGLOBIN 11.3 GM/dL (10.7-15.3); MCH 28.5 pg (25.7-33.7); MCHC 31.6 g/dl (32.0-36.0); MEAN CELL VOLUME 90.1 fl (80-96); MEAN PLT VOLUME 8.7 fl (7.5-11.1); PLATELET COUNT 307 10^3/uL (134-434); RBC 3.98 M/mm3 (3.60-5.2); RDW 16.6 % (11.6-15.6); WHITE BLOOD COUNT 21.5 K/mm3 (4.0-10.0)
[2022-04-12] MEDS ORDERED: CEFTRIAXONE 1 GM/50 ML BAG ONE ×2 (04:35→09:08)
[2022-04-12 08:25] LABS: ANISOCYTOSIS 0; HELMET CELLS 0; HOWELL-JOLLY BODIES 0; MACROCYTOSIS 0; OVALOCYTE 0; ROULEAU 0; SICKELED CELLS 0; TARGET CELLS 0; TEAR DROP CELLS 0; TOXIC GRANULATION 0
[2022-04-12] MEDS ORDERED: SODIUM CHLORIDE 1,000 ML IV SCH (08:30)
[2022-04-12] MEDS ORDERED: PANTOPRAZOLE 40 MG TABLET PO ONE (09:06)
[2022-04-12] MEDS ORDERED: amLODIPine BESYLATE 5 MG TABLET (FP) ONE (09:07)
[2022-04-12] MEDS ORDERED: ACETAMINOPHEN 325 MG TABLET (FP) ONE (09:08)
[2022-04-12] MEDS: ASPIRIN 81 MG CHEWABLE TABLETS PO SCH (09:09)
[2022-04-12] MEDS: ACETAMINOPHEN 325 MG TABLET (FP) PO PRN ×2 (09:09→16:05)
[2022-04-12] MEDS: PANTOPRAZOLE 40 MG TABLET PO SCH (09:10)
[2022-04-12] MEDS: amLODIPine BESYLATE 5 MG TABLET (FP) PO SCH (09:10)
[2022-04-12] MEDS: CEFTRIAXONE 1 GM in DEXTROSE 5%-WATER - 50 ML IVPB SCH (09:10)
[2022-04-12] MEDS ORDERED: metoPROLOL SUCCINATE 25 MG TAB.SR.24H (FP) PO ONE (09:13)
[2022-04-12] MEDS: METOPROLOL SUCCINATE 100 MG, METOPROLOL SUCCINATE 25 MG PO SCH ×2 (09:15→22:45)
[2022-04-12] MEDS ORDERED: BUDESONIDE/FORMETEROL FUMARATE 160/4.5 mcg INHALER IH SCH (10:00)
[2022-04-12] MEDS: BUDESONIDE/FORMETEROL FUMARATE 160/4.5 mcg INHALER IH SCH ×2 (10:42→22:44)
[2022-04-12] MEDS: FENOFIBRIC ACID 45 MG CAP PO SCH (10:43)
[2022-04-12] MEDS: INSULIN SLIDING SCALE (NOVOLOG) 1 VIAL SQ SCH ×3 (12:24→21:50)
[2022-04-12] MEDS: HEPARIN NA (PORCINE) 5,000 UNITS/ML 1ML VIAL SQ SCH ×2 (16:05→21:50)
[2022-04-12] MEDS ORDERED: traMADol HCL 50 MG TABLET PO ONE (18:03)
[2022-04-12] MEDS: ROSUVASTATIN CA 20 MG TABLET PO SCH (22:46)
[2022-04-13] MEDS: HEPARIN NA (PORCINE) 5,000 UNITS/ML 1ML VIAL SQ SCH ×2 (06:29→14:13)
[2022-04-13] MEDS: INSULIN SLIDING SCALE (NOVOLOG) 1 VIAL SQ SCH ×4 (08:08→23:30)
[2022-04-13 10:05] LABS: HEMATOCRIT 33.6 % (32.4-45.2); HEMOGLOBIN 10.5 GM/dL (10.7-15.3); MCH 28.6 pg (25.7-33.7); MCHC 31.2 g/dl (32.0-36.0); MEAN CELL VOLUME 91.6 fl (80-96); MEAN PLT VOLUME 7.7 fl (7.5-11.1); PLATELET COUNT 296 10^3/uL (134-434); RBC 3.66 M/mm3 (3.60-5.2); RDW 17.1 % (11.6-15.6)
[2022-04-13] MEDS ORDERED: ACETAMINOPHEN 325 MG TABLET (FP) PO ONE (10:30)
[2022-04-13] MEDS ORDERED: oxyCODONE HCL 5 MG TABLET PO ONE (10:30)
[2022-04-13 10:36] LABS: ANISOCYTOSIS 0; MACROCYTOSIS 0
[2022-04-13 10:39] LABS: ALBUMIN 2.7 g/dl (3.4-5.0); BLOOD UREA NITROGEN 39.3 mg/dL (7-18)
[2022-04-13] MEDS: METOPROLOL SUCCINATE 100 MG, METOPROLOL SUCCINATE 25 MG PO SCH ×2 (10:40→23:06)
[2022-04-13] MEDS: BUDESONIDE/FORMETEROL FUMARATE 160/4.5 mcg INHALER IH SCH ×2 (10:40→23:06)
[2022-04-13] MEDS: ASPIRIN 81 MG CHEWABLE TABLETS PO SCH (10:40)
[2022-04-13] MEDS: amLODIPine BESYLATE 5 MG TABLET (FP) PO SCH (10:40)
[2022-04-13] MEDS: PANTOPRAZOLE 40 MG TABLET PO SCH (10:40)
[2022-04-13] MEDS: FENOFIBRIC ACID 45 MG CAP PO SCH (10:40)
[2022-04-13 10:42] LABS: CALCIUM 8.4 mg/dL (8.5-10.1); MAGNESIUM 2.4 mg/dL (1.8-2.4); PHOSPHOROUS 4.4 mg/dL (2.5-4.9)
[2022-04-13 10:44] LABS: BILIRUBIN,TOTAL 0.5 mg/dL (0.2-1); TOT PROT 6.4 g/dl (6.4-8.2)
[2022-04-13] MEDS ORDERED: ONDANSETRON 4 MG/2 ML VIAL IVPUSH PRN (10:50)
[2022-04-13] MEDS: CEFTRIAXONE 1 GM in DEXTROSE 5%-WATER - 50 ML IVPB SCH (11:22)
[2022-04-13] MEDS ORDERED: PROMETHAZINE HCL 25 MG/1 ML VIAL IVPUSH PRN (13:21)
[2022-04-13] MEDS ORDERED: morphine SULFATE 4 MG/ML VIAL IVPUSH ONE (14:27)
[2022-04-13] MEDS ORDERED: ACETAMINOPHEN 1000 MG/100 ML BAG IVPB ONE (18:00)
[2022-04-13] MEDS ORDERED: hydrALAZINE HCL 20 MG/ML VIAL IM ONE (18:08)
[2022-04-13 18:18] LABS: ARTERIAL BLD GAS O2 SATURATION 86.8 % (95-98)
[2022-04-13 18:24] LABS: ALLENS TEST POSITIVE
[2022-04-13 18:28] LABS: ARTERIAL BLOOD GAS pH 7.076 (7.350-7.450)
[2022-04-13] MEDS: MEROPENEM 1 GM in DEXTROSE 5%-WATER 100 ML IVPB SCH (18:48)
[2022-04-13] MEDS: ALBUTEROL SO4 2.5/IPRATROPIUM 0.5 INH SOL 3 ML VIAL.NEB. NEB SCH (20:20)
[2022-04-13 20:21] LABS: ARTERIAL BLD GAS O2 SATURATION 44.9 % (95-98); ARTERIAL BLOOD GAS BASE EXCESS 0.4 mmol/L (-2-2)
[2022-04-13 20:27] LABS: ALLENS TEST POSITIVE
[2022-04-13 20:29] LABS: VENT MODE BIPAP; VENT RATE 26
[2022-04-13 20:32] LABS: ARTERIAL BLOOD GAS pH 7.156 (7.350-7.450)
[2022-04-13 20:33] LABS: ARTERIAL BLOOD GAS PO2 32.6 mmHg (80-100)
[2022-04-13] MEDS: ROSUVASTATIN CA 20 MG TABLET PO SCH (23:05)
[2022-04-14] MEDS: HEPARIN NA (PORCINE) 5,000 UNITS/ML 1ML VIAL SQ SCH ×4 (00:25→23:22)
[2022-04-14] MEDS: MEROPENEM 1 GM in DEXTROSE 5%-WATER 100 ML IVPB SCH ×4 (01:35→22:21)
[2022-04-14 03:10] LABS: ARTERIAL BLD GAS O2 SATURATION 35.1 % (95-98); ARTERIAL BLOOD GAS BASE EXCESS 0.6 mmol/L (-2-2)
[2022-04-14 03:14] LABS: ALLENS TEST POSITIVE
[2022-04-14 03:15] LABS: VENT MODE PSV; VENT RATE 26
[2022-04-14 03:16] LABS: ARTERIAL BLOOD GAS pH 7.124 (7.350-7.450)
[2022-04-14 03:17] LABS: ARTERIAL BLOOD GAS PO2 28.6 mmHg (80-100)
[2022-04-14 04:02] LABS: ARTERIAL BLD GAS O2 SATURATION 92.9 % (95-98); ARTERIAL BLOOD GAS BASE EXCESS 3.3 mmol/L (-2-2); ARTERIAL BLOOD GAS PO2 77.1 mmHg (80-100)
[2022-04-14 04:03] LABS: ALLENS TEST POSITIVE; VENT MODE PSV; VENT RATE 26
[2022-04-14] MEDS: ALBUTEROL SO4 2.5/IPRATROPIUM 0.5 INH SOL 3 ML VIAL.NEB. NEB SCH ×4 (07:20→20:06)
[2022-04-14] MEDS: INSULIN SLIDING SCALE (NOVOLOG) 1 VIAL SQ SCH ×4 (08:30→23:22)
[2022-04-14] MEDS: PANTOPRAZOLE 40 MG TABLET PO SCH (11:03)
[2022-04-14] MEDS: ASPIRIN 81 MG CHEWABLE TABLETS PO SCH (11:03)
[2022-04-14] MEDS: amLODIPine BESYLATE 5 MG TABLET (FP) PO SCH (11:03)
[2022-04-14] MEDS: FENOFIBRIC ACID 45 MG CAP PO SCH (11:04)
[2022-04-14] MEDS: METOPROLOL SUCCINATE 100 MG, METOPROLOL SUCCINATE 25 MG PO SCH ×2 (11:04→23:22)
[2022-04-14 11:18] LABS: ARTERIAL BLD GAS O2 SATURATION 88.3 % (95-98); ARTERIAL BLOOD GAS PO2 60.5 mmHg (80-100); ARTERIAL BLOOD GAS pH 7.317 (7.350-7.450)
[2022-04-14 11:20] LABS: ALLENS TEST POSITIVE
[2022-04-14] MEDS: BUDESONIDE/FORMETEROL FUMARATE 160/4.5 mcg INHALER IH SCH ×2 (13:04→23:22)
[2022-04-14] MEDS: methylPREDNISolone NA SUCC 40 MG/1 ML VIAL IVPUSH SCH ×3 (13:35→23:21)
[2022-04-14 14:09] LABS: BASO % 0.5 % (0-2.0); EOS % 0.1 % (0-4.5); HEMATOCRIT 28.7 % (32.4-45.2); HEMOGLOBIN 9.3 GM/dL (10.7-15.3); LYMPH % 6.1 % (8-40); MCH 29.1 pg (25.7-33.7); MCHC 32.2 g/dl (32.0-36.0); MEAN CELL VOLUME 90.3 fl (80-96); MEAN PLT VOLUME 7.4 fl (7.5-11.1); MONO % 4.9 % (3.8-10.2); NEUT % 88.4 % (42.8-82.8); PLATELET COUNT 221 10^3/uL (134-434); RBC 3.18 M/mm3 (3.60-5.2); RDW 16.7 % (11.6-15.6); WHITE BLOOD COUNT 12.8 K/mm3 (4.0-10.0)
[2022-04-14 14:33] LABS: BLOOD UREA NITROGEN 50.8 mg/dL (7-18); CALCIUM 8.2 mg/dL (8.5-10.1)
[2022-04-14 14:38] LABS: CREATININE 2.1 mg/dL (0.55-1.3)
[2022-04-14] MEDS: ROSUVASTATIN CA 20 MG TABLET PO SCH (23:21)
[2022-04-15] MEDS: MEROPENEM 1 GM in DEXTROSE 5%-WATER 100 ML IVPB SCH ×3 (04:32→21:57)
[2022-04-15] MEDS: methylPREDNISolone NA SUCC 40 MG/1 ML VIAL IVPUSH SCH ×3 (05:31→22:57)
[2022-04-15] MEDS: INSULIN SLIDING SCALE (NOVOLOG) 1 VIAL SQ SCH ×4 (06:51→22:57)
[2022-04-15] MEDS: HEPARIN NA (PORCINE) 5,000 UNITS/ML 1ML VIAL SQ SCH ×3 (06:51→22:57)
[2022-04-15] MEDS: ALBUTEROL SO4 2.5/IPRATROPIUM 0.5 INH SOL 3 ML VIAL.NEB. NEB SCH ×4 (07:25→20:30)
[2022-04-15] MEDS: PANTOPRAZOLE 40 MG TABLET PO SCH (09:04)
[2022-04-15] MEDS: ASPIRIN 81 MG CHEWABLE TABLETS PO SCH (09:04)
[2022-04-15] MEDS: amLODIPine BESYLATE 5 MG TABLET (FP) PO SCH (09:04)
[2022-04-15] MEDS: BUDESONIDE/FORMETEROL FUMARATE 160/4.5 mcg INHALER IH SCH ×2 (09:04→22:58)
[2022-04-15] MEDS: METOPROLOL SUCCINATE 100 MG, METOPROLOL SUCCINATE 25 MG PO SCH ×2 (09:05→22:58)
[2022-04-15] MEDS: FENOFIBRIC ACID 45 MG CAP PO SCH (09:05)
[2022-04-15 11:03] LABS: HEMATOCRIT 30.1 % (32.4-45.2); HEMOGLOBIN 10.1 GM/dL (10.7-15.3); MCHC 33.4 g/dl (32.0-36.0); MEAN PLT VOLUME 7.9 fl (7.5-11.1); PLATELET COUNT 236 10^3/uL (134-434); RBC 3.34 M/mm3 (3.60-5.2); WHITE BLOOD COUNT 7.6 K/mm3 (4.0-10.0)
[2022-04-15 11:16] LABS: ALBUMIN 2.5 g/dl (3.4-5.0); BLOOD UREA NITROGEN 58.3 mg/dL (7-18); CALCIUM 8.7 mg/dL (8.5-10.1); MAGNESIUM 2.4 mg/dL (1.8-2.4)
[2022-04-15 11:21] LABS: BILIRUBIN,TOTAL 0.9 mg/dL (0.2-1); TOT PROT 6.1 g/dl (6.4-8.2)
[2022-04-15 11:45] LABS: ANISOCYTOSIS 0; MACROCYTOSIS 0
[2022-04-15] MEDS: ROSUVASTATIN CA 20 MG TABLET PO SCH (22:57)
[2022-04-16] MEDS: methylPREDNISolone NA SUCC 40 MG/1 ML VIAL IVPUSH SCH ×3 (05:21→22:12)
[2022-04-16] MEDS: MEROPENEM 1 GM in DEXTROSE 5%-WATER 100 ML IVPB SCH ×3 (05:21→22:12)
[2022-04-16] MEDS: HEPARIN NA (PORCINE) 5,000 UNITS/ML 1ML VIAL SQ SCH ×3 (06:59→22:12)
[2022-04-16] MEDS: INSULIN SLIDING SCALE (NOVOLOG) 1 VIAL SQ SCH ×4 (06:59→22:13)
[2022-04-16] MEDS: ALBUTEROL SO4 2.5/IPRATROPIUM 0.5 INH SOL 3 ML VIAL.NEB. NEB SCH ×4 (08:56→20:00)
[2022-04-16] MEDS: amLODIPine BESYLATE 5 MG TABLET (FP) PO SCH (10:54)
[2022-04-16] MEDS: PANTOPRAZOLE 40 MG TABLET PO SCH (10:54)
[2022-04-16] MEDS: METOPROLOL SUCCINATE 100 MG, METOPROLOL SUCCINATE 25 MG PO SCH ×2 (10:54→22:13)
[2022-04-16] MEDS: ASPIRIN 81 MG CHEWABLE TABLETS PO SCH (10:54)
[2022-04-16] MEDS: FENOFIBRIC ACID 45 MG CAP PO SCH (10:54)
[2022-04-16] MEDS: BUDESONIDE/FORMETEROL FUMARATE 160/4.5 mcg INHALER IH SCH ×2 (10:54→22:13)
[2022-04-16 11:02] LABS: HEMATOCRIT 35.2 % (32.4-45.2); HEMOGLOBIN 11.2 GM/dL (10.7-15.3); MCH 28.9 pg (25.7-33.7); MCHC 31.9 g/dl (32.0-36.0); MEAN CELL VOLUME 90.7 fl (80-96); MEAN PLT VOLUME 8.3 fl (7.5-11.1); PLATELET COUNT 311 10^3/uL (134-434); RBC 3.88 M/mm3 (3.60-5.2); RDW 16.2 % (11.6-15.6)
[2022-04-16 11:21] LABS: ALBUMIN 2.8 g/dl (3.4-5.0); BLOOD UREA NITROGEN 61.8 mg/dL (7-18); CALCIUM 9.6 mg/dL (8.5-10.1); MAGNESIUM 2.7 mg/dL (1.8-2.4)
[2022-04-16 11:25] LABS: CREATININE 1.7 mg/dL (0.55-1.3)
[2022-04-16 11:26] LABS: BILIRUBIN,TOTAL 0.3 mg/dL (0.2-1); TOT PROT 6.9 g/dl (6.4-8.2)
[2022-04-16 12:50] LABS: ANISOCYTOSIS 1+; MACROCYTOSIS 0
[2022-04-16] MEDS ORDERED: INSULIN (LEVEMIR) 100 UNITS/ML UNITS SQ ONE (12:50)
[2022-04-16] MEDS: ROSUVASTATIN CA 20 MG TABLET PO SCH (22:12)
[2022-04-17] MEDS: MEROPENEM 1 GM in DEXTROSE 5%-WATER 100 ML IVPB SCH ×3 (06:27→21:47)
[2022-04-17] MEDS: methylPREDNISolone NA SUCC 40 MG/1 ML VIAL IVPUSH SCH ×3 (06:28→21:48)
[2022-04-17] MEDS: HEPARIN NA (PORCINE) 5,000 UNITS/ML 1ML VIAL SQ SCH ×3 (06:32→21:47)
[2022-04-17] MEDS: INSULIN SLIDING SCALE (NOVOLOG) 1 VIAL SQ SCH ×4 (06:34→22:00)
[2022-04-17] MEDS: ALBUTEROL SO4 2.5/IPRATROPIUM 0.5 INH SOL 3 ML VIAL.NEB. NEB SCH ×4 (07:13→20:27)
[2022-04-17] MEDS: ASPIRIN 81 MG CHEWABLE TABLETS PO SCH (09:02)
[2022-04-17] MEDS: amLODIPine BESYLATE 5 MG TABLET (FP) PO SCH (09:02)
[2022-04-17] MEDS: PANTOPRAZOLE 40 MG TABLET PO SCH (09:03)
[2022-04-17] MEDS: BUDESONIDE/FORMETEROL FUMARATE 160/4.5 mcg INHALER IH SCH ×2 (09:03→22:04)
[2022-04-17] MEDS: FENOFIBRIC ACID 45 MG CAP PO SCH (09:04)
[2022-04-17] MEDS: METOPROLOL SUCCINATE 100 MG, METOPROLOL SUCCINATE 25 MG PO SCH ×2 (09:04→21:48)
[2022-04-17 10:51] LABS: HEMATOCRIT 34.5 % (32.4-45.2); MCH 28.8 pg (25.7-33.7); MEAN CELL VOLUME 89.9 fl (80-96); MEAN PLT VOLUME 8.2 fl (7.5-11.1); PLATELET COUNT 291 10^3/uL (134-434); RBC 3.83 M/mm3 (3.60-5.2); WHITE BLOOD COUNT 9.2 K/mm3 (4.0-10.0)
[2022-04-17 12:01] LABS: CHLORIDE 96 mmol/L (98-107); SODIUM 138 mmol/L (136-145)
[2022-04-17 12:02] LABS: ANISOCYTOSIS 1+; MACROCYTOSIS 0
[2022-04-17 12:07] LABS: ALBUMIN 2.7 g/dl (3.4-5.0); ANION GAP 9 MMOL/L (8-16); CO2 33 mmol/L (21-32); MAGNESIUM 2.5 mg/dL (1.8-2.4)
[2022-04-17 12:10] LABS: SGPT/ALT 23 U/L (13-61)
[2022-04-17 12:11] LABS: CREATININE 1.6 mg/dL (0.55-1.3); SGOT/AST 13 U/L (15-37)
[2022-04-17 12:12] LABS: BILIRUBIN,TOTAL 0.2 mg/dL (0.2-1); TOT PROT 6.2 g/dl (6.4-8.2)
[2022-04-17 12:13] LABS: ALK PHOS 84 U/L (45-117); GLUCOSE,RANDOM 407 mg/dL (74-106)
[2022-04-17] MEDS: ROSUVASTATIN CA 20 MG TABLET PO SCH (21:47)
[2022-04-17] MEDS: INSULIN (LEVEMIR) 100 UNITS/ML UNITS SQ SCH (21:49)
[2022-04-18] MEDS: MEROPENEM 1 GM in DEXTROSE 5%-WATER 100 ML IVPB SCH ×3 (05:52→21:44)
[2022-04-18] MEDS: HEPARIN NA (PORCINE) 5,000 UNITS/ML 1ML VIAL SQ SCH ×3 (06:44→21:44)
[2022-04-18] MEDS: INSULIN SLIDING SCALE (NOVOLOG) 1 VIAL SQ SCH ×4 (06:45→21:55)
[2022-04-18] MEDS: ALBUTEROL SO4 2.5/IPRATROPIUM 0.5 INH SOL 3 ML VIAL.NEB. NEB SCH ×4 (07:10→20:11)
[2022-04-18 08:20] LABS: HEMATOCRIT 36.2 % (32.4-45.2); HEMOGLOBIN 11.6 GM/dL (10.7-15.3); MCH 28.6 pg (25.7-33.7); MEAN CELL VOLUME 89.4 fl (80-96); MEAN PLT VOLUME 8.6 fl (7.5-11.1); PLATELET COUNT 333 10^3/uL (134-434); RBC 4.05 M/mm3 (3.60-5.2); RDW 15.9 % (11.6-15.6); WHITE BLOOD COUNT 13.3 K/mm3 (4.0-10.0)
[2022-04-18 08:44] LABS: CALCIUM 9.6 mg/dL (8.5-10.1)
[2022-04-18 08:45] LABS: BLOOD UREA NITROGEN 48.1 mg/dL (7-18); MAGNESIUM 2.4 mg/dL (1.8-2.4)
[2022-04-18 08:48] LABS: CREATININE 1.5 mg/dL (0.55-1.3)
[2022-04-18 08:49] LABS: BILIRUBIN,TOTAL 0.6 mg/dL (0.2-1); TOT PROT 6.6 g/dl (6.4-8.2)
[2022-04-18 09:15] LABS: ANISOCYTOSIS 0; HELMET CELLS 0; HOWELL-JOLLY BODIES 0; MACROCYTOSIS 0; OVALOCYTE 0; ROULEAU 0; SICKELED CELLS 0; TARGET CELLS 0; TEAR DROP CELLS 0; TOXIC GRANULATION 0
[2022-04-18] MEDS ORDERED: methylPREDNISolone NA SUCC 40 MG/1 ML VIAL IVPUSH SCH (10:00)
[2022-04-18] MEDS: METOPROLOL SUCCINATE 100 MG, METOPROLOL SUCCINATE 25 MG PO SCH ×2 (10:55→21:44)
[2022-04-18] MEDS: ASPIRIN 81 MG CHEWABLE TABLETS PO SCH (10:55)
[2022-04-18] MEDS: SODIUM ZIRCONIUM CYCLOSILICATE (LOKELMA) 5 GM PACKET PO SCH (10:55)
[2022-04-18] MEDS: PANTOPRAZOLE 40 MG TABLET PO SCH (10:55)
[2022-04-18] MEDS: FENOFIBRIC ACID 45 MG CAP PO SCH (10:56)
[2022-04-18] MEDS: amLODIPine BESYLATE 5 MG TABLET (FP) PO SCH (10:56)
[2022-04-18] MEDS: BUDESONIDE/FORMETEROL FUMARATE 160/4.5 mcg INHALER IH SCH ×2 (10:59→21:47)
[2022-04-18] MEDS: BENZOCAINE/MENTH/CETYLPYRD CL 1 EACH LOZENGE MM PRN (20:05)
[2022-04-18] MEDS: ROSUVASTATIN CA 20 MG TABLET PO SCH (21:44)
[2022-04-18] MEDS: INSULIN (LEVEMIR) 100 UNITS/ML UNITS SQ SCH (21:54)
[2022-04-19] MEDS: MEROPENEM 1 GM in DEXTROSE 5%-WATER 100 ML IVPB SCH (04:59)
[2022-04-19] MEDS: HEPARIN NA (PORCINE) 5,000 UNITS/ML 1ML VIAL SQ SCH (06:11)
[2022-04-19] MEDS: BENZOCAINE/MENTH/CETYLPYRD CL 1 EACH LOZENGE MM PRN (06:12)
[2022-04-19] MEDS: INSULIN SLIDING SCALE (NOVOLOG) 1 VIAL SQ SCH ×2 (06:12→12:24)
[2022-04-19 07:39] LABS: HEMATOCRIT 34.8 % (32.4-45.2); HEMOGLOBIN 10.9 GM/dL (10.7-15.3); MCH 28.3 pg (25.7-33.7); MCHC 31.4 g/dl (32.0-36.0); MEAN PLT VOLUME 8.3 fl (7.5-11.1); PLATELET COUNT 260 10^3/uL (134-434); RBC 3.87 M/mm3 (3.60-5.2); RDW 15.7 % (11.6-15.6); WHITE BLOOD COUNT 11.6 K/mm3 (4.0-10.0)
[2022-04-19 08:11] LABS: ALBUMIN 2.6 g/dl (3.4-5.0); CREATININE 1.4 mg/dL (0.55-1.3)
[2022-04-19 08:12] LABS: BLOOD UREA NITROGEN 49.3 mg/dL (7-18)
[2022-04-19 08:13] LABS: BILIRUBIN,TOTAL 0.3 mg/dL (0.2-1); TOT PROT 5.6 g/dl (6.4-8.2)
[2022-04-19 08:14] LABS: CALCIUM 8.8 mg/dL (8.5-10.1)
[2022-04-19 08:15] LABS: MAGNESIUM 2.1 mg/dL (1.8-2.4)
[2022-04-19] MEDS: ALBUTEROL SO4 2.5/IPRATROPIUM 0.5 INH SOL 3 ML VIAL.NEB. NEB SCH ×2 (08:20→11:40)
[2022-04-19 09:05] LABS: ANISOCYTOSIS 0; HELMET CELLS 0; HOWELL-JOLLY BODIES 0; MACROCYTOSIS 0; OVALOCYTE 0; ROULEAU 0; SICKELED CELLS 0; TARGET CELLS 0; TEAR DROP CELLS 0; TOXIC GRANULATION 0
[2022-04-19 09:27] VITALS: BP 118/68; PULSE 86; RESP 18; TEMP 97.8
[2022-04-19] MEDS: METOPROLOL SUCCINATE 100 MG, METOPROLOL SUCCINATE 25 MG PO SCH (09:59)
[2022-04-19] MEDS: ASPIRIN 81 MG CHEWABLE TABLETS PO SCH (09:59)
[2022-04-19] MEDS: amLODIPine BESYLATE 5 MG TABLET (FP) PO SCH (10:00)
[2022-04-19] MEDS: BUDESONIDE/FORMETEROL FUMARATE 160/4.5 mcg INHALER IH SCH (10:00)
[2022-04-19] MEDS: PANTOPRAZOLE 40 MG TABLET PO SCH (10:00)
[2022-04-19] MEDS ORDERED: predniSONE 20 MG TABLET (UD) PO SCH ×2 (10:00)
[2022-04-19] MEDS: FENOFIBRIC ACID 45 MG CAP PO SCH (10:01)
[2022-04-19] MEDS: SODIUM ZIRCONIUM CYCLOSILICATE (LOKELMA) 5 GM PACKET PO SCH (11:08)
[2022-04-22] MEDS ORDERED: predniSONE 10 MG TABLET (UD) PO SCH (10:00)
[2022-04-25] MEDS ORDERED: predniSONE 20 MG TABLET (UD) PO SCH (10:00)
[2022-04-28] MEDS ORDERED: predniSONE 10 MG TABLET (UD) PO SCH (10:00)
== END 2022-04-19 14:27 | disposition home or self-care (01) | DRG 189 ==
LOC: JER 22:38 → JERBED 04-12 02:53 → J6W 04-12 14:11 → J4W 04-17 17:10
PROVIDERS: ADMIT Internal Medicine; ATTEND Nurse Practitioner Family
DX: J96.21 Acute and chronic respiratory failure with hypoxia (principal); G92.8 Other toxic encephalopathy; Z68.41 Body mass index [BMI] 40.0-44.9, adult; N17.9 Acute kidney failure, unspecified; N39.0 Urinary tract infection, site not specified; E87.29 Other acidosis; I47.1 Supraventricular tachycardia; J44.1 Chronic obstructive pulmonary disease with (acute) exacerbation; J96.22 Acute and chronic respiratory failure with hypercapnia; E78.5 Hyperlipidemia, unspecified; E66.01 Morbid (severe) obesity due to excess calories; K21.9 Gastro-esophageal reflux disease without esophagitis; B96.20 Unspecified Escherichia coli [E. coli] as the cause of diseases classified elsewhere; E27.9 Disorder of adrenal gland, unspecified; R00.2 Palpitations; E78.1 Pure hyperglyceridemia; I25.119 Atherosclerotic heart disease of native coronary artery with unspecified angina pectoris; G47.33 Obstructive sleep apnea (adult) (pediatric); I12.9 Hypertensive chronic kidney disease with stage 1 through stage 4 chronic kidney disease, or unspecified chronic kidney disease; E11.22 Type 2 diabetes mellitus with diabetic chronic kidney disease; U09.9 Post COVID-19 condition, unspecified; N18.30 Chronic kidney disease, stage 3 unspecified; F11.10 Opioid abuse, uncomplicated; F17.210 Nicotine dependence, cigarettes, uncomplicated; Z95.5 Presence of coronary angioplasty implant and graft
CPT/HCPCS: 0241U-QW; 36415; 36600; 70450-TC; 71045-TC-FY; 71275-TC; 74177-TC; 80048; 80053; 81003; 82553; 82803; 82962; 83605; 83735; 83880; 84100; 84484; 85025; 85379; 85610; 85730; 86850; 86900; 86901; 87040; 87086; 87186; 93005; 93010; 94010; 94640; 94660; 94761; 97116-GP; 97161-GP; 99285-25; J1644

== ENCOUNTER 2022-09-07 22:57 | Inpatient (IN) | payer OTHER ==
[2022-09-08] MEDS ORDERED: ALBUTEROL SO4 2.5/IPRATROPIUM 0.5 INH SOL 3 ML VIAL.NEB. NEB ONE ×3 (02:33→13:18)
[2022-09-08] MEDS ORDERED: methylPREDNISolone NA SUCC 125 MG/2 ML VIAL IVPUSH ONE (02:33)
[2022-09-08] MEDS ORDERED: methylPREDNISolone NA SUCC 125 MG/2 ML VIAL ONE (02:39)
[2022-09-08] MEDS ORDERED: ACETAMINOPHEN INJECTION 100 ML IVPB ONE ×2 (03:05→19:59)
[2022-09-08 03:24] LABS: BASO % 0.8 % (0-2.0); EOS % 2.4 % (0-4.5); HEMATOCRIT 30.6 % (32.4-45.2); HEMOGLOBIN 10.2 GM/dL (10.7-15.3); LYMPH % 12.1 % (8-40); MCH 30.5 pg (25.7-33.7); MCHC 33.3 g/dl (32.0-36.0); MEAN CELL VOLUME 91.8 fl (80-96); MEAN PLT VOLUME 8.3 fl (7.5-11.1); NEUT % 78.7 % (42.8-82.8); PLATELET COUNT 243 10^3/uL (134-434); RBC 3.33 M/mm3 (3.60-5.2); RDW 15.4 % (11.6-15.6); WHITE BLOOD COUNT 9.2 K/mm3 (4.0-10.0)
[2022-09-08] MEDS ORDERED: ACETAMINOPHEN 1000 MG/100 ML BAG IVPB ONE ×2 (03:27→19:55)
[2022-09-08 03:29] LABS: INR 0.99 (0.83-1.09); PROTHROMBIN TIME (PATIENT) 11.5 SEC (9.7-13.0)
[2022-09-08 03:32] LABS: ACTIVATED PTT 32.3 SECONDS (25.2-36.5)
[2022-09-08 03:36] LABS: POTASSIUM 4.7 mmol/L (3.5-5.1)
[2022-09-08 03:38] LABS: BLOOD UREA NITROGEN 51.5 mg/dL (7-18); CALCIUM 8.3 mg/dL (8.5-10.1)
[2022-09-08 03:42] LABS: CREATININE 2.4 mg/dL (0.55-1.3)
[2022-09-08 03:43] LABS: BILIRUBIN,TOTAL 0.2 mg/dL (0.2-1); TOT PROT 6.4 g/dl (6.4-8.2)
[2022-09-08 03:46] LABS: N-TERMINAL BNP 561.5 pg/ml (5-125)
[2022-09-08] MEDS ORDERED: HEPARIN NA (PORCINE) 5,000 UNITS/ML 1ML VIAL ONE (07:55)
[2022-09-08] MEDS ORDERED: FUROSEMIDE 40 MG/4 ML INJECTABLE VIAL ONE (07:56)
[2022-09-08] MEDS: HEPARIN NA (PORCINE) 5,000 UNITS/ML 1ML VIAL SQ SCH ×3 (08:00→22:05)
[2022-09-08] MEDS: FUROSEMIDE 40 MG/4 ML INJECTABLE VIAL IVPUSH SCH ×2 (08:00→14:34)
[2022-09-08] MEDS: INSULIN SLIDING SCALE (NOVOLOG) 1 VIAL SQ SCH ×4 (08:01→22:15)
[2022-09-08 08:05] LABS: HEMATOCRIT 33.9 % (32.4-45.2); HEMOGLOBIN 11.4 GM/dL (10.7-15.3); MCHC 33.7 g/dl (32.0-36.0); MEAN CELL VOLUME 91.9 fl (80-96); MEAN PLT VOLUME 8.3 fl (7.5-11.1); PLATELET COUNT 271 10^3/uL (134-434); RBC 3.69 M/mm3 (3.60-5.2); RDW 15.9 % (11.6-15.6); WHITE BLOOD COUNT 9.6 K/mm3 (4.0-10.0)
[2022-09-08 08:35] LABS: POTASSIUM 4.7 mmol/L (3.5-5.1)
[2022-09-08 08:37] LABS: ALBUMIN 3.4 g/dl (3.4-5.0); BLOOD UREA NITROGEN 48.7 mg/dL (7-18)
[2022-09-08 08:39] LABS: CHOLESTEROL 161 mg/dL (50-200)
[2022-09-08 08:40] LABS: CREATININE 2.3 mg/dL (0.55-1.3)
[2022-09-08 08:41] LABS: LDL CHOLESTEROL (ONLY SJRH) 81 mg/dL (5-100)
[2022-09-08 08:42] LABS: BILIRUBIN,TOTAL 0.2 mg/dL (0.2-1); HDL CHOLESTEROL 50 mg/dL (40-60); TOT PROT 7.4 g/dl (6.4-8.2)
[2022-09-08 08:52] LABS: EPI CELLS 21 /uL (0-25.1); HYALINE CASTS 1 /uL (0-3.1); URINE APPEARANCE CLEAR; URINE BACTERIA >9,000 /uL (0-1359); URINE BILIRUBIN NEGATIVE (NEGATIVE); URINE COLOR YELLOW; URINE GLUCOSE (UA) 3+ (NEGATIVE); URINE KETONE NEGATIVE (NEGATIVE); URINE LEUK ESTERASE NEGATIVE (NEGATIVE); URINE NITRITE NEGATIVE (NEGATIVE); URINE PROTEIN 3+ (NEGATIVE); URINE RBC 6 /uL (0-23.9); URINE UROBILINOGEN 0.2 mg/dL (0.2-1.0); URINE WBC 54 /uL (0-25.8)
[2022-09-08] MEDS: ALBUTEROL SO4 2.5/IPRATROPIUM 0.5 INH SOL 3 ML VIAL.NEB. NEB PRN (13:44)
[2022-09-08] MEDS ORDERED: amLODIPine BESYLATE 5 MG TABLET (FP) ONE (17:52)
[2022-09-08] MEDS: amLODIPine BESYLATE 5 MG TABLET (FP) PO SCH (18:02)
[2022-09-08] MEDS: INSULIN (LEVEMIR) 100 UNITS/ML UNITS SQ SCH ×2 (18:03→21:29)
[2022-09-08] MEDS: ATORVASTATIN CA 80 MG TABLET (FP) PO SCH (22:05)
[2022-09-08] MEDS: MELATONIN 5 MG TABLETS PO SCH (22:06)
[2022-09-08] MEDS: RANOLAZINE E.R. 500 MG TABLET (FP) PO SCH (22:06)
[2022-09-08] MEDS: BUDESONIDE/FORMETEROL FUMARATE 160/4.5 mcg INHALER IH SCH (22:08)
[2022-09-08] MEDS ORDERED: INSULIN (NOVOLOG) ASPART 100 UNITS/ML 10ML VIAL ONE (22:14)
[2022-09-08 22:51] VITALS: BMI 43.7
[2022-09-09 06:30] LABS: BASO % 0.5 % (0-2.0); EOS % 0.1 % (0-4.5); HEMATOCRIT 31.3 % (32.4-45.2); HEMOGLOBIN 10.5 GM/dL (10.7-15.3); LYMPH % 11.2 % (8-40); MCH 30.5 pg (25.7-33.7); MCHC 33.6 g/dl (32.0-36.0); MEAN CELL VOLUME 90.7 fl (80-96); MEAN PLT VOLUME 8.3 fl (7.5-11.1); MONO % 7.1 % (3.8-10.2); NEUT % 81.1 % (42.8-82.8); PLATELET COUNT 267 10^3/uL (134-434); RBC 3.46 M/mm3 (3.60-5.2); RDW 15.4 % (11.6-15.6); WHITE BLOOD COUNT 7.4 K/mm3 (4.0-10.0)
[2022-09-09] MEDS ORDERED: INSULIN (NOVOLOG) ASPART 100 UNITS/ML 10ML VIAL ONE ×4 (06:32→21:26)
[2022-09-09] MEDS: INSULIN SLIDING SCALE (NOVOLOG) 1 VIAL SQ SCH ×4 (06:33→21:53)
[2022-09-09] MEDS: HEPARIN NA (PORCINE) 5,000 UNITS/ML 1ML VIAL SQ SCH ×3 (06:34→21:53)
[2022-09-09] MEDS: ALBUTEROL SO4 2.5/IPRATROPIUM 0.5 INH SOL 3 ML VIAL.NEB. NEB PRN ×2 (06:53→16:10)
[2022-09-09 06:56] LABS: POTASSIUM 4.5 mmol/L (3.5-5.1)
[2022-09-09 06:59] LABS: CALCIUM 9.2 mg/dL (8.5-10.1)
[2022-09-09 07:00] LABS: BLOOD UREA NITROGEN 58.2 mg/dL (7-18); MAGNESIUM 2.1 mg/dL (1.8-2.4)
[2022-09-09 07:03] LABS: CREATININE 2.2 mg/dL (0.55-1.3); PHOSPHOROUS 4.9 mg/dL (2.5-4.9)
[2022-09-09 07:05] LABS: BILIRUBIN,TOTAL 0.4 mg/dL (0.2-1); TOT PROT 6.5 g/dl (6.4-8.2)
[2022-09-09] MEDS: RANOLAZINE E.R. 500 MG TABLET (FP) PO SCH ×2 (09:29→21:51)
[2022-09-09] MEDS: FENOFIBRIC ACID 45 MG CAP PO SCH (09:29)
[2022-09-09] MEDS: FUROSEMIDE 40 MG/4 ML INJECTABLE VIAL IVPUSH SCH (09:29)
[2022-09-09] MEDS: metoPROLOL SUCCINATE 25 MG TAB.SR.24H (FP) PO SCH ×2 (09:30→21:52)
[2022-09-09] MEDS: amLODIPine BESYLATE 5 MG TABLET (FP) PO SCH (09:30)
[2022-09-09] MEDS: BUDESONIDE/FORMETEROL FUMARATE 160/4.5 mcg INHALER IH SCH ×2 (11:59→21:54)
[2022-09-09] MEDS ORDERED: INSULIN (LEVEMIR) 100 UNITS/ML UNITS SQ SCH (12:13)
[2022-09-09] MEDS: DOXYCYCLINE HYCLATE 100 MG CAPSULE PO SCH (17:07)
[2022-09-09] MEDS: ATORVASTATIN CA 80 MG TABLET (FP) PO SCH (21:51)
[2022-09-09] MEDS: MELATONIN 5 MG TABLETS PO SCH (21:51)
[2022-09-10] MEDS: INSULIN SLIDING SCALE (NOVOLOG) 1 VIAL SQ SCH ×3 (06:13→16:34)
[2022-09-10] MEDS ORDERED: ACETAMINOPHEN 500 MG TABLET (FP) PO ONE (06:18)
[2022-09-10] MEDS: HEPARIN NA (PORCINE) 5,000 UNITS/ML 1ML VIAL SQ SCH ×3 (06:20→21:30)
[2022-09-10] MEDS: RANOLAZINE E.R. 500 MG TABLET (FP) PO SCH ×2 (09:03→21:29)
[2022-09-10] MEDS: metoPROLOL SUCCINATE 25 MG TAB.SR.24H (FP) PO SCH ×2 (09:03→21:29)
[2022-09-10] MEDS: DOXYCYCLINE HYCLATE 100 MG CAPSULE PO SCH (09:03)
[2022-09-10] MEDS: amLODIPine BESYLATE 5 MG TABLET (FP) PO SCH (09:03)
[2022-09-10] MEDS: FUROSEMIDE 40 MG/4 ML INJECTABLE VIAL IVPUSH SCH (09:03)
[2022-09-10] MEDS: FENOFIBRIC ACID 45 MG CAP PO SCH (09:04)
[2022-09-10] MEDS: BUDESONIDE/FORMETEROL FUMARATE 160/4.5 mcg INHALER IH SCH ×2 (09:06→21:30)
[2022-09-10] MEDS ORDERED: INSULIN (NOVOLOG) ASPART 100 UNITS/ML 10ML VIAL ONE ×2 (11:45→16:23)
[2022-09-10] MEDS ORDERED: FUROSEMIDE 40 MG/4 ML INJECTABLE VIAL IVPUSH ONE (13:56)
[2022-09-10] MEDS: ACETAMINOPHEN 500 MG TABLET (FP) PO PRN (14:25)
[2022-09-10 15:31] LABS: BASO % 0.6 % (0-2.0); EOS % 1.6 % (0-4.5); HEMATOCRIT 34.1 % (32.4-45.2); HEMOGLOBIN 11.6 GM/dL (10.7-15.3); LYMPH % 16.2 % (8-40); MCH 30.9 pg (25.7-33.7); MCHC 33.9 g/dl (32.0-36.0); MEAN PLT VOLUME 8.2 fl (7.5-11.1); MONO % 5.1 % (3.8-10.2); NEUT % 76.5 % (42.8-82.8); PLATELET COUNT 279 10^3/uL (134-434); RBC 3.75 M/mm3 (3.60-5.2); RDW 15.4 % (11.6-15.6); WHITE BLOOD COUNT 9.2 K/mm3 (4.0-10.0)
[2022-09-10 15:50] LABS: ALBUMIN 3.2 g/dl (3.4-5.0); BLOOD UREA NITROGEN 57.8 mg/dL (7-18)
[2022-09-10 15:53] LABS: CREATININE 2.4 mg/dL (0.55-1.3)
[2022-09-10 15:55] LABS: BILIRUBIN,TOTAL 0.3 mg/dL (0.2-1); TOT PROT 6.6 g/dl (6.4-8.2)
[2022-09-10] MEDS: ALBUTEROL SO4 2.5/IPRATROPIUM 0.5 INH SOL 3 ML VIAL.NEB. NEB SCH ×2 (18:13→19:56)
[2022-09-10] MEDS: ATORVASTATIN CA 80 MG TABLET (FP) PO SCH (21:28)
[2022-09-10] MEDS: MELATONIN 5 MG TABLETS PO SCH (21:29)
[2022-09-10] MEDS ORDERED: INSULIN (LEVEMIR) 100 UNITS/ML UNITS SQ ONE (22:00)
[2022-09-11] MEDS: ACETAMINOPHEN 500 MG TABLET (FP) PO PRN ×2 (04:08→22:00)
[2022-09-11] MEDS ORDERED: INSULIN (LEVEMIR) 100 UNITS/ML UNITS SQ ONE (05:58)
[2022-09-11] MEDS ORDERED: INSULIN (NOVOLOG) ASPART 100 UNITS/ML 10ML VIAL ONE ×4 (05:58→22:07)
[2022-09-11] MEDS: INSULIN SLIDING SCALE (NOVOLOG) 1 VIAL SQ SCH ×3 (06:00→16:53)
[2022-09-11] MEDS: HEPARIN NA (PORCINE) 5,000 UNITS/ML 1ML VIAL SQ SCH ×3 (06:00→21:44)
[2022-09-11] MEDS: INSULIN (LEVEMIR) 100 UNITS/ML UNITS SQ SCH ×2 (06:01→21:44)
[2022-09-11] MEDS: ALBUTEROL SO4 2.5/IPRATROPIUM 0.5 INH SOL 3 ML VIAL.NEB. NEB SCH ×4 (07:20→20:00)
[2022-09-11 08:35] LABS: BASO % 0.7 % (0-2.0); EOS % 2.1 % (0-4.5); HEMATOCRIT 31.9 % (32.4-45.2); HEMOGLOBIN 10.7 GM/dL (10.7-15.3); MCH 30.4 pg (25.7-33.7); MCHC 33.4 g/dl (32.0-36.0); MEAN CELL VOLUME 91.2 fl (80-96); MONO % 6.4 % (3.8-10.2); NEUT % 70.8 % (42.8-82.8); PLATELET COUNT 228 10^3/uL (134-434); RDW 15.4 % (11.6-15.6)
[2022-09-11 08:50] LABS: POTASSIUM 4.2 mmol/L (3.5-5.1)
[2022-09-11 08:56] LABS: ALBUMIN 2.9 g/dl (3.4-5.0); CALCIUM 8.9 mg/dL (8.5-10.1); MAGNESIUM 1.8 mg/dL (1.8-2.4)
[2022-09-11 08:57] LABS: BLOOD UREA NITROGEN 55.6 mg/dL (7-18)
[2022-09-11 08:59] LABS: PHOSPHOROUS 3.7 mg/dL (2.5-4.9)
[2022-09-11 09:01] LABS: BILIRUBIN,TOTAL 0.2 mg/dL (0.2-1)
[2022-09-11] MEDS: OMEGA-3 ACID ETHYL ESTERS (FATTY-ACIDS) 1 GM CAPSULE (FP) PO SCH ×2 (10:10→21:45)
[2022-09-11] MEDS: FUROSEMIDE 40 MG/4 ML INJECTABLE VIAL IVPUSH SCH (10:11)
[2022-09-11] MEDS: FENOFIBRIC ACID 45 MG CAP PO SCH (10:11)
[2022-09-11] MEDS: amLODIPine BESYLATE 5 MG TABLET (FP) PO SCH (10:11)
[2022-09-11] MEDS: RANOLAZINE E.R. 500 MG TABLET (FP) PO SCH ×2 (10:11→21:45)
[2022-09-11] MEDS: metoPROLOL SUCCINATE 25 MG TAB.SR.24H (FP) PO SCH ×2 (10:11→21:45)
[2022-09-11] MEDS: BUDESONIDE/FORMETEROL FUMARATE 160/4.5 mcg INHALER IH SCH ×2 (10:12→21:45)
[2022-09-11] MEDS: ATORVASTATIN CA 80 MG TABLET (FP) PO SCH (21:45)
[2022-09-11] MEDS: MELATONIN 5 MG TABLETS PO SCH (21:45)
[2022-09-11] MEDS ORDERED: INSULIN (NOVOLOG) ASPART 100 UNITS/ML 10ML VIAL SQ ONE (22:30)
[2022-09-12] MEDS ORDERED: INSULIN (NOVOLOG) ASPART 100 UNITS/ML 10ML VIAL ONE ×3 (06:32→21:54)
[2022-09-12] MEDS: HEPARIN NA (PORCINE) 5,000 UNITS/ML 1ML VIAL SQ SCH ×3 (06:36→21:43)
[2022-09-12] MEDS: INSULIN (LEVEMIR) 100 UNITS/ML UNITS SQ SCH ×2 (06:37→21:43)
[2022-09-12] MEDS: INSULIN SLIDING SCALE (NOVOLOG) 1 VIAL SQ SCH ×3 (06:37→18:29)
[2022-09-12] MEDS: ALBUTEROL SO4 2.5/IPRATROPIUM 0.5 INH SOL 3 ML VIAL.NEB. NEB SCH ×4 (07:15→20:39)
[2022-09-12 08:36] LABS: BASO % 0.9 % (0-2.0); EOS % 2.1 % (0-4.5); HEMOGLOBIN 10.4 GM/dL (10.7-15.3); LYMPH % 18.6 % (8-40); MCH 30.3 pg (25.7-33.7); MCHC 33.4 g/dl (32.0-36.0); MEAN CELL VOLUME 90.8 fl (80-96); MEAN PLT VOLUME 8.2 fl (7.5-11.1); NEUT % 73.4 % (42.8-82.8); PLATELET COUNT 217 10^3/uL (134-434); RBC 3.42 M/mm3 (3.60-5.2); RDW 15.2 % (11.6-15.6); WHITE BLOOD COUNT 7.8 K/mm3 (4.0-10.0)
[2022-09-12 08:58] LABS: POTASSIUM 4.4 mmol/L (3.5-5.1)
[2022-09-12 08:59] LABS: ACTIVATED PTT 31.9 SECONDS (25.2-36.5)
[2022-09-12 09:00] LABS: INR 0.93 (0.83-1.09); PROTHROMBIN TIME (PATIENT) 10.8 SEC (9.7-13.0)
[2022-09-12 09:04] LABS: ALBUMIN 2.8 g/dl (3.4-5.0); BLOOD UREA NITROGEN 52.2 mg/dL (7-18); CALCIUM 9.4 mg/dL (8.5-10.1)
[2022-09-12 09:08] LABS: PHOSPHOROUS 3.5 mg/dL (2.5-4.9)
[2022-09-12 09:10] LABS: BILIRUBIN,TOTAL 0.4 mg/dL (0.2-1); TOT PROT 5.9 g/dl (6.4-8.2)
[2022-09-12] MEDS: FUROSEMIDE 40 MG/4 ML INJECTABLE VIAL IVPUSH SCH ×2 (09:55→15:03)
[2022-09-12] MEDS: metoPROLOL SUCCINATE 25 MG TAB.SR.24H (FP) PO SCH ×2 (09:55→21:43)
[2022-09-12] MEDS: RANOLAZINE E.R. 500 MG TABLET (FP) PO SCH ×2 (09:55→21:44)
[2022-09-12] MEDS: amLODIPine BESYLATE 5 MG TABLET (FP) PO SCH (09:55)
[2022-09-12] MEDS: OMEGA-3 ACID ETHYL ESTERS (FATTY-ACIDS) 1 GM CAPSULE (FP) PO SCH ×2 (09:55→21:44)
[2022-09-12] MEDS: FENOFIBRIC ACID 45 MG CAP PO SCH (09:56)
[2022-09-12] MEDS: BUDESONIDE/FORMETEROL FUMARATE 160/4.5 mcg INHALER IH SCH ×2 (10:04→21:44)
[2022-09-12] MEDS ORDERED: AZITHROMYCIN 250 MG TABLET PO ONE (13:35)
[2022-09-12] MEDS: predniSONE 20 MG TABLET (UD) PO SCH (15:04)
[2022-09-12] MEDS: MELATONIN 5 MG TABLETS PO SCH (21:43)
[2022-09-12] MEDS ORDERED: INSULIN (NOVOLOG) ASPART 100 UNITS/ML 10ML VIAL SQ ONE (21:43)
[2022-09-12] MEDS: ATORVASTATIN CA 80 MG TABLET (FP) PO SCH (21:44)
[2022-09-12] MEDS: ACETAMINOPHEN 500 MG TABLET (FP) PO PRN (21:57)
[2022-09-12] MEDS ORDERED: INSULIN (LEVEMIR) 100 UNITS/ML UNITS SQ SCH (22:37)
[2022-09-13] MEDS ORDERED: PANTOPRAZOLE SODIUM 40 MG VIAL IVPUSH ONE
[2022-09-13 00:43] LABS: GLUCOSE,RANDOM 577 mg/dL (74-106)
[2022-09-13] MEDS ORDERED: INSULIN (NOVOLOG) ASPART 100 UNITS/ML 10ML VIAL SQ ONE (00:53)
[2022-09-13] MEDS ORDERED: INSULIN (NOVOLOG) ASPART 100 UNITS/ML 10ML VIAL ONE ×4 (00:58→17:52)
[2022-09-13] MEDS: INSULIN (NOVOLOG) ASPART 100 UNITS/ML 10ML VIAL SQ SCH ×4 (06:50→17:00)
[2022-09-13] MEDS: INSULIN (LEVEMIR) 100 UNITS/ML UNITS SQ SCH (06:51)
[2022-09-13] MEDS: INSULIN SLIDING SCALE (NOVOLOG) 1 VIAL SQ SCH ×4 (06:52→22:27)
[2022-09-13] MEDS: HEPARIN NA (PORCINE) 5,000 UNITS/ML 1ML VIAL SQ SCH ×3 (06:53→22:25)
[2022-09-13] MEDS: FUROSEMIDE 40 MG/4 ML INJECTABLE VIAL IVPUSH SCH ×2 (06:53→14:37)
[2022-09-13 08:17] LABS: BASO % 0.8 % (0-2.0); EOS % 0.2 % (0-4.5); HEMATOCRIT 33.7 % (32.4-45.2); HEMOGLOBIN 11.5 GM/dL (10.7-15.3); LYMPH % 10.3 % (8-40); MCH 30.7 pg (25.7-33.7); MCHC 34.3 g/dl (32.0-36.0); MEAN CELL VOLUME 89.5 fl (80-96); MEAN PLT VOLUME 8.1 fl (7.5-11.1); MONO % 3.4 % (3.8-10.2); NEUT % 85.3 % (42.8-82.8); PLATELET COUNT 296 10^3/uL (134-434); RBC 3.76 M/mm3 (3.60-5.2); WHITE BLOOD COUNT 10.9 K/mm3 (4.0-10.0)
[2022-09-13] MEDS: ALBUTEROL SO4 2.5/IPRATROPIUM 0.5 INH SOL 3 ML VIAL.NEB. NEB SCH ×2 (08:32→11:38)
[2022-09-13 08:33] LABS: POTASSIUM 4.1 mmol/L (3.5-5.1)
[2022-09-13 08:40] LABS: ALBUMIN 3.3 g/dl (3.4-5.0); CALCIUM 10.4 mg/dL (8.5-10.1); MAGNESIUM 2.3 mg/dL (1.8-2.4)
[2022-09-13 08:42] LABS: PHOSPHOROUS 3.2 mg/dL (2.5-4.9)
[2022-09-13 08:45] LABS: BILIRUBIN,TOTAL 0.3 mg/dL (0.2-1)
[2022-09-13] MEDS ORDERED: AZITHROMYCIN 250 MG TABLET PO SCH (10:00)
[2022-09-13] MEDS: OMEGA-3 ACID ETHYL ESTERS (FATTY-ACIDS) 1 GM CAPSULE (FP) PO SCH ×2 (10:30→22:26)
[2022-09-13] MEDS: BUDESONIDE/FORMETEROL FUMARATE 160/4.5 mcg INHALER IH SCH ×2 (10:30→22:28)
[2022-09-13] MEDS: amLODIPine BESYLATE 5 MG TABLET (FP) PO SCH (10:30)
[2022-09-13] MEDS: predniSONE 20 MG TABLET (UD) PO SCH (10:30)
[2022-09-13] MEDS: FENOFIBRIC ACID 45 MG CAP PO SCH (10:30)
[2022-09-13] MEDS: metoPROLOL SUCCINATE 25 MG TAB.SR.24H (FP) PO SCH ×2 (10:30→22:26)
[2022-09-13] MEDS: PANTOPRAZOLE 40 MG TABLET PO SCH (10:30)
[2022-09-13] MEDS: RANOLAZINE E.R. 500 MG TABLET (FP) PO SCH ×2 (10:30→22:27)
[2022-09-13] MEDS ORDERED: ALBUTEROL SO4 0.083% IH SOL 2.5 MG/3 ML VIAL.NEB. NEB PRN (13:59)
[2022-09-13] MEDS: TIOTROPIUM BROMIDE 2.5 MCG (SPIRIVA) RESPIMAT INHALER IH SCH (14:00)
[2022-09-13] MEDS: ATORVASTATIN CA 80 MG TABLET (FP) PO SCH (22:26)
[2022-09-13] MEDS: MELATONIN 5 MG TABLETS PO SCH (22:26)
[2022-09-14] MEDS: INSULIN (LEVEMIR) 100 UNITS/ML UNITS SQ SCH (06:25)
[2022-09-14] MEDS: INSULIN SLIDING SCALE (NOVOLOG) 1 VIAL SQ SCH ×2 (06:26→11:14)
[2022-09-14] MEDS: FUROSEMIDE 40 MG/4 ML INJECTABLE VIAL IVPUSH SCH ×2 (06:26→13:07)
[2022-09-14] MEDS: INSULIN (NOVOLOG) ASPART 100 UNITS/ML 10ML VIAL SQ SCH ×2 (06:27→11:14)
[2022-09-14] MEDS: HEPARIN NA (PORCINE) 5,000 UNITS/ML 1ML VIAL SQ SCH ×2 (06:27→13:07)
[2022-09-14 07:54] LABS: HEMATOCRIT 34.4 % (32.4-45.2); HEMOGLOBIN 11.7 GM/dL (10.7-15.3); MCH 30.7 pg (25.7-33.7); MEAN CELL VOLUME 90.2 fl (80-96); MEAN PLT VOLUME 8.7 fl (7.5-11.1); PLATELET COUNT 325 10^3/uL (134-434); RBC 3.81 M/mm3 (3.60-5.2); RDW 15.3 % (11.6-15.6)
[2022-09-14 08:14] LABS: POTASSIUM 3.6 mmol/L (3.5-5.1)
[2022-09-14 08:18] LABS: ALBUMIN 3.4 g/dl (3.4-5.0); MAGNESIUM 2.1 mg/dL (1.8-2.4)
[2022-09-14 08:20] LABS: BLOOD UREA NITROGEN 55.7 mg/dL (7-18)
[2022-09-14 08:22] LABS: CREATININE 1.9 mg/dL (0.55-1.3)
[2022-09-14 08:23] LABS: TOT PROT 7.2 g/dl (6.4-8.2)
[2022-09-14 08:24] LABS: BILIRUBIN,TOTAL 0.3 mg/dL (0.2-1)
[2022-09-14] MEDS ORDERED: POTASSIUM CHLORIDE TABS 20 MEQ TABLET.ER (FP) PO ONE (09:15)
[2022-09-14] MEDS: amLODIPine BESYLATE 5 MG TABLET (FP) PO SCH (10:04)
[2022-09-14] MEDS: FENOFIBRIC ACID 45 MG CAP PO SCH (10:04)
[2022-09-14] MEDS: RANOLAZINE E.R. 500 MG TABLET (FP) PO SCH (10:04)
[2022-09-14] MEDS: predniSONE 20 MG TABLET (UD) PO SCH (10:04)
[2022-09-14] MEDS: metoPROLOL SUCCINATE 25 MG TAB.SR.24H (FP) PO SCH (10:04)
[2022-09-14] MEDS: OMEGA-3 ACID ETHYL ESTERS (FATTY-ACIDS) 1 GM CAPSULE (FP) PO SCH (10:04)
[2022-09-14] MEDS: PANTOPRAZOLE 40 MG TABLET PO SCH (10:04)
[2022-09-14] MEDS: BUDESONIDE/FORMETEROL FUMARATE 160/4.5 mcg INHALER IH SCH (10:05)
[2022-09-14] MEDS: TIOTROPIUM BROMIDE 2.5 MCG (SPIRIVA) RESPIMAT INHALER IH SCH (10:05)
[2022-09-14 10:08] VITALS: BP 141/66; PULSE 76; RESP 18; TEMP 98.4
[2022-09-14] MEDS ORDERED: INSULIN (NOVOLOG) ASPART 100 UNITS/ML 10ML VIAL ONE (11:08)
== END 2022-09-14 15:13 | disposition home or self-care (01) | DRG 291 ==
LOC: JER 22:57 → JERBED 09-08 04:41 → OBSVTOIN 09-08 06:41 → J4W 09-08 20:58
PROVIDERS: ADMIT Student in an Organized Health Care Education/Training Program; ATTEND Internal Medicine
DX: I13.0 Hypertensive heart and chronic kidney disease with heart failure and stage 1 through stage 4 chronic kidney disease, or unspecified chronic kidney disease (principal); I50.33 Acute on chronic diastolic (congestive) heart failure; J44.1 Chronic obstructive pulmonary disease with (acute) exacerbation; N39.0 Urinary tract infection, site not specified; N17.9 Acute kidney failure, unspecified; Z68.41 Body mass index [BMI] 40.0-44.9, adult; J96.11 Chronic respiratory failure with hypoxia; J98.11 Atelectasis; E11.22 Type 2 diabetes mellitus with diabetic chronic kidney disease; N18.30 Chronic kidney disease, stage 3 unspecified; I25.119 Atherosclerotic heart disease of native coronary artery with unspecified angina pectoris; E78.5 Hyperlipidemia, unspecified; N20.0 Calculus of kidney; G47.33 Obstructive sleep apnea (adult) (pediatric); E78.1 Pure hyperglyceridemia; E11.40 Type 2 diabetes mellitus with diabetic neuropathy, unspecified; N28.1 Cyst of kidney, acquired; K76.0 Fatty (change of) liver, not elsewhere classified; R80.8 Other proteinuria; E66.01 Morbid (severe) obesity due to excess calories; R33.9 Retention of urine, unspecified; B96.1 Klebsiella pneumoniae [K. pneumoniae] as the cause of diseases classified elsewhere; I25.5 Ischemic cardiomyopathy; E11.65 Type 2 diabetes mellitus with hyperglycemia; Z99.81 Dependence on supplemental oxygen; Z95.5 Presence of coronary angioplasty implant and graft
CPT/HCPCS: 0241U-QW; 36415; 71045-TC-FY; 71046-TC-FY; 76775-TC; 76856-TC; 80053; 80061; 81003; 82947; 82962; 83036; 83735; 83880; 84100; 84484; 85025; 85027; 85610; 85730; 87086; 87186; 93005; 93010; 93306-TC; 94640; 94761; 97116-GP; 97161-GP; 99285-25; G0378; J1644

== ENCOUNTER 2022-12-11 15:51 | Emergency (ER) | payer OTHER ==
[2022-12-11 16:11] VITALS: BMI 42.0
[2022-12-11] MEDS ORDERED: ACETAMINOPHEN 1000 MG/100 ML BAG IVPB ONE (16:44)
[2022-12-11 17:00] LABS: BASO % 0.8 % (0-2.0); EOS % 1.7 % (0-4.5); HEMATOCRIT 31.2 % (32.4-45.2); HEMOGLOBIN 10.4 GM/dL (10.7-15.3); LYMPH % 11.3 % (8-40); MCH 30.7 pg (25.7-33.7); MCHC 33.3 g/dl (32.0-36.0); MEAN CELL VOLUME 92.4 fl (80-96); MEAN PLT VOLUME 8.2 fl (7.5-11.1); MONO % 5.1 % (3.8-10.2); NEUT % 81.1 % (42.8-82.8); PLATELET COUNT 298 10^3/uL (134-434); RBC 3.38 M/mm3 (3.60-5.2); RDW 15.6 % (11.6-15.6); WHITE BLOOD COUNT 12.2 K/mm3 (4.0-10.0)
[2022-12-11] MEDS ORDERED: ACETAMINOPHEN INJECTION 100 ML IVPB ONE (17:02)
[2022-12-11 17:17] LABS: POTASSIUM 4.1 mmol/L (3.5-5.1)
[2022-12-11 17:19] LABS: CALCIUM 9.3 mg/dL (8.5-10.1)
[2022-12-11 17:20] LABS: ALBUMIN 3.2 g/dl (3.4-5.0); BLOOD UREA NITROGEN 47.8 mg/dL (7-18)
[2022-12-11 17:23] LABS: CREATININE 2.4 mg/dL (0.55-1.3)
[2022-12-11 17:25] LABS: BILIRUBIN,TOTAL 0.2 mg/dL (0.2-1); TOT PROT 6.7 g/dl (6.4-8.2)
[2022-12-11] MEDS ORDERED: CLINDAMYCIN HCL 300 MG CAPSULE PO ONE (18:30)
[2022-12-11] MEDS ORDERED: CLINDAMYCIN HCL 150 MG CAPSULE (FP) ONE (18:34)
[2022-12-11 18:42] VITALS: BP 128/64; PULSE 79; RESP 11; TEMP 97.3
== END 2022-12-11 18:51 | disposition home or self-care (01) ==
LOC: JER 15:51 → SUPCPDRO 15:51 → JER 18:51
PROC: 3E033GC Introduction of Other Therapeutic Substance into Peripheral Vein, Percutaneous Approach (ICD-10-PCS; principal; 2022-12-11)
DX: R22.0 Localized swelling, mass and lump, head (principal)
CPT/HCPCS: 36415; 70486-TC; 70490-TC; 80053; 85025; 99285-25

== ENCOUNTER 2022-12-24 22:18 | Observation (INO) | payer OTHER ==
[2022-12-24 22:27] VITALS: BMI 42.0
[2022-12-24] MEDS ORDERED: ASPIRIN 81 MG CHEWABLE TABLETS PO ONE (22:44)
[2022-12-24 22:57] LABS: BASO % 1.5 % (0-2.0); EOS % 1.8 % (0-4.5); HEMATOCRIT 30.7 % (32.4-45.2); HEMOGLOBIN 10.1 GM/dL (10.7-15.3); LYMPH % 15.9 % (8-40); MCH 29.9 pg (25.7-33.7); MCHC 32.8 g/dl (32.0-36.0); MEAN CELL VOLUME 91.3 fl (80-96); MEAN PLT VOLUME 7.8 fl (7.5-11.1); MONO % 4.8 % (3.8-10.2); PLATELET COUNT 296 10^3/uL (134-434); RBC 3.36 M/mm3 (3.60-5.2); RDW 15.5 % (11.6-15.6); WHITE BLOOD COUNT 11.1 K/mm3 (4.0-10.0)
[2022-12-24] MEDS ORDERED: ASPIRIN 81 MG CHEWABLE TABLETS ONE (22:57)
[2022-12-24 23:12] LABS: INR 0.99 (0.83-1.09); PROTHROMBIN TIME (PATIENT) 11.5 SEC (9.7-13.0)
[2022-12-24 23:15] LABS: ACTIVATED PTT 34.6 SECONDS (25.2-36.5)
[2022-12-24 23:20] LABS: POTASSIUM 4.5 mmol/L (3.5-5.1)
[2022-12-24 23:23] LABS: ALBUMIN 3.4 g/dl (3.4-5.0); BLOOD UREA NITROGEN 57.5 mg/dL (7-18); CALCIUM 9.1 mg/dL (8.5-10.1); MAGNESIUM 2.2 mg/dL (1.8-2.4)
[2022-12-24 23:26] LABS: CREATININE 2.9 mg/dL (0.55-1.3)
[2022-12-24 23:28] LABS: BILIRUBIN,TOTAL 0.3 mg/dL (0.2-1)
[2022-12-25] MEDS ORDERED: HEPARIN NA (PORCINE) 5,000 UNITS/ML 1ML VIAL SQ SCH (06:00)
[2022-12-25 06:50] LABS: HEMATOCRIT 30.4 % (32.4-45.2); HEMOGLOBIN 9.8 GM/dL (10.7-15.3); MCH 29.9 pg (25.7-33.7); MCHC 32.3 g/dl (32.0-36.0); MEAN CELL VOLUME 92.6 fl (80-96); MEAN PLT VOLUME 8.4 fl (7.5-11.1); PLATELET COUNT 261 10^3/uL (134-434); RBC 3.29 M/mm3 (3.60-5.2); RDW 15.5 % (11.6-15.6); WHITE BLOOD COUNT 7.9 K/mm3 (4.0-10.0)
[2022-12-25 06:59] LABS: INR 1.03 (0.83-1.09); PROTHROMBIN TIME (PATIENT) 11.9 SEC (9.7-13.0)
[2022-12-25] MEDS ORDERED: INSULIN SLIDING SCALE (NOVOLOG) 1 VIAL SQ SCH (07:00)
[2022-12-25] MEDS ORDERED: INSULIN (LEVEMIR) 100 UNITS/ML UNITS SQ SCH (07:00)
[2022-12-25 07:13] LABS: POTASSIUM 4.3 mmol/L (3.5-5.1)
[2022-12-25 07:15] LABS: ALBUMIN 3.2 g/dl (3.4-5.0); BLOOD UREA NITROGEN 54.4 mg/dL (7-18); CALCIUM 8.7 mg/dL (8.5-10.1); MAGNESIUM 2.2 mg/dL (1.8-2.4)
[2022-12-25 07:18] LABS: CREATININE 2.4 mg/dL (0.55-1.3); PHOSPHOROUS 3.8 mg/dL (2.5-4.9)
[2022-12-25 07:20] LABS: BILIRUBIN,TOTAL 0.3 mg/dL (0.2-1); TOT PROT 6.5 g/dl (6.4-8.2)
[2022-12-25 08:00] LABS: EPI CELLS 34 /uL (0-25.1); HYALINE CASTS 1 /uL (0-3.1); PH,URINE 5.5 (5.0-8.0); URINE APPEARANCE CLEAR; URINE BACTERIA >9,000 /uL (0-1359); URINE BILIRUBIN NEGATIVE (NEGATIVE); URINE COLOR YELLOW; URINE GLUCOSE (UA) 3+ (NEGATIVE); URINE KETONE NEGATIVE (NEGATIVE); URINE LEUK ESTERASE NEGATIVE (NEGATIVE); URINE NITRITE POSITIVE (NEGATIVE); URINE PROTEIN 3+ (NEGATIVE); URINE RBC 8 /uL (0-23.9); URINE UROBILINOGEN 0.2 mg/dL (0.2-1.0)
[2022-12-25] MEDS ORDERED: RANOLAZINE E.R. 500 MG TABLET (FP) ONE (08:39)
[2022-12-25] MEDS ORDERED: HEPARIN NA (PORCINE) 5,000 UNITS/ML 1ML VIAL ONE (08:39)
[2022-12-25] MEDS ORDERED: PANTOPRAZOLE 20 MG TABLET PO ONE (08:39)
[2022-12-25] MEDS ORDERED: metoPROLOL SUCCINATE 25 MG TAB.SR.24H (FP) PO ONE (08:39)
[2022-12-25] MEDS ORDERED: ASPIRIN COATED 81 MG TABLET.EC ONE (08:39)
[2022-12-25 08:43] LABS: N-TERMINAL BNP 257.5 pg/ml (5-125)
[2022-12-25 09:11] VITALS: TEMP 98.1
[2022-12-25] MEDS ORDERED: ENOXAPARIN NA (PORCINE) 40 MG/0.4 ML DISP.SYRIN SQ SCH (10:00)
[2022-12-25] MEDS ORDERED: PANTOPRAZOLE 20 MG TABLET PO SCH (10:00)
[2022-12-25] MEDS ORDERED: METOPROLOL SUCCINATE 100 MG, METOPROLOL SUCCINATE 25 MG PO SCH (10:00)
[2022-12-25] MEDS ORDERED: ASPIRIN COATED 81 MG TABLET.EC PO SCH (10:00)
[2022-12-25] MEDS ORDERED: FUROSEMIDE 40 MG TABLET (FP) PO SCH (10:00)
[2022-12-25] MEDS ORDERED: RANOLAZINE E.R. 500 MG TABLET (FP) PO SCH (10:00)
[2022-12-25] MEDS ORDERED: BUDESONIDE/FORMETEROL FUMARATE 160/4.5 mcg INHALER IH SCH (10:00)
[2022-12-25 12:53] VITALS: BP 130/62; PULSE 79; RESP 15
[2022-12-25] MEDS ORDERED: ROSUVASTATIN CA 20 MG TABLET PO SCH (22:00)
[2022-12-25] MEDS ORDERED: amLODIPine BESYLATE 10 MG TABLET (FP) PO SCH (22:00)
== END 2022-12-25 13:20 | disposition home or self-care (01) ==
LOC: JER 22:18 → JERBED 12-25 00:54
PROVIDERS: ADMIT Internal Medicine; ATTEND Internal Medicine
PROC: 3E023GC Introduction of Other Therapeutic Substance into Muscle, Percutaneous Approach (ICD-10-PCS; principal; 2022-12-25)
PROC: 3E013VG Introduction of Insulin into Subcutaneous Tissue, Percutaneous Approach (ICD-10-PCS; 2022-12-25)
DX: I25.10 Atherosclerotic heart disease of native coronary artery without angina pectoris (principal); N18.9 Chronic kidney disease, unspecified; I50.33 Acute on chronic diastolic (congestive) heart failure; E11.22 Type 2 diabetes mellitus with diabetic chronic kidney disease; J44.1 Chronic obstructive pulmonary disease with (acute) exacerbation; Z88.0 Allergy status to penicillin; E66.01 Morbid (severe) obesity due to excess calories; Z68.41 Body mass index [BMI] 40.0-44.9, adult; E78.5 Hyperlipidemia, unspecified; Z87.891 Personal history of nicotine dependence; I11.9 Hypertensive heart disease without heart failure
CPT/HCPCS: 36415; 71046-TC-FY; 71250-TC; 80053; 81003; 82436; 82550; 82553; 82570; 82962; 83735; 83880; 83935; 84100; 84300; 84484; 84540; 85025; 85027; 85610; 85730; 93005; 93010; 96372; 99285-25; G0378; J1644

== ENCOUNTER 2023-01-13 18:11 | Emergency (ER) | payer OTHER ==
[2023-01-13 18:19] VITALS: BP 171/81; PULSE 82; RESP 18; TEMP 98.3; BMI 41.3
[2023-01-13] MEDS ORDERED: CLINDAMYCIN HCL 150 MG CAPSULE (FP) PO ONE (19:10)
[2023-01-13] MEDS ORDERED: CLINDAMYCIN HCL 150 MG CAPSULE (FP) ONE (19:15)
== END 2023-01-13 20:03 | disposition home or self-care (01) ==
LOC: JERFT 18:11 → JER 18:11 → JERFT 20:03
DX: M79.631 Pain in right forearm (principal); R21 Rash and other nonspecific skin eruption; L53.9 Erythematous condition, unspecified; L03.113 Cellulitis of right upper limb
CPT/HCPCS: 99283-25

== ENCOUNTER 2023-08-09 17:53 | Inpatient (IN) | payer OTHER ==
[2023-08-09 18:06] VITALS: RESP 18
[2023-08-09] MEDS ORDERED: ACETAMINOPHEN INJECTION 100 ML IVPB ONE (20:39)
[2023-08-09] MEDS ORDERED: FAMOTIDINE 20 MG/50 ML IVPB 20 MG/50 ML MG IVPB ONE (20:39)
[2023-08-09] MEDS ORDERED: MAG HYDROX/AL HYDROX/SIMETH 30 ML UNIT-DOSE CUP ONE (20:39)
[2023-08-09 20:45] LABS: BASO % 1.1 % (0-2.0); EOS % 2.1 % (0-4.5); HEMATOCRIT 32.8 % (32.4-45.2); HEMOGLOBIN 10.9 GM/dL (10.7-15.3); LYMPH % 20.7 % (8-40); MCH 30.9 pg (25.7-33.7); MCHC 33.1 g/dl (32.0-36.0); MEAN CELL VOLUME 93.4 fl (80-96); MEAN PLT VOLUME 8.1 fl (7.5-11.1); MONO % 4.6 % (3.8-10.2); NEUT % 71.5 % (42.8-82.8); PLATELET COUNT 243 10^3/uL (134-434); RBC 3.51 M/mm3 (3.60-5.2); RDW 13.9 % (11.6-15.6)
[2023-08-09 20:48] LABS: EPI CELLS 24 /uL (0-25.1); HYALINE CASTS 0 /uL (0-3.1); URINE APPEARANCE CLEAR; URINE BACTERIA >9,000 /uL (0-1359); URINE BILIRUBIN NEGATIVE (NEGATIVE); URINE COLOR YELLOW; URINE GLUCOSE (UA) 3+ (NEGATIVE); URINE KETONE NEGATIVE (NEGATIVE); URINE LEUK ESTERASE NEGATIVE (NEGATIVE); URINE NITRITE NEGATIVE (NEGATIVE); URINE PROTEIN 3+ (NEGATIVE); URINE RBC 10 /uL (0-23.9); URINE UROBILINOGEN 0.2 mg/dL (0.2-1.0); URINE WBC 39 /uL (0-25.8)
[2023-08-09] MEDS: ACETAMINOPHEN 1000 MG/100 ML BAG IVPB ONE (20:52)
[2023-08-09] MEDS: MAG HYDROX/AL HYDROX/SIMETH 30 ML UNIT-DOSE CUP PO ONE (20:52)
[2023-08-09] MEDS: SODIUM CHLORIDE 0.9% 500 ML INFUS.BAG IV ONE (20:52)
[2023-08-09 21:09] LABS: POTASSIUM 4.5 mmol/L (3.5-5.1)
[2023-08-09 21:12] LABS: BLOOD UREA NITROGEN 44.5 mg/dL (7-18); CALCIUM 9.4 mg/dL (8.5-10.1)
[2023-08-09 21:13] LABS: ALBUMIN 3.4 g/dl (3.4-5.0)
[2023-08-09 21:15] LABS: CREATININE 2.3 mg/dL (0.55-1.3)
[2023-08-09 21:17] LABS: BILIRUBIN,TOTAL 0.2 mg/dL (0.2-1); TOT PROT 6.7 g/dl (6.4-8.2)
[2023-08-09] MEDS: FAMOTIDINE 20 MG/50 ML IVPB 20 MG/50 ML MG IVPB ONE (21:21)
[2023-08-10 01:39] VITALS: BMI 32.5
[2023-08-10] MEDS: MEROPENEM 1 GM in DEXTROSE 5%-WATER 100 ML IVPB ONE (02:10)
[2023-08-10] MEDS: MELATONIN 5 MG TABLETS PO PRN ×2 (02:10→22:23)
[2023-08-10] MEDS: HEPARIN NA (PORCINE) 5,000 UNITS/ML 1ML VIAL SQ SCH (06:13)
[2023-08-10] MEDS: INSULIN ASPART SLIDING SCALE (NOVOLOG) 1 VIAL SQ SCH (07:21)
[2023-08-10 07:54] LABS: BASO % 0.9 % (0-2.0); HEMATOCRIT 35.5 % (32.4-45.2); HEMOGLOBIN 11.4 GM/dL (10.7-15.3); LYMPH % 25.3 % (8-40); MCH 30.3 pg (25.7-33.7); MEAN CELL VOLUME 94.7 fl (80-96); MEAN PLT VOLUME 8.4 fl (7.5-11.1); MONO % 4.2 % (3.8-10.2); NEUT % 66.6 % (42.8-82.8); PLATELET COUNT 235 10^3/uL (134-434); RBC 3.75 M/mm3 (3.60-5.2); WHITE BLOOD COUNT 6.1 K/mm3 (4.0-10.0)
[2023-08-10 08:08] LABS: POTASSIUM 4.6 mmol/L (3.5-5.1)
[2023-08-10 08:16] LABS: ALBUMIN 3.6 g/dl (3.4-5.0); CALCIUM 9.6 mg/dL (8.5-10.1); MAGNESIUM 2.4 mg/dL (1.8-2.4)
[2023-08-10 08:20] LABS: CREATININE 1.9 mg/dL (0.55-1.3); PHOSPHOROUS 3.5 mg/dL (2.5-4.9)
[2023-08-10 08:22] LABS: BILIRUBIN,TOTAL 0.4 mg/dL (0.2-1); TOT PROT 6.8 g/dl (6.4-8.2)
[2023-08-10] MEDS: METOPROLOL SUCCINATE 100 MG, METOPROLOL SUCCINATE 25 MG PO SCH (11:09)
[2023-08-10] MEDS: RANOLAZINE E.R. 500 MG TABLET (FP) PO SCH (11:09)
[2023-08-10] MEDS: ASPIRIN COATED 81 MG TABLET.EC PO SCH (11:09)
[2023-08-10] MEDS: HYDROCHLOROTHIAZIDE 25 MG TABLET (FP) PO SCH (11:09)
[2023-08-10] MEDS: VALSARTAN 160 MG TABLET PO SCH (11:09)
[2023-08-10] MEDS: ROSUVASTATIN CA 20 MG TABLET PO SCH (11:10)
[2023-08-10] MEDS: MEROPENEM 1 GM in DEXTROSE 5%-WATER 100 ML IVPB SCH (14:07)
[2023-08-10] MEDS ORDERED: INSULIN (NOVOLOG) ASPART 100 UNITS/ML 10ML VIAL ONE ×2 (16:35→17:34)
[2023-08-10] MEDS: amLODIPine BESYLATE 5 MG TABLET (FP) PO SCH (21:39)
[2023-08-10] MEDS: ACETAMINOPHEN 325 MG TABLET (FP) PO ONE (22:25)
[2023-08-11 07:39] LABS: HEMATOCRIT 33.7 % (32.4-45.2); HEMOGLOBIN 11.3 GM/dL (10.7-15.3); MCHC 33.4 g/dl (32.0-36.0); MEAN CELL VOLUME 92.8 fl (80-96); MEAN PLT VOLUME 8.3 fl (7.5-11.1); PLATELET COUNT 247 10^3/uL (134-434); RBC 3.63 M/mm3 (3.60-5.2); RDW 13.8 % (11.6-15.6); WHITE BLOOD COUNT 6.7 K/mm3 (4.0-10.0)
[2023-08-11 07:55] LABS: POTASSIUM 4.8 mmol/L (3.5-5.1)
[2023-08-11 07:58] LABS: ALBUMIN 3.3 g/dl (3.4-5.0); BLOOD UREA NITROGEN 31.6 mg/dL (7-18); CALCIUM 9.6 mg/dL (8.5-10.1); MAGNESIUM 2.1 mg/dL (1.8-2.4)
[2023-08-11 08:01] LABS: CREATININE 1.9 mg/dL (0.55-1.3)
[2023-08-11 08:02] LABS: TOT PROT 6.2 g/dl (6.4-8.2)
[2023-08-11 08:03] LABS: BILIRUBIN,TOTAL 0.3 mg/dL (0.2-1)
[2023-08-11] MEDS: MEROPENEM 1 GM in DEXTROSE 5%-WATER 100 ML IVPB SCH (14:03)
[2023-08-11] MEDS ORDERED: INSULIN (NOVOLOG) ASPART 100 UNITS/ML 10ML VIAL ONE (17:13)
[2023-08-11] MEDS: ACETAMINOPHEN 325 MG TABLET (FP) PO PRN (18:06)
[2023-08-12 07:50] LABS: HEMATOCRIT 31.5 % (32.4-45.2); HEMOGLOBIN 10.5 GM/dL (10.7-15.3); MCH 30.8 pg (25.7-33.7); MCHC 33.4 g/dl (32.0-36.0); MEAN CELL VOLUME 92.5 fl (80-96); MEAN PLT VOLUME 8.4 fl (7.5-11.1); PLATELET COUNT 208 10^3/uL (134-434); RDW 13.5 % (11.6-15.6); WHITE BLOOD COUNT 5.4 K/mm3 (4.0-10.0)
[2023-08-12 08:03] LABS: POTASSIUM 4.5 mmol/L (3.5-5.1)
[2023-08-12 08:14] LABS: CALCIUM 9.8 mg/dL (8.5-10.1)
[2023-08-12 08:15] LABS: MAGNESIUM 2.3 mg/dL (1.8-2.4)
[2023-08-12 08:17] LABS: CREATININE 1.7 mg/dL (0.55-1.3)
[2023-08-12 08:20] LABS: BILIRUBIN,TOTAL 0.4 mg/dL (0.2-1)
[2023-08-12 08:40] VITALS: BP 153/70; PULSE 73; TEMP 98.2
== END 2023-08-12 09:49 | disposition home or self-care (01) | DRG 690 ==
LOC: JER 17:53 → JERBED 21:21 → J7W 08-10 01:08 → OBSVTOIN 08-10 01:14
PROVIDERS: ADMIT Internal Medicine; ATTEND Internal Medicine
DX: N39.0 Urinary tract infection, site not specified (principal); I13.0 Hypertensive heart and chronic kidney disease with heart failure and stage 1 through stage 4 chronic kidney disease, or unspecified chronic kidney disease; I50.32 Chronic diastolic (congestive) heart failure; Z16.12 Extended spectrum beta lactamase (ESBL) resistance; N18.30 Chronic kidney disease, stage 3 unspecified; J45.909 Unspecified asthma, uncomplicated; J44.9 Chronic obstructive pulmonary disease, unspecified; B96.20 Unspecified Escherichia coli [E. coli] as the cause of diseases classified elsewhere; I25.10 Atherosclerotic heart disease of native coronary artery without angina pectoris; E66.9 Obesity, unspecified; E11.22 Type 2 diabetes mellitus with diabetic chronic kidney disease; E78.5 Hyperlipidemia, unspecified; Z68.32 Body mass index [BMI] 32.0-32.9, adult; Z95.5 Presence of coronary angioplasty implant and graft; K21.9 Gastro-esophageal reflux disease without esophagitis
CPT/HCPCS: 36415; 76705-TC; 80053; 81003; 82962; 83690; 83735; 84100; 84484; 85025; 85027; 87086; 87186; 93005; 93010; 99285-25; G0378; J0131; J1644

== ENCOUNTER 2023-12-25 08:59 | Day surgery (SDC) | payer OTHER ==
[2023-12-21 12:29] VITALS: BMI 31.8
[2023-12-25 10:33] LABS: BASO % 0.7 % (0-2.0); EOS % 2.3 % (0-4.5); HEMATOCRIT 32.5 % (32.4-45.2); HEMOGLOBIN 11.1 GM/dL (10.7-15.3); LYMPH % 17.1 % (8-40); MCH 31.3 pg (25.7-33.7); MCHC 34.1 g/dl (32.0-36.0); MEAN CELL VOLUME 91.8 fl (80-96); MEAN PLT VOLUME 8.7 fl (7.5-11.1); MONO % 4.9 % (3.8-10.2); PLATELET COUNT 240 10^3/uL (134-434); RBC 3.54 M/mm3 (3.60-5.2); RDW 13.6 % (11.6-15.6); WHITE BLOOD COUNT 7.4 K/mm3 (4.0-10.0)
[2023-12-25 10:40] LABS: INR 0.96 (0.83-1.09); PROTHROMBIN TIME (PATIENT) 10.9 SEC (9.7-13.0)
[2023-12-25] MEDS ORDERED: MIDAZOLAM HCL 2 MG/2 ML SINGLE DOSE VIAL ONE (11:09)
[2023-12-25] MEDS ORDERED: FENTANYL CITRATE/PF 50 MCG/ML VIAL ONE (11:09)
[2023-12-25] MEDS: SODIUM CHLORIDE 500 ML IV SCH (11:30)
[2023-12-25] MEDS: FENTANYL CITRATE/PF 50 MCG/ML VIAL IVPUSH ONE (12:00)
[2023-12-25] MEDS: MIDAZOLAM HCL 2 MG/2 ML SINGLE DOSE VIAL IVPUSH ONE (12:01)
[2023-12-25] MEDS: ACETAMINOPHEN 1000 MG/100 ML BAG IVPB ONE (13:22)
[2023-12-25 13:57] VITALS: RESP 16
[2023-12-25 16:21] VITALS: BP 120/77; PULSE 70; TEMP 97
== END 2023-12-25 16:05 | disposition home or self-care (01) ==
LOC: JRADIR 08:59
PROVIDERS: ATTEND Internal Medicine
PROC: 0TB13ZX Excision of Left Kidney, Percutaneous Approach, Diagnostic (ICD-10-PCS; principal; 2023-12-25)
DX: I12.9 Hypertensive chronic kidney disease with stage 1 through stage 4 chronic kidney disease, or unspecified chronic kidney disease (principal); E11.22 Type 2 diabetes mellitus with diabetic chronic kidney disease; N18.9 Chronic kidney disease, unspecified
CPT/HCPCS: 36415; 50200; 82962; 85025; 85610; 88300-TC; J0131

== ENCOUNTER 2024-01-07 11:32 | Emergency (ER) | payer OTHER ==
[2024-01-07 11:47] VITALS: BP 127/72; PULSE 86; RESP 17; TEMP 98.3; BMI 32.1
[2024-01-07 15:02] LABS: HIV INTERPRETATION NEGATIVE (NEGATIVE)
== END 2024-01-07 13:22 | disposition home or self-care (01) ==
LOC: JERFT 11:32
PROC: 0H97XZZ Drainage of Abdomen Skin, External Approach (ICD-10-PCS; principal; 2024-01-07)
DX: L02.211 Cutaneous abscess of abdominal wall (principal)
CPT/HCPCS: 10061; 36415; 86803; 87389; 99283-25

== ENCOUNTER 2024-04-02 13:33 | Emergency (ER) | payer OTHER ==
[2024-04-02 13:49] VITALS: RESP 16; TEMP 98.6; BMI 32.9
[2024-04-02] MEDS ORDERED: ONDANSETRON 4 MG/2 ML VIAL ONE (14:53)
[2024-04-02] MEDS: SODIUM CHLORIDE 0.9% 500 ML INFUS.BAG IV ONE (15:45)
[2024-04-02] MEDS: ONDANSETRON 4 MG/2 ML VIAL IVPUSH ONE (15:45)
[2024-04-02 15:48] LABS: BASO % 0.5 % (0-2.0); EOS % 2.2 % (0-4.5); HEMOGLOBIN 9.9 GM/dL (10.7-15.3); LYMPH % 18.1 % (8-40); MCH 30.9 pg (25.7-33.7); MEAN CELL VOLUME 93.5 fl (80-96); MONO % 7.2 % (3.8-10.2); PLATELET COUNT 265 10^3/uL (134-434); RBC 3.21 M/mm3 (3.60-5.2); RDW 13.6 % (11.6-15.6); WHITE BLOOD COUNT 9.2 K/mm3 (4.0-10.0)
[2024-04-02 16:05] LABS: POTASSIUM 3.9 mmol/L (3.5-5.1)
[2024-04-02 16:07] LABS: CALCIUM 8.9 mg/dL (8.5-10.1)
[2024-04-02 16:08] LABS: ALBUMIN 2.9 g/dl (3.4-5.0); BLOOD UREA NITROGEN 37.8 mg/dL (7-18); MAGNESIUM 2.2 mg/dL (1.8-2.4)
[2024-04-02 16:12] LABS: BILIRUBIN,TOTAL 0.2 mg/dL (0.2-1); TOT PROT 5.7 g/dl (6.4-8.2)
[2024-04-02 18:10] VITALS: BP 124/53; PULSE 69
[2024-04-02] MEDS ORDERED: ACETAMINOPHEN INJECTION 100 ML ONE (18:22)
[2024-04-02] MEDS: ACETAMINOPHEN 1000 MG/100 ML BAG IVPB ONE (18:27)
[2024-04-02 18:53] LABS: URINE APPEARANCE CLEAR; URINE COLOR YELLOW; URINE GLUCOSE (UA) 1+ (NEGATIVE)
[2024-04-02 18:54] LABS: EPI CELLS 21.1 /uL (0-25.1); HYALINE CASTS 0.82 /uL (0-3.1); PH,URINE 5.5 (5.0-8.0); URINE BACTERIA 24101.6 /uL (0-1359); URINE BILIRUBIN NEGATIVE (NEGATIVE); URINE KETONE NEGATIVE (NEGATIVE); URINE LEUK ESTERASE NEGATIVE (NEGATIVE); URINE NITRITE POSITIVE (NEGATIVE); URINE PROTEIN 2+ (NEGATIVE); URINE RBC 2 /uL (0-23.9); URINE UROBILINOGEN 0.2 mg/dL (0.2-1.0); URINE WBC 50.1 /uL (0-25.8)
[2024-04-02] MEDS ORDERED: NITROFURANTOIN MACROCRYSTAL 50 MG CAPSULE (FP) ONE (19:45)
[2024-04-02 19:50] LABS: HIV INTERPRETATION NEGATIVE (NEGATIVE)
[2024-04-02] MEDS: NITROFURANTOIN MONOHYD/M-CRYST 100 MG CAPSULE PO ONE (19:50)
== END 2024-04-02 20:09 | disposition home or self-care (01) ==
LOC: JER 13:33
PROC: 3E033NZ Introduction of Analgesics, Hypnotics, Sedatives into Peripheral Vein, Percutaneous Approach (ICD-10-PCS; principal; 2024-04-02)
PROC: 3E033GC Introduction of Other Therapeutic Substance into Peripheral Vein, Percutaneous Approach (ICD-10-PCS; 2024-04-02)
DX: R19.7 Diarrhea, unspecified (principal); R30.0 Dysuria; R10.2 Pelvic and perineal pain; R10.11 Right upper quadrant pain; R11.0 Nausea
CPT/HCPCS: 36415; 74176-TC; 76705-TC; 80053; 81003; 82962; 83690; 83735; 84484; 85025; 86803; 87086; 87186; 87389; 93005; 93010; 96374; 96375; 99285-25; J0131

== ENCOUNTER 2024-09-29 16:28 | Observation (INO) | payer OTHER ==
[2024-09-29] MEDS ORDERED: ACETAMINOPHEN INJECTION 100 ML ONE (17:36)
[2024-09-29] MEDS: ACETAMINOPHEN 1000 MG/100 ML BAG IVPB ONE (17:44)
[2024-09-29 17:49] LABS: ABSOLUTE IMMATURE GRANULOCYTES 0.03 x10^3/uL (0.0-0.031); BASOPHILS # 0.05 x10^3/uL (0.01-0.08); EOSINOPHIL % 1.5 % (0.7-5.8); EOSINOPHILS # 0.15 x10^3/uL (0.04-0.36); HEMATOCRIT 30.4 % (34.1-44.9); HEMOGLOBIN 9.3 g/dL (11.2-15.7); MCHC 30.6 g/dl (32.2-35.5); MEAN CELL VOLUME 99.7 fl (79.4-94.8); MEAN PLT VOLUME 10.2 fl (9.4-12.3); MONOCYTE # 0.58 x10^3/uL (0.24-0.86); PLATELET COUNT 260 x10^3/uL (182-369); RDW 13.3 % (12.3-16.6)
[2024-09-29 17:55] LABS: POTASSIUM 4.5 mmol/L (3.5-5.1)
[2024-09-29 17:56] LABS: CALCIUM 8.6 mg/dL (8.5-10.1)
[2024-09-29 17:57] LABS: ALBUMIN 3.5 g/dl (3.4-5.0); BLOOD UREA NITROGEN 53.6 mg/dL (7-18)
[2024-09-29 18:00] LABS: CREATININE 2.6 mg/dL (0.55-1.3)
[2024-09-29 18:02] LABS: BILIRUBIN,TOTAL 0.2 mg/dL (0.2-1); TOT PROT 6.2 g/dl (6.4-8.2)
[2024-09-29 18:11] LABS: ACTIVATED PTT 43.8 SECONDS (25.2-36.5)
[2024-09-29 19:18] LABS: HIV INTERPRETATION NEGATIVE (NEGATIVE)
[2024-09-29 19:19] LABS: HCV DIAGNOSTIC IN-HOUSE W/RFLX NON-REACTIVE (NONREACTIVE)
[2024-09-29] MEDS ORDERED: NITROGLYCERIN SUBLINGUAL 1/150 0.4 MG TAB ONE (20:13)
[2024-09-29] MEDS: NITROGLYCERIN SUBLINGUAL 1/150 0.4 MG TAB SL ONE (20:28)
[2024-09-29] MEDS ORDERED: ROSUVASTATIN CA 20 MG TABLET ONE (23:40)
[2024-09-29] MEDS ORDERED: MELATONIN 5 MG TABLETS ONE (23:40)
[2024-09-29] MEDS ORDERED: hydrALAZINE HCL 25 MG TABLET (FP) ONE (23:44)
[2024-09-30] MEDS: hydrALAZINE HCL 25 MG TABLET (FP) PO SCH (00:02)
[2024-09-30] MEDS: MELATONIN 5 MG TABLETS PO ONE (00:02)
[2024-09-30] MEDS: ROSUVASTATIN CA 20 MG TABLET PO SCH (00:02)
[2024-09-30] MEDS ORDERED: MORPHINE SULFATE 2 MG/ML SYRINGE ONE (00:12)
[2024-09-30] MEDS: morphine SULFATE 4 MG/ML VIAL IVPUSH PRN (00:20)
[2024-09-30 06:31] LABS: POTASSIUM 4.2 mmol/L (3.5-5.1)
[2024-09-30 06:36] LABS: CALCIUM 9.2 mg/dL (8.5-10.1)
[2024-09-30 06:37] LABS: BLOOD UREA NITROGEN 49.9 mg/dL (7-18)
[2024-09-30 06:39] LABS: CREATININE 2.1 mg/dL (0.55-1.3)
[2024-09-30 06:54] LABS: ABSOLUTE IMMATURE GRANULOCYTES 0.03 x10^3/uL (0.0-0.031); BASOPHILS # 0.06 x10^3/uL (0.01-0.08); EOSINOPHIL % 2.7 % (0.7-5.8); EOSINOPHILS # 0.19 x10^3/uL (0.04-0.36); HEMATOCRIT 30.4 % (34.1-44.9); HEMOGLOBIN 9.1 g/dL (11.2-15.7); MCHC 29.9 g/dl (32.2-35.5); MEAN PLT VOLUME 10.3 fl (9.4-12.3); MONOCYTE % 7.1 % (4.7-12.5); PLATELET COUNT 224 x10^3/uL (182-369); RDW 13.2 % (12.3-16.6)
[2024-09-30] MEDS: ASCORBIC ACID 500 MG TABLET (FP) PO SCH (09:24)
[2024-09-30] MEDS: FENOFIBRIC ACID 45 MG CAP PO SCH (09:24)
[2024-09-30] MEDS: ASPIRIN COATED 81 MG TABLET.EC PO SCH (09:24)
[2024-09-30] MEDS: PANTOPRAZOLE 40 MG TABLET PO SCH (09:24)
[2024-09-30] MEDS: CALCIUM (OYSTER SHELL) 500 MG TABLET (FP) PO SCH (09:24)
[2024-09-30] MEDS ORDERED: VALSARTAN 160 MG TABLET PO SCH (10:00)
[2024-09-30] MEDS ORDERED: PATIENT'S OWN MEDICATION (NON-FORMULARY) (Bempedoic Acid/Ezetimibe [Nexlizet 180-10 Mg Tab PO SCH (10:00)
[2024-09-30] MEDS ORDERED: FINERENONE 10 MG PO SCH (10:00)
[2024-09-30 16:24] VITALS: BMI 34.0
[2024-09-30] MEDS: hydrALAZINE HCL 50 MG TABLET (FP) PO SCH (21:18)
[2024-09-30] MEDS: MELATONIN 5 MG TABLETS PO SCH (21:18)
[2024-10-01 06:46] LABS: ABSOLUTE IMMATURE GRANULOCYTES 0.03 x10^3/uL (0.0-0.031); BASOPHILS # 0.06 x10^3/uL (0.01-0.08); EOSINOPHIL % 3.6 % (0.7-5.8); EOSINOPHILS # 0.29 x10^3/uL (0.04-0.36); HEMATOCRIT 30.3 % (34.1-44.9); HEMOGLOBIN 9.3 g/dL (11.2-15.7); MCHC 30.7 g/dl (32.2-35.5); MEAN CELL VOLUME 98.4 fl (79.4-94.8); MEAN PLT VOLUME 10.4 fl (9.4-12.3); MONOCYTE % 6.2 % (4.7-12.5); PLATELET COUNT 233 x10^3/uL (182-369); RDW 13.2 % (12.3-16.6)
[2024-10-01 07:27] LABS: POTASSIUM 4.4 mmol/L (3.5-5.1)
[2024-10-01 07:35] LABS: CALCIUM 9.6 mg/dL (8.5-10.1)
[2024-10-01 07:37] LABS: BLOOD UREA NITROGEN 45.2 mg/dL (7-18)
[2024-10-01 07:41] LABS: ALBUMIN 3.2 g/dl (3.4-5.0); CREATININE 2.1 mg/dL (0.55-1.3)
[2024-10-01 07:42] LABS: BILIRUBIN,TOTAL 0.2 mg/dL (0.2-1); TOT PROT 5.8 g/dl (6.4-8.2)
[2024-10-01] MEDS: ACETAMINOPHEN 500 MG TABLET (FP) PO PRN (11:09)
[2024-10-01 15:12] VITALS: BP 143/60; PULSE 66; RESP 18; TEMP 98.5
== END 2024-10-01 17:40 | disposition home or self-care (01) ==
LOC: JER 16:28 → JERBED 18:06 → J4W 09-30 15:06
PROVIDERS: ADMIT Internal Medicine; ATTEND Family Medicine
PROC: 3E033NZ Introduction of Analgesics, Hypnotics, Sedatives into Peripheral Vein, Percutaneous Approach (ICD-10-PCS; principal; 2024-09-29)
DX: M94.0 Chondrocostal junction syndrome [Tietze] (principal); I25.10 Atherosclerotic heart disease of native coronary artery without angina pectoris; I50.30 Unspecified diastolic (congestive) heart failure; Z79.4 Long term (current) use of insulin; R60.0 Localized edema; I87.2 Venous insufficiency (chronic) (peripheral); E11.9 Type 2 diabetes mellitus without complications; E78.5 Hyperlipidemia, unspecified; J44.9 Chronic obstructive pulmonary disease, unspecified; N17.9 Acute kidney failure, unspecified; Z98.84 Bariatric surgery status; Z90.79 Acquired absence of other genital organ(s); Z87.891 Personal history of nicotine dependence; N28.1 Cyst of kidney, acquired; Z95.5 Presence of coronary angioplasty implant and graft; Z87.440 Personal history of urinary (tract) infections; Z88.0 Allergy status to penicillin
CPT/HCPCS: 0241U-QW; 36415; 71045-TC-FY; 80048; 80053; 80061; 82962; 83036; 84443; 84484; 85025; 85610; 85730; 86803; 87389; 93005; 93010; 96374; 96375; 96376; 99285-25; G0378; J0131

== ENCOUNTER 2024-10-09 05:32 | Inpatient (IN) | payer OTHER ==
[2024-10-09] MEDS ORDERED: BUPIVACAINE HCL/PF 0.25% (2.5MG/ML) 10 ML VIAL ONE (08:26)
[2024-10-09] MEDS ORDERED: LIDOCAINE HCL/PF 2% SDV 5ML VIAL ONE (11:18)
[2024-10-09] MEDS ORDERED: SUCCINYLCHOLINE CHLORIDE 200 MG/10 ML SYRINGE ONE (11:19)
[2024-10-09] MEDS ORDERED: MIDAZOLAM HCL 2 MG/2 ML SINGLE DOSE VIAL ONE (11:19)
[2024-10-09] MEDS ORDERED: PROPOFOL 20 ML ONE (11:19)
[2024-10-09] MEDS ORDERED: ROCURONIUM BROMIDE 50 MG/5 ML SYRINGE ONE ×2 (11:19→13:05)
[2024-10-09] MEDS: ceFAZolin SODIUM 1 GM VIAL IVPB ONE (11:42)
[2024-10-09] MEDS ORDERED: ceFAZolin SODIUM 1 GM VIAL ONE (11:55)
[2024-10-09] MEDS ORDERED: DEXAMETHASONE SOD PHOSPHATE 4 MG/1 ML VIAL ONE (11:55)
[2024-10-09] MEDS: BUPIVACAINE HCL/PF 0.25% (2.5MG/ML) 10 ML VIAL IJ ONE (12:17)
[2024-10-09] MEDS ORDERED: TRANEXAMIC ACID 1000 MG/10 ML VIAL ONE (12:24)
[2024-10-09] MEDS ORDERED: PHENYLEPHRINE HCL 10 MG/1 ML SINGLE DOSE VIAL ONE (13:44)
[2024-10-09] MEDS ORDERED: ONDANSETRON 4 MG/2 ML VIAL ONE ×2 (16:51→19:14)
[2024-10-09] MEDS ORDERED: KETOROLAC TROMETHAMINE 30 MG/1 ML VIAL ONE ×2 (16:51→18:12)
[2024-10-09] MEDS ORDERED: SUGAMMADEX SODIUM 200 MG/2 ML VIAL ONE (16:52)
[2024-10-09] MEDS ORDERED: PROMETHAZINE HCL 25 MG/1 ML VIAL IVPB PRN (17:18)
[2024-10-09] MEDS: ACETAMINOPHEN 1000 MG/100 ML BAG IVPB ONE (17:30)
[2024-10-09] MEDS: ACETAMINOPHEN 650 MG/20.3 ML ORAL SOLUTION (CUPS) PO SCH (18:09)
[2024-10-09] MEDS: KETOROLAC TROMETHAMINE 15 MG/ML VIAL IVPUSH SCH (18:13)
[2024-10-09] MEDS: LACTATED RINGERS SOLUTION 1,000 ML IV SCH (19:17)
[2024-10-09] MEDS: ONDANSETRON 4 MG/2 ML VIAL IVPUSH PRN (19:17)
[2024-10-09 22:16] LABS: HEMATOCRIT 30.7 % (34.1-44.9); HEMOGLOBIN 9.2 g/dL (11.2-15.7); MEAN CELL VOLUME 102.3 fl (79.4-94.8); MEAN PLT VOLUME 10.6 fl (9.4-12.3); PLATELET COUNT 248 x10^3/uL (182-369); RDW 13.3 % (12.3-16.6)
[2024-10-09 22:34] LABS: POTASSIUM 5.7 mmol/L (3.5-5.1)
[2024-10-09] MEDS: TRANEXAMIC ACID 1000 MG/10 ML VIAL IVPUSH SCH (22:41)
[2024-10-09] MEDS: CEFOXITIN SODIUM 1 GM in DEXTROSE 5%-WATER 100 ML IVPB SCH (22:41)
[2024-10-10 00:07] LABS: CALCIUM 9.3 mg/dL (8.5-10.1)
[2024-10-10 00:08] LABS: BLOOD UREA NITROGEN 63.3 mg/dL (7-18)
[2024-10-10 00:11] LABS: CREATININE 2.6 mg/dL (0.55-1.3)
[2024-10-10] MEDS: CEFOXITIN SODIUM/DEXTROSE,ISO 1 GM/50 ML BAG IVPB SCH (01:52)
[2024-10-10] MEDS ORDERED: DOCUSATE SODIUM 100 MG CAPSULE (FP) PO PRN (09:55)
[2024-10-10] MEDS ORDERED: oxyCODONE HCL 5 MG TABLET PO PRN (09:55)
[2024-10-10] MEDS ORDERED: HYDROmorphone HCl 2 MG/ML VIAL IVPB PRN (09:55)
[2024-10-10] MEDS: ACETAMINOPHEN 1000 MG/100 ML BAG IVPB SCH (10:48)
[2024-10-10] MEDS: CALCIUM GLUC IN NACL, ISO-OSM 1 GM/50 ML BAG IVPB ONE ×2 (11:46→19:35)
[2024-10-10] MEDS: VALSARTAN 160 MG TABLET PO SCH (11:46)
[2024-10-10] MEDS: amLODIPine BESYLATE 5 MG TABLET (FP) PO SCH (11:46)
[2024-10-10] MEDS: PANTOPRAZOLE 40 MG TABLET PO SCH (11:47)
[2024-10-10] MEDS: METOPROLOL SUCCINATE 100 MG, METOPROLOL SUCCINATE 25 MG PO SCH (11:47)
[2024-10-10 12:10] LABS: ABSOLUTE IMMATURE GRANULOCYTES 0.09 x10^3/uL (0.0-0.031); BASOPHILS # 0.02 x10^3/uL (0.01-0.08); HEMATOCRIT 27.2 % (34.1-44.9); MCHC 29.4 g/dl (32.2-35.5); MEAN CELL VOLUME 102.6 fl (79.4-94.8); MEAN PLT VOLUME 10.7 fl (9.4-12.3); MONOCYTE # 0.61 x10^3/uL (0.24-0.86); MONOCYTE % 4.3 % (4.7-12.5); PLATELET COUNT 219 x10^3/uL (182-369); RDW 13.4 % (12.3-16.6)
[2024-10-10 12:42] LABS: POTASSIUM 5.4 mmol/L (3.5-5.1)
[2024-10-10 12:47] LABS: ALBUMIN 2.9 g/dl (3.4-5.0); BLOOD UREA NITROGEN 61.8 mg/dL (7-18); CALCIUM 8.7 mg/dL (8.5-10.1); MAGNESIUM 2.3 mg/dL (1.8-2.4)
[2024-10-10 12:49] LABS: CREATININE 3.3 mg/dL (0.55-1.3)
[2024-10-10 12:50] LABS: PHOSPHOROUS 4.4 mg/dL (2.5-4.9)
[2024-10-10 12:51] LABS: BILIRUBIN,TOTAL 0.3 mg/dL (0.2-1)
[2024-10-10 12:52] LABS: TOT PROT 5.4 g/dl (6.4-8.2)
[2024-10-10] MEDS: hydrALAZINE HCL 50 MG TABLET (FP) PO SCH (13:19)
[2024-10-10] MEDS: oxyCODONE HCL 5 MG TABLET PO PRN (16:00)
[2024-10-10 17:05] LABS: HEMATOCRIT 28.5 % (34.1-44.9); HEMOGLOBIN 8.4 g/dL (11.2-15.7); MCHC 29.5 g/dl (32.2-35.5); MEAN CELL VOLUME 103.6 fl (79.4-94.8); MEAN PLT VOLUME 10.8 fl (9.4-12.3); PLATELET COUNT 261 x10^3/uL (182-369); RDW 13.7 % (12.3-16.6)
[2024-10-10 17:35] LABS: POTASSIUM 5.4 mmol/L (3.5-5.1)
[2024-10-10 17:38] LABS: CALCIUM 9.2 mg/dL (8.5-10.1)
[2024-10-10 17:39] LABS: BLOOD UREA NITROGEN 60.9 mg/dL (7-18)
[2024-10-10] MEDS: SODIUM CHLORIDE 0.45% 1,000 ML IV SCH (17:56)
[2024-10-10] MEDS: INSULIN ASPART SLIDING SCALE (NOVOLOG) 1 VIAL SQ SCH (18:25)
[2024-10-10] MEDS: ROSUVASTATIN CA 40 MG TABLET PO SCH (19:02)
[2024-10-10] MEDS: FINERENONE 10 MG PO SCH (19:02)
[2024-10-10] MEDS: INSULIN DEGLUDEC 100 UNIT/ML SQ SCH (19:03)
[2024-10-10] MEDS: PATIENT'S OWN MEDICATION (NON-FORMULARY) (Bempedoic Acid/Ezetimibe [Nexlizet 180-10 Mg Tab PO SCH (19:03)
[2024-10-10] MEDS: SODIUM ZIRCONIUM CYCLOSILICATE (LOKELMA) 5 GM PACKET PO SCH (19:35)
[2024-10-10] MEDS: HEPARIN NA (PORCINE) 5,000 UNITS/ML 1ML VIAL SQ SCH (19:35)
[2024-10-10] MEDS: INSULIN GLARGINE (LANTUS) 100 UNITS/ML UNITS SQ SCH (21:34)
[2024-10-10] MEDS: ASCORBIC ACID 500 MG TABLET (FP) PO SCH (21:36)
[2024-10-10] MEDS: ROSUVASTATIN CA 20 MG TABLET PO SCH (21:37)
[2024-10-10] MEDS ORDERED: CEFOXITIN SODIUM 1 GM in DEXTROSE 5%-WATER 100 ML IVPB SCH (22:15)
[2024-10-11] MEDS: HYDROmorphone HCL CARPU-JECT 2 MG/1 ML DISP.SYRIN IVPB PRN (06:17)
[2024-10-11] MEDS ORDERED: ACETAMINOPHEN 500 MG TABLET (FP) PO PRN (07:29)
[2024-10-11 09:09] LABS: ABSOLUTE IMMATURE GRANULOCYTES 0.08 x10^3/uL (0.0-0.031); BASOPHILS # 0.06 x10^3/uL (0.01-0.08); EOSINOPHIL % 1.7 % (0.7-5.8); EOSINOPHILS # 0.22 x10^3/uL (0.04-0.36); HEMATOCRIT 29.9 % (34.1-44.9); HEMOGLOBIN 8.7 g/dL (11.2-15.7); MCHC 29.1 g/dl (32.2-35.5); MEAN CELL VOLUME 103.8 fl (79.4-94.8); MEAN PLT VOLUME 10.6 fl (9.4-12.3); MONOCYTE # 0.75 x10^3/uL (0.24-0.86); MONOCYTE % 5.9 % (4.7-12.5); PLATELET COUNT 260 x10^3/uL (182-369); RDW 13.7 % (12.3-16.6)
[2024-10-11 09:53] LABS: POTASSIUM 5.2 mmol/L (3.5-5.1)
[2024-10-11 09:56] LABS: CALCIUM 9.4 mg/dL (8.5-10.1)
[2024-10-11 09:57] LABS: BLOOD UREA NITROGEN 54.7 mg/dL (7-18); MAGNESIUM 2.2 mg/dL (1.8-2.4)
[2024-10-11 10:00] LABS: CREATININE 2.6 mg/dL (0.55-1.3); PHOSPHOROUS 4.3 mg/dL (2.5-4.9)
[2024-10-11 10:02] LABS: BILIRUBIN,TOTAL 0.3 mg/dL (0.2-1); TOT PROT 5.7 g/dl (6.4-8.2)
[2024-10-11] MEDS: diphenhydrAMINE HCL 25 MG CAPSULE (FP) PO ONE (12:27)
[2024-10-11] MEDS ORDERED: HYDROmorphone HCL CARPU-JECT 2 MG/1 ML DISP.SYRIN IVPB PRN (13:11)
[2024-10-11] MEDS: SODIUM CHLORIDE 0.45% 1,000 ML IV SCH (14:00)
[2024-10-11] MEDS: oxyCODONE HCL 5 MG TABLET PO PRN (14:10)
[2024-10-11 15:44] LABS: POTASSIUM 4.8 mmol/L (3.5-5.1)
[2024-10-11 15:46] LABS: BLOOD UREA NITROGEN 54.8 mg/dL (7-18); CALCIUM 9.1 mg/dL (8.5-10.1)
[2024-10-11 15:47] LABS: MAGNESIUM 2.3 mg/dL (1.8-2.4)
[2024-10-11 15:49] LABS: CREATININE 2.3 mg/dL (0.55-1.3)
[2024-10-11 15:50] LABS: PHOSPHOROUS 4.3 mg/dL (2.5-4.9)
[2024-10-11] MEDS: INSULIN ASPART SLIDING SCALE (NOVOLOG) 1 VIAL SQ SCH (17:07)
[2024-10-11] MEDS: HEPARIN NA (PORCINE) 5,000 UNITS/ML 1ML VIAL SQ SCH (17:23)
[2024-10-11] MEDS: INSULIN GLARGINE (LANTUS) 100 UNITS/ML UNITS SQ SCH (21:44)
[2024-10-11] MEDS: hydrALAZINE HCL 50 MG TABLET (FP) PO SCH (21:52)
[2024-10-11] MEDS: ROSUVASTATIN CA 20 MG TABLET PO SCH (21:52)
[2024-10-11] MEDS: ASCORBIC ACID 500 MG TABLET (FP) PO SCH (21:52)
[2024-10-11] MEDS: ACETAMINOPHEN 500 MG TABLET (FP) PO PRN (21:52)
[2024-10-11] MEDS: METOPROLOL SUCCINATE 100 MG, METOPROLOL SUCCINATE 25 MG PO SCH (21:52)
[2024-10-12 07:16] LABS: RDW 13.5 % (12.3-16.6)
[2024-10-12 07:18] LABS: ABSOLUTE IMMATURE GRANULOCYTES 0.07 x10^3/uL (0.0-0.031); BASOPHILS # 0.05 x10^3/uL (0.01-0.08); EOSINOPHIL % 4.3 % (0.7-5.8); EOSINOPHILS # 0.49 x10^3/uL (0.04-0.36); HEMATOCRIT 28.4 % (34.1-44.9); HEMOGLOBIN 8.3 g/dL (11.2-15.7); MCHC 29.2 g/dl (32.2-35.5); MEAN CELL VOLUME 102.2 fl (79.4-94.8); MONOCYTE # 0.61 x10^3/uL (0.24-0.86); MONOCYTE % 5.3 % (4.7-12.5)
[2024-10-12 08:44] LABS: CALCIUM 8.8 mg/dL (8.5-10.1)
[2024-10-12 08:45] LABS: ALBUMIN 2.7 g/dl (3.4-5.0); BLOOD UREA NITROGEN 47.1 mg/dL (7-18); MAGNESIUM 2.4 mg/dL (1.8-2.4)
[2024-10-12 08:48] LABS: PHOSPHOROUS 3.3 mg/dL (2.5-4.9)
[2024-10-12 08:49] LABS: BILIRUBIN,TOTAL 0.2 mg/dL (0.2-1); TOT PROT 5.4 g/dl (6.4-8.2)
[2024-10-12] MEDS: PANTOPRAZOLE 40 MG TABLET PO SCH (10:08)
[2024-10-12] MEDS: SODIUM ZIRCONIUM CYCLOSILICATE (LOKELMA) 5 GM PACKET PO SCH (10:08)
[2024-10-12] MEDS: amLODIPine BESYLATE 5 MG TABLET (FP) PO SCH (10:08)
[2024-10-12] MEDS: DOCUSATE SODIUM 100 MG CAPSULE (FP) PO PRN (21:50)
[2024-10-13 07:31] LABS: ABSOLUTE IMMATURE GRANULOCYTES 0.05 x10^3/uL (0.0-0.031); BASOPHILS # 0.07 x10^3/uL (0.01-0.08); EOSINOPHIL % 5.6 % (0.7-5.8); EOSINOPHILS # 0.57 x10^3/uL (0.04-0.36); HEMATOCRIT 27.5 % (34.1-44.9); MCHC 29.1 g/dl (32.2-35.5); MEAN PLT VOLUME 10.3 fl (9.4-12.3); MONOCYTE # 0.56 x10^3/uL (0.24-0.86); MONOCYTE % 5.5 % (4.7-12.5); PLATELET COUNT 229 x10^3/uL (182-369); RDW 13.3 % (12.3-16.6)
[2024-10-13 07:55] LABS: POTASSIUM 4.3 mmol/L (3.5-5.1)
[2024-10-13 07:59] LABS: CALCIUM 8.4 mg/dL (8.5-10.1); MAGNESIUM 2.1 mg/dL (1.8-2.4)
[2024-10-13 08:00] LABS: ALBUMIN 2.7 g/dl (3.4-5.0); BLOOD UREA NITROGEN 42.7 mg/dL (7-18)
[2024-10-13 08:02] LABS: PHOSPHOROUS 2.9 mg/dL (2.5-4.9)
[2024-10-13 08:04] LABS: BILIRUBIN,TOTAL 0.3 mg/dL (0.2-1); TOT PROT 5.5 g/dl (6.4-8.2)
[2024-10-14 07:48] LABS: ABSOLUTE IMMATURE GRANULOCYTES 0.05 x10^3/uL (0.0-0.031); BASOPHILS # 0.05 x10^3/uL (0.01-0.08); EOSINOPHIL % 5.7 % (0.7-5.8); EOSINOPHILS # 0.47 x10^3/uL (0.04-0.36); HEMATOCRIT 25.8 % (34.1-44.9); HEMOGLOBIN 7.5 g/dL (11.2-15.7); MCHC 29.1 g/dl (32.2-35.5); MEAN CELL VOLUME 101.6 fl (79.4-94.8); MEAN PLT VOLUME 10.6 fl (9.4-12.3); MONOCYTE # 0.59 x10^3/uL (0.24-0.86); MONOCYTE % 7.1 % (4.7-12.5); PLATELET COUNT 209 x10^3/uL (182-369); RDW 13.2 % (12.3-16.6)
[2024-10-14 07:58] LABS: POTASSIUM 4.4 mmol/L (3.5-5.1)
[2024-10-14 08:05] LABS: CALCIUM 8.8 mg/dL (8.5-10.1)
[2024-10-14 08:06] LABS: ALBUMIN 2.5 g/dl (3.4-5.0); MAGNESIUM 1.9 mg/dL (1.8-2.4)
[2024-10-14 08:09] LABS: PHOSPHOROUS 2.8 mg/dL (2.5-4.9)
[2024-10-14 08:10] LABS: BILIRUBIN,TOTAL 0.5 mg/dL (0.2-1); TOT PROT 5.3 g/dl (6.4-8.2)
[2024-10-14 08:22] LABS: CREATININE 1.8 mg/dL (0.55-1.3)
[2024-10-14] MEDS: ACETAMINOPHEN/CAFFEINE/BUTALBITAL 1 TAB PO ONE (09:42)
[2024-10-14] MEDS: ASPIRIN COATED 81 MG TABLET.EC PO SCH (09:47)
[2024-10-14] MEDS ORDERED: HYDROmorphone HCL CARPU-JECT 2 MG/1 ML DISP.SYRIN IVPUSH PRN (18:12)
[2024-10-14] MEDS ORDERED: HYDROmorphone HCL CARPU-JECT 2 MG/1 ML DISP.SYRIN IVPB PRN (18:17)
[2024-10-14] MEDS: HYDROmorphone HCL CARPU-JECT 2 MG/1 ML DISP.SYRIN IVPUSH PRN (18:30)
[2024-10-14] MEDS: oxyCODONE HCL 5 MG TABLET PO PRN (22:04)
[2024-10-15 06:46] LABS: ABSOLUTE IMMATURE GRANULOCYTES 0.06 x10^3/uL (0.0-0.031); BASOPHILS # 0.03 x10^3/uL (0.01-0.08); EOSINOPHIL % 5.5 % (0.7-5.8); EOSINOPHILS # 0.43 x10^3/uL (0.04-0.36); HEMOGLOBIN 7.3 g/dL (11.2-15.7); MCHC 30.4 g/dl (32.2-35.5); MEAN CELL VOLUME 100.4 fl (79.4-94.8); MEAN PLT VOLUME 10.4 fl (9.4-12.3); MONOCYTE # 0.59 x10^3/uL (0.24-0.86); MONOCYTE % 7.5 % (4.7-12.5); PLATELET COUNT 219 x10^3/uL (182-369); RDW 13.1 % (12.3-16.6)
[2024-10-15 07:35] LABS: POTASSIUM 4.4 mmol/L (3.5-5.1)
[2024-10-15 07:37] LABS: CALCIUM 8.7 mg/dL (8.5-10.1)
[2024-10-15 07:38] LABS: BLOOD UREA NITROGEN 29.6 mg/dL (7-18)
[2024-10-15 07:42] LABS: CREATININE 1.6 mg/dL (0.55-1.3)
[2024-10-15] MEDS ORDERED: PATIENT'S OWN MEDICATION (NON-FORMULARY) (Semaglutide [Ozempic] 2 MG/0.75 ML Pen.Injctr) SQ SCH (11:15)
[2024-10-15 11:45] LABS: ALBUMIN 2.6 g/dl (3.4-5.0)
[2024-10-15 11:47] LABS: BILIRUBIN,DIRECT 0.1 mg/dL (0.0-0.2)
[2024-10-15 11:49] LABS: TOT PROT 5.7 g/dl (6.4-8.2)
[2024-10-15 11:50] LABS: BILIRUBIN,TOTAL 0.2 mg/dL (0.2-1)
[2024-10-16] MEDS: INSULIN ASPART SLIDING SCALE (NOVOLOG) 1 VIAL SQ SCH (06:13)
[2024-10-16 07:58] LABS: HEMATOCRIT 23.4 % (34.1-44.9); HEMOGLOBIN 7.1 g/dL (11.2-15.7); MCHC 30.3 g/dl (32.2-35.5); MEAN CELL VOLUME 98.7 fl (79.4-94.8); MEAN PLT VOLUME 10.7 fl (9.4-12.3); PLATELET COUNT 236 x10^3/uL (182-369); RDW 13.3 % (12.3-16.6)
[2024-10-16 08:09] LABS: POTASSIUM 4.3 mmol/L (3.5-5.1)
[2024-10-16 08:14] LABS: ALBUMIN 2.5 g/dl (3.4-5.0); BLOOD UREA NITROGEN 24.5 mg/dL (7-18); MAGNESIUM 1.7 mg/dL (1.8-2.4)
[2024-10-16 08:17] LABS: CREATININE 1.5 mg/dL (0.55-1.3); PHOSPHOROUS 2.5 mg/dL (2.5-4.9)
[2024-10-16 08:18] LABS: BILIRUBIN,TOTAL 0.3 mg/dL (0.2-1); TOT PROT 5.4 g/dl (6.4-8.2)
[2024-10-16 10:19] LABS: EPI CELLS 17 /uL (0-25.1); HYALINE CASTS 2 /uL (0-3.1); URINE APPEARANCE CLEAR; URINE BACTERIA 19 /uL (0-1359); URINE BILIRUBIN NEGATIVE (NEGATIVE); URINE COLOR YELLOW; URINE GLUCOSE (UA) NEGATIVE (NEGATIVE); URINE KETONE NEGATIVE (NEGATIVE); URINE LEUK ESTERASE NEGATIVE (NEGATIVE); URINE NITRITE NEGATIVE (NEGATIVE); URINE PROTEIN 3+ (NEGATIVE); URINE RBC 39 /uL (0-23.9); URINE UROBILINOGEN 0.2 mg/dL (0.2-1.0); URINE WBC 15 /uL (0-25.8)
[2024-10-16] MEDS: CEFTRIAXONE 1 G/50 ML PREMIX 50 ML IVPB SCH (13:56)
[2024-10-16] MEDS: SUCRALFATE 1 GM/10 ML UNIT DOSE CUPS PO SCH (21:35)
[2024-10-16 21:47] LABS: HEMATOCRIT 25.3 % (34.1-44.9); HEMOGLOBIN 7.8 g/dL (11.2-15.7); MCHC 30.8 g/dl (32.2-35.5); MEAN CELL VOLUME 98.1 fl (79.4-94.8); MEAN PLT VOLUME 9.8 fl (9.4-12.3); PLATELET COUNT 266 x10^3/uL (182-369); RDW 13.5 % (12.3-16.6)
[2024-10-16] MEDS: MAGNESIUM 2GM/50ML STERILE WATER IVPB IVPB ONE (23:28)
[2024-10-17 06:17] LABS: EPI CELLS 7 /uL (0-25.1); HYALINE CASTS 1 /uL (0-3.1); URINE APPEARANCE CLEAR; URINE BACTERIA 1 /uL (0-1359); URINE BILIRUBIN NEGATIVE (NEGATIVE); URINE COLOR YELLOW; URINE GLUCOSE (UA) NEGATIVE (NEGATIVE); URINE KETONE NEGATIVE (NEGATIVE); URINE LEUK ESTERASE NEGATIVE (NEGATIVE); URINE NITRITE NEGATIVE (NEGATIVE); URINE PROTEIN 3+ (NEGATIVE); URINE RBC 14 /uL (0-23.9); URINE UROBILINOGEN 0.2 mg/dL (0.2-1.0)
[2024-10-17 07:08] LABS: HEMATOCRIT 23.2 % (34.1-44.9); HEMOGLOBIN 7.1 g/dL (11.2-15.7); MCHC 30.6 g/dl (32.2-35.5); MEAN CELL VOLUME 97.5 fl (79.4-94.8); PLATELET COUNT 251 x10^3/uL (182-369); RDW 13.3 % (12.3-16.6)
[2024-10-17 07:28] LABS: POTASSIUM 3.9 mmol/L (3.5-5.1)
[2024-10-17 07:34] LABS: ALBUMIN 2.5 g/dl (3.4-5.0); CALCIUM 9.3 mg/dL (8.5-10.1)
[2024-10-17 07:35] LABS: MAGNESIUM 1.9 mg/dL (1.8-2.4)
[2024-10-17 07:37] LABS: CREATININE 1.5 mg/dL (0.55-1.3)
[2024-10-17 07:38] LABS: PHOSPHOROUS 2.7 mg/dL (2.5-4.9)
[2024-10-17 07:39] LABS: BILIRUBIN,TOTAL 0.3 mg/dL (0.2-1); TOT PROT 5.4 g/dl (6.4-8.2)
[2024-10-17 12:21] VITALS: BMI 35.6
[2024-10-18 09:30] LABS: HEMATOCRIT 27.4 % (34.1-44.9); HEMOGLOBIN 8.4 g/dL (11.2-15.7); MCHC 30.7 g/dl (32.2-35.5); MEAN CELL VOLUME 97.9 fl (79.4-94.8); MEAN PLT VOLUME 10.7 fl (9.4-12.3); PLATELET COUNT 232 x10^3/uL (182-369); RDW 13.6 % (12.3-16.6)
[2024-10-18] MEDS ORDERED: FUROSEMIDE 40 MG/4 ML INJECTABLE VIAL IVPUSH ONE (09:44)
[2024-10-18 09:46] LABS: POTASSIUM 3.8 mmol/L (3.5-5.1)
[2024-10-18 09:48] LABS: CALCIUM 9.4 mg/dL (8.5-10.1)
[2024-10-18 09:49] LABS: ALBUMIN 2.7 g/dl (3.4-5.0); BLOOD UREA NITROGEN 16.1 mg/dL (7-18)
[2024-10-18 09:50] LABS: MAGNESIUM 1.7 mg/dL (1.8-2.4)
[2024-10-18 09:52] LABS: CREATININE 1.6 mg/dL (0.55-1.3); PHOSPHOROUS 2.7 mg/dL (2.5-4.9)
[2024-10-18 09:53] LABS: BILIRUBIN,TOTAL 0.2 mg/dL (0.2-1)
[2024-10-18] MEDS: MAGNESIUM 2GM/50ML STERILE WATER IVPB IVPB ONE (12:00)
[2024-10-18] MEDS: FUROSEMIDE 40 MG/4 ML INJECTABLE VIAL IVPUSH ONE (12:29)
[2024-10-19 06:54] LABS: HEMATOCRIT 23.9 % (34.1-44.9); HEMOGLOBIN 7.4 g/dL (11.2-15.7); MEAN CELL VOLUME 97.6 fl (79.4-94.8); MEAN PLT VOLUME 9.8 fl (9.4-12.3); PLATELET COUNT 278 x10^3/uL (182-369); RDW 13.5 % (12.3-16.6)
[2024-10-19 07:13] LABS: POTASSIUM 3.5 mmol/L (3.5-5.1)
[2024-10-19 07:15] LABS: CALCIUM 8.9 mg/dL (8.5-10.1)
[2024-10-19 07:16] LABS: ALBUMIN 2.5 g/dl (3.4-5.0); BLOOD UREA NITROGEN 18.8 mg/dL (7-18); MAGNESIUM 1.9 mg/dL (1.8-2.4)
[2024-10-19 07:19] LABS: CREATININE 1.5 mg/dL (0.55-1.3); PHOSPHOROUS 3.2 mg/dL (2.5-4.9)
[2024-10-19 07:20] LABS: BILIRUBIN,TOTAL 0.1 mg/dL (0.2-1); TOT PROT 5.4 g/dl (6.4-8.2)
[2024-10-19] MEDS: FUROSEMIDE 20 MG TABLET (FP) PO ONE (12:41)
[2024-10-19 15:49] VITALS: BP 145/70; PULSE 65; RESP 19; TEMP 98.6
== END 2024-10-19 17:30 | disposition home or self-care (01) | DRG 614 ==
LOC: J2C 05:32 → EDSTATUS 11:00 → J8W 19:56 → J4W 10-11 13:11
PROVIDERS: ADMIT Surgery; ATTEND Internal Medicine
PROC: 0FT44ZZ Resection of Gallbladder, Percutaneous Endoscopic Approach (ICD-10-PCS; 2024-10-09)
PROC: 8E0W4CZ Robotic Assisted Procedure of Trunk Region, Percutaneous Endoscopic Approach (ICD-10-PCS; 2024-10-09)
PROC: 0GB Endocrine System, Excision (ICD-10-PCS; principal; 2024-10-09 11:00)
DX: E27.8 Other specified disorders of adrenal gland (principal); J90 Pleural effusion, not elsewhere classified; J98.11 Atelectasis; K80.10 Calculus of gallbladder with chronic cholecystitis without obstruction; N17.9 Acute kidney failure, unspecified; J44.9 Chronic obstructive pulmonary disease, unspecified; J45.909 Unspecified asthma, uncomplicated; E11.22 Type 2 diabetes mellitus with diabetic chronic kidney disease; I12.9 Hypertensive chronic kidney disease with stage 1 through stage 4 chronic kidney disease, or unspecified chronic kidney disease; K21.9 Gastro-esophageal reflux disease without esophagitis; N18.9 Chronic kidney disease, unspecified; R00.2 Palpitations; E66.09 Other obesity due to excess calories; Z68.35 Body mass index [BMI] 35.0-35.9, adult; I25.10 Atherosclerotic heart disease of native coronary artery without angina pectoris; D63.1 Anemia in chronic kidney disease; E78.2 Mixed hyperlipidemia; E87.8 Other disorders of electrolyte and fluid balance, not elsewhere classified; G47.33 Obstructive sleep apnea (adult) (pediatric); R80.9 Proteinuria, unspecified; E87.5 Hyperkalemia; K57.90 Diverticulosis of intestine, part unspecified, without perforation or abscess without bleeding; Z95.5 Presence of coronary angioplasty implant and graft
CPT/HCPCS: 36415; 71045-TC-FY; 74150-TC; 80048; 80053; 80076; 81003; 82533; 82962; 83690; 83735; 84100; 85025; 85027; 86922; 87086; 88304-TC; 88307-TC; 93005; 93010; 94010; 94760; 97116-GP; 97161-GP